=== PATIENT | male | born 1950 | race African-American/Black ===

== ENCOUNTER 2016-10-10 16:06 | Inpatient (IN) | payer MEDICARE, OTHER ==
[2016-10-10] VITALS (9 sets, daily range): BP systolic 116–174; BP diastolic 61–107; PULSE 113–134; RESP 20–22; TEMP 99–104.8; O2SAT 96–99
[~2016-10-10] VITALS: Ht 182.9 cm; Wt 106.7 kg
[~2016-10-10 16:06] MED LIST: APIX5TAB PO; BRIM.2%O EACH EYE; CALC0.25 PO; CHLOR25 PO; DILT90TA PO; FERR324T4 PO; FURO20 PO; HYDR50TA15 PO; LACTCAP6 PO; MAGN400T PO; METO100T PO; MYCO360 PO; PRED10 PO; PROT40TA PO; SALI1SPR8 EACH NARE; TAB-TAB PO; TACR1 PO; VITA100018 PO
--- NOTE | 2016-10-10 16:12 | PD ---
HPI Chief Complaint: ams Time Seen by Provider: 16:12 Travel History International Travel<30 days: No Contact w/Intl Traveler<30days: No Traveled to known affect area: No History of Present Illness HPI 66-year-old male with history of hypertension, CAD with stent placement, A. fib , previous CVA with right sided residual weakness, end-stage renal disease status post renal transplant/rejection, on hemodialysis, presents to the emergency department for evaluation of altered mental status. Patient was at hemodialysis today when he was noted to be altered. He was not responding appropriately. EMS was called and the patient was brought to the emergency department department. Patient is unable to offer any history. At this point his baseline mental status is unknown. Last hospitalization was 2013 and he resided in a long term at that time. We are unable to obtain any further information currently. PFSH Past Medical History Arthritis: Yes (R/HAND ) Atrial Fibrillation: Yes Autoimmune Disease: No Blood Disorders: No Anxiety: Yes Depression: Yes Heart Rhythm Problems: Yes Cancer: No Cardiac Catheterization: Yes Cardiovascular Problems: Yes High Cholesterol: Yes Chest Pain: Yes Congestive Heart Failure: No Cerebrovascular Accident: Yes (08/2013 CVA, RIGHT SIDE WEAKNESS) Coronary Artery Disease: Yes Diabetes: No (RENAL MANIFESTATION) Dialysis: Yes (HISTORY OF; NOT SINCE KIDNEY TRANSPLANT) Diverticulitis: Yes Endocrine: Yes Gastrointestinal Disorders: Yes GERD: Yes Glaucoma: Yes Gout: Yes Genitourinary: Yes (RIGHT KIDNEY TRANSPLANT) Headaches: No Hepatitis: No Hiatal Hernia: No Hypertension: Yes Immune Disorder: No Kidney Stones: No Musculoskeletal: Yes Neurologic: Yes (BELLS PALSY A CHILD) Psychiatric: Yes (SCHIZOPHRENIA) Reproductive: No Respiratory: No Migraines: No Myocardial Infarction: No Renal Failure: Yes Schizophrenia: Yes Seizures: No Shingles: Yes Thyroid Disease: No Ulcer: No Past Surgical History Abdominal Surgery: No AICD: No Appendectomy: No Arteriovenous Shunt: Yes (LEFT UPPER ARM X2) Cardiac Surgery: No (CATH WITH STENT PLACEMENT) Cholecystectomy: No Coronary Stent: Yes (X 1) Ear Surgery: No Endocrine Surgery: No Eye Surgery: No Genitourinary Surgery: Yes (KIDNEY TRANSPLANT) Insulin Pump: No Joint Replacement: No Oral Surgery: No Pacemaker: No Thoracic Surgery: No Other Surgery: Yes (KIDNEY TRANSPLANT) Social History Alcohol Use: No Tobacco Use: No (FORMER SMOKER) Substance Use: Yes (COCAINE LAST TIME USED 1989) Allergies-Medications (Allergen,Severity, Reaction): Coded Allergies: *MDRO Multi-Drug Resistant Organism (Verified Allergy, Unknown, 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 Eyes are open and he does track class in the room. SKIN: Warm and dry. Roxanol Left upper extremity fistula with positive thrill and bruit HEAD: Atraumatic. Normocephalic. EYES: Pupils equal and round. No scleral icterus. No injection or drainage. Pupils are equal and reactive. ENT: No nasal bleeding or discharge. Mucous membranes pink and moist. NECK: Trachea midline. No JVD. CARDIOVASCULAR: Tachycardic rate and irregular rhythm. RESPIRATORY: No accessory muscle use. Diminished, possibly due to inspiratory effort. Breath sounds equal bilaterally. GASTROINTESTINAL: Abdomen rotund, soft, no guarding. MUSCULOSKELETAL: No obvious deformities. No clubbing. No cyanosis. No edema. NEUROLOGICAL: Awake. I am unable to assess cranial nerves.. Patient is currently nonverbal. Data Data Last Documented VS Vital Signs Date Time Temp Pulse Resp B/P Pulse Ox O2 Delivery O2 Flow Rate FiO2 10/10/16 17:00 134 22 134/73 98 Room Air 10/10/16 16:06 104.8 Orders Electrocardiogram (10/10/16 16:13) Complete Blood Count With Diff (10/10/16 16:13) Comprehensive Metabolic Panel (10/10/16 16:13) Prothrombin Time / Inr (Pt) (10/10/16 16:13) Act Partial Throm Time (Ptt) (10/10/16 16:13) Lactic Acid Sepsis Protocol (10/10/16 16:13) Magnesium (Mg) (10/10/16 16:13) Phosphorus (Po4) (10/10/16 16:13) Urinalysis - C+S If Indicated (10/10/16 16:13) Influenzae A/B Antigen (10/10/16 16:13) Blood Culture (10/10/16 16:13) Chest, Single Ap (10/10/16 16:13) Blood Glucose (12/29/16 16:13) Ecg Monitoring (10/10/16 16:13) Iv Access Insert/Monitor (10/10/16 16:13) Oximetry (10/10/16 16:13) Oxygen Administration (10/10/16 16:13) Ct Brain W/O Iv Contrast(Rout) (10/10/16 16:13) Vancomycin Inj (Vancomycin Inj) (10/10/16 16:13) Piperacil-Tazo 2.25 Gm Premix (Zosyn 2.2 (10/10/16 16:15) Troponin I (10/10/16 16:38) Sodium Chlor 0.9% 1000 Ml Inj (Ns 1000 M (10/10/16 16:45) Sodium Chlor 0.9% 1000 Ml Inj (Ns 1000 M (10/10/16 16:45) Acetaminophen Supp (Tylenol Supp) (10/10/16 16:45) Insert Temp Sensing [place] Cath (10/10/16 16:40) Ammonia (10/10/16 16:44) Haloperidol Inj (Haldol Inj) (10/10/16 17:45) Labs Laboratory Tests Test 10/10/16 16:30 White Blood Count 15.2 TH/MM3 Red Blood Count 2.68 MIL/MM3 Hemoglobin 8.1 GM/DL Hematocrit 24.7 % Mean Corpuscular Volume 92.4 FL Mean Corpuscular Hemoglobin 30.3 PG Mean Corpuscular Hemoglobin 32.8 % Concent Red Cell Distribution Width 17.3 % Platelet Count 386 TH/MM3 Mean Platelet Volume 7.3 FL Neutrophils (%) (Auto) 86.2 % Lymphocytes (%) (Auto) 3.7 % Monocytes (%) (Auto) 9.2 % Eosinophils (%) (Auto) 0.7 % Basophils (%) (Auto) 0.2 % Neutrophils # (Auto) 13.1 TH/MM3 Lymphocytes # (Auto) 0.6 TH/MM3 Monocytes # (Auto) 1.4 TH/MM3 Eosinophils # (Auto) 0.1 TH/MM3 Basophils # (Auto) 0.0 TH/MM3 CBC Comment DIFF FINAL Differential Comment Prothrombin Time 13.4 SEC Prothromb Time International 1.2 RATIO Ratio Activated Partial 38.8 SEC Thromboplast Time Sodium Level 133 MEQ/L Potassium Level 3.8 MEQ/L Chloride Level 95 MEQ/L Carbon Dioxide Level 29.8 MEQ/L Anion Gap 8 MEQ/L Blood Urea Nitrogen 13 MG/DL Creatinine 3.28 MG/DL Estimat Glomerular Filtration 23 ML/MIN Rate Random Glucose 120 MG/DL Lactic Acid Level 2.3 mmol/L Calcium Level 8.1 MG/DL Phosphorus Level 0.5 MG/DL Magnesium Level 1.9 MG/DL Total Bilirubin 0.5 MG/DL Aspartate Amino Transf 16 U/L (AST/SGOT) Alanine Aminotransferase 22 U/L (ALT/SGPT) Alkaline Phosphatase 129 U/L Ammonia 17 MCMOL/L Total Protein 8.3 GM/DL Albumin 2.3 GM/DL [facility] Medical Decision Making Medical Screen Exam Complete: Yes Emergency Medical Condition: Yes Medical Record Reviewed: Yes Differential Diagnosis Sepsis versus electrolytic abnormality versus CVA versus ICH versus medication side effect Narrative Course 66-year-old male presents to the emergency department for evaluation of altered mental status following hemodialysis. Patient is awake here in the emergency department however he is nonverbal and not following commands. He is in A. fib with RVR. EKG is reviewed by my attending physician Dr. Horvath. Otherwise vital signs are stable. She has rectal temperature of 104.9. Sepsis protocol was initiated. Patient is given Tylenol per rectum. Dr. Horvath my attending physician has been at the bedside tending to the patient. Chest x-ray shows underinflation with atelectasis versus consolidation in the right lung base. WBC is with leukocytosis of 15.2 and neutrophilia of 86.2% Hemoglobin is 8.1. CMP is without acute concern. Creatinine has actually decreased when compared to previous labs to 3.28 from 7.57 My attending physician has spoken with the bridge builder. Patient will be admitted to the bridge builder service. Sepsis Criteria SIRS Criteria (2 or more): Temp > 100.9 or < 96.8, Heart rate over 90, WBC > 71229, < 4000 or > 10% bands Sepsis Criteria (SIRS+source): Infect source susp/known Severe Sepsis (+one): Organ Dysfunction, Lactate >2 Diagnosis Primary Impression: Altered mental status Qualified Code: R41.82 - Altered mental status, unspecified altered mental status type Additional Impressions: Sepsis Qualified Code: A41.9 - Sepsis, due to unspecified organism Pneumonia Qualified Code: J18.1 - Pneumonia of right lower lobe due to infectious organism Atrial fibrillation with rapid ventricular response Anemia in chronic kidney disease History of kidney transplant Admitting Information Admitting Physician Requests: Admit Condition: Stable Lisa Alvarez Oct 10, 2016 16:12
[2016-10-10] MEDS ORDERED: VANCOMYCIN INJ 1,000 MG in SODIUM CHLOR 0.9% 250 ML INJ 250 ML IV STA (16:13)
[2016-10-10] MEDS ORDERED: PIPERACIL-TAZO 2.25 GM PREMIX 50 ML IV ONE (16:15)
[2016-10-10] MEDS ORDERED: ACETAMINOPHEN 650 MG SUPP RECTAL ONE (16:45)
[2016-10-10] MEDS ORDERED: SODIUM CHLOR 0.9% 1000 ML INJ 1,000 ML IV ONE ×2 (16:45)
[2016-10-10 17:15] LABS: AUTOMATED NEUTROPHIL # 13.1 TH/MM3 (1.8-7.7); BASOPHIL % 0.2 % (0.0-2.0); EOSINOPHIL # 0.1 TH/MM3 (0-0.4); EOSINOPHIL % 0.7 % (0.0-4.0); HEMATOCRIT 24.7 % (39.0-51.0); HEMO FLAGS DIFF FINAL; LYMPH % 3.7 % (9.0-44.0); LYMPHOCYTE # 0.6 TH/MM3 (1.0-4.8); MEAN CELL VOLUME 92.4 FL (80.0-100.0); MEAN CORPUSCULAR HEMOGLOBIN 30.3 PG (27.0-34.0); MEAN CORPUSCULAR HGB CONC 32.8 % (32.0-36.0); MONO % 9.2 % (0.0-8.0); NEUT % 86.2 % (16.0-70.0); PLATELET COUNT 386 TH/MM3 (150-450); RED BLOOD COUNT 2.68 MIL/MM3 (4.50-5.90); RED CELL DISTRIBUTION WIDTH 17.3 % (11.6-17.2); WHITE BLOOD COUNT 15.2 TH/MM3 (4.0-11.0)
--- NOTE | 2016-10-10 17:20 | RADRPT ---
EXAM DATE/TIME: 10/10/2016 16:50 [facility] COMPARISON: CHEST SINGLE AP, September 13, 2013, 20:38. INDICATIONS : Fever. MEDICAL HISTORY : None. SURGICAL HISTORY : None. ENCOUNTER: Initial ACUITY: 1 day PAIN SCORE: 5/10 LOCATION: Bilateral chest FINDINGS: 2 AP views of the chest demonstrate stable mild enlargement of the cardiac silhouette. Lungs are unde rinflated and with opacity at the right lung base. No definite effusion or pneumothorax identified. T here are lines overlying the patient. No acute osseous abnormality is visualized. CONCLUSION: Underinflated examination with atelectasis versus mild consolidation at the right lung base. Cardiac silhouette remains mildly enlarged. Norm Mccartney MD on October 10, 2016 at 17:17 Board Certified Radiologist. This report was verified electronically.
[2016-10-10 17:28] LABS: ANION GAP 8 MEQ/L (5-15); BICARBONATE 29.8 MEQ/L (21.0-32.0); BLOOD UREA NITROGEN 13 MG/DL (7-18); CHLORIDE 95 MEQ/L (98-107); GLOMERULAR FILTRATION RATE 23 ML/MIN (>89); MAGNESIUM 1.9 MG/DL (1.5-2.5); POTASSIUM 3.8 MEQ/L (3.5-5.1); SODIUM (NA) 133 MEQ/L (136-145)
[2016-10-10 17:32] LABS: ALKALINE PHOSPHATASE 129 U/L (45-117); ALT (GPT) 22 U/L (12-78); APTT (PATIENT) 38.8 SEC (24.3-30.1); AST (GOT) 16 U/L (15-37); INTERNATIONAL NORMALIZED RATIO 1.2 RATIO; PROTHROMBIN TIME - PATIENT 13.4 SEC (9.8-11.6); TOTAL BILIRUBIN ADULT 0.5 MG/DL (0.2-1.0)
[2016-10-10] MEDS ORDERED: RESP: ALBUTEROL 2.5 MG/IPRATROPIUM 0.5 MG NEB (PRN) INH (17:45)
[2016-10-10] MEDS ORDERED: DEXTROSE 50% IN WATER 50 ML VIAL(D50) IV PUSH PRN (17:45)
[2016-10-10] MEDS ORDERED: MISCELLANEOUS NURSING INFORMATION XX SCH (17:45)
[2016-10-10] MEDS ORDERED: HALOPERIDOL LACTATE 5 MG/ML AMP IM ONE (17:45)
[2016-10-10] MEDS ORDERED: SODIUM CHLORIDE 0.9% FLUSH 5 ML FLUSH IV FLUSH PRN (17:45)
[2016-10-10] MEDS ORDERED: CHLORHEXIDINE GLUCONATE 2 % 1 PACK (2 CLOTHS) TOP PRN (17:45)
[2016-10-10] MEDS ORDERED: ONDANSETRON HCL 4 MG/2 ML VIAL IV PRN (17:45)
[2016-10-10] MEDS ORDERED: HEPARIN SODIUM - SQ 10,000 UNITS/ML VIAL SQ SCH (17:45)
[2016-10-10] MEDS ORDERED: ACETAMINOPHEN 325 MG TAB PO PRN (17:45)
[2016-10-10] MEDS ORDERED: NEPRLIQ PO (17:46)
[2016-10-10] MEDS ORDERED: DULC10SU3 RECTAL (17:46)
[2016-10-10] MEDS ORDERED: CHLO25TA5 PO (17:46)
[2016-10-10] MEDS ORDERED: NOVOLOGP2 SQ (17:46)
[2016-10-10] MEDS ORDERED: FLEEENE3 PR (17:46)
[2016-10-10] MEDS ORDERED: SEVEL800 PO (17:46)
[2016-10-10] MEDS ORDERED: TERA2CAP3 PO (17:46)
[2016-10-10] MEDS ORDERED: TRAM50TA PO (17:46)
[2016-10-10] MEDS ORDERED: BRIM.15%O EACH EYE (17:46)
[2016-10-10] MEDS ORDERED: MILKSUS PO (17:46)
[2016-10-10] MEDS ORDERED: METO100T PO (17:46)
[2016-10-10] MEDS ORDERED: CINA30 PO (17:46)
[2016-10-10] MEDS ORDERED: NEPHTAB3 PO (17:46)
[2016-10-10] MEDS ORDERED: CLON.1 PO (17:46)
[2016-10-10] MEDS ORDERED: APIX5TAB PO (17:46)
[2016-10-10] MEDS ORDERED: BENA25TA3 PO (17:46)
[2016-10-10] MEDS ORDERED: SENN8.6T8 PO (17:46)
[2016-10-10] MEDS ORDERED: DILT90TA PO (17:46)
[2016-10-10] MEDS ORDERED: ACIDCAP2 PO (17:46)
[2016-10-10] MEDS ORDERED: [UNRECOGNIZED DRUG - OTHER] EACH NARE (17:46)
--- NOTE | 2016-10-10 17:58 | PD ---
Data Data Last Documented VS Vital Signs Date Time Temp Pulse Resp B/P Pulse Ox O2 Delivery O2 Flow Rate FiO2 10/10/16 17:00 134 22 134/73 98 Room Air 10/10/16 16:06 104.8 Orders Electrocardiogram (10/10/16 16:13) Complete Blood Count With Diff (10/10/16 16:13) Comprehensive Metabolic Panel (10/10/16 16:13) Prothrombin Time / Inr (Pt) (10/10/16 16:13) Act Partial Throm Time (Ptt) (10/10/16 16:13) Lactic Acid Sepsis Protocol (10/10/16 16:13) Magnesium (Mg) (10/10/16 16:13) Phosphorus (Po4) (10/10/16 16:13) Urinalysis - C+S If Indicated (10/10/16 16:13) Influenzae A/B Antigen (10/10/16 16:13) Blood Culture (10/10/16 16:13) Chest, Single Ap (10/10/16 16:13) Blood Glucose (10/10/16 16:13) Ecg Monitoring (10/10/16 16:13) Iv Access Insert/Monitor (10/10/16 16:13) Oximetry (10/10/16 16:13) Oxygen Administration (10/10/16 16:13) Ct Brain W/O Iv Contrast(Rout) (10/10/16 16:13) Vancomycin Inj (Vancomycin Inj) (10/10/16 16:13) Piperacil-Tazo 2.25 Gm Premix (Zosyn 2.2 (10/10/16 16:15) Troponin I (10/10/16 16:38) Sodium Chlor 0.9% 1000 Ml Inj (Ns 1000 M (10/10/16 16:45) Sodium Chlor 0.9% 1000 Ml Inj (Ns 1000 M (10/10/16 16:45) Acetaminophen Supp (Tylenol Supp) (10/10/16 16:45) Insert Temp Sensing [place] Cath (10/10/16 16:40) Ammonia (10/10/16 16:44) Haloperidol Inj (Haldol Inj) (10/10/16 17:45) Admit Order (Ed Use Only) (10/10/16 17:42) Haloperidol Inj (Haldol Inj) (10/10/16 17:45) Labs Laboratory Tests Test 10/10/16 10/10/16 16:30 17:00 White Blood Count 15.2 TH/MM3 Red Blood Count 2.68 MIL/MM3 Hemoglobin 8.1 GM/DL Hematocrit 24.7 % Mean Corpuscular Volume 92.4 FL Mean Corpuscular Hemoglobin 30.3 PG Mean Corpuscular Hemoglobin 32.8 % Concent Red Cell Distribution Width 17.3 % Platelet Count 386 TH/MM3 Mean Platelet Volume 7.3 FL Neutrophils (%) (Auto) 86.2 % Lymphocytes (%) (Auto) 3.7 % Monocytes (%) (Auto) 9.2 % Eosinophils (%) (Auto) 0.7 % Basophils (%) (Auto) 0.2 % Neutrophils # (Auto) 13.1 TH/MM3 Lymphocytes # (Auto) 0.6 TH/MM3 Monocytes # (Auto) 1.4 TH/MM3 Eosinophils # (Auto) 0.1 TH/MM3 Basophils # (Auto) 0.0 TH/MM3 CBC Comment DIFF FINAL Differential Comment Prothrombin Time 13.4 SEC Prothromb Time International 1.2 RATIO Ratio Activated Partial 38.8 SEC Thromboplast Time Sodium Level 133 MEQ/L Potassium Level 3.8 MEQ/L Chloride Level 95 MEQ/L Carbon Dioxide Level 29.8 MEQ/L Anion Gap 8 MEQ/L Blood Urea Nitrogen 13 MG/DL Creatinine 3.28 MG/DL Estimat Glomerular Filtration 23 ML/MIN Rate Random Glucose 120 MG/DL Lactic Acid Level 2.3 mmol/L Calcium Level 8.1 MG/DL Phosphorus Level 0.5 MG/DL Magnesium Level 1.9 MG/DL Total Bilirubin 0.5 MG/DL Aspartate Amino Transf 16 U/L (AST/SGOT) Alanine Aminotransferase 22 U/L (ALT/SGPT) Alkaline Phosphatase 129 U/L Ammonia 17 MCMOL/L Troponin I LESS THAN 0.02 NG/ML Total Protein 8.3 GM/DL Albumin 2.3 GM/DL Urine Color RED Urine Turbidity CLOUDY Urine pH 7.5 Urine Specific [place] 1.017 Urine Protein 100 mg/dL Urine Glucose (UA) NEG mg/dL Urine Ketones NEG mg/dL Urine Occult Blood LARGE Urine Nitrite NEG Urine Bilirubin NEG Urine Urobilinogen LESS THAN 2.0 MG/DL Urine Leukocyte Esterase LARGE Urine RBC /hpf Urine WBC /hpf Urine WBC Clumps MANY Urine Squamous Epithelial 4 /hpf Cells Urine Calcium Oxalate Crystals MANY /hpf Microscopic Urinalysis Comment CATH-CULTURE IND MDM Supervised Visit with LISA: Yes Narrative Course I, Dr. Horvath, have reviewed the advance practice practitioner's documentation and am in agreement, met with the patient face to face, made the diagnosis, and the medical decision making was done by me. *My assessment and Findings: Patient is 66-year-old male presents today from dialysis where he was found to be febrile with altered mental status. According to EMS patient was lucid and afebrile when he started dialysis and then slowly progress to altered mental status. On arrival is temperature is 100.2 Fahrenheit by EMS. He is altered and will not even answer orientation questions. GCS of GCS E4,M6,V3-4= 13-14. Patient does move all 4 extremities he has a pneumonia on his chest x-ray. He has 4 out of 4 surge criteria lactic acid is only 2.2. He is toxic encephalopathy by definition. Started on vancomycin and Zosyn in the ER 2 L fluid bolus is been started and patient will be reassessed after words. His lactic acid is 2.2 and I think is fair to limit his fluid resuscitation given his history of hemodialysis-dependent renal failure. Patient was discussed with Dr. Napier early in his ER evaluation. He will be given Haldol as well as Benadryl to help sedate him for CAT scan. Dr. Napier and I did discuss intubation to aid his workup however at this time the patient is protecting his airway and we will defer intubation at this time. Critical Care Narrative Aggregate critical care time was 35 minutes. Time to perform other separately billable procedures was not included in the critical care time. My time did not include minutes spent treating any other patients simultaneously or on activities that did not directly contribute to the patient's treatment. The services I provided to this patient were to treat and/or prevent clinically significant deterioration that could result in: , disability, organ failure I provided critical care services requiring my management, as noted below: Chart data review, documentation time, medication orders and management, vital sign assessments/reviewing monitor data, ordering and reviewing lab tests, ordering and interpreting/reviewing x-rays and diagnostic studies, care of the patient and discussion of the patient with the admitting physicians. Diagnosis Primary Impression: Severe sepsis Additional Impressions: Toxic encephalopathy Altered mental status Qualified Code: R41.82 - Altered mental status, unspecified altered mental status type Atrial fibrillation with rapid ventricular response Pneumonia Qualified Code: J18.1 - Pneumonia of right lower lobe due to infectious organism Tachycardia Sepsis syndrome Sepsis Qualified Code: A41.9 - Sepsis, due to unspecified organism Agitation Admitting Information Admitting Physician Requests: Admit Condition: Naseem Monaco MD Oct 10, 2016 17:58
[2016-10-10] MEDS ORDERED: chlorproMAZINE HCL 25 MG TAB PO SCH (18:00)
[2016-10-10] MEDS ORDERED: SEVELAMER CARBONATE 800 MG TAB PO SCH (18:00)
[2016-10-10] MEDS ORDERED: Vancomycin Consult Pharmacy 1 EA OTHER SCH (18:00)
[2016-10-10 18:07] LABS: BLOOD, URINE LARGE (NEG); CALCIUM OXALATE CRYSTALS,URINE MANY /hpf; GLUCOSE,URINE NEG (NEG); KETONE, URINE NEG (NEG); NITRITE,URINE NEG (NEG); PH, URINE 7.5 (5.0-8.5); SQUAMOUS EPITHELIAL CELL URINE 4 /hpf (0-5)
[2016-10-10 18:12] LABS: COMMENT (UR) CATH-CULTURE IND; CULTURE IF INDICATED CATH CULTURE IND; URINE COLOR RED (YELLW/STRAW)
--- NOTE | 2016-10-10 18:39 | HHI.HP ---
HPI Service Critical Care Medicine Primary Care Physician Unknown Admission Diagnosis AMS; severe sepsis (pneumonia); ESRD; Afib w RVR Diagnosis: Chief Complaint: altered mental status Travel History International Travel<30 Days: No Contact w/Intl Traveler <30 Da: No Traveled to Known Affected Are: No History of Present Illness 66-year-old male with history of hypertension, CAD with stent placement, A. fib , previous CVA with right sided residual weakness, end-stage renal disease status post renal transplant/rejection, on hemodialysis, presents to the emergency department for evaluation of altered mental status. Patient was at hemodialysis today when he was noted to be altered. He was not responding appropriately. EMS was called and the patient was brought to the emergency department department. Patient is unable to offer any history. At this point his baseline mental status is unknown. Last hospitalization was 2013 and he resided in a retirement at that time. We are unable to obtain any further information currently. Review of Systems ROS Limitations: Clinical Condition, Altered Mental Status Past Family Social History Allergies: Coded Allergies: *MDRO Multi-Drug Resistant Organism (Verified Allergy, Unknown, 10/10/16) MRSA Past Medical History Unobtainable secondary to patient's clinical condition. 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 per chart review, the patient is on Xarelto, presumably for a.fib. Active Ordered Medications See MAR Family History Unobtainable secondary to clinical condition Social History unobtainable. per chart review, denied etoh, former smoker, former cocaine use before 1989. Physical Exam Vital Signs Vital Signs Date Time Temp Pulse Resp B/P Pulse Ox O2 Delivery O2 Flow Rate FiO2 10/10/16 18:00 100.9 128 22 135/61 98 Room Air 10/10/16 17:00 134 22 134/73 98 Room Air 10/10/16 16:06 104.8 129 20 139/72 96 10/10/16 16:06 104.8 128 22 134/73 98 Room Air 10/10/16 16:06 136 22 98 Room Air Physical Exam GENERAL: Elderly male, lying in bed, very restless, agitated, in moderate distress. HEENT: Normocephalic. Atraumatic. Pupils equally round and reactive. Mucous membranes moist. NECK: Trachea is midline. There is no JVD. There is no meningismus. CHEST: Tachypneic. Equal chest rise. SPO2 96% on room air. Clear to auscultation. CARDIOVASCULAR: Tachycardic rate, irregularly irregular rhythm. No appreciable murmurs ABDOMEN: Soft, obese, nontender, nondistended. No guarding. MUSCULOSKELETAL: Large left AV fistula with good palpable thrill. No peripheral edema. Distal pulses 2+. NEUROLOGICAL: RASS +1, CAM positive. Intermittently follows commands. Moves all extremities spontaneously. No focal deficits Laboratory Laboratory Tests Test 10/10/16 10/10/16 16:30 17:00 White Blood Count 15.2 Red Blood Count 2.68 Hemoglobin 8.1 Hematocrit 24.7 Mean Corpuscular Volume 92.4 Mean Corpuscular Hemoglobin 30.3 Mean Corpuscular Hemoglobin 32.8 Concent Red Cell Distribution Width 17.3 Platelet Count 386 Mean Platelet Volume 7.3 Neutrophils (%) (Auto) 86.2 Lymphocytes (%) (Auto) 3.7 Monocytes (%) (Auto) 9.2 Eosinophils (%) (Auto) 0.7 Basophils (%) (Auto) 0.2 Neutrophils # (Auto) 13.1 Lymphocytes # (Auto) 0.6 Monocytes # (Auto) 1.4 Eosinophils # (Auto) 0.1 Basophils # (Auto) 0.0 CBC Comment DIFF FINAL Differential Comment Prothrombin Time 13.4 Prothromb Time International 1.2 Ratio Activated Partial 38.8 Thromboplast Time Sodium Level 133 Potassium Level 3.8 Chloride Level 95 Carbon Dioxide Level 29.8 Anion Gap 8 Blood Urea Nitrogen 13 Creatinine 3.28 Estimat Glomerular Filtration 23 Rate Random Glucose 120 Lactic Acid Level 2.3 Calcium Level 8.1 Phosphorus Level 0.5 Magnesium Level 1.9 Total Bilirubin 0.5 Aspartate Amino Transf 16 (AST/SGOT) Alanine Aminotransferase 22 (ALT/SGPT) Alkaline Phosphatase 129 Ammonia 17 Troponin I LESS THAN 0.02 Total Protein 8.3 Albumin 2.3 Urine Color RED Urine Turbidity CLOUDY Urine pH 7.5 Urine Specific [place] 1.017 Urine Protein 100 Urine Glucose (UA) NEG Urine Ketones NEG Urine Occult Blood LARGE Urine Nitrite NEG Urine Bilirubin NEG Urine Urobilinogen LESS THAN 2.0 Urine Leukocyte Esterase LARGE Urine RBC Urine WBC Urine WBC Clumps MANY Urine Squamous Epithelial 4 Cells Urine Calcium Oxalate Crystals MANY Microscopic Urinalysis Comment CATH-CULTURE IND Date/Time Procedure Status Source Growth 10/10/16 17:00 Urine Culture Received Urine Catheterized Urine Pending 10/10/16 16:30 Aerobic Blood Culture Received Blood Peripheral Pending 10/10/16 16:30 Anaerobic Blood Culture Received Blood Peripheral Pending Result Diagram: 10/10/16 1630 10/10/16 1630 Assessment and Plan Assessment and Plan Assessment: This is a 66-year-old male with history of end-stage renal disease on hemodialysis who presented from dialysis clinic with new onset fever, tachycardia, altered mental status. This is all very suspicious for sepsis with metabolic encephalopathy. He does not have an oxygen requirement so a healthcare associated pneumonia would be unlikely. He also does not appear to be coughing. His UA is grossly positive and has been sent for culture. We've sent blood cultures. Initially in the emergency department there is concern over her lack of adequate IV access for resuscitation and central venous access was considered. I went down to bedside to evaluate the patient and immediately placed a 14-gauge peripheral IV in the left saphenous which we are adequately using for resuscitation. Unfortunately, I do not know much about the patient since he did not come with any records. If he truly has a renal transplant, then he may be immunosuppressed, and we may need to consider other options for infectious sources. I will attempt to obtain records from his outside facility. Otherwise, this patient with end-stage renal disease, coronary disease, atrial fibrillation, now with what appears to be severe sepsis is critically ill this time and could very easily decompensate not admitted to NICU with appropriate antibiotic and IV fluid resuscitation therapy. He remains very critically ill. Plan by systems: Neurologic: Acute agitated delirium Metabolic encephalopathy Possible schizophrenia based on documented past medical history Hold long-acting sedating meds Haldol 5 mg IV every 4 hours when necessary for agitation Every hour neuro checks Stat head CT Likely septic in origin We will follow-up medical records. If He truly does have schizophrenia, we will attempt to place him back on his home meds Respiratory: Atelectasis Wean oxygen by nasal cannula for goal SPO2 greater than 92%. Currently on room air. Incentive spirometer to bedside EZ Pap and a cappella Cardiovascular: Atrial fibrillation Severe sepsis Coronary artery disease Status post 2 L normal saline in the ER Start maintenance fluids normal saline at 125 an hour Hold metoprolol and diltiazem the setting of severe sepsis Tachycardia is likely SIRS response. Continue home Xarelto Renal: End-stage renal disease on hemodialysis Had HD today. Will consult nephrology to follow along. -- Strict I/Os FEN/GI: Acute protein calorie malnutritionmild Intravascular hypovolemia Severe hypophosphatemia Hold hold phosphorus binder Nothing by mouth Nursing bedside swallow assessment. In the morning we may consider advancing to clear liquid diet, but in the setting of severe sepsis, we will keep patient nothing by mouth Volume resuscitation as described above Daily BMP, phosphorus Heme/ID: Anemia of chronic disease Leukocytosis Urinary tract infection Possible bacteremia Anticoagulation for atrial fibrillation Vancomycin with pharmacy dosing Zosyn 2.25 g IV every 8 Blood, urine, sputum cultures Does not meet transfusion triggers at this time Daily CBC Continue Xarelto Endocrine: Hyperglycemia of critical illness -- SSI, medium scale, every 6 hours Prophylaxis: GI Prophylaxis Does not need evidence based criteria for GI prophylaxis at this time DVT Prophylaxis -- SCDs Home Xarelto Lines: Peripheral IVs. He has 2 large-bore IVs which are adequate for resuscitation. We will reevaluate. He may need central access in the future. Dispo: Admit to the ICU. He remains critically ill. This patient remains critically ill with one or more organ systems which are or may become a threat to life. I have spent in excess of [ ] minutes discontinuously in the care and management of this patient. This time is exclusive of procedures, and includes, but is not limited to, evaluation of the patient, review of the medical record, discussions with family, consultants, nursing staff, or respiratory therapy, and documentation in the medical record. Code Status Full Code Melvin Duron MD Oct 10, 2016 18:39
[2016-10-10] MEDS ORDERED: diphenhydrAMINE HCL 50 MG/ML VIAL IV PUSH ONE (18:45)
[2016-10-10 19:03] LABS: LACTIC ACID GHOST NOT REPORTABLE
[2016-10-10] MEDS: SODIUM CHLOR 0.9% 1000 ML INJ 1,000 ML IV SCH (19:49)
[2016-10-10] MEDS: INSULIN NovoLIN REGULAR SUPPLEMENTAL SCALE SQ SCH (19:52)
[2016-10-10] MEDS ORDERED: VANCOMYCIN 1,000 MG/NS 250 ML IV ONE ×2 (20:00)
[2016-10-10] MEDS ORDERED: SODIUM PHOSPHATE INJ 30 MMOL in SODIUM CHLOR 0.9% 250 ML INJ 250 ML IV ONE (20:00)
[2016-10-10] MEDS: RESP: ALBUTEROL 2.5 MG/IPRATROPIUM 0.5 MG NEB (SCH) INH (20:09)
[2016-10-10] MEDS: APIXABAN 5 MG TABLET PO SCH (21:00)
[2016-10-10] MEDS: SODIUM CHLORIDE 0.9% FLUSH 5 ML FLUSH IV FLUSH SCH (22:44)
[2016-10-11] VITALS (14 sets, daily range): BP systolic 111–161; BP diastolic 64–92; PULSE 97–130; RESP 30–40; TEMP 99–100.1; O2SAT 91–100
[2016-10-11] MEDS ORDERED: DILTIAZEM HCL 25 MG/5 ML VIAL IVP ONE (01:00)
[2016-10-11] MEDS: PIPERACIL-TAZO 2.25 GM PREMIX 50 ML IV SCH ×3 (01:17→18:06)
[2016-10-11] MEDS: DILTIAZEM INJ 125 MG in SODIUM CHLORIDE 0.9% INJ 100 ML IV SCH ×3 (01:32→17:55)
[2016-10-11] MEDS: SODIUM CHLOR 0.9% 1000 ML INJ 1,000 ML IV SCH ×2 (01:32→09:43)
[2016-10-11] MEDS: CHLORHEXIDINE GLUCONATE 2 % 1 PACK (2 CLOTHS) TOP SCH (01:32)
[2016-10-11] MEDS: HALOPERIDOL LACTATE 5 MG/ML AMP IV PRN ×3 (02:24→18:15)
[2016-10-11] MEDS: RESP: ALBUTEROL 2.5 MG/IPRATROPIUM 0.5 MG NEB (SCH) INH ×4 (03:53→20:32)
[2016-10-11] MEDS: INSULIN NovoLIN REGULAR SUPPLEMENTAL SCALE SQ SCH ×6 (04:00→20:00)
[2016-10-11 08:36] LABS: HEMATOCRIT 24.2 % (39.0-51.0); MEAN CELL VOLUME 92.8 FL (80.0-100.0); MEAN CORPUSCULAR HEMOGLOBIN 29.4 PG (27.0-34.0); MEAN CORPUSCULAR HGB CONC 31.7 % (32.0-36.0); PLATELET COUNT 352 TH/MM3 (150-450); RED BLOOD COUNT 2.61 MIL/MM3 (4.50-5.90); RED CELL DISTRIBUTION WIDTH 17.3 % (11.6-17.2); REVIEW FLAG FINAL; WHITE BLOOD COUNT 13.4 TH/MM3 (4.0-11.0)
[2016-10-11] MEDS ORDERED: ACETAMINOPHEN 1000 MG/100 ML VIAL IV PRN ×2 (08:45→09:00)
[2016-10-11 08:50] LABS: BICARBONATE 28.8 MEQ/L (21.0-32.0); POTASSIUM 3.5 MEQ/L (3.5-5.1)
[2016-10-11] MEDS: APIXABAN 5 MG TABLET PO SCH ×2 (09:00→21:00)
[2016-10-11] MEDS: SODIUM CHLORIDE 0.9% FLUSH 5 ML FLUSH IV FLUSH SCH ×2 (09:26→21:57)
--- NOTE | 2016-10-11 10:33 | HHI.CCPN ---
Subjective Remarks/Hospital Course Subjective: 10/11: worsening oxygenation overnight. maintenance fluids stopped. this morning less agitated. still tachycardic, and started on diltiazem drip for rate control in the setting of afib RVR and sepsis. Objective Vital Signs Date Time Temp Pulse Resp B/P Pulse Ox O2 Delivery O2 Flow Rate FiO2 10/11/16 08:39 98 Nasal Cannula 2.00 10/11/16 06:00 117 10/11/16 04:00 100.1 30 135/92 Result Diagram: 10/11/1681410/11/16814 Objective Remarks GENERAL: Elderly male, lying in bed, agitated HEENT: Normocephalic. Atraumatic. Pupils equally round and reactive. Mucous membranes moist. NECK: Trachea is midline. There is no JVD. There is no meningismus. CHEST: Tachypneic. Equal chest rise. some coarse rales at the bases. CARDIOVASCULAR: Tachycardic rate, irregularly irregular rhythm. No appreciable murmurs ABDOMEN: Soft, obese, nontender, nondistended. No guarding. MUSCULOSKELETAL: Large left AV fistula with good palpable thrill. No peripheral edema. Distal pulses 2+. NEUROLOGICAL: RASS +1, CAM positive. Intermittently follows commands. Moves all extremities spontaneously. No focal deficits A/P Assessment and Plan Assessment: This is a 66-year-old male with history of end-stage renal disease on hemodialysis who presented from dialysis clinic with new onset fever, tachycardia, altered mental status. This is all very suspicious for sepsis with metabolic encephalopathy. He continues to be at very high risk of decompensation and , and his increasing oxygen requirement today, his A.Fib with RVR, and his ongoing sepsis all continue to be life-threatening for him. He remains critically ill and we have not made improvements as I would have expected or hoped. I will discuss with nephrology, and he may require repeat dialysis again today to help with volume management. Plan by systems: Neurologic: Acute agitated delirium Metabolic encephalopathy Possible schizophrenia based on documented past medical history Hold long-acting sedating meds Haldol 5 mg IV every 4 hours when necessary for agitation Every hour neuro checks Stat head CT ordered 10/10 has not yet been done. will obtain today. Likely septic in origin psych consult from 2012 recommended prn haldol for agitation, but no overt diagnosis of schizophrenia that we can find. Respiratory: Atelectasis Hypoxemia Wean oxygen by nasal cannula for goal SPO2 greater than 92%. --likely starting with early volume overload secondary to re-mobilization of resuscitative fluids needed for sepsis. Incentive spirometer to bedside EZ Pap and a cappella Cardiovascular: Atrial fibrillation with rapid ventricular response Severe sepsis Coronary artery disease d/c MIVF. restart home diltiazem and metoprolol. \ --continue dilt drip, goal HR < 120. Tachycardia is likely SIRS response. Continue home Xarelto Renal: End-stage renal disease on hemodialysis Had HD yesterday. Nephrology consulted. he may need HD again today for volume management in the acute sepsis/post-sepsis fluid shifts. -- Strict I/Os FEN/GI: Acute protein calorie malnutritionmild Intravascular hypovolemia Severe hypophosphatemia- resolving Hold hold phosphorus binder Nothing by mouth Nursing bedside swallow assessment. still not awake enough to advance diet. will monitor. Daily BMP, phosphorus Heme/ID: Anemia of chronic disease Leukocytosis Urinary tract infection Possible bacteremia Anticoagulation for atrial fibrillation Vancomycin with pharmacy dosing Zosyn 2.25 g IV every 8 Blood, urine, sputum cultures pending Does not meet transfusion triggers at this time Daily CBC Continue Xarelto Endocrine: Hyperglycemia of critical illness -- SSI, medium scale, every 6 hours Prophylaxis: GI Prophylaxis Does not need evidence based criteria for GI prophylaxis at this time DVT Prophylaxis -- SCDs Home Xarelto Lines: Peripheral IVs. He has 2 large-bore IVs which are adequate for resuscitation. We will reevaluate. He may need central access in the future. Dispo: remain in the ICU. He remains critically ill. This patient remains critically ill with one or more organ systems which are or may become a threat to life. I have spent in excess of 44 minutes discontinuously in the care and management of this patient. This time is exclusive of procedures, and includes, but is not limited to, evaluation of the patient, review of the medical record, discussions with family, consultants, nursing staff, or respiratory therapy, and documentation in the medical record. Melvin Duron MD Oct 11, 2016 10:33
--- NOTE | 2016-10-11 11:49 | RADRPT ---
EXAM DATE/TIME: 10/11/2016 11:22 [facility] COMPARISON: CT BRAIN W/O CONTRAST, August 31, 2013, 18:30. INDICATIONS : Altered mental status. Confusion. RADIATION DOSE: 44.73 CTDIvol (mGy) MEDICAL HISTORY : Cardiovascular disease. Hypertension. Diabetes mellitus type 2. SURGICAL HISTORY : None. ENCOUNTER: Initial ACUITY: 1 day PAIN SCALE: 2/10 LOCATION: cranial TECHNIQUE: Multiple contiguous axial images were obtained of the head. Using automated exposure control and adj ustment of the mA and/or kV according to patient size, radiation dose was kept as low as reasonably a chievable to obtain optimal diagnostic quality images. FINDINGS: CEREBRUM: The ventricles are normal for age. There is stable bilateral cortical atrophy. No evidence of midlin e shift, mass lesion, hemorrhage or acute infarction. No extra-axial fluid collections are seen. POSTERIOR FOSSA: The cerebellum and brainstem are intact. The 4th ventricle is midline. The cerebellopontine angle i s unremarkable. EXTRACRANIAL: The visualized portion of the orbits is intact. SKULL: The calvaria is intact. No evidence of skull fracture. CONCLUSION: 1. Stable bilateral cortical atrophy. 2. No new or significant changes compared to the prior study from 2012. Scooter Zavala MD on October 11, 2016 at 11:46 Board Certified Radiologist. This report was verified electronically.
[2016-10-11] MEDS: DILTIAZEM HCL 90 MG TAB PO SCH ×3 (11:50→18:09)
[2016-10-11] MEDS: METOPROLOL TARTRATE 100 MG TAB PO SCH ×3 (11:50→22:00)
[2016-10-11] MEDS ORDERED: DILTIAZEM HCL 90 MG TAB PO SCH (13:00)
[2016-10-11] MEDS ORDERED: SODIUM CHLOR 0.9% 1000 ML INJ 1,000 ML IV PRN ×3 (13:21)
[2016-10-11] MEDS ORDERED: ACETAMINOPHEN 325 MG TAB PO PRN (13:30)
[2016-10-11] MEDS ORDERED: cloNIDine HCL 0.1 MG TAB PO PRN (13:30)
[2016-10-11] MEDS ORDERED: HEPARIN SODIUM - IV 10,000 UNITS/10 ML VIAL IVF PRN (13:30)
[2016-10-11] MEDS ORDERED: ONDANSETRON HCL 4 MG/2 ML VIAL IV PRN (13:30)
[2016-10-11] MEDS ORDERED: GENTAMICIN SULFATE (DIALYSIS USE ONLY) 20 MG/2 ML VIAL IV PRN (13:30)
[2016-10-11] MEDS ORDERED: SODIUM CHLORIDE 0.9% FLUSH 5 ML FLUSH IVF PRN (13:30)
[2016-10-11] MEDS ORDERED: VANCOMYCIN INJ 1,000 MG in SODIUM CHLOR 0.9% 250 ML INJ 250 ML IV SCH (13:30)
[2016-10-11] MEDS ORDERED: ALBUMIN HUMAN 25% 25 GM/100 ML BAGP IV PRN (13:30)
[2016-10-11] MEDS ORDERED: HEPARIN SODIUM - IV 10,000 UNITS/10 ML VIAL PRN (13:30)
[2016-10-11] MEDS ORDERED: NITROGLYCERIN 0.4 MG SL 25 TABS/BTL SL PRN (13:30)
[2016-10-11] MEDS ORDERED: diphenhydrAMINE HCL 25 MG CAP PO PRN (13:30)
[2016-10-11] MEDS ORDERED: MANNITOL 12.5 GM/50 ML VIAL IV PRN (13:30)
--- NOTE | 2016-10-11 13:33 | PD.CONS ---
HPI Service Nephrology Consult Requested By Dr. Duron Reason for Consult ESRD on HD Primary Care Physician Unknown History of Present Illness The patient is a 66 yo AA male who was brought to this facility via EMS as it was noted that he had altered mentation at his outpatient dialysis unit. He is obtunded presently and all information was gathered from previous records. 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 Last HD was yesterday as per records, but uncertain how long treatment time was , nor if any recently missed sessions. He has a LUE AVF. UA was indicative of UTI---UCx pending at the present. BCx negative x24h. Being treated empirically with Vanc & Zosyn. 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 GERD Glaucoma Gout Hypertension Schizophrenia Past Surgical History LUE AVF PTCA Kidney transplant Reported Medications Reported Meds & Active Scripts Active Reported Tramadol (Tramadol HCl) 50 Mg Tab 50 Mg PO Q8H PRN Terazosin (Terazosin HCl) 2 Mg Cap 2 Mg PO HS Nephro-[place] (B-Complex W/ C & Folic Acid) 1 Tab 1 Tab PO DAILY Milk of Magnesia Liq (Magnesium Hydroxide) 400 Mg/5 Ml Susp 30 Ml PO DAILY PRN Metoprolol Tartrate 100 Mg Tab 100 Mg PO Q8HR Sensipar (Cinacalcet) 30 Mg Tab 30 Mg PO DAILY With Dinner Senna S (Sennosides-Docusate Sodium) 8.6-50 Mg Tab 2 Tab PO HS Renvela (Sevelamer Carbonate) 800 Mg Tab 2,400 Mg PO TID With meals. Give 2 tablets (1,600mg) with snacks Fleet Enema Rectal (Sodium Phosphates Rectal) 7-19 Gm/118 Ml Enem 1 Applic [place] DIRECTED PRN Eliquis (Apixaban) 5 Mg Tab 5 Mg PO BID [Sea Salt Nasal [place]] 1 [place] EACH NARE BID Novolog Inj (Insulin Aspart) 1,000 Unit/10 Ml Vial 0 SQ DIRECTED Sliding Scale as directed. Nepro (Nutritional Supplements) 1 Liq Liq 1 Can PO DAILY Diltiazem (Diltiazem HCl) 90 Mg Tab 90 Mg PO TID Catapres (Clonidine) 0.1 Mg Tab 0.1 Mg PO Q6HR PRN Chlorpromazine HCl 25 Mg Tab 25 Mg PO TID Dulcolax Supp (Bisacodyl) 10 Mg Supp 10 Mg RECTAL DAILY PRN Benadryl Allergy (Diphenhydramine HCl) 25 Mg Tab 25 Mg PO Q8HR PRN Alphagan P Opth Drops (Brimonidine Tartrate) 0.15% Soln 1 Drop EACH EYE HS Acidophilus/Pectin (Lactobacillus Acidophilus-Pect) 1 Cap Cap 1 Cap PO BID Active Ordered Medications Current Medications Medications (Trade) Dose Ordered Sig/Dannielle Route Start Time Stop Time Status Last Admin (Haldol Inj) 5 mg Q4H PRN IV 10/10/16 17:45 10/11/16 07:34 (D50w (Vial) Inj) 25 ml UNSCH PRN IV PUSH 10/10/16 17:45 (NovoLIN R SUPPLEMENTAL SCALE) 1 Q4HR SQ 10/10/16 20:00 (NS Flush) 2 ml UNSCH PRN IV FLUSH 10/10/16 17:45 (NS Flush) 2 ml BID IV FLUSH 10/10/16 21:00 10/11/16 09:26 (Tylenol) 650 mg Q6H PRN PO 10/10/16 17:45 (Zofran Inj) 4 mg Q6H PRN IV 10/10/16 17:45 Miscellaneous Information 1 Q361D XX 10/10/16 17:45 (Chlorhexidine 2% Cloth) 3 pack Taper DAILY@04 TOP 10/11/16 04:00 10/07/17 03:59 10/11/16 01:32 Chlorhexidine Gluconate 3 pack 3 pack UNSCH PRN TOP 10/10/16 17:45 (Zosyn 2.25 Gm Premix) 50 ml @ 100 mls/hr Q8H IV 10/11/16 02:00 10/11/16 09:39 Apixaban 5 mg 5 mg BID PO 10/10/16 21:00 (Cardizem Inj/NS Inj) 125 ml @ 0 mls/hr TITRATE IV 10/11/16 01:00 10/11/16 09:28 (Thorazine Inj) 25 mg Q8HR IV 10/11/16 09:00 10/11/16 13:16 (Ofirmev Inj) 650 mg Q6HR PRN IV 10/11/16 09:00 (Cardizem) 90 mg TID PO 10/11/16 10:30 10/11/16 13:15 (Lopressor) 100 mg Q8HR PO 10/11/16 11:00 10/11/16 11:50 Family History Unobtainable Social History Unobtainable (Bessie Cesar) Physical Exam Vital Signs Vital Signs Date Time Temp Pulse Resp B/P Pulse Ox O2 Delivery O2 Flow Rate FiO2 10/11/16 12:00 105 10/11/16 12:00 99.0 105 35 139/78 100 10/11/16 10:00 104 10/11/16 08:39 98 Nasal Cannula 2.00 10/11/16 08:00 99.1 98 40 138/79 95 10/11/16 08:00 98 10/11/16 06:00 117 10/11/16 04:00 100.1 115 30 135/92 91 10/11/16 04:00 115 10/11/16 02:00 124 10/11/16 00:00 127 10/11/16 00:00 99.0 127 31 161/87 98 10/10/16 22:00 114 10/10/16 21:49 99.2 123 20 174/107 98 10/10/16 20:11 99 Nasal Cannula 2.00 10/10/16 20:00 99.0 113 22 130/85 99 Nasal Cannula 2 10/10/16 19:00 100.4 116 22 116/61 99 Nasal Cannula 2 10/10/16 18:50 97 Nasal Cannula 2 10/10/16 18:30 122 20 136/80 99 Room Air 10/10/16 18:00 100.9 128 22 135/61 98 Room Air 10/10/16 17:00 134 22 134/73 98 Room Air 10/10/16 16:06 104.8 129 20 139/72 96 10/10/16 16:06 104.8 128 22 134/73 98 Room Air 10/10/16 16:06 136 22 98 Room Air Physical Exam GENERAL: Laying in bed. Tachypneic, tachycardic. Not arousable. SKIN: Warm and dry. HEAD: Atraumatic. Normocephalic. EYES: Pupils equal and round. No scleral icterus. No injection or drainage. ENT: No nasal bleeding or discharge. Mucous membranes pink and moist. NECK: Trachea midline. No JVD. CARDIOVASCULAR: Regular rate and rhythm. RESPIRATORY: Tachypnea. R lung base with crackles and rhonchi. Diminished otherwise throughout. GASTROINTESTINAL: Abdomen soft, but mildly distended. MUSCULOSKELETAL: Extremities without clubbing. Trace edema bilat hips NEUROLOGICAL: Obtunded PSYCHIATRIC: Obtunded Laboratory Laboratory Tests Test 10/10/16 10/10/16 10/10/16 10/10/16 16:30 17:00 20:00 21:39 White Blood Count 15.2 Red Blood Count 2.68 Hemoglobin 8.1 Hematocrit 24.7 Mean Corpuscular Volume 92.4 Mean Corpuscular Hemoglobin 30.3 Mean Corpuscular Hemoglobin 32.8 Concent Red Cell Distribution Width 17.3 Platelet Count 386 Mean Platelet Volume 7.3 Neutrophils (%) (Auto) 86.2 Lymphocytes (%) (Auto) 3.7 Monocytes (%) (Auto) 9.2 Eosinophils (%) (Auto) 0.7 Basophils (%) (Auto) 0.2 Neutrophils # (Auto) 13.1 Lymphocytes # (Auto) 0.6 Monocytes # (Auto) 1.4 Eosinophils # (Auto) 0.1 Basophils # (Auto) 0.0 CBC Comment DIFF FINAL Differential Comment Prothrombin Time 13.4 Prothromb Time International 1.2 Ratio Activated Partial 38.8 Thromboplast Time Sodium Level 133 Potassium Level 3.8 Chloride Level 95 Carbon Dioxide Level 29.8 Anion Gap 8 Blood Urea Nitrogen 13 Creatinine 3.28 Estimat Glomerular Filtration 23 Rate Random Glucose 120 Lactic Acid Level 2.3 1.5 Calcium Level 8.1 Phosphorus Level 0.5 Magnesium Level 1.9 Total Bilirubin 0.5 Aspartate Amino Transf 16 (AST/SGOT) Alanine Aminotransferase 22 (ALT/SGPT) Alkaline Phosphatase 129 Ammonia 17 Troponin I LESS THAN 0.02 Total Protein 8.3 Albumin 2.3 Urine Color RED Urine Turbidity CLOUDY Urine pH 7.5 Urine Specific [place] 1.017 Urine Protein 100 Urine Glucose (UA) NEG Urine Ketones NEG Urine Occult Blood LARGE Urine Nitrite NEG Urine Bilirubin NEG Urine Urobilinogen LESS THAN 2.0 Urine Leukocyte Esterase LARGE Urine RBC Urine WBC Urine WBC Clumps MANY Urine Squamous Epithelial 4 Cells Urine Calcium Oxalate Crystals MANY Microscopic Urinalysis Comment CATH-CULTURE IND Nasal Screen MRSA (PCR) NEGATIVE Test 10/11/16 08:15 White Blood Count 13.4 Red Blood Count 2.61 Hemoglobin 7.7 Hematocrit 24.2 Mean Corpuscular Volume 92.8 Mean Corpuscular Hemoglobin 29.4 Mean Corpuscular Hemoglobin 31.7 Concent Red Cell Distribution Width 17.3 Platelet Count 352 Mean Platelet Volume 6.7 Sodium Level 138 Potassium Level 3.5 Chloride Level 100 Carbon Dioxide Level 28.8 Anion Gap 9 Blood Urea Nitrogen 21 Creatinine 4.46 Estimat Glomerular Filtration 16 Rate Random Glucose 96 Lactic Acid Level 0.8 Calcium Level 8.4 Phosphorus Level 4.2 Magnesium Level 2.2 Date/Time Procedure Status Source Growth 10/10/16 17:00 Urine Culture Received Urine Catheterized Urine Pending 10/10/16 16:30 Aerobic Blood Culture - Preliminary Resulted Blood Peripheral NO GROWTH IN 1 DAY 10/10/16 16:30 Anaerobic Blood Culture - Preliminary Resulted Blood Peripheral NO GROWTH IN 1 DAY (Bessie Cesar) Result Diagram: 10/11/16 0815 10/11/16 0815 Imaging Last Impressions Head CT 10/10/16 1613 Signed Impressions: Service Date/Time: Tuesday, October 11, 2016 11:22 - CONCLUSION: 1. Stable bilateral cortical atrophy. 2. No new or significant changes compared to the prior study from 2012. Scooter Zavala MD Chest X-Ray 10/10/16 1613 Signed Impressions: Service Date/Time: September 16:50 - CONCLUSION: Underinflated examination with atelectasis versus mild consolidation at the right lung base. Cardiac silhouette remains mildly enlarged. Norm Mccartney MD (Bessie Cesar) Assessment and Plan Problem List: (1) ESRD (end stage renal disease) on dialysis Plan: Appears the patient's typical HD schedule is TTS. Uncertain if he had entire tx yesterday. Will dialyze today for 3h. Otherwise to continue on TTS schedule. Check PO4, iPTH, and Vit D. Medications should be adjusted for the patient's ESRD. Avoid gadolinium. (2) Altered mental status Plan: Clinically AMS seems to be sepsis. Uncertain source. UCx pending-- urosepsis? BCx neg x24h. Mgmt as per CC (3) Sepsis Plan: On empiric abx. Mgmt as per CC/ID (4) Atrial fibrillation with rapid ventricular response Plan: On Cardizem drip. Mgmt as per cardiology (Bessie Cesar) Assessment and Plan The exam, history, and the medical decision-making described in the above note were completed with the assistance of the PA-Arianne. I reviewed and agree with the findings presented. I attest that I had a [id number] encounter with the patient on the same day, and personally performed and documented my assessment and findings in the medical record. (Katja Watson MD) Problem Qualifiers (1) Altered mental status: Qualified Code: R41.82 - Altered mental status, unspecified altered mental status type (2) Sepsis: Qualified Code: A41.9 - Sepsis, due to unspecified organism Bessie Cesar Oct 11, 2016 13:33 Katja Watson MD Oct 11, 2016 16:00
--- NOTE | 2016-10-11 13:48 | EKG ---
Date Performed: 10/10/2016 Time Performed: 16:17:51 PTAGE: 66 years EKG: ATRIAL FIBRILLATION WITH RAPID VENTRICULAR RESPONSE INCOMPLETE RIGHT BUNDLE BRANCH BLOCK MO DERATE ST DEPRESSION Compared to previous tracing, atrial fibrillation persists but now has a rapid r esponse. ABNORMAL ECG PREVIOUS TRACING : 01/19/2014 07.30.06 DOCTOR: Eyal Laughlin Interpretating Date/Time 10/11/2016 13:37:18
[2016-10-11] MEDS ORDERED: METOPROLOL TARTRATE 100 MG TAB PO SCH (14:00)
[2016-10-12] VITALS (14 sets, daily range): BP systolic 121–141; BP diastolic 56–80; PULSE 93–121; RESP 18–29; TEMP 97.9–99.8; O2SAT 96–100
[2016-10-12] MEDS: PIPERACIL-TAZO 2.25 GM PREMIX 50 ML IV SCH ×2 (01:19→10:00)
[2016-10-12] MEDS: CHLORHEXIDINE GLUCONATE 2 % 1 PACK (2 CLOTHS) TOP SCH (01:39)
[2016-10-12] MEDS: DILTIAZEM INJ 125 MG in SODIUM CHLORIDE 0.9% INJ 100 ML IV SCH (02:12)
[2016-10-12] MEDS: RESP: ALBUTEROL 2.5 MG/IPRATROPIUM 0.5 MG NEB (SCH) INH ×4 (03:20→21:57)
[2016-10-12] MEDS: INSULIN NovoLIN REGULAR SUPPLEMENTAL SCALE SQ SCH ×6 (03:58→20:00)
[2016-10-12] MEDS: METOPROLOL TARTRATE 100 MG TAB PO SCH ×3 (06:00→22:12)
[2016-10-12] MEDS: DILTIAZEM HCL 90 MG TAB PO SCH ×3 (08:00→20:04)
[2016-10-12] MEDS: APIXABAN 5 MG TABLET PO SCH ×2 (08:00→20:05)
[2016-10-12] MEDS: SODIUM CHLORIDE 0.9% FLUSH 5 ML FLUSH IV FLUSH SCH ×2 (08:00→20:05)
[2016-10-12] MEDS: EPOETIN ALFA 10,000 UNITS/ML VIAL IV PRN (08:14)
[2016-10-12] MEDS: GELATIN 12 MM/7 MM FOAM TOP PRN (08:15)
[2016-10-12] MEDS: HALOPERIDOL LACTATE 5 MG/ML AMP IV PRN (10:01)
[2016-10-12] MEDS: chlorproMAZINE HCL 25 MG TAB PO SCH ×2 (14:00→22:12)
--- NOTE | 2016-10-12 14:10 | HHI.NPPN ---
Subjective History of Present Illness The patient is a 66 yo AA male who was brought to this facility via EMS as it was noted that he had altered mentation at his outpatient dialysis unit. He is obtunded presently and all information was gathered from previous records. 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 Last HD was yesterday as per records, but uncertain how long treatment time was , nor if any recently missed sessions. He has a LUE AVF. UA was indicative of UTI---UCx pending at the present. BCx negative x24h. Being treated empirically with Vanc & Zosyn. Interval History Patient appears more alert today and cooperative. Review of Systems General Constitutional: Fatigue Objective Data Data 10/11/16 10/12/16 19:00 07:00 Intake Total 210 ml 403 ml Output Total 2015 ml 5 ml Balance -1805 ml 398 ml Intake Oral 0 ml 0 ml IV Total 210 ml 403 ml Output Urine Total 15 ml 5 ml Hemodialysis 2000 ml # Bowel Movements 2 0 Vital Signs Date Time Temp Pulse Resp B/P Pulse Ox O2 Delivery O2 Flow Rate FiO2 10/12/16 10:00 110 10/12/16 09:19 99 Nasal Cannula 3.00 10/12/16 08:00 98.0 120 20 125/56 98 10/12/16 08:00 120 10/12/16 06:00 110 10/12/16 04:00 120 10/12/16 04:00 99.0 120 21 126/80 97 10/12/16 02:00 107 10/12/16 00:00 121 10/12/16 00:00 99.8 121 24 140/67 100 10/11/16 22:00 109 10/11/16 20:32 97 Nasal Cannula 3.00 10/11/16 20:00 99.0 106 37 111/64 98 10/11/16 20:00 106 10/11/16 18:00 130 10/11/16 16:00 128 10/11/16 16:00 99.1 104 38 132/82 92 -: 10/11/16 0815 10/11/16 0815 Imaging Last [address] 10/10/16 1613 Signed Impressions: Service Date/Time: Tuesday, October 11, 2016 11:22 - CONCLUSION: 1. Stable bilateral cortical atrophy. 2. No new or significant changes compared to the prior study from 2012. Scooter Zavala MD Chest X-Ray 10/10/16 1613 Signed Impressions: Service Date/Time: September 16:50 - CONCLUSION: Underinflated examination with atelectasis versus mild consolidation at the right lung base. Cardiac silhouette remains mildly enlarged. Norm Mccartney MD Medication Review Current Medications . Haloperidol Lactate (Haldol Inj) 5 mg Q4H PRN IV agitation Last administered on 10/12/16at 10:01; Start 10/10/16 at 17:45 Dextrose (D50w (Vial) Inj) 25 ml UNSCH PRN IV PUSH HYPOGLYCEMIA-SEE COMMENTS; Start 10/10/16 at 17:45 Insulin Human Regular (NovoLIN R SUPPLEMENTAL SCALE) 1 Q4HR SQ ; Start at 20:00 Albuterol/ Ipratropium (Duoneb Neb) 1 ampule Q6HR NEB INH Last administered on 10/12/16at 09:18; Start 10/10/16 at 22:00 Albuterol/ Ipratropium 1 ampule 1 ampule Q2HR NEB PRN INH WHEEZING; Start at 17:45 Sodium Chloride (NS 1000 ml Inj) 1,000 ml @ 125 mls/hr Q8H IV Last administered on 10/11/16at 09:43; Start 10/10/16 at 18:00; Stop 10/11/16 at 10 :31; Status DC IV Flush (NS Flush) 2 ml UNSCH PRN IV FLUSH FLUSH AFTER USING IV ACCESS; Start 10/10/16 at 17:45 IV Flush (NS Flush) 2 ml BID IV FLUSH Last administered on 10/12/16at 08:00; Start 10/10/16 at 21:00 Acetaminophen (Tylenol) 650 mg Q6H PRN PO PAIN 1-10 AND/OR FEVER >101F; Start 10/10/16 at 17:45 Ondansetron HCl (Zofran Inj) 4 mg Q6H PRN IV NAUSEA OR VOMITING; Start at 17:45 Heparin Sodium (Porcine) (Heparin Inj) 5,000 units Q12H SQ ; Start 10/10/16 at 17:45; Stop 10/10/16 at 17:58; Status DC Miscellaneous Information 1 Q361D XX ; Start 10/10/16 at 17:45 Chlorhexidine Gluconate (Chlorhexidine 2% Cloth) 3 pack Taper DAILY@04 TOP Last administered on 10/12/16at 01:39; Start 10/11/16 at 04:00; Stop 10/07/17 at 03:59 Chlorhexidine Gluconate 3 pack 3 pack UNSCH PRN TOP HYGIENIC CARE; Start 10/10 at 17:45 Pharmacy Profile Note 0 ml @ 0 mls/hr UNSCH OTHER ; Start 10/10/16 at 18:00; Stop 10/10/16 at 18:40; Status DC Piperacillin Sod/ Tazobactam Sod (Zosyn 2.25 Gm Premix) 50 ml @ 100 mls/hr Q8H IV Last administered on 10/12/16at 10:00; Start 10/11/16 at 02:00; Stop 10/12 at 13:00; Status DC Apixaban (Eliquis) 5 mg BID PO ; Start 10/10/16 at 21:00 Chlorpromazine (Thorazine) 25 mg TID PO ; Start 10/10/16 at 18:00; Stop at 08:38; Status DC Sevelamer Carbonate (Renvela) 2,400 mg TIDAC PO ; Start 10/10/16 at 18:00; Stop 10/10/16 at 18:36; Status DC Diphenhydramine HCl 25 mg 25 mg ONCE ONCE IV PUSH Last administered on at 18:45; Start 10/10/16 at 18:45; Stop 10/10/16 at 18:46; Status DC Vancomycin HCl 1000 mg/Sodium Chloride 250 ml @ 250 mls/hr ONCE ONCE IV Last administered on 10/10/16at 20:42; Start 10/10/16 at 20:00; Stop 10/10/16 at 20 :59; Status DC Sodium Phosphate/ Sodium Chloride (Sodium Phosphate Inj/NS 250 ml Inj) 260 ml @ 43.333 mls/ hr ONCE ONCE IV Last administered on 10/10/16at 20:42; Start at 20:00; Stop 10/11/16 at 01:59; Status DC Diltiazem HCl 15 mg 15 mg ONCE ONCE IVP Last administered on 10/11/16at 01:18 ; Start 10/11/16 at 01:00; Stop 10/11/16 at 01:03; Status DC Diltiazem HCl/ Sodium Chloride (Cardizem Inj/NS Inj) 125 ml @ 0 mls/hr TITRATE IV Last administered on 10/12/16at 02:12; Start 10/11/16 at 01:00 Chlorpromazine HCl (Thorazine Inj) 25 mg Q8HR IV Last administered on at 06:28; Start 10/11/16 at 09:00 Acetaminophen (Ofirmev Inj) 650 mg Q4HR PRN IV PAIN 1-10 OR TEMP > 100.4F; Start 10/11/16 at 08:45; Stop 10/11/16 at 08:45; Status DC Acetaminophen (Ofirmev Inj) 650 mg Q6HR PRN IV PAIN 1-10 OR TEMP > 100.4F; Start 10/11/16 at 09:00 Diltiazem HCl (Cardizem) 90 mg TID PO ; Start 10/11/16 at 13:00; Stop at 13:00; Status DC Metoprolol Tartrate (Lopressor) 100 mg Q8HR PO ; Start 10/11/16 at 14:00; Stop 10/11/16 at 14:00; Status DC Diltiazem HCl (Cardizem) 90 mg TID PO Last administered on 10/11/16at 18:09; Start 10/11/16 at 10:30 Metoprolol Tartrate 100 mg 100 mg Q8HR PO Last administered on 10/11/16at 11:50 ; Start 10/11/16 at 11:00 Sodium Chloride (NS 1000 ml Inj) 1,000 ml @ 0 mls/hr Q0M PRN IV For Prime & Rinse Back Last administered on 10/12/16at 08:13; Start 10/11/16 at 13:21 Heparin Sodium (Porcine) 8000 units 8,000 units UNSCH PRN IVF WITH DIALYSIS; Start 10/11/16 at 13:30 Sodium Chloride 1,000 ml @ 200 mls/hr Q5H PRN IV WITH DIALYSIS; Start at 13:21 Sodium Chloride (NS 1000 ml Inj) 1,000 ml @ 0 mls/hr Q0M PRN IV WITH DIALYSIS; Start 10/11/16 at 13:21 Mannitol (Mannitol Inj) 12.5 gm UNSCH PRN IV WITH DIALYSIS; Start 10/11/16 at 13:30 Albumin Human (Albumin 25% Inj) 25 gm UNSCH PRN IV WITH DIALYSIS; Start at 13:30 IV Flush (NS Flush) 5 ml UNSCH PRN IVF WITH DIALYSIS; Start 10/11/16 at 13:30 Heparin Sodium (Porcine) (Heparin Inj) UNSCH PRN .XX WITH DIALYSIS; Start at 13:30 Gentamicin Sulfate (Gentamicin (Dialysis) Inj) 20 mg UNSCH PRN IV WITH DIALYSIS ; Start 10/11/16 at 13:30 Ondansetron HCl (Zofran Inj) 4 mg UNSCH PRN IV WITH DIALYSIS; Start 10/11/16 at 13:30 Acetaminophen (Tylenol) 650 mg UNSCH PRN PO for headach, pain, temp > 101F; Start 10/11/16 at 13:30 Diphenhydramine HCl (Benadryl) 25 mg UNSCH PRN PO for hives/itching/anaphylaxis ; Start 10/11/16 at 13:30 Nitroglycerin (Nitrostat Sl) 0.4 mg UNSCH PRN SL CHEST PAIN; Start 10/11/16 at 13:30 Clonidine (Catapres) 0.1 mg UNSCH PRN PO for BP > 180/100 X 2 readings; Start 10/11/16 at 13:30 Epoetin Jake (Epogen Inj) 5,000 units UNSCH PRN IV WITH DIALYSIS Last administered on 10/12/16at 08:14; Start 10/11/16 at 13:30 Gelatin 1 foam 1 foam UNSCH PRN TOP SEE LABEL COMMENTS Last administered on at 08:15; Start 10/11/16 at 13:30 Vancomycin HCl 1000 mg/Sodium Chloride 250 ml @ 250 mls/hr WITH DIALYSIS IV Last administered on 10/12/16at 08:15; Start 10/11/16 at 13:30 Piperacillin Sod/ Tazobactam Sod (Zosyn 2.25 Gm Premix) 50 ml @ 100 mls/hr Q12H IV ; Start 10/12/16 at 22:00 Physical Exam General Appearance: Well Developed, Well Nourished, No Acute Distress, Comfortable Eyes Eye Exam: Sclera White Neck Neck Exam: Neck Supple Pulmonary Resp Exam: Clear Bilaterally, Breath Sounds Equal, No Distress Cardiology CV Exam: Regular, Normal Sinus Rhythm Gastrointestinal/Abdomen GI Exam: Soft, Non-Tender, Bowel Sounds Present, Non-Distended Assessment/Plan Discussed Condition With: Patient Problem List: (1) ESRD (end stage renal disease) on dialysis Plan: Appears the patient's typical HD schedule is TTS. . Medications should be adjusted for the patient's ESRD. Avoid gadolinium. Dr. Eckert will be resuming care of his patient this Friday. (2) Altered mental status Plan: Secondary to sepsis improved. (3) Sepsis Plan: Blood cultures growing gram-negative trent 2. Urine culture said to be negative. Source of bacteremia uncertain. Recommend infectious disease consultation for opinion. Vancomycin will likely be discontinued. (4) Atrial fibrillation with rapid ventricular response Plan: . Mgmt as per cardiology (5) Anemia in chronic kidney disease Plan: Check iron stores. Continue Epogen. Stool for occult blood. Problem Qualifiers (1) Altered mental status: Qualified Code: R41.82 - Altered mental status, unspecified altered mental status type Katja Watson MD Oct 12, 2016 14:10
[2016-10-12 15:17] LABS: HEMATOCRIT 22.6 % (39.0-51.0); MEAN CELL VOLUME 91.7 FL (80.0-100.0); MEAN CORPUSCULAR HEMOGLOBIN 29.8 PG (27.0-34.0); MEAN CORPUSCULAR HGB CONC 32.5 % (32.0-36.0); PLATELET COUNT 396 TH/MM3 (150-450); RED BLOOD COUNT 2.46 MIL/MM3 (4.50-5.90); REVIEW FLAG FINAL; WHITE BLOOD COUNT 12.4 TH/MM3 (4.0-11.0)
--- NOTE | 2016-10-12 17:01 | HHI.CCPN ---
Subjective Remarks/Hospital Course Subjective: 10/11: worsening oxygenation overnight. maintenance fluids stopped. this morning less agitated. still tachycardic, and started on diltiazem drip for rate control in the setting of afib RVR and sepsis. 10/12: clinically improving. HD yesterday and again today. weaning off dilt drip. blood cultures growing GNRs, speciation and sensitivities to follow. Objective Vital Signs Date Time Temp Pulse Resp B/P Pulse Ox O2 Delivery O2 Flow Rate FiO2 10/12/16 14:00 110 10/12/16 12:00 98.7 18 141/63 99 10/12/16 09:19 Nasal Cannula 3.00 Intake and Output 10/11/16 10/11/16 10/12/16 08:00 16:00 00:00 Intake Total 1401 ml 210 ml 248 ml Output Total 10 ml 15 ml 2005 ml Balance 1391 ml 195 ml -1757 ml Result Diagram: 10/12/16 1456 10/11/16 0815 Objective Remarks GENERAL: Elderly male, lying in bed, agitated HEENT: Normocephalic. Atraumatic. Pupils equally round and reactive. Mucous membranes moist. NECK: Trachea is midline. There is no JVD. There is no meningismus. CHEST: Tachypneic. Equal chest rise. some coarse rales at the bases. CARDIOVASCULAR: normal rate, irregularly irregular rhythm. No appreciable murmurs ABDOMEN: Soft, obese, nontender, nondistended. No guarding. MUSCULOSKELETAL: Large left AV fistula with good palpable thrill. No peripheral edema. Distal pulses 2+. NEUROLOGICAL: RASS +1, CAM positive. Intermittently follows commands. Moves all extremities spontaneously. No focal deficits A/P Assessment and Plan Assessment: This is a 66-year-old male with history of end-stage renal disease on hemodialysis who presented from dialysis clinic with new onset fever, tachycardia, altered mental status, found to have Gram Negative Alvaro bacteremia. Unclear source. Urine cultures have not grown anything. Will get RUQ ultrasound to eval for gallbladder disease, since the patient had mildly elevated alk phos. Will also order amylase/lipase. Could also be bacteremia from contaminant encountered during HD. Will await speciation and sensitivities. Clinically, he is improving on current abx regimen. Plan by systems: Neurologic: Acute agitated delirium- resolving. Metabolic encephalopathy- resolving. Possible schizophrenia based on documented past medical history Hold long-acting sedating meds Haldol 5 mg IV every 4 hours when necessary for agitation Every hour neuro checks head CT 10/11: negative acute disease. psych consult from 2012 recommended prn haldol for agitation, but no overt diagnosis of schizophrenia that we can find. Respiratory: Atelectasis Hypoxemia- resolving. Wean oxygen by nasal cannula for goal SPO2 greater than 92%. Incentive spirometer to bedside EZ Pap and a cappella Cardiovascular: Atrial fibrillation with rapid ventricular response- resolving. Severe sepsis Coronary artery disease d/c MIVF. continue home diltiazem and metoprolol. --will d/c dilt drip today. Continue home Xarelto Renal: End-stage renal disease on hemodialysis Had HD today. Nephrology consulted. -- Strict I/Os FEN/GI: Acute protein calorie malnutritionmild Intravascular hypovolemia Severe hypophosphatemia- resolving Hold hold phosphorus binder Renal Diet as tolerated. Daily BMP, phosphorus Heme/ID: Anemia of chronic disease Leukocytosis Urinary tract infection Possible bacteremia Anticoagulation for atrial fibrillation Vancomycin with pharmacy dosing Zosyn 2.25 g IV every 8 10/10 Blood cultures: anaerobic bottles (2 of 2): GNR, speciation and sensitivities pending. --10/10 Sputum, Urine Cx: NGTD. Does not meet transfusion triggers at this time Daily CBC Continue Xarelto --will obtain RUQ u/s, amylase, lipase. Endocrine: Hyperglycemia of critical illness -- SSI, medium scale, every 6 hours Prophylaxis: GI Prophylaxis Does not need evidence based criteria for GI prophylaxis at this time DVT Prophylaxis -- SCDs Home Xarelto Lines: Peripheral IVs. Dispo: remain in the ICU. Although he is clinically improving, he is at high risk for decompensation and I would like to monitor him closely until his cultures finalize. Melvin Duron MD Oct 12, 2016 17:01
[2016-10-13] VITALS (15 sets, daily range): BP systolic 87–134; BP diastolic 56–71; PULSE 66–118; RESP 20–25; TEMP 97–99.3; O2SAT 92–99
[2016-10-13] MEDS: PIPERACIL-TAZO 2.25 GM PREMIX 50 ML IV SCH ×2 (00:59→09:21)
[2016-10-13] MEDS: CHLORHEXIDINE GLUCONATE 2 % 1 PACK (2 CLOTHS) TOP SCH (04:00)
[2016-10-13] MEDS: INSULIN NovoLIN REGULAR SUPPLEMENTAL SCALE SQ SCH ×7 (04:00→23:04)
[2016-10-13] MEDS: RESP: ALBUTEROL 2.5 MG/IPRATROPIUM 0.5 MG NEB (SCH) INH ×4 (04:15→20:09)
[2016-10-13] MEDS: METOPROLOL TARTRATE 100 MG TAB PO SCH ×3 (05:33→22:00)
[2016-10-13] MEDS: chlorproMAZINE HCL 25 MG TAB PO SCH ×3 (05:33→22:43)
[2016-10-13 06:55] LABS: POTASSIUM 3.2 MEQ/L (3.5-5.1)
[2016-10-13 07:19] LABS: HEMATOCRIT 23.7 % (39.0-51.0); MEAN CELL VOLUME 91.6 FL (80.0-100.0); MEAN CORPUSCULAR HEMOGLOBIN 30.2 PG (27.0-34.0); PLATELET COUNT 355 TH/MM3 (150-450); RED BLOOD COUNT 2.59 MIL/MM3 (4.50-5.90); REVIEW FLAG FINAL; WHITE BLOOD COUNT 12.1 TH/MM3 (4.0-11.0)
[2016-10-13] MEDS: DILTIAZEM HCL 90 MG TAB PO SCH ×3 (07:58→17:36)
[2016-10-13] MEDS: SODIUM CHLORIDE 0.9% FLUSH 5 ML FLUSH IV FLUSH SCH ×2 (07:58→20:52)
[2016-10-13] MEDS: APIXABAN 5 MG TABLET PO SCH ×2 (07:58→20:52)
--- NOTE | 2016-10-13 12:30 | RADRPT ---
EXAM DATE/TIME: 10/13/2016 10:00 [place] COMPARISON: No previous studies available for comparison. INDICATIONS : Increased lab values. MEDICAL HISTORY : Hypercholesterolemia. Renal disease, end stage. Gastroesophageal reflux disease. Glaucoma. Cerebrovas cular accident. Coronary artery disease. Afib. Hypertension. Diverticulitis. Dialysis. Arthritis. Gou t. Diabetes. Schizophrenia. MRSA. SURGICAL HISTORY : Coronary artery stent. Right kidney transplant. AV shunt. ENCOUNTER: Initial ACUITY: 2 days PAIN SCORE: 0/10 LOCATION: Right upper quadrant MEASUREMENTS: LIVER: 19 cm length COMMON DUCT: 4 mm RIGHT KIDNEY: 10.5 x 4.6 x 4.7 cm FINDINGS: LIVER: Normal echotexture without focal lesion or ductal dilatation. COMMON DUCT: No intraluminal mass or stone visualized. GALLBLADDER: Contains no stones, demonstrates no wall thickening or pericholecystic fluid. PANCREAS: The visualized portions are within normal limits. RIGHT KIDNEY: Echogenic parenchyma with a 2.5 x 1.8 x 2.3 cm simple cyst. CONCLUSION: 1. Echogenic renal parenchyma can be seen with medical renal disease. Right renal cyst. 2. Hepatomegaly. Mildly increased echotexture likely related to hepatic steatosis. Miguel Morgan MD on October 13, 2016 at 12:27 Board Certified Radiologist. This report was verified electronically.
--- NOTE | 2016-10-13 14:26 | HHI.CCPN ---
Subjective Remarks/Hospital Course Subjective: 10/11: worsening oxygenation overnight. maintenance fluids stopped. this morning less agitated. still tachycardic, and started on diltiazem drip for rate control in the setting of afib RVR and sepsis. 10/12: clinically improving. HD yesterday and again today. weaning off dilt drip. blood cultures growing GNRs, speciation and sensitivities to follow. 10/13: continues to improve clinically. delirium improved. off dilt drip. blood cultures growing Proteus. Objective Vital Signs Date Time Temp Pulse Resp B/P Pulse Ox O2 Delivery O2 Flow Rate FiO2 10/13/16 14:00 92 10/13/16 12:00 97.7 22 116/59 92 10/13/16 08:40 Nasal Cannula 1.00 10/12/16 21:57 21 Intake and Output 10/12/16 10/12/16 10/13/16 08:00 16:00 00:00 Intake Total 155 ml 320 ml 480 ml Output Total 0 ml 4000 ml Balance 155 ml -3680 ml 480 ml Result Diagram: 10/13/1651210/13/16 0513 Objective Remarks GENERAL: Elderly male, lying in bed, agitated HEENT: Normocephalic. Atraumatic. Pupils equally round and reactive. Mucous membranes moist. NECK: Trachea is midline. There is no JVD. There is no meningismus. CHEST: Tachypneic. Equal chest rise. some coarse rales at the bases. CARDIOVASCULAR: normal rate, irregularly irregular rhythm. No appreciable murmurs ABDOMEN: Soft, obese, nontender, nondistended. No guarding. MUSCULOSKELETAL: Large left AV fistula with good palpable thrill. No peripheral edema. Distal pulses 2+. NEUROLOGICAL: RASS +1, CAM positive. Intermittently follows commands. Moves all extremities spontaneously. No focal deficits A/P Assessment and Plan Assessment: This is a 66-year-old male with history of end-stage renal disease on hemodialysis who presented from dialysis clinic with new onset fever, tachycardia, altered mental status, found to have Proteus Mirabilis bacteremia. Unclear source, though common source is usually urine. Urine cultures have not grown anything. Could also be bacteremia from contaminant encountered during HD. Stabilizing out and clinically improving. Plan by systems: Neurologic: Acute agitated delirium- resolving. Metabolic encephalopathy- resolving. Possible schizophrenia based on documented past medical history Hold long-acting sedating meds Haldol 5 mg IV every 4 hours when necessary for agitation head CT 10/11: negative acute disease. psych consult from 2012 recommended prn haldol for agitation, but no overt diagnosis of schizophrenia that we can find. Respiratory: Atelectasis Hypoxemia- resolving. Wean oxygen by nasal cannula for goal SPO2 greater than 92%. Incentive spirometer to bedside EZ Pap and a cappella Cardiovascular: Atrial fibrillation with rapid ventricular response- resolving. Severe sepsis Coronary artery disease continue home diltiazem and metoprolol. Continue home Xarelto Renal: End-stage renal disease on hemodialysis Nephrology consulted. -- Strict I/Os FEN/GI: Acute protein calorie malnutritionmild Intravascular hypovolemia Severe hypophosphatemia- resolving Hold hold phosphorus binder Renal Diet as tolerated. Daily BMP, phosphorus Heme/ID: Anemia of chronic disease Leukocytosis Urinary tract infection Possible bacteremia Anticoagulation for atrial fibrillation d/c vancomycin. --d/c Zosyn --start Unasyn 3gm iv q24h (renal dosing). dose after HD on dialysis days. Will need 14 days abx course for bacteremia. anticipated stop date 10/23. 10/10 Blood cultures: anaerobic bottles (2 of 2): proteus mirabilis. sensitive to unasyn and zosyn. --10/10 Sputum, Urine Cx: NGTD. Does not meet transfusion triggers at this time Daily CBC Continue Xarelto --10/12 RUQ u/s: hepatic steatosis. no acute gallbladder disease. amylase, lipase wnl. Endocrine: Hyperglycemia of critical illness -- SSI, medium scale, every 6 hours Prophylaxis: GI Prophylaxis Does not need evidence based criteria for GI prophylaxis at this time DVT Prophylaxis -- SCDs Home Xarelto Lines: Peripheral IVs. Dispo: stable for transfer to the floor. will consult hospitalist. Melvin Duron MD Oct 13, 2016 14:26
--- NOTE | 2016-10-13 15:27 | HHI.NPPN ---
Subjective History of Present Illness The patient is a 66 yo AA male who was brought to this facility via EMS as it was noted that he had altered mentation at his outpatient dialysis unit. He is obtunded presently and all information was gathered from previous records. 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 Last HD was yesterday as per records, but uncertain how long treatment time was , nor if any recently missed sessions. He has a LUE AVF. UA was indicative of UTI---UCx pending at the present. BCx negative x24h. Being treated empirically with Vanc & Zosyn. Interval History Patient lethargic. Review of Systems General Constitutional: Fatigue Objective Data Data 10/12/16 10/13/16 18:59 06:59 Intake Total 320 ml 480 ml Output Total 4000 ml Balance -3680 ml 480 ml Intake Oral 120 ml 480 ml IV Total 200 ml Output Urine Total 0 ml Hemodialysis 4000 ml # Bowel Movements 0 1 Vital Signs Date Time Temp Pulse Resp B/P Pulse Ox O2 Delivery O2 Flow Rate FiO2 10/13/16 14:00 92 10/13/16 12:00 97.7 102 22 116/59 92 10/13/16 12:00 94 10/13/16 10:00 92 10/13/16 08:40 97 Nasal Cannula 1.00 10/13/16 08:00 97.9 96 20 121/57 99 10/13/16 08:00 90 10/13/16 06:00 106 10/13/16 04:00 118 10/13/16 04:00 99.3 118 25 134/71 95 10/13/16 02:00 106 10/13/16 00:00 98.8 93 25 116/65 95 10/13/16 00:00 90 10/12/16 22:00 95 10/12/16 21:57 98 21 10/12/16 20:00 99.0 97 29 126/59 96 10/12/16 20:00 97 10/12/16 18:00 110 10/12/16 16:00 97.9 96 20 121/57 99 10/12/16 16:00 120 -: 10/13/16 0513 10/13/16 0513 Physical Exam General Appearance: Well Developed, Well Nourished, No Acute Distress, Comfortable Eyes Eye Exam: Sclera White Neck Neck Exam: Neck Supple Pulmonary Resp Exam: Clear Bilaterally, Breath Sounds Equal, No Distress Cardiology CV Exam: Regular, Normal Sinus Rhythm Gastrointestinal/Abdomen GI Exam: Soft, Non-Tender, Bowel Sounds Present, Non-Distended Assessment/Plan Discussed Condition With: Patient Problem List: (1) ESRD (end stage renal disease) on dialysis Plan: Appears the patient's typical HD schedule is TTS. . Continue same. Medications should be adjusted for the patient's ESRD. Avoid gadolinium. Dr. Eckert will be resuming care of his patient this Friday. (2) Altered mental status Plan: Secondary to sepsis improved. (3) Sepsis Plan: Blood cultures growing Proteus 1. Urine culture said to be negative. Source uncertain. Source of bacteremia uncertain. Vancomycin has been discontinued given results of culture. We'll defer to primary care physician regarding whether not infectious disease should be counseled. (4) Atrial fibrillation with rapid ventricular response Plan: . Mgmt as per cardiology (5) Anemia in chronic kidney disease Plan: Check iron stores. Continue Epogen. Stool for occult blood. Problem Qualifiers (1) Altered mental status: Qualified Code: R41.82 - Altered mental status, unspecified altered mental status type Katja Watson MD Oct 13, 2016 15:26
[2016-10-13] MEDS ORDERED: POTASSIUM CHLORIDE 10 MEQ CONTROLLED RELEASE TAB PO ONE (15:45)
[2016-10-13] MEDS ORDERED: AMPICILLIN-SULBACTAM INJ 3 GM in SODIUM CHLORIDE 0.9% INJ 100 ML IV SCH (16:00)
[2016-10-14] VITALS (12 sets, daily range): BP systolic 97–134; BP diastolic 47–75; PULSE 73–100; RESP 22–28; TEMP 98–100.2; O2SAT 92–99
[2016-10-14] MEDS: RESP: ALBUTEROL 2.5 MG/IPRATROPIUM 0.5 MG NEB (SCH) INH ×4 (03:57→20:57)
[2016-10-14] MEDS: INSULIN NovoLIN REGULAR SUPPLEMENTAL SCALE SQ SCH ×6 (04:00→23:57)
[2016-10-14] MEDS: CHLORHEXIDINE GLUCONATE 2 % 1 PACK (2 CLOTHS) TOP SCH (04:00)
[2016-10-14] MEDS: METOPROLOL TARTRATE 100 MG TAB PO SCH ×3 (05:55→22:57)
[2016-10-14] MEDS: chlorproMAZINE HCL 25 MG TAB PO SCH ×3 (05:55→22:57)
[2016-10-14 09:12] LABS: MEAN CELL VOLUME 90.5 FL (80.0-100.0); MEAN CORPUSCULAR HGB CONC 33.1 % (32.0-36.0); PLATELET COUNT 414 TH/MM3 (150-450); RED BLOOD COUNT 2.65 MIL/MM3 (4.50-5.90); RED CELL DISTRIBUTION WIDTH 18.3 % (11.6-17.2); REVIEW FLAG FINAL
[2016-10-14] MEDS: SODIUM CHLORIDE 0.9% FLUSH 5 ML FLUSH IV FLUSH SCH ×2 (09:42→22:57)
[2016-10-14] MEDS: APIXABAN 5 MG TABLET PO SCH ×2 (09:43→22:57)
[2016-10-14] MEDS: DILTIAZEM HCL 90 MG TAB PO SCH ×3 (09:43→18:24)
[2016-10-14 09:49] LABS: ANION GAP 12 MEQ/L (5-15); BICARBONATE 27.5 MEQ/L (21.0-32.0); BLOOD UREA NITROGEN 27 MG/DL (7-18); CHLORIDE 89 MEQ/L (98-107); GLOMERULAR FILTRATION RATE 9 ML/MIN (>89); POTASSIUM 3.3 MEQ/L (3.5-5.1); SODIUM (NA) 128 MEQ/L (136-145); TRANSFERRIN IRON PROFILE 109 MG/DL (200-360)
--- NOTE | 2016-10-14 10:51 | HHI.NPPN ---
Subjective Renal Failure: Chronic, End Stage Renal Disease Interval History Lying in bed, sleepy but able to be aroused. Heart rate controlled. (Germania Latham) Review of Systems General Constitutional: Fatigue (Germania Latham) Objective Data Data 10/13/16 10/14/16 18:59 06:59 Intake Total 720 ml 240 ml Output Total 5 ml Balance 715 ml 240 ml Intake Oral 720 ml 240 ml Output Urine Total 5 ml # Bowel Movements 1 Vital Signs Date Time Temp Pulse Resp B/P Pulse Ox O2 Delivery O2 Flow Rate FiO2 10/14/16 05:53 94 128/69 10/14/16 05:08 100.2 96 22 104/59 94 10/14/16 01:25 79 10/14/16 00:49 99.4 78 28 98/54 95 10/14/16 00:00 99.5 77 25 97/47 92 10/14/16 00:00 77 10/13/16 22:00 68 10/13/16 21:00 66 20 102/67 92 10/13/16 20:09 95 21 10/13/16 20:00 99.0 66 25 87/60 94 10/13/16 20:00 66 10/13/16 18:00 83 10/13/16 16:00 88 10/13/16 16:00 97.0 84 20 117/56 92 10/13/16 14:00 92 10/13/16 12:00 97.7 102 22 116/59 92 10/13/16 12:00 94 (Germania Latham) -: 10/14/16 0847 10/14/16 0847 Microbiology 10/14/16 Stool Occult Blood (R[facility]A) - Final, Complete HEMOCCULT NEGATIVE Imaging Last 72 hours Impressions Gall Bladder Ultrasound 10/13/16 0000 Signed Impressions: Service Date/Time: Thursday, October 13, 2016 10:00 - CONCLUSION: 1. Echogenic renal parenchyma can be seen with medical renal disease. Right renal cyst. 2. Hepatomegaly. Mildly increased echotexture likely related to hepatic steatosis. Miguel Morgan MD Tubes & Lines: Naranjo (Germania Latham) Physical Exam General Appearance: Well Developed, Well Nourished, No Acute Distress, Comfortable, Sleeping (Germania Latham) Eyes Eye Exam: Sclera White (Germania Latham) Neck Neck Exam: Neck Supple (Germania Latham) Pulmonary Resp Exam: Clear Bilaterally, Breath Sounds Equal, No Distress (Germania Latham) Cardiology CV Exam: Regular, Normal Sinus Rhythm (Germania Latham) Gastrointestinal/Abdomen GI Exam: Soft, Non-Tender, Bowel Sounds Present, Non-Distended (Germania Latham) Musculoskeletal MS Exam: Joints Intact, Good Strength (Germania Latham) Integumentary Skin Exam: Clear, Warm, Dry (Germania Latham) Extremeties Extremities Exam: No Edema (Germania Latham) Neurologic Neuro Exam: Moving All Extremities (Germania Latham) Psychiatric Psych Exam: Appropriate Responses (Germania Latham) Assessment/Plan Discussed Condition With: Patient Problem List: (1) ESRD (end stage renal disease) on dialysis Plan: We will continue HD on a -Fri schedule, he is due tomorrow currently no renal concerns, K low will give oral replacement today monitor fluid volume status monitor AVF for complications Medications should be adjusted for the patient's ESRD. Avoid gadolinium. (2) Sepsis Plan: Blood cultures showing Proteus , unknown source. Urine culture negative. Vancomycin has been discontinued given results of culture. he is on unasyn, ID may be consulted (3) Atrial fibrillation with rapid ventricular response Plan: rate controlled he is on Xarelto for anticoagulation (4) Altered mental status Plan: Secondary to sepsis monitor (5) Anemia in chronic kidney disease Plan: Continue Epogen with dialysis borderline iron deficiency stool for occult bleeding negative (Germania Latham) Plan patient was seen and examined. Agree with above assessment and plan. Treat bacteremia. Continue Epogen with HD. Dialysis will be continued TTS. (Keyon Eckert MD) Problem Qualifiers (1) Altered mental status: Qualified Code: R41.82 - Altered mental status, unspecified altered mental status type Germania Latham Oct 14, 2016 10:51 Keyon Eckert MD Oct 14, 2016 14:22
[2016-10-14] MEDS ORDERED: POTASSIUM CHLORIDE 10 MEQ CONTROLLED RELEASE TAB PO ONE (11:00)
--- NOTE | 2016-10-14 13:39 | HHI.PR ---
Subjective Remarks Patient seen and evaluated today in follow-up for his renal disease and sepsis. No new issues. Objective Vitals Vital Signs Date Time Temp Pulse Resp B/P Pulse Ox O2 Delivery O2 Flow Rate FiO2 10/14/16 10:40 98 21 10/14/16 05:53 94 128/69 10/14/16 05:08 100.2 96 22 104/59 94 10/14/16 01:25 79 10/14/16 00:49 99.4 78 28 98/54 95 10/14/16 00:00 99.5 77 25 97/47 92 10/14/16 00:00 77 10/13/16 22:00 68 10/13/16 21:00 66 20 102/67 92 10/13/16 20:09 95 21 10/13/16 20:00 99.0 66 25 87/60 94 10/13/16 20:00 66 10/13/16 18:00 83 10/13/16 16:00 88 10/13/16 16:00 97.0 84 20 117/56 92 10/13/16 14:00 92 I/O 10/13/16 10/13/16 10/13/16 10/14/16 10/14/16 10/14/16 07:00 15:00 23:00 07:00 15:00 23:00 Intake Total 720 ml 240 ml Output Total 5 ml Balance 715 ml 240 ml Intake Oral 720 ml 240 ml Output Urine Total 5 ml # Bowel Movements 1 1 Result Diagram: 10/14/16 0847 10/14/16 0847 Imaging Last Impressions Gall Bladder Ultrasound 10/13/16 0000 Signed Impressions: Service Date/Time: Thursday, October 13, 2016 10:00 - CONCLUSION: 1. Echogenic renal parenchyma can be seen with medical renal disease. Right renal cyst. 2. Hepatomegaly. Mildly increased echotexture likely related to hepatic steatosis. Miguel Morgan MD Head CT 10/10/16 1613 Signed Impressions: Service Date/Time: Tuesday, October 11, 2016 11:22 - CONCLUSION: 1. Stable bilateral cortical atrophy. 2. No new or significant changes compared to the prior study from 2012. Scooter Zavala MD Chest X-Ray 10/10/16 1613 Signed Impressions: Service Date/Time: September 16:50 - CONCLUSION: Underinflated examination with atelectasis versus mild consolidation at the right lung base. Cardiac silhouette remains mildly enlarged. Norm Mccartney MD Objective Remarks GENERAL: This is a well-nourished, well-developed patient, in no apparent distress. CARDIOVASCULAR: Regular rate and rhythm without murmurs, gallops, or rubs. RESPIRATORY: Clear to auscultation. Breath sounds equal bilaterally. No wheezes , rales, or rhonchi. GASTROINTESTINAL: Abdomen soft, non-tender, nondistended. Normal active bowel sounds MUSCULOSKELETAL: Extremities without clubbing, cyanosis, or edema. NEURO: Alert & Oriented x4 to person, and place A/P Assessment and Plan 1. ESRD (end stage renal disease) on dialysis (transplant failure), t/r/s, AVF, on Epo for anemia of Chronic disease, occult blood neg 2. Sepsis due to bacteremia, on Unasyn, Will need 14 days abx course for bacteremia. anticipated stop date 10/23. 3. Afib, RVR resolved and now rate controlled, cont eliquis/cardizem/metoprolol 4. Metabolic encephalopathy, better 5. Hypokalemia, replaced per Renal 6. 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
--- NOTE | 2016-10-14 15:10 | PD.CONS ---
History of Present Illness Service Infectious disease Consult Requested By Dr Gibson Dooley Reason for Consult Evaluate patient with positive blood culture Primary Care Physician Unknown Diagnoses: History of Present Illness Patient seen and examined. Records reviewed. Patient is a 66-year-old male brought into the hospital for evaluation of altered mental status. Patient was apparently quite lethargic. His had fevers since admission. He was initially in the ICU, and stabilized and has been transferred out to the medical floor. In the ICU he had some problem with atrial fibrillation which seems to be under control. A urinalysis which showed significant pyuria. Patient however only makes about 10-20 mL of urine in a 24.. He has a Naranjo catheter in place. Liver function tests showed some mildly elevated alkaline phosphatase. He denies any abdominal pain, and there' s been no nausea or vomiting or any diarrhea reported. There is also no respiratory complaints from the history. 2 blood cultures done on admission are reported as growing gram-negative alvaro, ID is Proteus. Urine culture is negative. Chest x-ray has some atelectasis. Gallbladder ultrasound did not show any stones or any wall thickening or pericholecystic fluid. Infectious disease consultation has been requested to evaluate the patient. Patient currently remains lethargic although he does awaken and takes his medication, and he did eat some today for lunch and breakfast. He has some low- grade temps today. His last hemodialysis was last October 12. 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 Physical Exam Vital Signs Vital Signs Date Time Temp Pulse Resp B/P Pulse Ox O2 Delivery O2 Flow Rate FiO2 10/14/16 12:00 98.6 85 22 118/65 95 10/14/16 10:40 98 21 10/14/16 08:00 99.5 97 22 122/72 99 10/14/16 05:53 94 128/69 10/14/16 05:08 100.2 96 22 104/59 94 10/14/16 01:25 79 10/14/16 00:49 99.4 78 28 98/54 95 10/14/16 00:00 99.5 77 25 97/47 92 10/14/16 00:00 77 10/13/16 22:00 68 10/13/16 21:00 66 20 102/67 92 10/13/16 20:09 95 21 10/13/16 20:00 99.0 66 25 87/60 94 10/13/16 20:00 66 10/13/16 18:00 83 10/13/16 16:00 88 10/13/16 16:00 97.0 84 20 117/56 92 Physical Exam GENERAL: This is an obese, well-developed male, lethargic, awakens briefly when stimulated, answers some questions but goes back to sleep, in no apparent distress. SKIN: Warm and dry, no generalized rash or ecchymosis. HEAD: Atraumatic. Normocephalic. No temporal or scalp tenderness. EYES: [place] conjunctivae, no petechia or hemorrhage. Pupils equal round and reactive. Extraocular motions intact. No scleral icterus. No injection or drainage. ENT: Nose without bleeding, or purulent drainage. Dry oral mucosa. Throat without erythema, or exudate. Uvula midline. Airway patent. NECK: Trachea midline. No JVD or lymphadenopathy. Supple, nontender, no meningeal signs. CARDIOVASCULAR: Regular rate and rhythm without murmurs, gallops, or rubs. RESPIRATORY: Clear to auscultation. Breath sounds equal bilaterally. No wheezes , rales, or rhonchi. Decreased breath sounds at the bases. ABDOMEN: globular, soft, on-tender, nondistended. Bowel sounds are present and normoactive. No guarding. MUSCULOSKELETAL: Extremities without clubbing, cyanosis, or edema. No joint tenderness, effusion, or edema noted. No calf tenderness. Negative Homans sign bilaterally. 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 RN states this has been his mental status today PSYCH: Unable to assess LINE: PIV with no evidence of infection : Naranjo cath in place, has no urine in bag or tubing Laboratory Laboratory Tests Test 10/14/16 08:47 White Blood Count 13.0 Red Blood Count 2.65 Hemoglobin 7.9 Hematocrit 24.0 Mean Corpuscular Volume 90.5 Mean Corpuscular Hemoglobin 30.0 Mean Corpuscular Hemoglobin 33.1 Concent Red Cell Distribution Width 18.3 Platelet Count 414 Mean Platelet Volume 7.0 Sodium Level 128 Potassium Level 3.3 Chloride Level 89 Carbon Dioxide Level 27.5 Anion Gap 12 Blood Urea Nitrogen 27 Creatinine 7.10 Estimat Glomerular Filtration 9 Rate Random Glucose 90 Calcium Level 8.8 Phosphorus Level 3.1 Iron Level 35 Total Iron Binding Capacity 153 Percent Iron Saturation 22.9 Date/Time Procedure Status Source Growth 10/14/16 04:30 Stool Occult Blood ([facility]) - Final Complete Stool Stool HEMOCCULT NEGATIVE 10/10/16 17:00 Urine Culture - Preliminary Resulted Urine Catheterized Urine NO GROWTH IN 48 HOURS. 10/10/16 16:30 Aerobic Blood Culture - Preliminary Resulted Blood Peripheral NO GROWTH IN 4 DAYS 10/10/16 16:30 Anaerobic Blood Culture - Preliminary Resulted Gram Negative Alvaro Result Diagram: 10/14/16 0847 10/14/16 0847 Imaging RADIOLOGY STUDIES/FILMS REVIEWED Last Impressions Gall Bladder Ultrasound 10/13/16 0000 Signed Impressions: Service Date/Time: Thursday, October 13, 2016 10:00 - CONCLUSION: 1. Echogenic renal parenchyma can be seen with medical renal disease. Right renal cyst. 2. Hepatomegaly. Mildly increased echotexture likely related to hepatic steatosis. Miguel Morgan MD Head CT 10/10/161612 Signed Impressions: Service Date/Time: Tuesday, October 11, 2016 11:22 - CONCLUSION: 1. Stable bilateral cortical atrophy. 2. No new or significant changes compared to the prior study from 2012. Scooter Zavala MD Chest X-Ray 10/10/161612 Signed Impressions: Service Date/Time: September 16:50 - CONCLUSION: Underinflated examination with atelectasis versus mild consolidation at the right lung base. Cardiac silhouette remains mildly enlarged. Norm Mccartney MD Assessment and Plan Assessment and Plan IMPRESSION Proteus bacteremia, source? - UA abnormal but he makes very little urine and likely has urine sitting in his bladder for awhile, ?biliary tree, abdomen nontender - he still has fevers and leukocytosis, as well as encephalopathy ESRD on HD, T-- Lethargy, ?due to ongoing sepsis, or meds - ?baseline mental status RECOMMENDATION Repeat 2 blood cultures today Remove Naranjo catheter since he has very minimal urine output CT of the abdomen and pelvis to evaluate kidneys and biliary tree, as well as look for any other focus for gram-negative bacteremia Continue Unasyn Follow cultures Monitor progress I will determine course of antibiotic depending on results of his workup I will follow along with you. Thank you for this consultation Discussed Condition With Discussed with Ramila Patel MD Oct 14, 2016 15:10
[2016-10-14] MEDS: SODIUM CHLORIDE 0.9% IV SCH (17:31)
[2016-10-14] MEDS: AMPICILLIN SULBACTAM IV SCH (17:31)
[2016-10-15] VITALS (7 sets, daily range): BP systolic 97–139; BP diastolic 55–78; PULSE 61–87; RESP 20–28; TEMP 98.1–98.9; O2SAT 93–97
[2016-10-15] MEDS: INSULIN NovoLIN REGULAR SUPPLEMENTAL SCALE SQ SCH ×5 (04:00→20:00)
[2016-10-15] MEDS: CHLORHEXIDINE GLUCONATE 2 % 1 PACK (2 CLOTHS) TOP SCH (04:00)
[2016-10-15] MEDS: SODIUM CHLORIDE 0.9% IV SCH ×2 (05:30→18:34)
[2016-10-15] MEDS: AMPICILLIN SULBACTAM IV SCH ×2 (05:30→18:34)
[2016-10-15] MEDS: METOPROLOL TARTRATE 100 MG TAB PO SCH ×3 (05:31→22:17)
[2016-10-15] MEDS: chlorproMAZINE HCL 25 MG TAB PO SCH ×3 (05:31→22:17)
[2016-10-15] MEDS: SODIUM CHLORIDE 0.9% FLUSH 5 ML FLUSH IV FLUSH SCH ×2 (08:00→22:18)
[2016-10-15] MEDS: APIXABAN 5 MG TABLET PO SCH ×2 (08:00→22:17)
[2016-10-15] MEDS: DILTIAZEM HCL 90 MG TAB PO SCH ×3 (08:00→18:00)
[2016-10-15 08:13] LABS: HEMATOCRIT 23.8 % (39.0-51.0); MEAN CELL VOLUME 90.9 FL (80.0-100.0); MEAN CORPUSCULAR HEMOGLOBIN 29.4 PG (27.0-34.0); MEAN CORPUSCULAR HGB CONC 32.3 % (32.0-36.0); PLATELET COUNT 453 TH/MM3 (150-450); RED BLOOD COUNT 2.62 MIL/MM3 (4.50-5.90); RED CELL DISTRIBUTION WIDTH 18.3 % (11.6-17.2); REVIEW FLAG FINAL; WHITE BLOOD COUNT 12.4 TH/MM3 (4.0-11.0)
[2016-10-15 08:16] LABS: BICARBONATE 25.8 MEQ/L (21.0-32.0)
[2016-10-15 08:23] LABS: POTASSIUM 4.2 MEQ/L (3.5-5.1)
--- NOTE | 2016-10-15 10:09 | HHI.NPPN ---
Subjective Renal Failure: Chronic, End Stage Renal Disease Interval History More awake today. Due for dialysis. (Germania Latham) Review of Systems General Constitutional: Fatigue (Germania Latham) Objective Data Data 10/14/16 10/15/16 18:59 06:59 Intake Total 0 ml 300 ml Output Total 0 ml Balance 0 ml 300 ml Intake Oral 0 ml 200 ml IV Total 100 ml Output Urine Total 0 ml # Voids 1 # Bowel Movements 1 0 Vital Signs Date Time Temp Pulse Resp B/P Pulse Ox O2 Delivery O2 Flow Rate FiO2 10/15/16 08:00 98.7 82 20 112/64 93 10/15/16 04:00 98.8 83 26 139/64 95 10/15/16 01:20 98.9 87 28 105/65 97 10/14/16 22:00 74 10/14/16 21:18 98.0 73 28 114/66 97 10/14/16 16:00 98.2 100 22 134/75 96 10/14/16 15:40 92 21 10/14/16 12:00 98.6 85 22 118/65 95 10/14/16 10:40 98 21 (Germania Latham) -: 10/15/16 0725 10/15/16 0725 Microbiology 10/15/16 Aerobic Blood Culture, Received Pending 10/15/16 Anaerobic Blood Culture, Received Pending 10/15/16 Aerobic Blood Culture, Received Pending 10/15/16 Anaerobic Blood Culture, Received Pending Imaging Last 72 hours Impressions Gall Bladder Ultrasound 10/13/16 0000 Signed Impressions: Service Date/Time: Thursday, October 13, 2016 10:00 - CONCLUSION: 1. Echogenic renal parenchyma can be seen with medical renal disease. Right renal cyst. 2. Hepatomegaly. Mildly increased echotexture likely related to hepatic steatosis. Miguel Morgan MD (Germania Latham) Physical Exam General Appearance: Well Developed, Well Nourished, No Acute Distress, Comfortable ( Germania Latham) Eyes Eye Exam: Sclera White (Germania Latham) Neck Neck Exam: Neck Supple (Germanai Latham) Pulmonary Resp Exam: Clear Bilaterally, Breath Sounds Equal, No Distress (Germania Latham) Cardiology CV Exam: Regular, Normal Sinus Rhythm (Germania Latham) Gastrointestinal/Abdomen GI Exam: Soft, Non-Tender, Bowel Sounds Present, Non-Distended (Germania Latham) Musculoskeletal MS Exam: Joints Intact, Good Strength (Germania Latham) Integumentary Skin Exam: Clear, Warm, Dry (Germania Latham) Extremeties Extremities Exam: No Edema (Germania Latham) Neurologic Neuro Exam: Awake, Oriented, Speech Clear, Moving All Extremities (Germania Latham) Psychiatric Psych Exam: Appropriate Responses (Germania Latham) Assessment/Plan Discussed Condition With: Patient Problem List: (1) ESRD (end stage renal disease) on dialysis Plan: We will continue HD on a schedule, he is due today currently no renal concerns, potassium has corrected monitor fluid volume status monitor AVF for complications Medications should be adjusted for the patient's ESRD. Avoid gadolinium. (2) Sepsis Plan: Blood cultures showing Proteus , unknown source. Urine culture negative. repeat blood cultures negative he is on Unasyn ID consulted (3) Atrial fibrillation with rapid ventricular response Plan: rate controlled he is on Xarelto for anticoagulation (4) Altered mental status Plan: Secondary to sepsis improving, monitor (5) Anemia in chronic kidney disease Plan: Continue Epogen with dialysis borderline iron deficiency stool for occult bleeding negative (Germania Latham) Plan patient was seen and examined. Agree with above assessment and plan. (Keyon Eckert MD) Problem Qualifiers (1) Altered mental status: Qualified Code: R41.82 - Altered mental status, unspecified altered mental status type Germania Latham Oct 15, 2016 10:09 Keyon Eckert MD Oct 15, 2016 14:23
--- NOTE | 2016-10-15 10:56 | HHI.PR ---
Subjective Remarks The patient was resting comfortably in bed. He had no acute complaints. He said he was not sure if he was going for dialysis today. Discussed with nursing. Objective Vitals Vital Signs Date Time Temp Pulse Resp B/P Pulse Ox O2 Delivery O2 Flow Rate FiO2 10/15/16 08:00 98.7 82 20 112/64 93 10/15/16 04:00 98.8 83 26 139/64 95 10/15/16 01:20 98.9 87 28 105/65 97 10/14/16 22:00 74 10/14/16 21:18 98.0 73 28 114/66 97 10/14/16 16:00 98.2 100 22 134/75 96 10/14/16 15:40 92 21 10/14/16 12:00 98.6 85 22 118/65 95 I/O 10/14/16 10/14/16 10/14/16 10/15/16 10/15/16 10/15/16 07:00 15:00 23:00 07:00 15:00 23:00 Intake Total 0 ml 200 ml 100 ml Output Total 0 ml Balance 0 ml 200 ml 100 ml Intake Oral 0 ml 200 ml 0 ml IV Total 100 ml Output Urine Total 0 ml # Voids 1 # Bowel Movements 1 0 0 Result Diagram: 10/15/16 0725 10/15/16 0725 Imaging Last Impressions Gall Bladder Ultrasound 10/13/16 0000 Signed Impressions: Service Date/Time: Thursday, October 13, 2016 10:00 - CONCLUSION: 1. Echogenic renal parenchyma can be seen with medical renal disease. Right renal cyst. 2. Hepatomegaly. Mildly increased echotexture likely related to hepatic steatosis. Miguel Morgan MD Head CT 10/10/161612 Signed Impressions: Service Date/Time: Tuesday, October 11, 2016 11:22 - CONCLUSION: 1. Stable bilateral cortical atrophy. 2. No new or significant changes compared to the prior study from 2012. Scooter Zavala MD Chest X-Ray 10/10/161612 Signed Impressions: Service Date/Time: September 16:50 - CONCLUSION: Underinflated examination with atelectasis versus mild consolidation at the right lung base. Cardiac silhouette remains mildly enlarged. Norm Mccartney MD Objective Remarks GENERAL: This is a well-nourished, well-developed patient, in no apparent distress. CARDIOVASCULAR: Regular rate and rhythm without murmurs, gallops, or rubs. RESPIRATORY: Clear to auscultation. Breath sounds equal bilaterally. No wheezes , rales, or rhonchi. GASTROINTESTINAL: Abdomen soft, non-tender, nondistended. Normal active bowel sounds MUSCULOSKELETAL: Extremities without clubbing, cyanosis, or edema. NEURO: Confused, moving upper and lower extremities. Medications and IVs Current Medications Medications (Trade) Dose Ordered Sig/Dannielle Route Start Time Stop Time Status Last Admin (Haldol Inj) 5 mg Q4H PRN IV 10/10/16 17:45 10/12/16 10:01 (D50w (Vial) Inj) 25 ml UNSCH PRN IV PUSH 10/10/16 17:45 (NovoLIN R SUPPLEMENTAL SCALE) 1 Q4HR SQ 10/10/16 20:00 (NS Flush) 2 ml UNSCH PRN IV FLUSH 10/10/16 17:45 (NS Flush) 2 ml BID IV FLUSH 10/10/16 21:00 10/15/16 08:00 (Tylenol) 650 mg Q6H PRN PO 10/10/16 17:45 (Zofran Inj) 4 mg Q6H PRN IV 10/10/16 17:45 Miscellaneous Information 1 Q361D XX 10/10/16 17:45 (Chlorhexidine 2% Cloth) 3 pack Taper DAILY@04 TOP 10/11/16 04:00 10/07/17 03:59 10/15/16 04:00 (Chlorhexidine 2% Cloth) 3 pack UNSCH PRN TOP 10/10/16 17:45 (Eliquis) 5 mg BID PO 10/10/16 21:00 10/15/16 08:00 (Cardizem) 90 mg TID PO 10/11/16 10:30 10/15/16 08:00 Metoprolol Tartrate 100 mg 100 mg Q8HR PO 10/11/16 11:00 10/15/16 05:31 (NS 1000 ml Inj) 1,000 ml @ 0 mls/hr Q0M PRN IV 10/11/16 13:21 10/12/16 08:13 Heparin Sodium (Porcine) 8000 units 8,000 units UNSCH PRN IVF 10/11/16 13:30 Sodium Chloride 1,000 ml @ 200 mls/hr Q5H PRN IV 10/11/16 13:21 (NS 1000 ml Inj) 1,000 ml @ 0 mls/hr Q0M PRN IV 10/11/16 13:21 (Mannitol Inj) 12.5 gm UNSCH PRN IV 10/11/16 13:30 (Albumin 25% Inj) 25 gm UNSCH PRN IV 10/11/16 13:30 (NS Flush) 5 ml UNSCH PRN IVF 10/11/16 13:30 (Heparin Inj) UNSCH PRN .XX 10/11/16 13:30 (Gentamicin (Dialysis) Inj) 20 mg UNSCH PRN IV 10/11/16 13:30 (Zofran Inj) 4 mg UNSCH PRN IV 10/11/16 13:30 (Tylenol) 650 mg UNSCH PRN PO 10/11/16 13:30 (Benadryl) 25 mg UNSCH PRN PO 10/11/16 13:30 (Nitrostat Sl) 0.4 mg UNSCH PRN SL 10/11/16 13:30 (Catapres) 0.1 mg UNSCH PRN PO 10/11/16 13:30 (Epogen Inj) 5,000 units UNSCH PRN IV 10/11/16 13:30 10/12/16 08:14 (Gelfoam 12 Mm/7 Mm Top) 1 foam UNSCH PRN TOP 10/11/16 13:30 10/12/16 08:15 Chlorpromazine 25 mg 25 mg Q8HR PO 10/12/16 14:00 10/15/16 05:31 (Unasyn Inj/NS Inj) 100 ml @ 200 mls/hr Q12H IV 10/14/16 16:00 10/15/16 05:30 A/P Assessment and Plan ESRD (end stage renal disease) On dialysis (transplant failure), t/r/s, AVF, on Epo for anemia of Chronic disease, occult blood neg. - dialysis per nephrology. - follow BMP. Sepsis Due to bacteremia. Proteus mirabilis growing in one culture. ID consult appreciated. - On Unasyn. Will need 14 days abx course for bacteremia. anticipated stop date 10/23. - follow up with ID. - CT abdomen pending. Afib, RVR Resolved and now rate controlled. - cont Eliquis/Cardizem/metoprolol Metabolic encephalopathy Likely s/t ESRD and sepsis. - treatment as above. - monitor. History of CVA With right sided residual weakness. - PT/OT. Anemia Likely s/t renal disease. - continue Epo. - follow CBC. Hyponatremia Likely s/t hypervolemia. - volume management with dialysis. PPx: SCDs. Discharge Planning Awaiting clinical improvement. Demetrio Meier DO Oct 15, 2016 10:56
--- NOTE | 2016-10-15 13:41 | HHI.IDPN ---
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 Vital Signs Date Time Temp Pulse Resp B/P Pulse Ox O2 Delivery O2 Flow Rate FiO2 10/15/16 08:00 98.7 82 20 112/64 93 10/15/16 04:00 98.8 83 26 139/64 95 10/15/16 01:20 98.9 87 28 105/65 97 10/14/16 22:00 74 10/14/16 21:18 98.0 73 28 114/66 97 10/14/16 16:00 98.2 100 22 134/75 96 10/14/16 15:40 92 21 10/14/16 10/14/16 10/15/16 15:00 23:00 07:00 Intake Total 0 ml 200 ml 100 ml Output Total 0 ml Balance 0 ml 200 ml 100 ml Intake Oral 0 ml 200 ml 0 ml IV Total 100 ml Output Urine Total 0 ml # Voids 1 # Bowel Movements 1 0 0 . Laboratory Tests Test 10/14/16 10/15/16 08:47 07:25 White Blood Count 13.0 TH/MM3 12.4 TH/MM3 Red Blood Count 2.65 MIL/MM3 2.62 MIL/MM3 Hemoglobin 7.9 GM/DL 7.7 GM/DL Hematocrit 24.0 % 23.8 % Mean Corpuscular Volume 90.5 FL 90.9 FL Mean Corpuscular Hemoglobin 30.0 PG 29.4 PG Mean Corpuscular Hemoglobin 33.1 % 32.3 % Concent Red Cell Distribution Width 18.3 % 18.3 % Platelet Count 414 TH/MM3 453 TH/MM3 Mean Platelet Volume 7.0 FL 7.8 FL Laboratory Tests Test 10/14/16 10/15/16 08:47 07:25 Sodium Level 128 MEQ/L 129 MEQ/L Potassium Level 3.3 MEQ/L 4.2 MEQ/L Chloride Level 89 MEQ/L 91 MEQ/L Carbon Dioxide Level 27.5 MEQ/L 25.8 MEQ/L Anion Gap 12 MEQ/L 12 MEQ/L Blood Urea Nitrogen 27 MG/DL 36 MG/DL Creatinine 7.10 MG/DL 8.74 MG/DL Estimat Glomerular Filtration 9 ML/MIN 7 ML/MIN Rate Random Glucose 90 MG/DL 81 MG/DL Calcium Level 8.8 MG/DL 8.6 MG/DL Phosphorus Level 3.1 MG/DL 3.5 MG/DL Iron Level 35 MCG/DL Total Iron Binding Capacity 153 MCG/DL Percent Iron Saturation 22.9 % Microbiology Date/Time Procedure Status Source Growth 10/14/16 04:30 Stool Occult Blood ([facility]) - Final Complete Stool Stool HEMOCCULT NEGATIVE 10/15/16 07:25 Aerobic Blood Culture Received Blood Peripheral Pending 10/15/16 07:25 Anaerobic Blood Culture Received Blood Peripheral Pending 10/15/16 07:30 Aerobic Blood Culture Received Blood Peripheral Pending 10/15/16 07:30 Anaerobic Blood Culture Received Blood Peripheral Pending Imaging Last Impressions Gall Bladder Ultrasound 10/13/16 0000 Signed Impressions: Service Date/Time: Thursday, October 13, 2016 10:00 - CONCLUSION: 1. Echogenic renal parenchyma can be seen with medical renal disease. Right renal cyst. 2. Hepatomegaly. Mildly increased echotexture likely related to hepatic steatosis. Miguel Morgan MD Head CT 10/10/161612 Signed Impressions: Service Date/Time: Tuesday, October 11, 2016 11:22 - CONCLUSION: 1. Stable bilateral cortical atrophy. 2. No new or significant changes compared to the prior study from 2012. Scooter Zavala MD Chest X-Ray 10/10/161612 Signed Impressions: Service Date/Time: September 16:50 - CONCLUSION: Underinflated examination with atelectasis versus mild consolidation at the right lung base. Cardiac silhouette remains mildly enlarged. Norm Mccartney MD Physical Exam GENERAL: awake and responding, NAD. SKIN: Warm and dry, no generalized rash or ecchymosis. HEENT: [place] conjunctivae, no petechia or hemorrhage. No scleral icterus. No injection or drainage. Moist oral mucosa. Throat without erythema, or exudate. Uvula midline. Airway patent. NECK: Trachea midline. No JVD or lymphadenopathy. Supple, nontender, no meningeal signs. CARDIOVASCULAR: Regular rate and rhythm without murmurs, gallops, or rubs. RESPIRATORY: Clear to auscultation. Breath sounds equal bilaterally. No wheezes , rales, or rhonchi. Decreased breath sounds at the bases. ABDOMEN: globular, soft, non-tender, nondistended. Bowel sounds are present and normoactive. No guarding. MUSCULOSKELETAL: Extremities without clubbing, cyanosis, or edema. No joint tenderness, effusion, or edema noted. No calf tenderness. Negative Homans sign bilaterally. 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 - UA abnormal but he makes very little urine and likely has urine sitting in his bladder for awhile, ?biliary tree, abdomen nontender - he still has fevers and leukocytosis, as well as encephalopathy ESRD on HD, T- Lethargy, ?due to ongoing sepsis, or meds - ?baseline mental status RECOMMENDATION Follow C/S CT A/P Continue Unasyn Follow temps Monitor clinically Ramila Ross MD Oct 15, 2016 13:41 Ramila Ross MD Oct 15, 2016 13:41
[2016-10-15] MEDS ORDERED: DIATRIZOATE MEGLUM/DIATRIZOATE SOD 9 ML CUP PO ONE (14:15)
[2016-10-15 14:41] LABS: INDIRECT BILIRUBIN 0.5 MG/DL (0.0-0.8); TOTAL BILIRUBIN ADULT 0.7 MG/DL (0.2-1.0)
--- NOTE | 2016-10-15 21:02 | RADRPT ---
EXAM DATE/TIME: 10/15/2016 19:38 This report includes an Addendum and supersedes previous reports for this exam. [facility] COMPARISON: No previous studies available for comparison. INDICATIONS : Sepsis. Evaluate abscess. ORAL CONTRAST: Prescribed oral contrast ingested. RADIATION DOSE: 24.16 CTDIvol (mGy) MEDICAL HISTORY : Cerebrovascular disease. Cardiovascular disease Hypertension. SURGICAL HISTORY : None. ENCOUNTER: Initial ACUITY: 1 day PAIN SCALE: 4/10 LOCATION: Bilateral lower quadrant TECHNIQUE: Volumetric scanning of the abdomen and pelvis was performed. Using automated exposure control and ad justment of the mA and/or kV according to patient size, radiation dose was kept as low as reasonably achievable to obtain optimal diagnostic quality images. FINDINGS: LOWER LUNGS: The visualized lower lungs are clear. Heart is enlarged. Tiny pericardial effusion. LIVER: Homogeneous density without lesion. There is no dilation of the biliary tree. No calcified gallston es. SPLEEN: Normal size without lesion. PANCREAS: Within normal limits. KIDNEYS: [place] kidneys are atrophic with multiple small cysts bilaterally. Nonobstructing tiny lower pole sto ne on the right. ADRENAL GLANDS: Within normal limits. VASCULAR: There is no aortic aneurysm. BOWEL/MESENTERY: Distal colonic diverticula. No evidence of abnormal dilatation, wall thickening or focal inflammatory change. ABDOMINAL WALL: Tiny fat containing umbilical hernia. No incarceration RETROPERITONEUM: Single mildly enlarged retrocrural lymph node in the upper abdomen, nonspecific. Small para-aortic an d retrocaval lymph nodes throughout. Right pelvic transplant kidney with mild nonspecific surrounding induration. Poor to absent corticomedullary differentiation likely indicative of significant comprom ise of the transplant. Correlation recommended BLADDER: No wall thickening or mass. REPRODUCTIVE: Within normal limits. INGUINAL: There is no lymphadenopathy or hernia. MUSCULOSKELETAL: Within normal limits for patient age. CONCLUSION: Abnormal appearing transplant kidney with mild nonspecific surrounding indurated changes. No evidence of abscess as questioned Norm Peraza MD on October 15, 2016 at 20:41 Board Certified Radiologist. This report was verified electronically. ADDENDUM: The surgical history section should indicate previous renal transplant. Norm Peraza MD on October 18, 2016 at 15:21 Board Certified Radiologist. This report was verified electronically.
[2016-10-16] VITALS (9 sets, daily range): BP systolic 97–127; BP diastolic 56–74; PULSE 62–109; RESP 16–24; TEMP 97.2–98.8; O2SAT 95–99
[2016-10-16] MEDS: INSULIN NovoLIN REGULAR SUPPLEMENTAL SCALE SQ SCH ×3 (04:00→08:00)
[2016-10-16] MEDS: CHLORHEXIDINE GLUCONATE 2 % 1 PACK (2 CLOTHS) TOP SCH (04:00)
[2016-10-16] MEDS: SODIUM CHLORIDE 0.9% IV SCH ×2 (05:45→16:00)
[2016-10-16] MEDS: AMPICILLIN SULBACTAM IV SCH ×2 (05:45→16:00)
[2016-10-16] MEDS: chlorproMAZINE HCL 25 MG TAB PO SCH ×3 (05:47→20:35)
[2016-10-16] MEDS: METOPROLOL TARTRATE 100 MG TAB PO SCH ×3 (05:47→20:36)
[2016-10-16 06:21] LABS: HEMATOCRIT 23.7 % (39.0-51.0); MEAN CORPUSCULAR HEMOGLOBIN 29.7 PG (27.0-34.0); MEAN CORPUSCULAR HGB CONC 32.6 % (32.0-36.0); PLATELET COUNT 412 TH/MM3 (150-450); RED CELL DISTRIBUTION WIDTH 18.2 % (11.6-17.2); REVIEW FLAG FINAL; WHITE BLOOD COUNT 11.8 TH/MM3 (4.0-11.0)
[2016-10-16 06:49] LABS: BICARBONATE 25.2 MEQ/L (21.0-32.0); POTASSIUM 3.6 MEQ/L (3.5-5.1)
[2016-10-16] MEDS: APIXABAN 5 MG TABLET PO SCH ×2 (08:06→20:36)
[2016-10-16] MEDS: DILTIAZEM HCL 90 MG TAB PO SCH ×3 (08:06→17:04)
[2016-10-16] MEDS: SODIUM CHLORIDE 0.9% FLUSH 5 ML FLUSH IV FLUSH SCH ×2 (08:06→20:38)
--- NOTE | 2016-10-16 09:58 | HHI.PR ---
Subjective Remarks The patient was lethargic. He had no acute complaints. He knew that he was in the hospital but otherwise was not able to describe any of his symptoms. Discussed with nursing. Objective Vitals Vital Signs Date Time Temp Pulse Resp B/P Pulse Ox O2 Delivery O2 Flow Rate FiO2 10/16/16 08:00 97.7 86 16 107/68 99 10/16/16 04:00 97.2 109 22 117/59 95 10/16/16 00:00 97.4 93 22 124/60 97 10/15/16 20:00 98.2 86 20 114/63 94 10/15/16 18:05 96 21 10/15/16 16:00 98.1 61 20 97/55 96 10/15/16 12:00 98.7 80 20 138/78 97 I/O 10/15/16 10/15/16 10/15/16 10/16/16 10/16/16 10/16/16 07:00 15:00 23:00 07:00 15:00 23:00 Intake Total 100 ml 240 ml 50 ml 50 ml Output Total 0 ml 0 ml Balance 100 ml 240 ml 50 ml 50 ml Intake Oral 0 ml 240 ml 50 ml IV Total 100 ml 50 ml Output Urine Total 0 ml 0 ml # Voids 0 # Bowel Movements 0 0 1 Result Diagram: 10/16/16 0524 10/16/16 0524 Imaging Last Impressions Abdomen/Pelvis CT 10/15/16 0000 Signed Impressions: Service Date/Time: Saturday, October 15, 2016 19:38 - CONCLUSION: Abnormal appearing transplant kidney with mild nonspecific surrounding indurated changes. No evidence of abscess as questioned Norm Peraza MD Gall Bladder Ultrasound 10/13/16 0000 Signed Impressions: Service Date/Time: Thursday, October 13, 2016 10:00 - CONCLUSION: 1. Echogenic renal parenchyma can be seen with medical renal disease. Right renal cyst. 2. Hepatomegaly. Mildly increased echotexture likely related to hepatic steatosis. Miguel Morgan MD Head CT 10/10/16 1613 Signed Impressions: Service Date/Time: Tuesday, October 11, 2016 11:22 - CONCLUSION: 1. Stable bilateral cortical atrophy. 2. No new or significant changes compared to the prior study from 2012. Scooter Zavala MD Chest X-Ray 10/10/16 1613 Signed Impressions: Service Date/Time: September 16:50 - CONCLUSION: Underinflated examination with atelectasis versus mild consolidation at the right lung base. Cardiac silhouette remains mildly enlarged. Norm Mccartney MD Objective Remarks GENERAL: This is a well-nourished, well-developed patient, in no apparent distress. HEENT: [place], AT. CARDIOVASCULAR: Regular rate and rhythm without murmurs, gallops, or rubs. RESPIRATORY: Clear to auscultation. Breath sounds equal bilaterally. No wheezes , rales, or rhonchi. GASTROINTESTINAL: Abdomen soft, non-tender, nondistended. Normal active bowel sounds MUSCULOSKELETAL: Left arm deformities noted. Lower extremities without edema. NEURO: Lethargic, confused, moving upper and lower extremities. PSYCH: Flattened affect. Medications and IVs Current Medications Medications (Trade) Dose Ordered Sig/Dannielle Route Start Time Stop Time Status Last Admin (Haldol Inj) 5 mg Q4H PRN IV 10/10/16 17:45 10/12/16 10:01 (D50w (Vial) Inj) 25 ml UNSCH PRN IV PUSH 10/10/16 17:45 (NS Flush) 2 ml UNSCH PRN IV FLUSH 10/10/16 17:45 (NS Flush) 2 ml BID IV FLUSH 10/10/16 21:00 10/16/16 08:06 (Tylenol) 650 mg Q6H PRN PO 10/10/16 17:45 (Zofran Inj) 4 mg Q6H PRN IV 10/10/16 17:45 Miscellaneous Information 1 Q361D XX 10/10/16 17:45 (Chlorhexidine 2% Cloth) Taper DAILY@04 TOP 10/11/16 04:00 10/07/17 03:59 10/15/16 04:00 (Chlorhexidine 2% Cloth) 3 pack UNSCH PRN TOP 10/10/16 17:45 (Eliquis) 5 mg BID PO 10/10/16 21:00 10/16/16 08:06 (Cardizem) 90 mg TID PO 10/11/16 10:30 10/16/16 08:06 Metoprolol Tartrate 100 mg 100 mg Q8HR PO 10/11/16 11:00 10/16/16 05:47 (NS 1000 ml Inj) 1,000 ml @ 0 mls/hr Q0M PRN IV 10/11/16 13:21 10/12/16 08:13 Heparin Sodium (Porcine) 8000 units 8,000 units UNSCH PRN IVF 10/11/16 13:30 Sodium Chloride 1,000 ml @ 200 mls/hr Q5H PRN IV 10/11/16 13:21 (NS 1000 ml Inj) 1,000 ml @ 0 mls/hr Q0M PRN IV 10/11/16 13:21 (Mannitol Inj) 12.5 gm UNSCH PRN IV 10/11/16 13:30 (Albumin 25% Inj) 25 gm UNSCH PRN IV 10/11/16 13:30 (NS Flush) 5 ml UNSCH PRN IVF 10/11/16 13:30 (Heparin Inj) UNSCH PRN .XX 10/11/16 13:30 (Gentamicin (Dialysis) Inj) 20 mg UNSCH PRN IV 10/11/16 13:30 (Zofran Inj) 4 mg UNSCH PRN IV 10/11/16 13:30 (Tylenol) 650 mg UNSCH PRN PO 10/11/16 13:30 (Benadryl) 25 mg UNSCH PRN PO 10/11/16 13:30 (Nitrostat Sl) 0.4 mg UNSCH PRN SL 10/11/16 13:30 (Catapres) 0.1 mg UNSCH PRN PO 10/11/16 13:30 (Epogen Inj) 5,000 units UNSCH PRN IV 10/11/16 13:30 10/12/16 08:14 (Gelfoam 12 Mm/7 Mm Top) 1 foam UNSCH PRN TOP 10/11/16 13:30 10/12/16 08:15 Chlorpromazine 25 mg 25 mg Q8HR PO 10/12/16 14:00 10/16/16 05:47 (Unasyn Inj/NS Inj) 100 ml @ 200 mls/hr Q12H IV 10/14/16 16:00 10/16/16 05:45 A/P Assessment and Plan ESRD (end stage renal disease) On dialysis (transplant failure), //. - dialysis per nephrology. - follow BMP. Creatinine elevated 10/16. K+ within normal limits. Sepsis Due to bacteremia. Proteus mirabilis growing in one culture. ID consult appreciated. CT abdomen: Abnormal appearing transplant kidney with mild nonspecific surrounding indurated changes; No evidence of abscess. - On Unasyn. Will need 14 days abx course for bacteremia. anticipated stop date 10/23. - follow up with ID and nephrology. Afib, RVR Resolved and now rate controlled. - cont Eliquis/Cardizem/metoprolol Metabolic encephalopathy Likely s/t ESRD and sepsis. CT head unremarkable. - treatment as above. - monitor. - check TSH, vit B12 level, ABG. - PT/OT/ cognitive eval with speech therapy. History of CVA With right sided residual weakness. - PT/OT. Anemia Likely s/t renal disease. Hemoccult negative. - continue Epo. - follow CBC. Hyponatremia Likely s/t hypervolemia. - volume management with dialysis. PPx: SCDs. Discharge Planning Awaiting clinical improvement. Demetrio Meier DO Oct 16, 2016 09:58
--- NOTE | 2016-10-16 12:09 | HHI.NPPN ---
Subjective Renal Failure: Chronic, End Stage Renal Disease Interval History Dialyzed yesterday. No acute concerns. He is more alert. (Germania Latham) Review of Systems General Constitutional: Fatigue (Germania Latham) Objective Data Data 10/15/16 10/16/16 19:00 07:00 Intake Total 240 ml 100 ml Output Total 0 ml Balance 240 ml 100 ml Intake Oral 240 ml 50 ml IV Total 50 ml Output Urine Total 0 ml # Voids 0 # Bowel Movements 0 1 Vital Signs Date Time Temp Pulse Resp B/P Pulse Ox O2 Delivery O2 Flow Rate FiO2 10/16/16 08:00 70 10/16/16 08:00 97.7 86 16 107/68 99 10/16/16 04:00 97.2 109 22 117/59 95 10/16/16 00:00 97.4 93 22 124/60 97 10/15/16 20:00 98.2 86 20 114/63 94 10/15/16 18:05 96 21 10/15/16 16:00 98.1 61 20 97/55 96 (Germania Latham) -: 10/16/16 0524 10/16/16 0524 Physical Exam General Appearance: Well Developed, Well Nourished, No Acute Distress, Comfortable ( Germania Latham) Eyes Eye Exam: Sclera White (Germania Latham) Neck Neck Exam: Neck Supple (Germania Latham) Pulmonary Resp Exam: Clear Bilaterally, Breath Sounds Equal, No Distress (Germania Latham) Cardiology CV Exam: Regular, Normal Sinus Rhythm (Germania Latham) Gastrointestinal/Abdomen GI Exam: Soft, Non-Tender, Bowel Sounds Present, Non-Distended (Germania Latham) Musculoskeletal MS Exam: Joints Intact, Good Strength (Germania Latham) Integumentary Skin Exam: Clear, Warm, Dry (Germaina Latham) Extremeties Extremities Exam: No Edema Extremeties Remarks AVF left arm, with aneurysm, + thrill/bruit (Germania Latham) Neurologic Neuro Exam: Awake, Oriented, Speech Clear, Moving All Extremities (Germania Latham) Psychiatric Psych Exam: Appropriate Responses (Germania Latham) Assessment/Plan Discussed Condition With: Patient Problem List: (1) ESRD (end stage renal disease) on dialysis Plan: We will continue HD on a T-Th-Sat schedule, had 4L UF currently no renal concerns, potassium is acceptable monitor fluid volume status monitor AVF for complications babcock was removed, anuric at baseline Medications should be adjusted for the patient's ESRD. Avoid gadolinium. (2) Sepsis Plan: Blood cultures showing Urine culture negative. repeat blood cultures negative he is on Unasyn ID consulted (3) Altered mental status Plan: Secondary to sepsis improving, monitor (4) Atrial fibrillation with rapid ventricular response Plan: rate controlled he is on Xarelto for anticoagulation (5) Anemia in chronic kidney disease Plan: Continue Epogen with dialysis borderline iron deficiency stool for occult bleeding negative (Germania Latham) Problem List: (1) ESRD (end stage renal disease) on dialysis Plan: We will continue HD on a T-Th-Sat schedule, had 4L UF currently no renal concerns, potassium is acceptable monitor fluid volume status monitor AVF for complications babcock was removed, anuric at baseline Medications should be adjusted for the patient's ESRD. Avoid gadolinium. (2) Sepsis Plan: Blood cultures showing Urine culture negative. repeat blood cultures negative he is on Unasyn ID consulted (3) Altered mental status Plan: Secondary to sepsis improving, monitor (4) Atrial fibrillation with rapid ventricular response Plan: rate controlled he is on Apixaban for anticoagulation (5) Anemia in chronic kidney disease Plan: Continue Epogen with dialysis borderline iron deficiency stool for occult bleeding negative Plan patient was seen and examined. He can be discharged from renal standpoint. Dialysis will be continued TTS. (Keyon Eckert MD) Problem Qualifiers (1) Altered mental status: Qualified Code: R41.82 - Altered mental status, unspecified altered mental status type Germania Latham Oct 16, 2016 12:09 Keyon Eckert MD Oct 16, 2016 20:05
--- NOTE | 2016-10-16 13:17 | HHI.IDPN ---
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 Vital Signs Date Time Temp Pulse Resp B/P Pulse Ox O2 Delivery O2 Flow Rate FiO2 10/16/16 12:00 98.1 62 16 107/57 98 10/16/16 08:56 96 21 10/16/16 08:00 70 10/16/16 08:00 97.7 86 16 107/68 99 10/16/16 04:00 97.2 109 22 117/59 95 10/16/16 00:00 97.4 93 22 124/60 97 10/15/16 20:00 98.2 86 20 114/63 94 10/15/16 18:05 96 21 10/15/16 16:00 98.1 61 20 97/55 96 10/15/16 10/15/16 10/16/16 15:00 23:00 07:00 Intake Total 240 ml 50 ml 50 ml Output Total 0 ml Balance 240 ml 50 ml 50 ml Intake Oral 240 ml 50 ml IV Total 50 ml Output Urine Total 0 ml # Voids 0 # Bowel Movements 0 1 . Laboratory Tests Test 10/15/16 10/16/16 07:25 05:24 White Blood Count 12.4 TH/MM3 11.8 TH/MM3 Red Blood Count 2.62 MIL/MM3 2.60 MIL/MM3 Hemoglobin 7.7 GM/DL 7.7 GM/DL Hematocrit 23.8 % 23.7 % Mean Corpuscular Volume 90.9 FL 91.0 FL Mean Corpuscular Hemoglobin 29.4 PG 29.7 PG Mean Corpuscular Hemoglobin 32.3 % 32.6 % Concent Red Cell Distribution Width 18.3 % 18.2 % Platelet Count 453 TH/MM3 412 TH/MM3 Mean Platelet Volume 7.8 FL 7.4 FL Laboratory Tests Test 10/15/16 10/16/16 07:25 05:24 Sodium Level 129 MEQ/L 130 MEQ/L Potassium Level 4.2 MEQ/L 3.6 MEQ/L Chloride Level 91 MEQ/L 91 MEQ/L Carbon Dioxide Level 25.8 MEQ/L 25.2 MEQ/L Anion Gap 12 MEQ/L 14 MEQ/L Blood Urea Nitrogen 36 MG/DL 43 MG/DL Creatinine 8.74 MG/DL 10.43 MG/DL Estimat Glomerular Filtration 7 ML/MIN 6 ML/MIN Rate Random Glucose 81 MG/DL 84 MG/DL Calcium Level 8.6 MG/DL 8.9 MG/DL Phosphorus Level 3.5 MG/DL 3.2 MG/DL Total Bilirubin 0.7 MG/DL Direct Bilirubin 0.2 MG/DL Indirect Bilirubin 0.5 MG/DL Aspartate Amino Transf 35 U/L (AST/SGOT) Alanine Aminotransferase 17 U/L (ALT/SGPT) Alkaline Phosphatase 106 U/L Total Protein 7.6 GM/DL Albumin 1.8 GM/DL Microbiology Date/Time Procedure Status Source Growth 10/14/16 04:30 Stool Occult Blood ([facility]EN[facility]A) - Final Complete Stool Stool HEMOCCULT NEGATIVE 10/15/16 07:25 Aerobic Blood Culture - Preliminary Resulted Blood Peripheral NO GROWTH IN 1 DAY 10/15/16 07:25 Anaerobic Blood Culture - Preliminary Resulted Blood Peripheral NO GROWTH IN 1 DAY 10/15/16 07:30 Aerobic Blood Culture - Preliminary Resulted Blood Peripheral NO GROWTH IN 1 DAY 10/15/16 07:30 Anaerobic Blood Culture - Preliminary Resulted Blood Peripheral NO GROWTH IN 1 DAY Imaging Abdomen/Pelvis CT 10/15/16 0000 Signed Impressions: Service Date/Time: Saturday, October 15, 2016 19:38 - CONCLUSION: Abnormal appearing transplant kidney with mild nonspecific surrounding indurated changes. No evidence of abscess as questioned Norm Peraza MD Gall Bladder Ultrasound 10/13/16 0000 Signed Impressions: Service Date/Time: Thursday, October 13, 2016 10:00 - CONCLUSION: 1. Echogenic renal parenchyma can be seen with medical renal disease. Right renal cyst. 2. Hepatomegaly. Mildly increased echotexture likely related to hepatic steatosis. Miguel Morgan MD Head CT 10/10/16 1613 Signed Impressions: Service Date/Time: Tuesday, October 11, 2016 11:22 - CONCLUSION: 1. Stable bilateral cortical atrophy. 2. No new or significant changes compared to the prior study from 2012. Scooter Zavala MD Chest X-Ray 10/10/16 1613 Signed Impressions: Service Date/Time: September 16:50 - CONCLUSION: Underinflated examination with atelectasis versus mild consolidation at the right lung base. Cardiac silhouette remains mildly enlarged. Norm Mccartney MD Physical Exam GENERAL: awake and answering my questions, NAD. SKIN: Warm and dry, no generalized rash or ecchymosis. HEENT: [place] conjunctivae, no petechia or hemorrhage. No scleral icterus. Moist oral mucosa. NECK: Trachea midline. No JVD or lymphadenopathy. Supple, nontender, no meningeal signs. CARDIOVASCULAR: Regular rate and rhythm without murmurs, gallops, or rubs. RESPIRATORY: Clear to auscultation. Breath sounds equal bilaterally. No wheezes , rales, or rhonchi. Decreased breath sounds at the bases. ABDOMEN: globular, soft, non-tender, nondistended. Bowel sounds are present and normoactive. No guarding. MUSCULOSKELETAL: Extremities without clubbing, cyanosis, or edema. No joint tenderness, effusion, or edema noted. No calf tenderness. 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 - UA abnormal but he makes very little urine and likely has urine sitting in his bladder for awhile, ?biliary tree, abdomen nontender - he still has fevers and leukocytosis, as well as encephalopathy ESRD on HD, T- Lethargy, ?due to ongoing sepsis, or meds - ?baseline mental status RECOMMENDATION Follow C/S Continue Unasyn Follow temps Monitor clinically Ramila Ross MD Oct 16, 2016 13:17
[2016-10-16 13:24] LABS: BLOOD GAS BASE EXCESS 0.5 mmol/L (-2-2); BLOOD GAS CARBOXYHEMOGLOBIN 1.9 % (0-4); BLOOD GAS HCO3 25 mmol/L (22-26); BLOOD GAS METHEMOGLOBIN 0.5 % (0-2); BLOOD GAS O2 HGB SATURATION 92 % (90-100); BLOOD GAS OXYGEN CONTENT 9.1 Vol % (12.0-20.0); BLOOD GAS PCO2 40 mmHg (38-42); BLOOD GAS PO2 73 mmHg (61-120); CRITICAL VALUE NO; DRAW SITE RT RADIAL; FIO2 21 %; NUMBER OF ARTERIAL PUNCTURES 1; OXYGEN DEVICE ROOM AIR; STAT NO; TEMP CORR TO 98.6
[2016-10-17] MEDS: CHLORHEXIDINE GLUCONATE 2 % 1 PACK (2 CLOTHS) TOP SCH (04:00)
[2016-10-17 04:32] VITALS: BP 117/80; PULSE 94; RESP 20; TEMP 98.9; O2SAT 98
[2016-10-17] MEDS: AMPICILLIN SULBACTAM IV SCH ×2 (04:52→15:33)
[2016-10-17] MEDS: SODIUM CHLORIDE 0.9% IV SCH ×2 (04:52→15:33)
[2016-10-17] MEDS: METOPROLOL TARTRATE 100 MG TAB PO SCH ×3 (05:37→21:12)
[2016-10-17] MEDS: chlorproMAZINE HCL 25 MG TAB PO SCH ×3 (05:37→21:12)
[2016-10-17 08:00] VITALS: BP 139/87; PULSE 104; RESP 22; TEMP 98.3; O2SAT 94
[2016-10-17 08:56] LABS: MAGNESIUM 2.4 MG/DL (1.5-2.5); POTASSIUM 4.5 MEQ/L (3.5-5.1)
[2016-10-17 09:00] LABS: HEMATOCRIT 22.1 % (39.0-51.0); MEAN CELL VOLUME 88.2 FL (80.0-100.0); MEAN CORPUSCULAR HEMOGLOBIN 30.3 PG (27.0-34.0); MEAN CORPUSCULAR HGB CONC 34.4 % (32.0-36.0); PLATELET COUNT 420 TH/MM3 (150-450); RED BLOOD COUNT 2.51 MIL/MM3 (4.50-5.90); RED CELL DISTRIBUTION WIDTH 18.6 % (11.6-17.2); REVIEW FLAG FINAL; WHITE BLOOD COUNT 13.1 TH/MM3 (4.0-11.0)
[2016-10-17] MEDS: DILTIAZEM HCL 90 MG TAB PO SCH ×4 (09:00→17:50)
--- NOTE | 2016-10-17 09:30 | HHI.NPPN ---
Subjective Renal Failure: Chronic, End Stage Renal Disease Interval History Seen during dialysis. No acute changes. (Germania Latham) Review of Systems General Constitutional: Fatigue (Germania Latham) Objective Data Data 10/16/16 10/17/16 19:00 07:00 Intake Total 362 ml 360 ml Output Total 0 ml 0 ml Balance 362 ml 360 ml Intake Oral 360 ml 360 ml IV Total 2 ml Output Urine Total 0 ml 0 ml # Bowel Movements 0 0 Vital Signs Date Time Temp Pulse Resp B/P Pulse Ox O2 Delivery O2 Flow Rate FiO2 10/17/16 08:00 98.3 104 22 139/87 94 10/17/16 04:32 98.9 94 20 117/80 98 10/16/16 23:55 98.3 71 24 127/74 97 10/16/16 20:23 98.8 73 24 116/66 97 10/16/16 20:00 66 10/16/16 16:00 98.8 78 16 97/56 95 10/16/16 12:00 98.1 62 16 107/57 98 (Germania Latham) -: 10/17/16 0815 10/17/16 0815 Physical Exam General Appearance: Well Developed, Well Nourished, No Acute Distress, Comfortable ( Germania Latham) Eyes Eye Exam: Sclera White (Germania Latham) Neck Neck Exam: Neck Supple (Germania Latham) Pulmonary Resp Exam: Clear Bilaterally, Breath Sounds Equal, No Distress (Germania Latham) Cardiology CV Exam: Regular, Normal Sinus Rhythm (Germania Latham) Gastrointestinal/Abdomen GI Exam: Soft, Non-Tender, Bowel Sounds Present, Non-Distended (Germania Latham) Musculoskeletal MS Exam: Joints Intact, Good Strength (Germania Latham) Integumentary Skin Exam: Clear, Warm, Dry (Germania Latham) Extremeties Extremities Exam: No Edema Extremeties Remarks AVF left arm, with aneurysm, + thrill/bruit (Germania Latham) Neurologic Neuro Exam: Awake, Oriented, Speech Clear, Moving All Extremities (Germania Latham) Psychiatric Psych Exam: Appropriate Responses (Germania Latham) Assessment/Plan Discussed Condition With: Patient Problem List: (1) ESRD (end stage renal disease) on dialysis Plan: Seen durign dialysis today on a 3K, 350 BFR, goal 3L We will continue HD on a T-Th-Sat schedule currently no renal concerns, potassium is acceptable monitor fluid volume status monitor AVF for complications anuric at baseline Medications should be adjusted for the patient's ESRD. Avoid gadolinium. (2) Sepsis Plan: repeat blood cultures and urine cultures negative he is on Unasyn ID following (3) Altered mental status Plan: Secondary to sepsis improving, monitor (4) Atrial fibrillation with rapid ventricular response Plan: rate controlled he is on Apixaban for anticoagulation (5) Anemia in chronic kidney disease Plan: Continue Epogen with dialysis (Germania Latham) Plan patient was seen and examined during dialysis. On 3K, goal is 3 liters. I think his mental status is at baseline. He can be discharged from renal standpoint. (Keyon Eckert MD) Problem Qualifiers (1) Altered mental status: Qualified Code: R41.82 - Altered mental status, unspecified altered mental status type Germania Latham Oct 17, 2016 09:30 Keyon Eckert MD Oct 17, 2016 09:38
[2016-10-17] MEDS: GELATIN 12 MM/7 MM FOAM TOP PRN (10:45)
[2016-10-17] MEDS: EPOETIN ALFA 10,000 UNITS/ML VIAL IV PRN (10:45)
[2016-10-17 12:00] VITALS: BP 152/89; PULSE 97; RESP 20; TEMP 98.5; O2SAT 100
--- NOTE | 2016-10-17 12:59 | HHI.IDPN ---
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 Vital Signs Date Time Temp Pulse Resp B/P Pulse Ox O2 Delivery O2 Flow Rate FiO2 10/17/16 08:00 98.3 104 22 139/87 94 10/17/16 04:32 98.9 94 20 117/80 98 10/16/16 23:55 98.3 71 24 127/74 97 10/16/16 20:23 98.8 73 24 116/66 97 10/16/16 20:00 66 10/16/16 16:00 98.8 78 16 97/56 95 10/16/16 10/16/16 10/17/16 15:00 23:00 07:00 Intake Total 362 ml 360 ml Output Total 0 ml 0 ml 0 ml Balance 362 ml 360 ml 0 ml Intake Oral 360 ml 360 ml IV Total 2 ml Output Urine Total 0 ml 0 ml 0 ml # Bowel Movements 0 0 0 . Laboratory Tests Test 10/16/16 10/17/16 05:24 08:15 White Blood Count 11.8 TH/MM3 13.1 TH/MM3 Red Blood Count 2.60 MIL/MM3 2.51 MIL/MM3 Hemoglobin 7.7 GM/DL 7.6 GM/DL Hematocrit 23.7 % 22.1 % Mean Corpuscular Volume 91.0 FL 88.2 FL Mean Corpuscular Hemoglobin 29.7 PG 30.3 PG Mean Corpuscular Hemoglobin 32.6 % 34.4 % Concent Red Cell Distribution Width 18.2 % 18.6 % Platelet Count 412 TH/MM3 420 TH/MM3 Mean Platelet Volume 7.4 FL 7.5 FL Laboratory Tests Test 10/16/16 10/16/16 10/17/16 05:24 16:08 08:15 Sodium Level 130 MEQ/L 130 MEQ/L Potassium Level 3.6 MEQ/L 4.5 MEQ/L Chloride Level 91 MEQ/L 92 MEQ/L Carbon Dioxide Level 25.2 MEQ/L 22.0 MEQ/L Anion Gap 14 MEQ/L 16 MEQ/L Blood Urea Nitrogen 43 MG/DL 50 MG/DL Creatinine 10.43 MG/DL 11.98 MG/DL Estimat Glomerular Filtration 6 ML/MIN 5 ML/MIN Rate Random Glucose 84 MG/DL 76 MG/DL Calcium Level 8.9 MG/DL 8.2 MG/DL Phosphorus Level 3.2 MG/DL 4.4 MG/DL Ammonia LESS THAN 10 MCMOL/L Vitamin B12 Level 1783 PG/ML Thyroid Stimulating Hormone 1.160 uIU/ML 3rd Gen Magnesium Level 2.4 MG/DL Microbiology Date/Time Procedure Status Source Growth 10/15/16 07:25 Aerobic Blood Culture - Preliminary Resulted Blood Peripheral NO GROWTH IN 2 DAYS 10/15/16 07:25 Anaerobic Blood Culture - Preliminary Resulted Blood Peripheral NO GROWTH IN 2 DAYS 10/15/16 07:30 Aerobic Blood Culture - Preliminary Resulted Blood Peripheral NO GROWTH IN 2 DAYS 10/15/16 07:30 Anaerobic Blood Culture - Preliminary Resulted Blood Peripheral NO GROWTH IN 2 DAYS Imaging Abdomen/Pelvis CT 10/15/16 0000 Signed Impressions: Service Date/Time: Saturday, October 15, 2016 19:38 - CONCLUSION: Abnormal appearing transplant kidney with mild nonspecific surrounding indurated changes. No evidence of abscess as questioned Norm Peraza MD Gall Bladder Ultrasound 10/13/16 0000 Signed Impressions: Service Date/Time: Thursday, October 13, 2016 10:00 - CONCLUSION: 1. Echogenic renal parenchyma can be seen with medical renal disease. Right renal cyst. 2. Hepatomegaly. Mildly increased echotexture likely related to hepatic steatosis. Miguel Morgan MD Head CT 10/10/16 161 Signed Impressions: Service Date/Time: Tuesday, October 11, 2016 11:22 - CONCLUSION: 1. Stable bilateral cortical atrophy. 2. No new or significant changes compared to the prior study from 2012. Scooter Zavala MD Chest X-Ray 10/10/161612 Signed Impressions: Service Date/Time: September 16:50 - CONCLUSION: Underinflated examination with atelectasis versus mild consolidation at the right lung base. Cardiac silhouette remains mildly enlarged. Norm Mccartney MD Physical Exam GENERAL: awakens easily, and responding, NAD. SKIN: Warm and dry, no generalized rash or ecchymosis. HEENT: [place] conjunctivae, no petechia or hemorrhage. No scleral icterus. No injection or drainage. Moist oral mucosa. NECK: Trachea midline. No JVD or lymphadenopathy. Supple, nontender, no meningeal signs. CARDIOVASCULAR: Regular rate and rhythm without murmurs, gallops, or rubs. RESPIRATORY: Clear to auscultation. Breath sounds equal bilaterally. Decreased breath sounds at the bases. ABDOMEN: globular, soft, non-tender, nondistended. Bowel sounds are present and normoactive. No guarding. MUSCULOSKELETAL: Extremities without clubbing, cyanosis, or edema. No calf tenderness. 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 - UA abnormal but he makes very little urine and likely has urine sitting in his bladder for awhile, ?biliary tree, abdomen nontender - temps down, still with mild leukocytosis ESRD on HD, T-- Lethargy, ?due to ongoing sepsis, or meds - ?baseline mental status RECOMMENDATION Follow C/S Continue Unasyn Follow temps Monitor clinically If stable, will change to po Abx tomorrow Ramila Ross MD Oct 17, 2016 12:59
[2016-10-17] MEDS: APIXABAN 5 MG TABLET PO SCH ×2 (13:48→21:13)
[2016-10-17] MEDS: SODIUM CHLORIDE 0.9% FLUSH 5 ML FLUSH IV FLUSH SCH ×2 (13:49→21:13)
--- NOTE | 2016-10-17 15:41 | HHI.PR ---
Subjective Remarks The patient was seen following dialysis. He was lethargic but answering questions appropriately. Family was at the bedside and their questions were answered. Nursing was also at the bedside. Objective Vitals Vital Signs Date Time Temp Pulse Resp B/P Pulse Ox O2 Delivery O2 Flow Rate FiO2 10/17/16 12:00 98.5 97 20 152/89 100 10/17/16 08:00 98.3 104 22 139/87 94 10/17/16 04:32 98.9 94 20 117/80 98 10/16/16 23:55 98.3 71 24 127/74 97 10/16/16 20:23 98.8 73 24 116/66 97 10/16/16 20:00 66 10/16/16 16:00 98.8 78 16 97/56 95 I/O 10/16/16 10/16/16 10/16/16 10/17/16 10/17/16 10/17/16 07:00 15:00 23:00 07:00 15:00 23:00 Intake Total 50 ml 362 ml 360 ml Output Total 0 ml 0 ml 0 ml 3000 ml Balance 50 ml 362 ml 360 ml 0 ml -3000 ml Intake Oral 360 ml 360 ml IV Total 50 ml 2 ml Output Urine Total 0 ml 0 ml 0 ml Hemodialysis 3000 ml # Bowel Movements 0 0 0 Result Diagram: 10/17/16 0815 10/17/16 0815 Imaging Last Impressions Abdomen/Pelvis CT 10/15/16 0000 Signed Impressions: Service Date/Time: Saturday, October 15, 2016 19:38 - CONCLUSION: Abnormal appearing transplant kidney with mild nonspecific surrounding indurated changes. No evidence of abscess as questioned Norm Peraza MD Gall Bladder Ultrasound 10/13/16 0000 Signed Impressions: Service Date/Time: Thursday, October 13, 2016 10:00 - CONCLUSION: 1. Echogenic renal parenchyma can be seen with medical renal disease. Right renal cyst. 2. Hepatomegaly. Mildly increased echotexture likely related to hepatic steatosis. Miguel Morgan MD Head CT 10/10/16 1613 Signed Impressions: Service Date/Time: Tuesday, October 11, 2016 11:22 - CONCLUSION: 1. Stable bilateral cortical atrophy. 2. No new or significant changes compared to the prior study from 2012. Scooter Zavala MD Chest X-Ray 10/10/16 1613 Signed Impressions: Service Date/Time: September 16:50 - CONCLUSION: Underinflated examination with atelectasis versus mild consolidation at the right lung base. Cardiac silhouette remains mildly enlarged. Norm Mccartney MD Objective Remarks GENERAL: This is a well-nourished, well-developed patient, in no apparent distress. HEENT: [place], AT. CARDIOVASCULAR: Regular rate and rhythm without murmurs, gallops, or rubs. RESPIRATORY: Clear to auscultation. Breath sounds equal bilaterally. No wheezes , rales, or rhonchi. GASTROINTESTINAL: Abdomen soft, non-tender, nondistended. Normal active bowel sounds MUSCULOSKELETAL: Left arm deformities noted. Lower extremities without edema. NEURO: Lethargic, confused, moving upper and lower extremities. PSYCH: Flattened affect. Medications and IVs Current Medications Medications (Trade) Dose Ordered Sig/Dannielle Route Start Time Stop Time Status Last Admin (Haldol Inj) 5 mg Q4H PRN IV 10/10/16 17:45 10/12/16 10:01 (D50w (Vial) Inj) 25 ml UNSCH PRN IV PUSH 10/10/16 17:45 (NS Flush) 2 ml UNSCH PRN IV FLUSH 10/10/16 17:45 (NS Flush) 2 ml BID IV FLUSH 10/10/16 21:00 10/17/16 13:49 (Tylenol) 650 mg Q6H PRN PO 10/10/16 17:45 (Zofran Inj) 4 mg Q6H PRN IV 10/10/16 17:45 Miscellaneous Information 1 Q361D XX 10/10/16 17:45 (Chlorhexidine 2% Cloth) Taper DAILY@04 TOP 10/11/16 04:00 10/07/17 03:59 10/15/16 04:00 (Chlorhexidine 2% Cloth) 3 pack UNSCH PRN TOP 10/10/16 17:45 (Eliquis) 5 mg BID PO 10/10/16 21:00 10/17/16 13:48 (Cardizem) 90 mg TID PO 10/11/16 10:30 10/17/16 13:52 Metoprolol Tartrate 100 mg 100 mg Q8HR PO 10/11/16 11:00 10/17/16 15:33 (NS 1000 ml Inj) 1,000 ml @ 0 mls/hr Q0M PRN IV 10/11/16 13:21 10/12/16 08:13 Heparin Sodium (Porcine) 8000 units 8,000 units UNSCH PRN IVF 10/11/16 13:30 Sodium Chloride 1,000 ml @ 200 mls/hr Q5H PRN IV 10/11/16 13:21 (NS 1000 ml Inj) 1,000 ml @ 0 mls/hr Q0M PRN IV 10/11/16 13:21 (Mannitol Inj) 12.5 gm UNSCH PRN IV 10/11/16 13:30 (Albumin 25% Inj) 25 gm UNSCH PRN IV 10/11/16 13:30 (NS Flush) 5 ml UNSCH PRN IVF 10/11/16 13:30 (Heparin Inj) UNSCH PRN .XX 10/11/16 13:30 (Gentamicin (Dialysis) Inj) 20 mg UNSCH PRN IV 10/11/16 13:30 (Zofran Inj) 4 mg UNSCH PRN IV 10/11/16 13:30 (Tylenol) 650 mg UNSCH PRN PO 10/11/16 13:30 (Benadryl) 25 mg UNSCH PRN PO 10/11/16 13:30 (Nitrostat Sl) 0.4 mg UNSCH PRN SL 10/11/16 13:30 (Catapres) 0.1 mg UNSCH PRN PO 10/11/16 13:30 (Epogen Inj) 5,000 units UNSCH PRN IV 10/11/16 13:30 10/17/16 10:45 (Gelfoam 12 Mm/7 Mm Top) 1 foam UNSCH PRN TOP 10/11/16 13:30 10/17/16 10:45 Chlorpromazine 25 mg 25 mg Q8HR PO 10/12/16 14:00 10/17/16 15:32 (Unasyn Inj/NS Inj) 100 ml @ 200 mls/hr Q12H IV 10/14/16 16:00 10/17/16 15:33 A/P Assessment and Plan ESRD (end stage renal disease) On dialysis (transplant failure), //. - dialysis per nephrology. - follow BMP. Sepsis Due to bacteremia. Proteus mirabilis growing in one culture. ID consult appreciated. CT abdomen: Abnormal appearing transplant kidney with mild nonspecific surrounding indurated changes; No evidence of abscess. - On Unasyn. Will need 14 days abx course for bacteremia. anticipated stop date 10/23. - follow up with ID and nephrology. Anticipate switch to PO meds in AM. Afib, RVR Resolved and now rate controlled. - cont Eliquis/Cardizem/metoprolol Metabolic encephalopathy Likely s/t ESRD and sepsis. CT head unremarkable. TSH, B12, ABG unremarkable. - treatment as above. - monitor. - PT/OT/ cognitive eval with speech therapy. History of CVA With right sided residual weakness. - PT/OT. Anemia Likely s/t renal disease. Hemoccult negative. - continue Epo. - follow CBC. Hyponatremia Likely s/t hypervolemia. - volume management with dialysis. PPx: SCDs. Discharge Planning Anticipate d/c to SNF in 1-2 days. Demetrio Meier DO Oct 17, 2016 15:41
[2016-10-17 16:00] VITALS: BP_SYST 145; BP_SYST 170; BP_DIAS 77; BP_DIAS 90; PULSE 78; PULSE 83; RESP 20; TEMP 100; TEMP 99; O2SAT 96; O2SAT 99
[2016-10-17 20:52] VITALS: BP 113/58; PULSE 74; RESP 22; TEMP 98.3; O2SAT 96
[2016-10-18] VITALS (7 sets, daily range): BP systolic 128–148; BP diastolic 61–86; PULSE 73–94; RESP 16–20; TEMP 97.9–99.6; O2SAT 94–100
[2016-10-18] MEDS: CHLORHEXIDINE GLUCONATE 2 % 1 PACK (2 CLOTHS) TOP SCH (02:44)
[2016-10-18] MEDS: SODIUM CHLORIDE 0.9% IV SCH (05:27)
[2016-10-18] MEDS: AMPICILLIN SULBACTAM IV SCH (05:27)
[2016-10-18] MEDS: chlorproMAZINE HCL 25 MG TAB PO SCH ×2 (06:15→12:11)
[2016-10-18] MEDS: METOPROLOL TARTRATE 100 MG TAB PO SCH ×2 (06:15→12:11)
[2016-10-18 07:01] LABS: HEMATOCRIT 21.4 % (39.0-51.0); MEAN CORPUSCULAR HEMOGLOBIN 29.5 PG (27.0-34.0); MEAN CORPUSCULAR HGB CONC 32.8 % (32.0-36.0); PLATELET COUNT 456 TH/MM3 (150-450); RED BLOOD COUNT 2.37 MIL/MM3 (4.50-5.90); RED CELL DISTRIBUTION WIDTH 18.5 % (11.6-17.2); REVIEW FLAG FINAL; WHITE BLOOD COUNT 9.1 TH/MM3 (4.0-11.0)
[2016-10-18 07:11] LABS: BICARBONATE 27.1 MEQ/L (21.0-32.0); MAGNESIUM 2.1 MG/DL (1.5-2.5); POTASSIUM 3.4 MEQ/L (3.5-5.1)
[2016-10-18] MEDS: SODIUM CHLORIDE 0.9% FLUSH 5 ML FLUSH IV FLUSH SCH (09:00)
[2016-10-18] MEDS: APIXABAN 5 MG TABLET PO SCH (09:43)
[2016-10-18] MEDS: DILTIAZEM HCL 90 MG TAB PO SCH ×2 (09:43→12:11)
[2016-10-18] MEDS ORDERED: POTASSIUM CL 40 MEQ/30 ML LIQ UDC PO ONE (12:45)
--- NOTE | 2016-10-18 12:51 | HHI.PR ---
Subjective Remarks The patient wants to know when he could leave the hospital. He had no acute complaints. Nursing was at bedside. Objective Vitals Vital Signs Date Time Temp Pulse Resp B/P Pulse Ox O2 Delivery O2 Flow Rate FiO2 10/18/16 08:52 94 10/18/16 08:00 97.9 91 20 132/86 94 10/18/16 04:50 88 10/18/16 04:00 99.2 77 18 148/74 99 10/18/16 00:00 99.6 88 16 147/71 98 10/17/16 20:52 98.3 74 22 113/58 96 10/17/16 16:00 100.0 78 20 170/77 96 I/O 10/17/16 10/17/16 10/17/16 10/18/16 10/18/16 10/18/16 07:00 15:00 23:00 07:00 15:00 23:00 Intake Total 240 ml 120 ml 0 ml Output Total 0 ml 3000 ml 200 ml 0 ml Balance 0 ml -2760 ml -80 ml 0 ml Intake Oral 240 ml 120 ml 0 ml Output Urine Total 0 ml 200 ml 0 ml Hemodialysis 3000 ml # Voids 1 # Bowel Movements 0 1 2 1 Result Diagram: 10/18/16 0523 10/18/16 0523 Imaging Last Impressions Abdomen/Pelvis CT 10/15/16 0000 Signed Impressions: Service Date/Time: Saturday, October 15, 2016 19:38 - CONCLUSION: Abnormal appearing transplant kidney with mild nonspecific surrounding indurated changes. No evidence of abscess as questioned Norm Peraza MD Gall Bladder Ultrasound 10/13/16 0000 Signed Impressions: Service Date/Time: Thursday, October 13, 2016 10:00 - CONCLUSION: 1. Echogenic renal parenchyma can be seen with medical renal disease. Right renal cyst. 2. Hepatomegaly. Mildly increased echotexture likely related to hepatic steatosis. Miguel Morgan MD Head CT 10/10/16 1613 Signed Impressions: Service Date/Time: Tuesday, October 11, 2016 11:22 - CONCLUSION: 1. Stable bilateral cortical atrophy. 2. No new or significant changes compared to the prior study from 2012. Scooter Zavala MD Chest X-Ray 10/10/16 1613 Signed Impressions: Service Date/Time: September 16:50 - CONCLUSION: Underinflated examination with atelectasis versus mild consolidation at the right lung base. Cardiac silhouette remains mildly enlarged. Norm Mccartney MD Objective Remarks GENERAL: This is a well-nourished, well-developed patient, in no apparent distress. HEENT: NC, AT. CARDIOVASCULAR: Regular rate and rhythm without murmurs, gallops, or rubs. RESPIRATORY: Clear to auscultation. Breath sounds equal bilaterally. No wheezes , rales, or rhonchi. GASTROINTESTINAL: Abdomen soft, non-tender, nondistended. Normal active bowel sounds MUSCULOSKELETAL: Left arm deformities noted. Lower extremities without edema. NEURO: Alert and oriented to place, moving upper and lower extremities. PSYCH: Flattened affect. Medications and IVs Current Medications Medications (Trade) Dose Ordered Sig/Dannielle Route Start Time Stop Time Status Last Admin (Haldol Inj) 5 mg Q4H PRN IV 10/10/16 17:45 10/12/16 10:01 (D50w (Vial) Inj) 25 ml UNSCH PRN IV PUSH 10/10/16 17:45 (NS Flush) 2 ml UNSCH PRN IV FLUSH 10/10/16 17:45 (NS Flush) 2 ml BID IV FLUSH 10/10/16 21:00 10/18/16 09:00 (Tylenol) 650 mg Q6H PRN PO 10/10/16 17:45 (Zofran Inj) 4 mg Q6H PRN IV 10/10/16 17:45 Miscellaneous Information 1 Q361D XX 10/10/16 17:45 (Chlorhexidine 2% Cloth) Taper DAILY@04 TOP 10/11/16 04:00 10/07/17 03:59 10/15/16 04:00 (Chlorhexidine 2% Cloth) 3 pack UNSCH PRN TOP 10/10/16 17:45 (Eliquis) 5 mg BID PO 10/10/16 21:00 10/18/16 09:43 (Cardizem) 90 mg TID PO 10/11/16 10:30 10/18/16 12:11 Metoprolol Tartrate 100 mg 100 mg Q8HR PO 10/11/16 11:00 10/18/16 12:11 (NS 1000 ml Inj) 1,000 ml @ 0 mls/hr Q0M PRN IV 10/11/16 13:21 10/12/16 08:13 Heparin Sodium (Porcine) 8000 units 8,000 units UNSCH PRN IVF 10/11/16 13:30 Sodium Chloride 1,000 ml @ 200 mls/hr Q5H PRN IV 10/11/16 13:21 (NS 1000 ml Inj) 1,000 ml @ 0 mls/hr Q0M PRN IV 10/11/16 13:21 (Mannitol Inj) 12.5 gm UNSCH PRN IV 10/11/16 13:30 (Albumin 25% Inj) 25 gm UNSCH PRN IV 10/11/16 13:30 (NS Flush) 5 ml UNSCH PRN IVF 10/11/16 13:30 (Heparin Inj) UNSCH PRN .XX 10/11/16 13:30 (Gentamicin (Dialysis) Inj) 20 mg UNSCH PRN IV 10/11/16 13:30 (Zofran Inj) 4 mg UNSCH PRN IV 10/11/16 13:30 (Tylenol) 650 mg UNSCH PRN PO 10/11/16 13:30 (Benadryl) 25 mg UNSCH PRN PO 10/11/16 13:30 (Nitrostat Sl) 0.4 mg UNSCH PRN SL 10/11/16 13:30 (Catapres) 0.1 mg UNSCH PRN PO 10/11/16 13:30 (Epogen Inj) 5,000 units UNSCH PRN IV 10/11/16 13:30 10/17/16 10:45 (Gelfoam 12 Mm/7 Mm Top) 1 foam UNSCH PRN TOP 10/11/16 13:30 10/17/16 10:45 Chlorpromazine 25 mg 25 mg Q8HR PO 10/12/16 14:00 10/18/16 12:11 (Unasyn Inj/NS Inj) 100 ml @ 200 mls/hr Q12H IV 10/14/16 16:00 10/18/16 05:27 A/P Assessment and Plan ESRD (end stage renal disease) On dialysis (transplant failure), //. - dialysis per nephrology. - Epo with dialysis. - follow BMP. Sepsis Due to bacteremia. Proteus mirabilis growing in one culture. ID consult appreciated. CT abdomen: Abnormal appearing transplant kidney with mild nonspecific surrounding indurated changes; No evidence of abscess. - On Unasyn. Will need 14 days abx course for bacteremia. anticipated stop date 10/23. Follow up with ID and switch to PO meds upon discharge. Afib, RVR Resolved and now rate controlled. - cont Eliquis/Cardizem/metoprolol Metabolic encephalopathy Likely s/t ESRD and sepsis. CT head unremarkable. TSH, B12, ABG unremarkable. - treatment as above. - monitor. - PT/OT/ cognitive eval with speech therapy. History of CVA With right sided residual weakness. - PT/OT. Anemia Likely s/t renal disease and exacerbated by sepsis. Hemoccult negative. - continue Epo with dialysis. - follow CBC. Hyponatremia Likely s/t hypervolemia. - volume management with dialysis. PPx: Eliquis. Discharge Planning Anticipate d/c to SNF later today. Demetrio Meier DO Oct 18, 2016 12:51
--- NOTE | 2016-10-18 13:01 | HHI.DCPOC ---
Discharge Care Plan Diagnosis: (1) Anemia in chronic kidney disease (2) ESRD (end stage renal disease) on dialysis (3) Sepsis syndrome (4) Altered mental status (5) Atrial fibrillation Goals to Promote Your Health * To prevent worsening of your condition and complications * To maintain your health at the optimal level Directions to Meet Your Goals Take your medications as prescribed Follow your dietary instruction Follow activity as directed Keep your appointments as scheduled Take your immunizations and boosters as scheduled If your symptoms worsen call your PCP, if no PCP go to Urgent Care Center or Emergency Room Smoking is Dangerous to Your Health. Avoid second hand smoke Call the 24-hour hour crisis hotline for domestic abuse at Demetrio Meier DO Oct 18, 2016 13:00
[2016-10-18] MEDS ORDERED: AUGM500T7 PO (13:04)
--- NOTE | 2016-10-18 13:10 | HHI.DS ---
Discharge Summary Admission Date Oct 10, 2016 at 17:45 Discharge Date: Oct 18, 2016 Admitting Diagnosis AMS; severe sepsis (pneumonia); ESRD; Afib w RVR (1) Atrial fibrillation ICD Code: I48.91 (2) Anemia in chronic kidney disease ICD Code: D63.1 (3) ESRD (end stage renal disease) on dialysis ICD Code: N18.6 (4) Sepsis syndrome ICD Code: A41.9 Diagnosis: Principal Procedures None. Brief History - From Admission 66-year-old male with history of hypertension, CAD with stent placement, A. fib , previous CVA with right sided residual weakness, end-stage renal disease status post renal transplant/rejection, on hemodialysis, presents to the emergency department for evaluation of altered mental status. Patient was at hemodialysis today when he was noted to be altered. He was not responding appropriately. EMS was called and the patient was brought to the emergency department department. Patient is unable to offer any history. At this point his baseline mental status is unknown. Last hospitalization was 2013 and he resided in a [place] [facility] at that time. We are unable to obtain any further information currently. CBC/BMP: 10/18/16 0523 10/18/16 0523 Significant Findings Laboratory Tests Test 10/16/16 10/16/16 10/16/16 10/17/16 05:24 13:14 16:08 08:15 White Blood Count 11.8 TH/MM3 13.1 TH/MM3 (4.0-11.0) (4.0-11.0) Red Blood Count 2.60 MIL/MM3 2.51 MIL/MM3 (4.50-5.90) (4.50-5.90) Hemoglobin 7.7 GM/DL 7.6 GM/DL (13.0-17.0) (13.0-17.0) Hematocrit 23.7 % 22.1 % (39.0-51.0) (39.0-51.0) Red Cell Distribution Width 18.2 % 18.6 % (11.6-17.2) (11.6-17.2) Sodium Level 130 MEQ/L 130 MEQ/L (136-145) (136-145) Chloride Level 91 MEQ/L 92 MEQ/L (98-107) (98-107) Blood Urea Nitrogen 43 MG/DL (7-18) 50 MG/DL (7-18) Creatinine 10.43 MG/DL 11.98 MG/DL (0.60-1.30) (0.60-1.30) Estimat Glomerular Filtration 6 ML/MIN (>89) 5 ML/MIN (>89) Rate Arterial Blood Oxygen Content 9.1 Vol % (12.0-20.0) Blood Gas Hemoglobin 7.0 G/DL (12.0-16.0) Ammonia LESS THAN 10 MCMOL/L (11-32) Vitamin B12 Level 1783 PG/ML (193-986) Anion Gap 16 MEQ/L (5-15) Calcium Level 8.2 MG/DL (8.5-10.1) Test 10/18/16 05:23 Red Blood Count 2.37 MIL/MM3 (4.50-5.90) Hemoglobin 7.0 GM/DL (13.0-17.0) Hematocrit 21.4 % (39.0-51.0) Red Cell Distribution Width 18.5 % (11.6-17.2) Platelet Count 456 TH/MM3 (150-450) Sodium Level 135 MEQ/L (136-145) Potassium Level 3.4 MEQ/L (3.5-5.1) Chloride Level 93 MEQ/L (98-107) Blood Urea Nitrogen 28 MG/DL (7-18) Creatinine 8.16 MG/DL (0.60-1.30) Estimat Glomerular Filtration 8 ML/MIN (>89) Rate Imaging Last Impressions Abdomen/Pelvis CT 10/15/16 0000 Signed Impressions: Service Date/Time: Saturday, October 15, 2016 19:38 - CONCLUSION: Abnormal appearing transplant kidney with mild nonspecific surrounding indurated changes. No evidence of abscess as questioned Norm Peraza MD Gall Bladder Ultrasound 10/13/16 0000 Signed Impressions: Service Date/Time: Thursday, October 13, 2016 10:00 - CONCLUSION: 1. Echogenic renal parenchyma can be seen with medical renal disease. Right renal cyst. 2. Hepatomegaly. Mildly increased echotexture likely related to hepatic steatosis. Miguel Morgan MD Head CT 10/10/16 1613 Signed Impressions: Service Date/Time: Tuesday, October 11, 2016 11:22 - CONCLUSION: 1. Stable bilateral cortical atrophy. 2. No new or significant changes compared to the prior study from 2012. Scooter Zavala MD Chest X-Ray 10/10/16 1613 Signed Impressions: Service Date/Time: September 16:50 - CONCLUSION: Underinflated examination with atelectasis versus mild consolidation at the right lung base. Cardiac silhouette remains mildly enlarged. Norm Mccartney MD PE at Discharge GENERAL: This is a well-nourished, well-developed patient, in no apparent distress. HEENT: NC, AT. CARDIOVASCULAR: Regular rate and rhythm without murmurs, gallops, or rubs. RESPIRATORY: Clear to auscultation. Breath sounds equal bilaterally. No wheezes , rales, or rhonchi. GASTROINTESTINAL: Abdomen soft, non-tender, nondistended. Normal active bowel sounds MUSCULOSKELETAL: Left arm deformities noted. Lower extremities without edema. NEURO: Alert and oriented to place, moving upper and lower extremities. PSYCH: Flattened affect. Hospital Course ESRD (end stage renal disease) S/p kidney transplant, on dialysis. Nephrology was consulted and the pt was resumed on dialysis /. He received Epogen with dialysis. He will have a follow up BMP in 2-3 days. Sepsis Due to bacteremia. Proteus mirabilis growing in one culture. ID was consulted.CT abdomen: Abnormal appearing transplant kidney with mild nonspecific surrounding indurated changes; No evidence of abscess. He was continued on Unasyn. He will be discharged on Augmentin with an anticipated stop date of 10/28. Afib with RVR Resolved and now rate controlled. He will continue Eliquis/Cardizem/metoprolol upon discharge. Metabolic encephalopathy CT head unremarkable. TSH, B12, ABG unremarkable. He worked with PT/OT and had a cognitive eval with speech therapy. Mental status improved throughout hospitalization. Anemia Hemoccult was negative. He was continued on Eliquis. He will continue Epo with dialysis. He will have a follow up CBC in 2-3 days. Pt Condition on Discharge: Stable Discharge Disposition: Discharge to SNF Discharge Time: > 30 minutes Discharge Instructions DIET: Follow Instructions for: Renal Failure Diet Speech Therapy-Diet Recommends: Pureed Activities you can perform: Weight Bearing as Erasto Follow up Referrals: Nephrology - 1 Week PCP Follow-up - 1 Week New Orders: BASIC METABOLIC PROF - 2-3 Days CBC NO DIFF - 2-3 Days New Medications: Amoxicillin-Clavulanate (Augmentin) 500-125 mg Tab 500 MG PO BID Infection #20 Ref 0 TAB Continued Medications: Apixaban (Eliquis) 5 Mg Tab 5 MG PO BID Blood Clot Prevention #60 Ref 0 TAB B-Complex W/ C & Folic Acid (Nephro-[place]) 1 Tab 1 TAB PO DAILY Nutritional Supplement #30 Ref 0 TAB Bisacodyl Supp (Dulcolax Supp) 10 Mg Supp 10 MG RECTAL DAILY PRN CONSTIPATION #12 Ref 0 SUPP Brimonidine Opth Drops (Alphagan P Opth Drops) 0.15% Soln 1 DROP EACH EYE HS Intraocular pressure #1 Ref 0 BOTTLE Chlorpromazine HCl (Chlorpromazine HCl) 25 Mg Tab 25 MG PO TID Cinacalcet (Sensipar) 30 Mg Tab 30 MG PO DAILY With Dinner #30 Ref 0 TAB Clonidine (Catapres) 0.1 Mg Tab 0.1 MG PO Q6HR PRN SPB >175 OR DBP >100 #60 Ref 0 TAB Diltiazem (Diltiazem) 90 Mg Tab 90 MG PO TID Angina #120 Ref 0 TAB Diphenhydramine (Benadryl Allergy) 25 Mg Tab 25 MG PO Q8HR PRN ITCHING Ref 0 TAB Insulin Aspart Inj (Novolog Inj) 1,000 Unit/10 Ml Vial 0 SQ DIRECTED Sliding Scale as directed. Blood Sugar Management #10 Ref 0 ML Lactobacillus Acidophilus-Pect (Acidophilus/Pectin) 1 Cap Cap 1 CAP PO BID Magnesium Hydroxide Liq (Milk of Magnesia Liq) 400 Mg/5 Ml Susp 30 ML PO DAILY PRN NO BM IN 3 DAYS #1 Ref 0 BOTTLE Metoprolol Tartrate (Metoprolol Tartrate) 100 Mg Tab 100 MG PO Q8HR #60 Ref 0 TAB Nutritional Supplements (Nepro) 1 Liq Liq 1 CAN PO DAILY Sennosides-Docusate Sodium (Senna S) 8.6-50 Mg Tab 2 TAB PO HS Constipation Sevelamer Carbonate (Renvela) 800 Mg Tab 2400 MG PO TID With meals. Give 2 tablets (1,600mg) with snacks Control phosphorous levels #90 Ref 0 TAB Sodium Phosphates Rectal (Fleet Enema Rectal) 7-19 Gm/118 Ml Enem 1 APPLIC LA DIRECTED PRN CONSTIPATION Ref 0 BOTTLE Terazosin (Terazosin) 2 Mg Cap 2 MG PO HS #30 Ref 0 CAP ([Sea Salt Nasal [place]]) 1 SPRAY EACH NARE BID Discontinued Medications: Tramadol (Tramadol) 50 Mg Tab 50 MG PO Q8H PRN PAIN Ref 0 TAB Demetrio Meier DO Oct 18, 2016 13:10
--- NOTE | 2016-10-18 13:56 | HHI.NPPN ---
Subjective Renal Failure: Chronic, End Stage Renal Disease Interval History Dialyzed yesterday. He is afebrile. Denies complaints. (Germania Latham ) Review of Systems General Constitutional: Fatigue (Germania Latham) Objective Data Data 10/17/16 10/18/16 19:00 07:00 Intake Total 240 ml 120 ml Output Total 3000 ml 200 ml Balance -2760 ml -80 ml Intake Oral 240 ml 120 ml Output Urine Total 200 ml Hemodialysis 3000 ml # Voids 1 # Bowel Movements 1 3 Vital Signs Date Time Temp Pulse Resp B/P Pulse Ox O2 Delivery O2 Flow Rate FiO2 10/18/16 08:52 94 10/18/16 08:00 97.9 91 20 132/86 94 10/18/16 04:50 88 10/18/16 04:00 99.2 77 18 148/74 99 10/18/16 00:00 99.6 88 16 147/71 98 10/17/16 20:52 98.3 74 22 113/58 96 10/17/16 16:00 100.0 78 20 170/77 96 (Germania Latham) -: 10/18/16 0523 10/18/16 0523 Physical Exam General Appearance: Well Developed, Well Nourished, No Acute Distress, Comfortable ( Germania Latham) Eyes Eye Exam: Pupils Equal, Sclera White (Germania Latham) Neck Neck Exam: Neck Supple (Germania Latham) Pulmonary Resp Exam: Clear Bilaterally, Breath Sounds Equal, No Distress (Germania Latham) Cardiology CV Exam: Regular, Normal Sinus Rhythm (Germania Latham) Gastrointestinal/Abdomen GI Exam: Soft, Non-Tender, Bowel Sounds Present, Non-Distended (Germania Latham) Musculoskeletal MS Exam: Joints Intact, Good Strength (Germania Latham) Integumentary Skin Exam: Clear, Warm, Dry (Germania Latham) Extremeties Extremities Exam: No Edema Extremeties Remarks AVF left arm, with aneurysm, + thrill/bruit (Germania Latham) Neurologic Neuro Exam: Awake, Oriented, Speech Clear, Moving All Extremities (Germania Latham) Psychiatric Psych Exam: Appropriate Responses (Germania Latham) Assessment/Plan Discussed Condition With: Patient Problem List: (1) ESRD (end stage renal disease) on dialysis Plan: 3L UF yesterday with dialysis We will continue HD on a --Fri schedule currently no renal concerns, potassium is acceptable monitor fluid volume status monitor AVF for complications anuric at baseline Medications should be adjusted for the patient's ESRD. Avoid gadolinium. (2) Sepsis Plan: repeat blood cultures and urine cultures negative he is on Unasyn, will need conversion to oral route prior to discharge ID following (3) Altered mental status Plan: May have been Secondary to sepsis, however this is his baseline mental status improving, monitor (4) Atrial fibrillation with rapid ventricular response Plan: rate controlled he is on Apixaban for anticoagulation (5) Anemia in chronic kidney disease Plan: Continue Epogen with dialysis Plan He can be discharged from renal standpoint. (Germania Latham) Plan patient was seen and examined. We will continue dialysis TTS. Notes were reviewed. Possible discharge today. (Keyon Eckert MD) Problem Qualifiers (1) Altered mental status: Qualified Code: R41.82 - Altered mental status, unspecified altered mental status type Germania Latham Oct 18, 2016 13:56 Keyon Eckert MD Oct 18, 2016 15:08
== END 2016-10-18 18:17 | DRG 871 ==
LOC: NEPA 16:06 → NEDA 17:45 → HIMN 21:35 → N04B 10-14 00:42
PROVIDERS: ADMIT Hospitalist; ATTEND Hospitalist
DX: A41.9 Sepsis, unspecified organism (principal); N18.6 End stage renal disease; G92 Toxic encephalopathy; T86.12 Kidney transplant failure; J18.9 Pneumonia, unspecified organism; I12.0 Hypertensive chronic kidney disease with stage 5 chronic kidney disease or end stage renal disease; I48.91 Unspecified atrial fibrillation; I69.351 Hemiplegia and hemiparesis following cerebral infarction affecting right dominant side; E44.1 Mild protein-calorie malnutrition; N39.0 Urinary tract infection, site not specified; E87.1 Hypo-osmolality and hyponatremia; J98.11 Atelectasis; E86.1 Hypovolemia; E83.39 Other disorders of phosphorus metabolism; R65.20 Severe sepsis without septic shock; I25.10 Atherosclerotic heart disease of native coronary artery without angina pectoris; Z99.2 Dependence on renal dialysis; E78.5 Hyperlipidemia, unspecified; D63.1 Anemia in chronic kidney disease; B96.89 Other specified bacterial agents as the cause of diseases classified elsewhere; E87.6 Hypokalemia; H40.9 Unspecified glaucoma; K21.9 Gastro-esophageal reflux disease without esophagitis; M10.9 Gout, unspecified; M19.90 Unspecified osteoarthritis, unspecified site; R09.02 Hypoxemia; Y83.0 Surgical operation with transplant of whole organ as the cause of abnormal reaction of the patient, or of later complication, without mention of misadventure at the time of the procedure; F20.9 Schizophrenia, unspecified; Z87.891 Personal history of nicotine dependence; Z95.5 Presence of coronary angioplasty implant and graft
CPT/HCPCS: 36600; 51702; 70450; 71010; 74176; 76705; 80048; 80053; 80074; 80076; 81001; 82140; 82150; 82272; 82607; 82805; 82948; 83540; 83550; 83605; 83690; 83735; 84100; 84443; 84484; 85025; 85027; 85610; 85730; 86850; 86900; 86901; 87040; 87077; 87086; 87186; 87205; 87641; 90935; 93005; 94150; 94640; 94664; 94667; 94668; 96365; 96374; 96375; 96376; J0295; J1200; J1630; J2543; J3230; J3370; J7030; J7050; Q4081; Q9963

== ENCOUNTER 2016-11-27 04:07 | Inpatient (IN) | payer MEDICARE, MEDICAID ==
[2016-11-27] VITALS (18 sets, daily range): BP systolic 106–153; BP diastolic 65–99; PULSE 89–122; RESP 16–36; TEMP 99.3–99.5; O2SAT 95–100
[~2016-11-27] VITALS: Ht 175.3 cm; Wt 90.7 kg
[~2016-11-27 04:07] MED LIST changes: +ACIDCAP2 PO; +AUGM500T7 PO; +BENA25TA3 PO; +BRIM.15%O EACH EYE; -BRIM.2%O EACH EYE; -CALC0.25 PO; +CHLO25TA5 PO; -CHLOR25 PO; +CINA30 PO; +CLON.1 PO; +DULC10SU3 RECTAL; -FERR324T4 PO; +FLEEENE3 PR; -FURO20 PO; -HYDR50TA15 PO; -LACTCAP6 PO; -MAGN400T PO; +MILKSUS PO; -MYCO360 PO; +NEPHTAB3 PO; +NEPRLIQ PO; +NOVOLOGP2 SQ; -PRED10 PO; -PROT40TA PO; -SALI1SPR8 EACH NARE; +SENN8.6T8 PO; +SEVEL800 PO; -TAB-TAB PO; -TACR1 PO; +TERA2CAP3 PO; -VITA100018 PO; +[UNRECOGNIZED DRUG - OTHER] EACH NARE
[2016-11-27] MEDS ORDERED: VANCOMYCIN INJ 1,000 MG in SODIUM CHLOR 0.9% 250 ML INJ 250 ML IV STA (04:40)
[2016-11-27] MEDS ORDERED: CEFEPIME INJ 2,000 MG in SODIUM CHLORIDE 0.9% INJ 100 ML IV STA (04:40)
[2016-11-27] MEDS ORDERED: SODIUM CHLORIDE 0.9% FLUSH 5 ML FLUSH IVF PRN ×2 (04:45→09:00)
[2016-11-27] MEDS ORDERED: DILTIAZEM INJ 125 MG in SODIUM CHLORIDE 0.9% INJ 100 ML IV SCH (04:45)
[2016-11-27] MEDS ORDERED: SEVEL800 PO (04:49)
[2016-11-27] MEDS ORDERED: IPRASOL INH (04:49)
[2016-11-27] MEDS ORDERED: PROC10TA PO (04:49)
[2016-11-27] MEDS ORDERED: TYLE325T PO (04:49)
[2016-11-27] MEDS ORDERED: [UNRECOGNIZED DRUG - CODE] EACH NARE (04:49)
[2016-11-27] MEDS ORDERED: NEPHRO PO (04:49)
--- NOTE | 2016-11-27 04:54 | PD ---
HPI Chief Complaint: Altered Mental Status Time Seen by Provider: 04:14 Travel History International Travel<30 days: No Contact w/Intl Traveler<30days: No Traveled to known affect area: No History of Present Illness HPI The patient is a 66 year old male who presents to the [facility] emergency department with a history of reportedly being checked on at his pen[facility] and noted to have a heart rate in the 160s prior to arrival. Ambulance services were called. The patient was noted to have a decreased level of consciousness. The patient was drowsy although arousable. The patient is currently a resident at the [place] [facility]. The patient was given Cardizem 20 mg IV push 1. The patient's heart rate decreased down to the low 100s. The patient continues to be drowsy on examination. He denies any acute complaints. He unfortunately is a poor historian and has difficulty staying awake to answer questions. He does know that he is at [place] in the emergency department, however he is unsure why he was brought here. The patient's blood sugar prior to arrival was 113. The rest of the patient's history is obtained through the electronic medical record in the penitentiary record. 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 From reviewing the electronic medical record, during the last admission it was difficult to tell the source of the patient's sepsis, however he did have a Proteus bacteremia. The patient's lethargy, altered mentation was thought to possibly be related to medications, versus sepsis, versus baseline of mental status given his prior history of stroke and psychiatric disorder. Arthritis: Yes (R/HAND ) Atrial Fibrillation: Yes Autoimmune Disease: No Blood Disorders: No Anxiety: Yes Depression: Yes Heart Rhythm Problems: Yes Cancer: No Cardiac Catheterization: Yes Cardiovascular Problems: Yes High Cholesterol: Yes Chest Pain: Yes Congestive Heart Failure: No Cerebrovascular Accident: Yes Coronary Artery Disease: Yes Diabetes: Yes Dialysis: Yes (HISTORY OF; NOT SINCE KIDNEY TRANSPLANT) Diverticulitis: Yes Endocrine: Yes Gastrointestinal Disorders: Yes GERD: Yes Glaucoma: Yes Gout: Yes Genitourinary: Yes (RIGHT KIDNEY TRANSPLANT) Headaches: No Hepatitis: No Hiatal Hernia: No Hypertension: Yes Immune Disorder: No Implanted Vascular Access Dvce: Yes Kidney Stones: No Musculoskeletal: Yes Neurologic: Yes (BELLS PALSY A CHILD) Psychiatric: Yes (SCHIZOPHRENIA) Reproductive: No Respiratory: No Migraines: No Myocardial Infarction: No Renal Failure: Yes Schizophrenia: Yes Seizures: No Shingles: Yes Thyroid Disease: No Ulcer: No Past Surgical History Narrative Surgical The patient's past surgical history significant for a left upper extremity AV fistula, cardiac catheterization with angioplasty, history of kidney transplant Abdominal Surgery: No AICD: No Appendectomy: No Arteriovenous Shunt: Yes (LEFT UPPER ARM X2) Cholecystectomy: No Coronary Stent: Yes (X 1) Ear Surgery: No Endocrine Surgery: No Eye Surgery: No Genitourinary Surgery: Yes (KIDNEY TRANSPLANT) Insulin Pump: No Joint Replacement: No Oral Surgery: No Pacemaker: No Thoracic Surgery: No Other Surgery: Yes (KIDNEY TRANSPLANT) Social History Alcohol Use: No (UNABLE TO ASSESS) Tobacco Use: No (FORMER SMOKER) Substance Use: Yes (COCAINE LAST TIME USED 1989) Allergies-Medications (Allergen,Severity, Reaction): Coded Allergies: *MDRO Multi-Drug Resistant Organism (Verified Allergy, Unknown, 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 Reported Meds & Prescriptions Reported Meds & Active Scripts Active Reported Duoneb (Ipratropium-Albuterol Neb) 0.5-2.5 Mg/3 Ml Neb 1 Nebule INH Q4HR NEB PRN Tylenol (Acetaminophen) 325 Mg Tab 650 Mg PO Q4H PRN Sea Soft Nasal Mist (Saline) 0.65 % Spr 1 [place] NA BID Renvela (Sevelamer Carbonate) 800 Mg Tab 2,400 Mg PO TID Renvela (Sevelamer Carbonate) 800 Mg Tab 2,400 Mg PO TID Nephro-[place]eva Rx (Vitamin B Cmplx/Vit C/Folic AC) 1 Tab 1 Tab PO DAILY Prochlorperazine Maleate 10 Mg Tab 10 Mg PO Q6H PRN Terazosin (Terazosin HCl) 2 Mg Cap 2 Mg PO HS Metoprolol Tartrate 100 Mg Tab 100 Mg PO BID Sensipar (Cinacalcet) 30 Mg Tab 30 Mg PO DAILY With Dinner Senna S (Sennosides-Docusate Sodium) 8.6-50 Mg Tab 2 Tab PO BID Renvela (Sevelamer Carbonate) 800 Mg Tab 2,400 Mg PO DAILY QDAY, GIVEN ON , , AND FRI. GIVEN IN AN ENVELOPE SEND TO DIALYSIS WITH MEAL/SNACK. Eliquis (Apixaban) 5 Mg Tab 5 Mg PO BID [Sea Salt Nasal Austin] 1 Austin EACH NARE BID Catapres (Clonidine) 0.1 Mg Tab 0.1 Mg PO Q6HR PRN Chlorpromazine HCl 25 Mg Tab 25 Mg PO TID Benadryl Allergy (Diphenhydramine HCl) 25 Mg Tab 25 Mg PO Q8HR PRN Alphagan P Opth Drops (Brimonidine Tartrate) 0.15% Soln 1 Drop EACH EYE HS Review of Systems ROS Limitations: Poor Historian General / Constitutional: No: Fever Eyes: No: Visual changes HENT: No: Headaches Cardiovascular: Positive: Tachycardia, No: Chest Pain or Discomfort Respiratory: No: Shortness of Breath Gastrointestinal: No: Abdominal Pain Genitourinary: No: Dysuria Musculoskeletal: No: Pain Skin: No Rash Neurologic: Positive: Change in Mentation, No: Weakness Psychiatric: No: Depression Endocrine: No: Polydipsia Hematologic/Lymphatic: No: Easy Bruising Physical Exam Narrative General: The patient is a well-developed well-nourished male, drowsy on examination although easily arousable to voice, however he quickly falls back asleep. Head and Neck exam: Head is normocephalic atraumatic. Eyes: Pupils are equal round and reactive to light. Nose: Midline septum with pink mucous membranes Mouth: Dentition unremarkable. Moist mucus membranes. Posterior oropharynx is not erythematous. No tonsillar hypertrophy. Uvula midline. Airway patent. Neck: No palpable lymphadenopathy. No nuchal rigidity. No thyromegaly. Cardiovascular: Irregularly irregular with a rate in the low 100s without murmurs, gallops, or rubs. Lungs: Clear to auscultation bilaterally. No wheezes, rhonchi, or rales. The patient has decreased breath sounds at the bases, however he is drowsy on examination. Abdomen: Soft, without tenderness to palpation in all 4 quadrants of the abdomen. No guarding, rebound, or rigidity. Negative Sharon sign. Normal bowel sounds are audible. No tenderness on palpation of McBurney's point. Extremities: No clubbing, cyanosis, or edema. 2+ pulses in all 4 extremities. Neurologic Exam: The patient is drowsy on examination. The patient is arousable on examination although quickly falls back to sleep. The patient has history of right-sided affecting stroke with residual weakness. The patient appears to be at his baseline neurologic exam according to the prior electronic medical record neurologic examination Cranial nerves 2-12 were intact on exam. Skin Exam: No rash noted. Intact skin that is warm and dry. Data Data Last Documented VS Vital Signs Date Time Temp Pulse Resp B/P Pulse Ox O2 Delivery O2 Flow Rate FiO2 11/27/16 06:00 106 29 130/78 100 BiPAP 11/27/16 05:55 40 11/27/16 05:25 2 11/27/16 04:15 99.3 Orders Electrocardiogram (11/27/16 04:40) Complete Blood Count With Diff (11/27/16 04:40) Comprehensive Metabolic Panel (11/27/16 04:40) Prothrombin Time / Inr (Pt) (11/27/16 04:40) Act Partial Throm Time (Ptt) (11/27/16 04:40) Lactic Acid Sepsis Protocol (11/27/16 04:40) Magnesium (Mg) (11/27/16 04:40) Lipase (11/27/16 04:40) Ckmb (Isoenzyme) Profile (11/27/16 04:40) Troponin I (11/27/16 04:40) Urinalysis - C+S If Indicated (11/27/16 04:40) Influenzae A/B Antigen (11/27/16 04:40) Blood Culture (11/27/16 04:40) Chest, Single Ap (11/27/16 04:40) Blood Glucose (11/27/16 04:40) Ecg Monitoring (11/27/16 04:40) Iv Access Insert/Monitor (11/27/16 04:40) Oximetry (11/27/16 04:40) Oxygen Administration (11/27/16 04:40) Vancomycin Inj (Vancomycin Inj) (11/27/16 04:40) Cefepime Inj (Maxipime Inj) (11/27/16 04:40) Diltiazem Inj (Cardizem Inj) (11/27/16 04:45) Sodium Chloride 0.9% Flush (Ns Flush) (11/27/16 04:45) Type And Screen (11/27/16 05:28) Sodium Chlor 0.9% 250 Ml Inj (Ns 250 Ml (11/27/16 05:30) Resp Cpap Trial (11/27/16 ) CKMB (11/27/16 04:30) CKMB% (11/27/16 04:30) Admit Order (Ed Use Only) (11/27/16 06:13) Labs Laboratory Tests Test 11/27/16 11/27/16 04:30 05:45 White Blood Count 12.2 TH/MM3 Red Blood Count 2.52 MIL/MM3 Hemoglobin 6.6 GM/DL Hematocrit 21.5 % Mean Corpuscular Volume 85.2 FL Mean Corpuscular Hemoglobin 26.1 PG Mean Corpuscular Hemoglobin 30.6 % Concent Red Cell Distribution Width 22.8 % Platelet Count 561 TH/MM3 Mean Platelet Volume 7.1 FL Neutrophils (%) (Auto) 81.1 % Lymphocytes (%) (Auto) 9.2 % Monocytes (%) (Auto) 7.0 % Eosinophils (%) (Auto) 2.1 % Basophils (%) (Auto) 0.6 % Neutrophils # (Auto) 9.9 TH/MM3 Lymphocytes # (Auto) 1.1 TH/MM3 Monocytes # (Auto) 0.8 TH/MM3 Eosinophils # (Auto) 0.3 TH/MM3 Basophils # (Auto) 0.1 TH/MM3 CBC Comment AUTO DIFF Differential Comment AUTO DIFF CONFIRMED Platelet Estimate HIGH Platelet Morphology Comment NORMAL Keratocytes 3+ Prothrombin Time 13.0 SEC Prothromb Time International 1.2 RATIO Ratio Activated Partial 24.3 SEC Thromboplast Time Sodium Level 139 MEQ/L Potassium Level 4.0 MEQ/L Chloride Level 100 MEQ/L Carbon Dioxide Level 27.6 MEQ/L Anion Gap 11 MEQ/L Blood Urea Nitrogen 14 MG/DL Creatinine 3.91 MG/DL Estimat Glomerular Filtration 19 ML/MIN Rate Random Glucose 117 MG/DL Lactic Acid Level 1.8 mmol/L Calcium Level 8.8 MG/DL Magnesium Level 2.3 MG/DL Total Bilirubin 0.4 MG/DL Aspartate Amino Transf 41 U/L (AST/SGOT) Alanine Aminotransferase 22 U/L (ALT/SGPT) Alkaline Phosphatase 94 U/L Total Creatine Kinase 178 U/L Creatine Kinase MB LESS THAN 0.5 NG/ML Troponin I LESS THAN 0.02 NG/ML Total Protein 8.5 GM/DL Albumin 1.9 GM/DL Lipase 227 U/L Blood Type B POSITIVE Antibody Screen NEGATIVE MDM Medical Decision Making Medical Screen Exam Complete: Yes Emergency Medical Condition: Yes Medical Record Reviewed: Yes Interpretation(s) Last Impressions Chest X-Ray 11/27/16 7430 Signed Impressions: Service Date/Time: Sunday, November 27, 2016 04:58 - CONCLUSION: 1. Cardiomegaly. No acute pulmonary disease. Eyal Juares MD Differential Diagnosis Tachycardia due to sepsis, versus A. fib with RVR, versus other cardiac arrhythmia such as SVT Narrative Course During the course of the patients emergency department visit, the patients history, examination, and differential diagnosis were reviewed with the patient. The patient had IV access obtained and blood work sent for analysis. The patient was placed on a school community relations coordinator with oximetry and blood pressure monitoring. An EKG was done on arrival. The patient asserts criteria positive by tachycardia and tachypnea, however there is no focal source suspected, however again the patient was just recently admitted with bacteremia. The patient will have a lactic acid sent for analysis. The patient will have blood cultures 2 done. The patient will have the fluid bolus held as he has chronic renal failure and this would likely lead to fluid overload. The patient's EKG done on arrival shows a heart rate of 110, atrial fibrillation with RVR noted, nonspecific ST-T wave abnormalities. No acute ST segment elevation. The patient was provided cefepime 2 g IV, vancomycin 1 g IV. The patient was given Cardizem 5 mg IV per hour to be titrated to a heart rate less than or equal to 100. The patients laboratory studies were reviewed and remarkable for a white count of 12.2, hemoglobin 6.6, platelets 561 with 81.1 neutrophils, the patient was typed and screened for blood. The patient will be typed and crossmatched for 2 units of packed red blood cells, one will be placed on hold, the other will be transfused times one unit. Lactic acid is 1.8, PT 13, PTT 24.3. CMP is remarkable for creatinine of 3.91, glucose 117, AST 41, CPK 178, troponin I less than 0.02, albumin 1.9, lipase 227. As the patient was being observed during repeat evaluation the patient was noted to have episodes when he sleeps of apnea. The patient's symptoms are suspicious for sleep apnea. The patient is noted to desaturate with these episodes. The patient will be given a trial of CPAP. Radiology studies were reviewed and remarkable for a chest x-ray that shows evidence of cardiomegaly, no other acute abnormality. The patients results were discussed with the patient, including the plan of care. I explained that further testing and/ or monitoring is indicated based on the patients history, examination, and/ or laboratory findings. Therefore, I recommended admission for additional evaluation. The patient expressed understanding and was agreeable with this plan. The patient was admitted to the hospital in guarded condition and sent to a bed under the care of the [facility]. Sepsis Criteria SIRS Criteria (2 or more): Heart rate over 90, RR > 20 or PaCO2 < 32 Physician Communication Physician Communication The patient's case is discussed with Dr. Cole who did agree to admit the patient for further evaluation and treatment at this time. Diagnosis Primary Impression: Atrial fibrillation with rapid ventricular response Admitting Information Admitting Physician Requests: Admit Yareli Mack MD Nov 27, 2016 04:53
[2016-11-27 05:11] LABS: AUTOMATED NEUTROPHIL # 9.9 TH/MM3 (1.8-7.7); BASOPHIL # 0.1 TH/MM3 (0-0.2); BASOPHIL % 0.6 % (0.0-2.0); EOSINOPHIL # 0.3 TH/MM3 (0-0.4); EOSINOPHIL % 2.1 % (0.0-4.0); HEMATOCRIT 21.5 % (39.0-51.0); LYMPH % 9.2 % (9.0-44.0); LYMPHOCYTE # 1.1 TH/MM3 (1.0-4.8); MEAN CELL VOLUME 85.2 FL (80.0-100.0); MEAN CORPUSCULAR HEMOGLOBIN 26.1 PG (27.0-34.0); MEAN CORPUSCULAR HGB CONC 30.6 % (32.0-36.0); NEUT % 81.1 % (16.0-70.0); PLATELET COUNT 561 TH/MM3 (150-450); RED BLOOD COUNT 2.52 MIL/MM3 (4.50-5.90); RED CELL DISTRIBUTION WIDTH 22.8 % (11.6-17.2); WHITE BLOOD COUNT 12.2 TH/MM3 (4.0-11.0)
[2016-11-27 05:14] LABS: APTT (PATIENT) 24.3 SEC (24.3-30.1); INTERNATIONAL NORMALIZED RATIO 1.2 RATIO
--- NOTE | 2016-11-27 05:19 | RADRPT ---
EXAM DATE/TIME: 11/27/2016 04:58 [facility] COMPARISON: CHEST SINGLE AP, October 10, 2016, 16:50. INDICATIONS : Patient was short of breath this evening. MEDICAL HISTORY : Cerebrovascular disease. Cardiovascular disease Hypertension. SURGICAL HISTORY : None. ENCOUNTER: Initial ACUITY: 1 day PAIN SCORE: 0/10 LOCATION: Bilateral chest FINDINGS: The cardiac silhouette is enlarged in transverse diameter. The lungs are free of acute parenchymal op acity. No effusions are identified. There is prominence of the aortic knob is with calcification ramila acteristic of atherosclerotic vascular disease. CONCLUSION: 1. Cardiomegaly. No acute pulmonary disease. Eyal Juares MD on November 27, 2016 at 5:17 Board Certified Radiologist. This report was verified electronically.
[2016-11-27 05:27] LABS: HEMO FLAGS AUTO DIFF
[2016-11-27] MEDS ORDERED: SODIUM CHLOR 0.9% 250 ML INJ 250 ML IV ONE (05:30)
[2016-11-27 05:41] LABS: ALKALINE PHOSPHATASE 94 U/L (45-117); ALT (GPT) 22 U/L (12-78); ANION GAP 11 MEQ/L (5-15); AST (GOT) 41 U/L (15-37); BICARBONATE 27.6 MEQ/L (21.0-32.0); BLOOD UREA NITROGEN 14 MG/DL (7-18); CHLORIDE 100 MEQ/L (98-107); CREATINE KINASE 178 U/L (39-308); GLOMERULAR FILTRATION RATE 19 ML/MIN (>89); MAGNESIUM 2.3 MG/DL (1.5-2.5); SODIUM (NA) 139 MEQ/L (136-145); TOTAL BILIRUBIN ADULT 0.4 MG/DL (0.2-1.0)
[2016-11-27 05:54] LABS: CKMB LESS THAN 0.5 NG/ML (0.5-3.6)
[2016-11-27 06:05] LABS: KERATOCYTES 3+ (NORMAL); PLATELET ESTIMATE SMEAR HIGH (NORMAL); PLATELET MORPHOLOGY NORMAL (NORMAL); SCAN/DIFF AUTO DIFF CONFIRMED
[2016-11-27] MEDS ORDERED: NALOXONE HCL 0.4 MG/ML AMP IV PRN (06:15)
[2016-11-27] MEDS ORDERED: SODIUM CHLORIDE 0.9% FLUSH 5 ML FLUSH FLUSH PRN (06:15)
[2016-11-27] MEDS ORDERED: SODIUM CHLOR 0.9% 1000 ML INJ 1,000 ML IV PRN ×2 (08:53)
--- NOTE | 2016-11-27 08:58 | PD.CONS ---
HPI Service Nephrology Consult Requested By Reason for Consult ESRD on HD Primary Care Physician Mark Sam MD History of Present Illness This is a 66 y/o dialysis patient who was sent from the [place] [facility] for tachycardia and hypoxia. On arrival he was in A fib with RVR, started on Cardizem gtt which is currently infusing. He was reportedly sating in 70s on room air, which did not improve with supplemental oxygen. He was placed on BiPap and transferred to the ER for evaluation and treatment. He dialyzes T-Th- Sat, had treatment yesterday. On exam he is lethargic, not normally conversive day to day. Lung sounds are diminished but he is not demonstrating fluid overload. Other PMH of CVA, HTN, anemia, and A fib. He is also severely anemic with hemoglobin 6.6. He has leukocytosis of 12.2, was given Cefepime in ER for treatment of suspected Pneumonia. he is a full code. We were consulted for dialysis management. 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 Kidney transplant Reported Medications Duoneb (Ipratropium-Albuterol Neb) 0.5-2.5 Mg/3 Ml Neb 1 Nebule INH Q4HR NEB PRN Tylenol (Acetaminophen) 325 Mg Tab 650 Mg PO Q4H PRN Sea Soft Nasal Mist (Saline) 0.65 % Spr 1 Viola NA BID Renvela (Sevelamer Carbonate) 800 Mg Tab 2,400 Mg PO TID Renvela (Sevelamer Carbonate) 800 Mg Tab 2,400 Mg PO TID Nephro-[place]eva Rx (Vitamin B Cmplx/Vit C/Folic AC) 1 Tab 1 Tab PO DAILY Prochlorperazine Maleate 10 Mg Tab 10 Mg PO Q6H PRN Terazosin (Terazosin HCl) 2 Mg Cap 2 Mg PO HS Metoprolol Tartrate 100 Mg Tab 100 Mg PO BID Sensipar (Cinacalcet) 30 Mg Tab 30 Mg PO DAILY With Dinner Senna S (Sennosides-Docusate Sodium) 8.6-50 Mg Tab 2 Tab PO BID Renvela (Sevelamer Carbonate) 800 Mg Tab 2,400 Mg PO DAILY QDAY, GIVEN ON , , AND FRI. GIVEN IN AN ENVELOPE SEND TO DIALYSIS WITH MEAL/SNACK. Eliquis (Apixaban) 5 Mg Tab 5 Mg PO BID [Sea Salt Nasal Viola] 1 Viola EACH NARE BID Catapres (Clonidine) 0.1 Mg Tab 0.1 Mg PO Q6HR PRN Chlorpromazine HCl 25 Mg Tab 25 Mg PO TID Benadryl Allergy (Diphenhydramine HCl) 25 Mg Tab 25 Mg PO Q8HR PRN Alphagan P Opth Drops (Brimonidine Tartrate) 0.15% Soln 1 Drop EACH EYE HS Active Ordered Medications Current Medications Medications (Trade) Dose Ordered Sig/Dannielle Route Start Time Stop Time Status Last Admin Diltiazem HCl 125 mg/Sodium Chloride 125 ml @ 0 mls/hr TITRATE IV 11/27/16 04:45 11/27/16 06:19 (NS 250 ml Inj) 250 ml @ 15 mls/hr ONCE ONCE IV 11/27/16 05:30 11/27/16 22:09 (NS Flush) 2 ml UNSCH PRN FLUSH 11/27/16 06:15 (NS Flush) 2 ml BID FLUSH 11/27/16 09:00 (Narcan Inj) 0.4 mg UNSCH PRN IV 11/27/16 06:15 Family History No hx of renal disorders Social History unobtainable due to clinical condition 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 care at [place] full code status (Germania Latham) Physical Exam Vital Signs Vital Signs Date Time Temp Pulse Resp B/P Pulse Ox O2 Delivery O2 Flow Rate FiO2 11/27/16 08:03 100 40 11/27/16 06:30 103 24 134/85 97 BiPAP 11/27/16 06:20 100 BiPAP 11/27/16 06:00 106 29 130/78 100 BiPAP 11/27/16 05:55 100 40 11/27/16 05:55 100 BiPAP 40 11/27/16 05:25 32 100 Nasal Cannula 2 2/15/17 05:24 100 Nasal Cannula 2 11/27/16 04:15 99.3 114 36 131/66 95 Physical Exam Elderly AAM lying in bed on BiPap Neuro: arouses to tactile stimuli, groans when asked questions, non verbal CV: S1/S2, irreg irreg, tachycardic, no murmurs Lungs: diminished throughout, diffuse crackles Abd; round, soft, normal bowel sounds Ext: trace edema, pedal pulses 2+ b/l; AVF right arm + thrill/bruit Laboratory Laboratory Tests Test 11/27/16 11/27/16 04:30 05:45 White Blood Count 12.2 Red Blood Count 2.52 Hemoglobin 6.6 Hematocrit 21.5 Mean Corpuscular Volume 85.2 Mean Corpuscular Hemoglobin 26.1 Mean Corpuscular Hemoglobin 30.6 Concent Red Cell Distribution Width 22.8 Platelet Count 561 Mean Platelet Volume 7.1 Neutrophils (%) (Auto) 81.1 Lymphocytes (%) (Auto) 9.2 Monocytes (%) (Auto) 7.0 Eosinophils (%) (Auto) 2.1 Basophils (%) (Auto) 0.6 Neutrophils # (Auto) 9.9 Lymphocytes # (Auto) 1.1 Monocytes # (Auto) 0.8 Eosinophils # (Auto) 0.3 Basophils # (Auto) 0.1 CBC Comment AUTO DIFF Differential Comment AUTO DIFF CONFIRMED Platelet Estimate HIGH Platelet Morphology Comment NORMAL Keratocytes 3+ Prothrombin Time 13.0 Prothromb Time International 1.2 Ratio Activated Partial 24.3 Thromboplast Time Sodium Level 139 Potassium Level 4.0 Chloride Level 100 Carbon Dioxide Level 27.6 Anion Gap 11 Blood Urea Nitrogen 14 Creatinine 3.91 Estimat Glomerular Filtration 19 Rate Random Glucose 117 Lactic Acid Level 1.8 Calcium Level 8.8 Magnesium Level 2.3 Total Bilirubin 0.4 Aspartate Amino Transf 41 (AST/SGOT) Alanine Aminotransferase 22 (ALT/SGPT) Alkaline Phosphatase 94 Total Creatine Kinase 178 Creatine Kinase MB LESS THAN 0.5 Troponin I LESS THAN 0.02 Total Protein 8.5 Albumin 1.9 Lipase 227 Blood Type B POSITIVE Antibody Screen NEGATIVE Date/Time Procedure Status Source Growth 11/27/16 04:40 Aerobic Blood Culture Received Blood Peripheral Pending 11/27/16 04:40 Anaerobic Blood Culture Received Blood Peripheral Pending 11/27/16 04:35 Influenza Types A,B Antigen (RENUKA) - Final Complete Nasal Aspirate NEGATIVE FOR FLU A AND B ANTIGEN.... (Germania Latham) Result Diagram: 11/27/16 04311/27/16 043 Imaging Last 24 hours Impressions Chest X-Ray 11/27/16439 Signed Impressions: Service Date/Time: Sunday, November 27, 2016 04:58 - CONCLUSION: 1. Cardiomegaly. No acute pulmonary disease. Eyal Juares MD (Germania Latham) Assessment and Plan Problem List: (1) ESRD (end stage renal disease) on dialysis Plan: Normally dialyzes T-Th-sat We will dialyze today as he needs to receive blood transfusion, resume normal schedule tomorrow, orders are entered no current electrolyte concerns monitor fluid volume status, avoid IVF AVF right arm, monitor for complications renal panel in am avoid Gadolinium in patients with ESRD (2) Anemia in chronic kidney disease Plan: 2 units ordered to be given during dialysis obtain stool for occult bleeding check iron profile repeat Hb in am (3) Atrial fibrillation Plan: with RVR, on Cardizem gtt monitor effect and titrate as needed (4) Hypertension Plan: monitor BP, resume home medications when tolerating PO (5) Metabolic bone disease Plan: check phos level intermittently (Germania Latham) Assessment and Plan patient was seen and examined. Dialysis today with blood transfusion. He is at risk for aspiration pneumonia. Rule out GI bleeding. Agree with above assessment and plan. Prognosis is guarded. (Keyon Eckert MD ) Germania Latham Nov 27, 2016 08:58 Keyon Eckert MD Nov 27, 2016 21:47
[2016-11-27] MEDS ORDERED: NITROGLYCERIN 0.4 MG SL 25 TABS/BTL SL PRN (09:00)
[2016-11-27] MEDS ORDERED: GENTAMICIN SULFATE (DIALYSIS USE ONLY) 20 MG/2 ML VIAL IV PRN (09:00)
[2016-11-27] MEDS ORDERED: ONDANSETRON HCL 4 MG/2 ML VIAL IV PRN (09:00)
[2016-11-27] MEDS ORDERED: diphenhydrAMINE HCL 25 MG CAP PO PRN (09:00)
[2016-11-27] MEDS ORDERED: HEPARIN SODIUM - IV 10,000 UNITS/10 ML VIAL PRN (09:00)
[2016-11-27] MEDS ORDERED: MANNITOL 12.5 GM/50 ML VIAL IV PRN (09:00)
[2016-11-27] MEDS ORDERED: ALBUMIN HUMAN 25% 25 GM/100 ML BAGP IV PRN (09:00)
[2016-11-27] MEDS ORDERED: HEPARIN SODIUM - IV 10,000 UNITS/10 ML VIAL IVF PRN (09:00)
[2016-11-27] MEDS ORDERED: cloNIDine HCL 0.1 MG TAB PO PRN (09:00)
[2016-11-27] MEDS: SODIUM CHLORIDE 0.9% FLUSH 5 ML FLUSH FLUSH SCH ×2 (09:00→19:49)
[2016-11-27] MEDS ORDERED: OCEA0.653 EACH NARE (11:16)
--- NOTE | 2016-11-27 13:32 | HHI.HP ---
cc: Mark Sam MD HPI Service [facility] Primary Care Physician Mark Sam MD Admission Diagnosis Afib with RVR, suspected sleep apnea with desaturations at night Diagnoses: Chief Complaint: Altered mental status, hypoxemia, tachypnea Travel History International Travel<30 Days: No Contact w/Intl Traveler <30 Da: No Traveled to Known Affected Are: No History of Present Illness This is a 66-year-old male with past medical history of dementia, end-stage renal disease on hemodialysis, failed renal transplant, history of atrial fibrillation, depression, CAD, CVA and as stated below, who presents to [facility] after reportedly becoming lethargic. The patient also was noted to have a heart rate in the 160s prior to arrival. The patient is currently a resident of the [place] [facility], he was given Cardizem 10 g IV push 1 initially in the emergency department with decrease his heart rate into the low 100. The patient is lethargic and unable to provide any history at this moment. The patient was seen in emergency department, noted to have a hemoglobin of 6.8, patient is tachycardic and as reported has episodes of apnea. As per report the patient was tachypneic initially as well. There are no reports of diarrhea, nausea, vomiting, there are also no reports of patient complaining of chest pain. Patient noted to be in A. fib with RVR and started on Cardizem drip. Patient was also placed on BiPAP due to repeated episodes of hypoxemia. Upper review of medical records it is noted the patient was recently discharged on 13 after being admitted because of altered mental status secondary to Proteus mirabilis bacteremia. At the time ID was consulted and it was unclear what the source was. Review of Systems Except as stated in HPI: all other systems reviewed are Neg Unable to obtain from patient due to lethargy. Past Family Social History Past Medical History 1. Dementia with behavioral disturbance. 2. Atrial fibrillation. 3. Depression. 4. Coronary artery disease. 5. 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 6. GERD. 7. Glaucoma. 8. Gout. 9. Hypertension. 10. Schizophrenia. 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 12. Shingles. 13 history of GI bleed. 14. Dysphagia 15. Vitamin D deficiency 16 history of lichen simplex chronicus 17 type 2 diabetes mellitus with diabetic nephropathy 18. History of diverticulitis of the notch testing without perforation or abscess Past Surgical History 1. Left upper extremity AV fistula. 2. Cardiac catheterization with angioplasty. 3. History of kidney transplant Allergies: Coded Allergies: *MDRO Multi-Drug Resistant Organism (Verified Adverse Reaction, Unknown, ) MRSA PCR screen POSITIVE - 11/27/16 Active Ordered Medications Current Medications Medications (Trade) Dose Ordered Sig/Dannielle Route Start Time Stop Time Status Last Admin Diltiazem HCl 125 mg/Sodium Chloride 125 ml @ 0 mls/hr TITRATE IV 11/27/16 04:45 11/27/16 06:19 (NS 250 ml Inj) 250 ml @ 15 mls/hr ONCE ONCE IV 11/27/16 05:30 11/27/16 22:09 (NS Flush) 2 ml UNSCH PRN FLUSH 11/27/16 06:15 (NS Flush) 2 ml BID FLUSH 11/27/16 09:00 Naloxone HCl 0.4 mg 0.4 mg UNSCH PRN IV 11/27/16 06:15 (NS 1000 ml Inj) 1,000 ml @ 0 mls/hr Q0M PRN IV 11/27/16 08:53 Heparin Sodium (Porcine) 8000 units 8,000 units UNSCH PRN IVF 11/27/16 09:00 Sodium Chloride 1,000 ml @ 200 mls/hr Q5H PRN IV 11/27/16 08:53 (NS 1000 ml Inj) 1,000 ml @ 0 mls/hr Q0M PRN IV 11/27/16 08:53 (Mannitol Inj) 12.5 gm UNSCH PRN IV 11/27/16 09:00 (Albumin 25% Inj) 25 gm UNSCH PRN IV 11/27/16 09:00 (NS Flush) 5 ml UNSCH PRN IVF 11/27/16 09:00 (Heparin Inj) UNSCH PRN .XX 11/27/16 09:00 (Gentamicin (Dialysis) Inj) 20 mg UNSCH PRN IV 11/27/16 09:00 (Zofran Inj) 4 mg UNSCH PRN IV 11/27/16 09:00 (Tylenol) 650 mg UNSCH PRN PO 11/27/16 09:00 (Benadryl) 25 mg UNSCH PRN PO 11/27/16 09:00 (Nitrostat Sl) 0.4 mg UNSCH PRN SL 11/27/16 09:00 (Catapres) 0.1 mg UNSCH PRN PO 11/27/16 09:00 (Epogen Inj) 10,000 units UNSCH PRN IV 11/27/16 09:00 (Gelfoam 12 Mm/7 Mm Top) 1 foam UNSCH PRN TOP 11/27/16 09:00 Family History Unable to obtain due to patient's lethargy. Social History Unable to obtain due to the patient's lethargy. Physical Exam Vital Signs Vital Signs Date Time Temp Pulse Resp B/P Pulse Ox O2 Delivery O2 Flow Rate FiO2 11/27/16 09:00 104 18 142/86 100 BiPAP 11/27/16 08:03 100 40 11/27/16 07:05 120 16 131/94 100 BiPAP 11/27/16 06:30 103 24 134/85 97 BiPAP 11/27/16 06:20 100 BiPAP 11/27/16 06:00 106 29 130/78 100 BiPAP 11/27/16 05:55 100 40 11/27/16 05:55 100 BiPAP 40 11/27/16 05:25 32 100 Nasal Cannula 2 11/27/16 05:24 100 Nasal Cannula 2 11/27/16 04:15 99.3 114 36 131/66 95 Physical Exam GENERAL: This is a well-nourished, well-developed patient, in no apparent distress. SKIN: No rashes, ecchymoses or lesions. Cool and dry. HEAD: Atraumatic. Normocephalic. No temporal or scalp tenderness. EYES: Pupils equal round and reactive. Extraocular motions intact. No scleral icterus. No injection or drainage. ENT: Nose without bleeding, purulent drainage or septal hematoma. Throat without erythema, tonsillar hypertrophy or exudate. Uvula midline. Airway patent. NECK: Trachea midline. No JVD or lymphadenopathy. Supple, nontender, no meningeal signs. CARDIOVASCULAR: Regular rate and rhythm without murmurs, gallops, or rubs. RESPIRATORY: Clear to auscultation. Breath sounds equal bilaterally. No wheezes , rales, or rhonchi. GASTROINTESTINAL: Abdomen soft, non-tender, nondistended. No hepato-splenomegaly , or palpable masses. No guarding. MUSCULOSKELETAL: Extremities without clubbing, cyanosis, or edema. No joint tenderness, effusion, or edema noted. No calf tenderness. Negative Homans sign bilaterally. NEUROLOGICAL: Lethargic, barely arousable. Moves all extremities. Due to current mental status unable to perform full neuro exam. Laboratory Laboratory Tests Test 11/27/16 11/27/16 11/27/16 04:30 05:45 09:08 White Blood Count 12.2 Red Blood Count 2.52 Hemoglobin 6.6 Hematocrit 21.5 Mean Corpuscular Volume 85.2 Mean Corpuscular Hemoglobin 26.1 Mean Corpuscular Hemoglobin 30.6 Concent Red Cell Distribution Width 22.8 Platelet Count 561 Mean Platelet Volume 7.1 Neutrophils (%) (Auto) 81.1 Lymphocytes (%) (Auto) 9.2 Monocytes (%) (Auto) 7.0 Eosinophils (%) (Auto) 2.1 Basophils (%) (Auto) 0.6 Neutrophils # (Auto) 9.9 Lymphocytes # (Auto) 1.1 Monocytes # (Auto) 0.8 Eosinophils # (Auto) 0.3 Basophils # (Auto) 0.1 CBC Comment AUTO DIFF Differential Comment AUTO DIFF CONFIRMED Platelet Estimate HIGH Platelet Morphology Comment NORMAL Keratocytes 3+ Prothrombin Time 13.0 Prothromb Time International 1.2 Ratio Activated Partial 24.3 Thromboplast Time Sodium Level 139 Potassium Level 4.0 Chloride Level 100 Carbon Dioxide Level 27.6 Anion Gap 11 Blood Urea Nitrogen 14 Creatinine 3.91 Estimat Glomerular Filtration 19 Rate Random Glucose 117 Lactic Acid Level 1.8 Calcium Level 8.8 Magnesium Level 2.3 Total Bilirubin 0.4 Aspartate Amino Transf 41 (AST/SGOT) Alanine Aminotransferase 22 (ALT/SGPT) Alkaline Phosphatase 94 Total Creatine Kinase 178 Creatine Kinase MB LESS THAN 0.5 Troponin I LESS THAN 0.02 Total Protein 8.5 Albumin 1.9 Lipase 227 Blood Type B POSITIVE Antibody Screen NEGATIVE Crossmatch Leukocyte-Reduced Red Blood Cells Blood Bank Comment Date/Time Procedure Status Source Growth 11/27/16 04:40 Aerobic Blood Culture Received Blood Peripheral Pending 11/27/16 04:40 Anaerobic Blood Culture Received Blood Peripheral Pending 11/27/16 04:35 Influenza Types A,B Antigen (RENUKA) - Final Complete Nasal Aspirate NEGATIVE FOR FLU A AND B ANTIGEN.... Result Diagram: 11/27/1642911/27/16429 Imaging Last Impressions Chest X-Ray 11/27/16439 Signed Impressions: Service Date/Time: Sunday, November 27, 2016 04:58 - CONCLUSION: 1. Cardiomegaly. No acute pulmonary disease. Eyal Juares MD Reviewed personally by me I see a possible developing right infiltrate. EKG shows atrial fibrillation with a ventricular rate of 1 10 bpm, right ventricular conduction delay. ST depressions in V5 V6. No ST elevations appreciated. Septic Shock Reassessment Heart: Irregular Lungs: Diminished Peripheral Pulses: Bounding Right Radial Bounding Left Radial Bounding Right Dorsalis Pedis Bounding Left Dorsalis Pedis Assessment and Plan Problem List: (1) SIRS (systemic inflammatory response syndrome) ICD Code: R65.10 Status: Acute Plan: I suspect sepsis possibly secondary to pneumonia however need to confirm this. Admitted to ICU place on Iv vancomycin and Zosyn transfuse of 2 units PRBC (2) Acute hypoxemic respiratory failure ICD Code: J96.01 Status: Acute Plan: The patient presents with respiratory rate in the mid 30s. Differential diagnosis would include pneumonia, pulmonary emboli I will order CT of the chest without IV contrast better assess lung parenchyma since chest x-ray obtained on admission shows a possible infiltrate versus pulmonary congestion. Continue bipsp check abg (3) Encephalopathy acute ICD Code: G93.40 Status: Acute Plan: Suspect metabolic encephalopathy probably due to SIRS/Sepsis syndrome Vital neurochecks and neurological status. CT head negative fo acute intracranial process ABG showed mild hypercapnea with PCO2 48 (4) Anemia ICD Code: D64.9 Status: Acute Plan: Acute on chronic anemia. There is no signs of active bleeding. Transfuse 2 units of packed red blood cells. Check stool guaiac Old anticoagulation for now. (5) Leukocytosis ICD Code: D72.829 Status: Acute Plan: Leukocytosis likely secondary to underlying infectious process versus stress induced. Continue IV antibiotics as per ID. (6) Thrombocytosis ICD Code: D47.3 Status: Acute Plan: Likely reactive. Continue to monitor platelets (7) ESRD (end stage renal disease) on dialysis ICD Code: N18.6 Status: Acute Plan: Nephrology consulted. Hemodialysis as per nephrology recommendations. (8) Atrial fibrillation with RVR ICD Code: I48.91 Status: Acute Plan: Cassy Cardizem drip. Serial troponins and cardiac enzymes. Initial troponins negative at 0.02. (9) HTN (hypertension) ICD Code: I10 Status: Acute Plan: Patient's blood pressure seems to be stable. I will place the patient on as needed medication for high blood pressure. Continue beta bryon with holding parameters. I will place the patient on a statin medication for systolic blood pressure monitor 160. (10) Glaucoma ICD Code: H40.9 Status: Acute Plan: Continue Brimonidine ophtalmic drops Assessment and Plan GI prophylaxis: Place on PPI. DVT prophylaxis: I will for now given anemia. SCDs. 45 minutes of critical care time spent with patient. Code Status Full code Discussed Condition With RN. Physician Certification 2 Midnight Certification Type: Admission for Inpatient Services Order for Inpatient Services The services are ordered in accordance with Medicare regulations or non- Medicare payer requirements, as applicable. In the case of services not specified as inpatient-only, they are appropriately provided as inpatient services in accordance with the 2-midnight benchmark. Estimated LOS (days): 3 days is the estimated time the patient will need to remain in the hospital, assuming treatment plan goals are met and no additional complications. Post-Hospital Plan: Not yet determined Problem Qualifiers (1) Anemia: Qualified Code: D64.9 - Anemia, unspecified type (2) Leukocytosis: Qualified Code: D72.829 - Leukocytosis, unspecified type (3) HTN (hypertension): Qualified Code: I10 - Essential hypertension Gregorio Hyde MD Nov 27, 2016 13:32 Gregorio Hyde MD Nov 27, 2016 13:32
[2016-11-27 13:45] LABS: BLOOD GAS BASE EXCESS 4.1 mmol/L (-2-2); BLOOD GAS CARBOXYHEMOGLOBIN 2.4 % (0-4); BLOOD GAS HCO3 29 mmol/L (22-26); BLOOD GAS METHEMOGLOBIN 1.5 % (0-2); BLOOD GAS O2 HGB SATURATION 96 % (90-100); BLOOD GAS OXYGEN CONTENT 9.3 Vol % (12.0-20.0); BLOOD GAS PCO2 48 mmHg (38-42); BLOOD GAS PO2 132 mmHG (61-120); BLOOD GAS TOTAL HGB 6.6 G/DL (12.0-16.0); CRITICAL VALUE YES; DRAW SITE RT RADIAL; LITER FLOW 4 L/M; NUMBER OF ARTERIAL PUNCTURES 2; OXYGEN DEVICE NASAL CANNULA; STAT YES; TEMP CORR TO 98.6
[2016-11-27] MEDS ORDERED: VANCOMYCIN INJ 1,000 MG in SODIUM CHLOR 0.9% 250 ML INJ 250 ML IV SCH (13:45)
--- NOTE | 2016-11-27 14:05 | RADRPT ---
EXAM DATE/TIME: 11/27/2016 13:45 [facility] COMPARISON: CT BRAIN W/O CONTRAST, October 11, 2016, 11:22. INDICATIONS : Altered mental status. RADIATION DOSE: 47.22 CTDIvol (mGy) MEDICAL HISTORY : Cardiovascular disease. Hypertension. Renal failure, chronic.Diabetes. SURGICAL HISTORY : None. ENCOUNTER: Initial ACUITY: 1 day PAIN SCALE: 0/10 LOCATION: cranial TECHNIQUE: Multiple contiguous axial images were obtained of the head. Using automated exposure control and adj ustment of the mA and/or kV according to patient size, radiation dose was kept as low as reasonably a chievable to obtain optimal diagnostic quality images. FINDINGS: CEREBRUM: Areas of low-attenuation throughout the periventricular white matter. The ventricles are normal for a ge. No evidence of midline shift, mass lesion, hemorrhage or acute infarction. No extra-axial fluid collections are seen.POSTERIOR FOSSA: The cerebellum and brainstem are intact. The 4th ventricle is midline. The cerebellopontine angle i s unremarkable. EXTRACRANIAL: The visualized portion of the orbits is intact. SKULL: The calvaria is intact. No evidence of skull fracture. CONCLUSION: No acute intracranial disease. Nonspecific white matter changes. Faisal Carpio MD on November 27, 2016 at 14:03 Board Certified Radiologist. This report was verified electronically.
--- NOTE | 2016-11-27 14:10 | RADRPT ---
EXAM DATE/TIME: 11/27/2016 13:49 [facility] COMPARISON: No previous studies available for comparison. INDICATIONS : Shortness of breath. RADIATION DOSE: 9.59 CTDIvol (mGy) MEDICAL HISTORY : Cardiovascular disease. Hypertension. Diabetes mellitus type 2. Renal failure. SURGICAL HISTORY : None. ENCOUNTER: Initial ACUITY: 1 day PAIN SCALE: 0/10 LOCATION: chest TECHNIQUE: Volumetric scanning of the chest was performed. Using automated exposure control and adjustment of t he mA and/or kV according to patient size, radiation dose was kept as low as reasonably achievable to obtain optimal diagnostic quality images. FINDINGS: LUNGS: There is no consolidation or pneumothorax. No concerning pulmonary nodule is visualized. PLEURAE: There is no pleural thickening or pleural effusion. MEDIASTINUM: The heart and great vessels demonstrate no acute abnormality. There is no mediastinal or hilar lymph adenopathy. Heart enlarged. Coronary artery calcifications. AXILLAE: Within normal limits. No lymphadenopathy. MUSCULOSKELETAL: Within normal limits for patient age. MISCELLANEOUS: The visualized upper abdominal organs demonstrate no acute abnormality. Gastric diverticulum seen. CONCLUSION: 1. Cardiomegaly with coronary artery calcifications. 2. No infiltrate or mass. 3. No pulmonary edema or pleural effusions. Faisal Carpio MD on November 27, 2016 at 14:06 Board Certified Radiologist. This report was verified electronically.
[2016-11-27] MEDS: PIPERACIL-TAZO 2.25 GM PREMIX 50 ML IV SCH (15:00)
--- NOTE | 2016-11-27 16:02 | MB ---
cc: JUVENAL SR M.D. DATE OF CONSULTATION: 11/27/2016 REASON FOR CONSULTATION Atrial fibrillation with rapid ventricular response. HISTORY OF PRESENT ILLNESS The patient is a 66-year-old -[place] male, followed in our office by Dr. Otis Mack, with a history of multiple medical problems including chronic atrial fibrillation, coronary artery disease, CVA, hyperlipidemia, end-stage renal disease, who was brought to the hospital from the longterm due to elevated heart rates, reportedly in the 160s. In the emergency department he was found to be in atrial fibrillation with rapid ventricular response. He was given intravenous Cardizem bolus with reduction in his heart rates to the low 100s. The patient denies any palpitations, dizziness, syncope, near-syncope, chest pain, shortness of breath, pedal edema, abdominal pain, nausea, fevers. For the most part he has been sedentary. PAST MEDICAL HISTORY 1. Endstage renal disease. He also apparently had a renal transplant a few years ago which failed. 2. Coronary artery disease status post stent of the proximal LAD 12/01/06 using a 3.5-mm Cypher. 3. CVA in August 2013. 4. Gastroesophageal reflux disease. 5. Peptic ulcer disease. 6. Hypertension. 7. Gout. 8. Hyperlipidemia. 9. Schizophrenia. 10. Paroxysmal atrial fibrillation which apparently has been mostly persistent the last few months. MEDICATIONS His cardiac medications at home: 1. Terazosin 2 mg q.h.s. 2. Metoprolol tartrate 100 mg b.i.d. 3. Eliquis 5 mg b.i.d. 4. Catapres 0.1 mg q.6 hours p.r.n. ALLERGIES NO KNOWN DRUG ALLERGIES. FAMILY HISTORY Noncontributory. SOCIAL HISTORY The patient quit smoking about 2 years ago. He denies alcohol abuse. REVIEW OF SYSTEMS Review of systems as in the history of present illness, otherwise negative or noncontributory. He also denies headache, visual changes, unilateral weakness or numbness, abdominal pain, melena, dyspepsia, bright red blood per rectum. PHYSICAL EXAMINATION VITAL SIGNS: Blood pressure 136/76 with a pulse of 129, respirations 18. GENERAL: He is a well-developed, well-nourished -[place] male, in no acute distress. HEENT: Jugular venous pressure appears to be normal. Carotid pulses are 2+ bilaterally and without bruits. CHEST: Examination of the chest reveals unlabored respiratory effort with clear lung bradley anteriorly. CARDIAC: On cardiac examination he has a tachycardic irregular rhythm without S3 or murmur. ABDOMEN: On abdominal examination he has a soft, nontender abdomen. Bowel sounds are present. There is no definite hepatosplenomegaly. EXTREMITIES: Reveals no clubbing, cyanosis or edema. LABORATORY DATA Laboratory data includes hemoglobin 6.6, WBC 12.2, platelets 561, potassium 4.0, BUN 14, creatinine 3.91, CK 178, troponin less than 0.02, INR 1.2. CHEST X-RAY Shows no acute disease. EKG EKG shows atrial fibrillation with rapid ventricular response, nonspecific ST and T-wave abnormalities. IMPRESSION Elevated heart rates in a 66-year-old -[place] male with a history of chronic atrial fibrillation, coronary artery disease, end-stage renal disease, CVA, hypertension, hyperlipidemia. At this time his heart rates have improved on intravenous Cardizem. There is no definite evidence for acute coronary syndrome or congestive heart failure. The elevation in heart rates may in part be due to severe anemia. It appears by review of records he had been on oral Cardizem as well in the past. The patient at this time is completely asymptomatic. His thromboembolic risk is high. RECOMMENDATIONS 1. Try to change the intravenous Cardizem to oral administration. 2. Would resume his metoprolol. 3. Agree with holding anticoagulation therapy until his anemia has been evaluated. MD RAHDA Talavera/JONATHON /3:28 PM /3:41 PM UBALDO
[2016-11-27] MEDS: DILTIAZEM HCL 90 MG TAB PO SCH (17:36)
[2016-11-27] MEDS ORDERED: CHLORHEXIDINE GLUCONATE 2 % 1 PACK (2 CLOTHS)(extra cloths) TOP PRN (19:30)
[2016-11-27] MEDS: METOPROLOL TARTRATE 100 MG TAB PO SCH (19:48)
[2016-11-27 20:43] LABS: CREATINE KINASE 144 U/L (39-308)
[2016-11-27] MEDS ORDERED: APIXABAN 5 MG TABLET PO SCH (21:00)
--- NOTE | 2016-11-27 22:49 | EKG ---
Date Performed: 11/27/2016 Time Performed: 04:55:24 PTAGE: 66 years EKG: ATRIAL FIBRILLATION WITH RAPID VENTRICULAR RESPONSE NONSPECIFIC ST & T-WAVE ABNORMALITY ABN ORMAL RHYTHM ECG PREVIOUS TRACING : 10/10/2016 16.17 DOCTOR: Aly Lawson Interpretating Date/Time 11/27/2016 22:46:37
[2016-11-28] VITALS (14 sets, daily range): BP systolic 100–147; BP diastolic 63–81; PULSE 80–111; RESP 12–22; TEMP 98.2–100.5; O2SAT 86–99
[2016-11-28] MEDS: PIPERACIL-TAZO 2.25 GM PREMIX 50 ML IV SCH ×2 (01:11→15:00)
[2016-11-28] MEDS: ACETAMINOPHEN 325 MG TAB PO PRN (01:11)
[2016-11-28 03:19] LABS: AUTOMATED NEUTROPHIL # 9.8 TH/MM3 (1.8-7.7); BASOPHIL # 0.1 TH/MM3 (0-0.2); BASOPHIL % 0.9 % (0.0-2.0); EOSINOPHIL # 0.3 TH/MM3 (0-0.4); EOSINOPHIL % 2.1 % (0.0-4.0); HEMATOCRIT 24.8 % (39.0-51.0); HEMO FLAGS DIFF FINAL; LYMPH % 9.2 % (9.0-44.0); LYMPHOCYTE # 1.1 TH/MM3 (1.0-4.8); MEAN CELL VOLUME 82.8 FL (80.0-100.0); MEAN CORPUSCULAR HGB CONC 32.6 % (32.0-36.0); MONO % 7.5 % (0.0-8.0); NEUT % 80.3 % (16.0-70.0); PLATELET COUNT 472 TH/MM3 (150-450); RED CELL DISTRIBUTION WIDTH 19.3 % (11.6-17.2); WHITE BLOOD COUNT 12.2 TH/MM3 (4.0-11.0)
[2016-11-28 03:32] LABS: BICARBONATE 29.2 MEQ/L (21.0-32.0); POTASSIUM 3.9 MEQ/L (3.5-5.1)
[2016-11-28 03:45] LABS: CREATINE KINASE 124 U/L (39-308)
[2016-11-28] MEDS: CHLORHEXIDINE GLUCONATE 2 % 1 PACK (2 CLOTHS)(taper/protocol) TOP SCH (03:53)
[2016-11-28] MEDS: DILTIAZEM HCL 90 MG TAB PO SCH ×3 (08:45→18:00)
[2016-11-28] MEDS: METOPROLOL TARTRATE 100 MG TAB PO SCH ×2 (08:45→21:40)
[2016-11-28] MEDS: SODIUM CHLORIDE 0.9% FLUSH 5 ML FLUSH FLUSH SCH ×2 (08:45→21:40)
--- NOTE | 2016-11-28 08:56 | HHI.NPPN ---
Subjective Complaints: Confused Renal Failure: Chronic, End Stage Renal Disease Interval History Sitting up in bed, off Bipap and not on oxygen. BP stable. Slightly tachycardic. (Germania Latham) Review of Systems Respiratory Lungs: SOB (Germania Latham) Objective Data Data 11/27/16 11/28/16 19:00 07:00 Intake Total 530 ml Balance 530 ml Intake Oral 480 ml IV Total 50 ml Vital Signs Date Time Temp Pulse Resp B/P Pulse Ox O2 Delivery O2 Flow Rate FiO2 11/28/16 06:00 105 11/28/16 04:00 105 11/28/16 04:00 98.4 105 18 142/81 99 11/28/16 02:00 111 11/28/16 00:00 100.5 101 18 124/73 99 11/28/16 00:00 101 11/27/16 22:00 89 11/27/16 20:00 122 11/27/16 20:00 99.5 122 23 106/65 96 11/27/16 19:05 100 Nasal Cannula 3.00 11/27/16 17:35 100 Nasal Cannula 4.00 11/27/16 14:00 111 18 136/76 98 Nasal Cannula 4 11/27/16 13:08 100 Nasal Cannula 4.00 11/27/16 12:00 110 18 148/84 100 Nasal Cannula 4 11/27/16 11:17 100 40 11/27/16 11:00 106 18 153/99 100 BiPAP 11/27/16 09:00 104 18 142/86 100 BiPAP (Germania Latham) -: 11/28/16 0254 11/28/16 0254 Imaging Last 72 hours Impressions Chest X-Ray 11/27/16 0440 Signed Impressions: Service Date/Time: Sunday, November 27, 2016 04:58 - CONCLUSION: 1. Cardiomegaly. No acute pulmonary disease. Eyal Juares MD Head CT 11/27/16 0000 Signed Impressions: Service Date/Time: Sunday, November 27, 2016 13:45 - CONCLUSION: No acute intracranial disease. Nonspecific white matter changes. Faisal Carpio MD Chest CT 11/27/16 0000 Signed Impressions: Service Date/Time: Sunday, November 27, 2016 13:49 - CONCLUSION: 1. Cardiomegaly with coronary artery calcifications. 2. No infiltrate or mass. 3. No pulmonary edema or pleural effusions. Faisal Carpio MD (Germania Latham B. BALANCE WHEEL HAND FILER) Physical Exam General Appearance: Well Developed, Well Nourished, Comfortable (Rosas Lathamon B. BALANCE WHEEL HAND FILER) Eyes Eye Exam: Pupils Equal (Rosas Lathamon B. BALANCE WHEEL HAND FILER) Throat Throat Exam: Oral Mucosa [place] & Moist (YeisonGermania B. BALANCE WHEEL HAND FILER) Pulmonary Resp Exam: Clear Bilaterally, Breath Sounds Equal (Yeison,Germania B. BALANCE WHEEL HAND FILER) Cardiology CV Exam: Good Perfusion, Irregular, Tachycardia (Rosas Lathamon B. BALANCE WHEEL HAND FILER) Gastrointestinal/Abdomen GI Exam: Soft, Non-Tender, Bowel Sounds Present (Rosas Lathamon B. [employer] WHE[employer] HAND FILER) Musculoskeletal MS Exam: Joints Intact, Normal Gait, Unable to Ambulate (Rosas Lathamon B. BALANCE WHEEL HAND FILER) Integumentary Skin Exam: Warm, Dry (Germania Latham B. [employer] WHE[employer] HAND FILER) Extremeties Extremities Exam: Pedal Pulses Palpable (Germania Latham B. [employer] WHE[employer] HAND FILER) Neurologic Neuro Exam: Alert, Awake, Moving All Extremities (Germania Latham B. [employer] WHE[employer] HAND FILER) Assessment/Plan Discussed Condition With: Patient Assessment Summary: Anemia of CKD, End Stage Renal Disease Problem List: (1) ESRD (end stage renal disease) on dialysis Plan: Normally dialyzes T-Th-sat, he is due today had HD yesterday with blood transfusion, no current electrolyte concerns monitor fluid volume status, avoid IVF AVF right arm, monitor for complications renal panel in am avoid Gadolinium in patients with ESRD (2) Anemia in chronic kidney disease Plan: 2 units ordered to be given during dialysis obtain stool for occult bleeding check iron profile repeat Hb in am (3) Atrial fibrillation Plan: with RVR, off Cardizem gtt monitor effect and titrate as needed (4) Hypertension Plan: monitor BP,continue home medications (5) Metabolic bone disease Plan: check phos level intermittently currently stable (Germania Latham B. [employer] WHE[employer] HAND FILER) Plan patient was seen and examined. He looked much improved. Dialysis TTS. (his usual regimen). May need GI evaluation for anemia. (Keyon Eckert MD) Germania Latham Nov 28, 2016 08:56 Keyon Eckert MD Nov 29, 2016 14:33
--- NOTE | 2016-11-28 11:15 | PD.CONS ---
History of Present Illness Service Infectious disease Consult Requested By Dr Garcia Reason for Consult Evaluate patient with fever, possible sepsis Primary Care Physician Mark Sam MD Diagnoses: History of Present Illness Patient seen and examined. Records reviewed. Patient is a 66-year-old male [facility], brought into the hospital, after he was noted to have a very high heart rate, up to 160. Patient is not a very good historian. There was no mention as to whether the patient was having any other symptoms prior to coming into the hospital. On presentation he had a white count of 12.2. Chest x-ray is normal. CT of the chest unremarkable. CT of the head did not show any acute disease. Highest temperature has been 100.6. Patient currently has heart rate less than 100 but he is in atrial flutter. Last September he was admitted and had Proteus bacteremia, and unclear as to the source of his bacteremia. He had follow-up blood cultures that came back negative. Patient has known end-stage renal disease, with failed renal transplant, and makes very little urine. He gets hemodialysis every Friday and Friday. Infectious disease consultation is requested to evaluate the patient. 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 GERD Glaucoma Gout Hypertension Schizophrenia Past Surgical History LUE aVF PTCA Previous kidney transplant Active Ordered Medications Tylenol Albumin Clonidine Cardizem Benadryl Neupogen Heparin Lopressor SL NTG Zofran Zosyn Vancomycin Social History Came from the jail From record there is no alcohol abuse Former smoker There was mention of former cocaine use before 1989 Physical Exam Vital Signs Vital Signs Date Time Temp Pulse Resp B/P Pulse Ox O2 Delivery O2 Flow Rate FiO2 11/28/16 06:00 105 11/28/16 04:00 105 11/28/16 04:00 98.4 105 18 142/81 99 11/28/16 02:00 111 11/28/16 00:00 100.5 101 18 124/73 99 11/28/16 00:00 101 11/27/16 22:00 89 11/27/16 20:00 122 11/27/16 20:00 99.5 122 23 106/65 96 11/27/16 19:05 100 Nasal Cannula 3.00 11/27/16 17:35 100 Nasal Cannula 4.00 11/27/16 14:00 111 18 136/76 98 Nasal Cannula 4 11/27/16 13:08 100 Nasal Cannula 4.00 11/27/16 12:00 110 18 148/84 100 Nasal Cannula 4 11/27/16 11:17 100 40 Physical Exam GENERAL: This is a well-nourished, well-developed male, awake and alert, confused, not in any respiratory distress at the time I examined. SKIN: Cool and dry. No generalized rash, no ecchymosis. HEAD: Atraumatic. Normocephalic. No temporal or scalp tenderness. EYES: Casselman conjunctivae, no petechia or hemorrhage. Pupils equal round and reactive. Extraocular motions intact. No scleral icterus. No injection or drainage. ENT: Nose without bleeding, or purulent drainage or septal hematoma. Slightly dry oral mucosa. Throat without erythema, or exudate. Uvula midline. Airway patent. Has decreased nasolabial fold on the right side. NECK: Trachea midline. No JVD or lymphadenopathy. Supple, nontender, no meningeal signs. CARDIOVASCULAR: Irregular rate and rhythm without murmurs, gallops, or rubs. RESPIRATORY: Clear to auscultation. Breath sounds equal bilaterally. No wheezes , rales, or rhonchi. Decreased breath sounds at the bases. GASTROINTESTINAL: Abdomen soft, nondistended, has mild tenderness on the right side. Bowel sounds are present and normoactive. No guarding. No rebound. MUSCULOSKELETAL: Extremities without clubbing, cyanosis, or edema. No joint tenderness, or effusion. No calf tenderness. Negative Homans sign bilaterally. AVF LUE with no evidence of infection NEUROLOGICAL: Awake and alert. Has decreased nasolabial fold in the right side. Motor strength seemed to be symmetrical. No Babinski, no clonus. PSYCH: Calm and cooperative LINE: PIV with no evidence of infection Laboratory Laboratory Tests Test 11/27/16 11/27/16 11/27/16 11/28/16 13:34 17:39 20:02 02:54 Blood Gas Puncture Site RT RADIAL Blood Gas Patient Temperature 98.6 Blood Gas HCO3 29 Blood Gas Base Excess 4.1 Blood Gas Oxygen Saturation 96 Arterial Blood pH 7.39 Arterial Blood Partial 48 Pressure CO2 Arterial Blood Partial 132 Pressure O2 Arterial Blood Oxygen Content 9.3 Arterial Blood 2.4 Carboxyhemoglobin Arterial Blood Methemoglobin 1.5 Blood Gas Hemoglobin 6.6 Oxygen Delivery Device NASAL CANNULA Blood Gas Liter Flow 4 Nasal Screen MRSA (PCR) POSITIVE Total Creatine Kinase 144 124 Troponin I LESS THAN 0.02 LESS THAN 0.02 White Blood Count 12.2 Red Blood Count 3.00 Hemoglobin 8.1 Hematocrit 24.8 Mean Corpuscular Volume 82.8 Mean Corpuscular Hemoglobin 27.0 Mean Corpuscular Hemoglobin 32.6 Concent Red Cell Distribution Width 19.3 Platelet Count 472 Mean Platelet Volume 7.2 Neutrophils (%) (Auto) 80.3 Lymphocytes (%) (Auto) 9.2 Monocytes (%) (Auto) 7.5 Eosinophils (%) (Auto) 2.1 Basophils (%) (Auto) 0.9 Neutrophils # (Auto) 9.8 Lymphocytes # (Auto) 1.1 Monocytes # (Auto) 0.9 Eosinophils # (Auto) 0.3 Basophils # (Auto) 0.1 CBC Comment DIFF FINAL Differential Comment Sodium Level 137 Potassium Level 3.9 Chloride Level 99 Carbon Dioxide Level 29.2 Anion Gap 9 Blood Urea Nitrogen 18 Creatinine 4.03 Estimat Glomerular Filtration 18 Rate Random Glucose 87 Calcium Level 9.1 Phosphorus Level 2.9 Date/Time Procedure Status Source Growth 11/27/16 04:40 Aerobic Blood Culture Received Blood Peripheral Pending 11/27/16 04:40 Anaerobic Blood Culture Received Blood Peripheral Pending 11/27/16 04:35 Influenza Types A,B Antigen ([facility]A) - Final Complete Nasal Aspirate NEGATIVE FOR FLU A AND B ANTIGEN.... Result Diagram: 11/28/16 0254 11/28/16 0254 Imaging RADIOLOGY STUDIES/FILMS REVIEWED Chest X-Ray 11/27/16 0440 Signed Impressions: Service Date/Time: Sunday, November 27, 2016 04:58 - CONCLUSION: 1. Cardiomegaly. No acute pulmonary disease. Eyal Juares MD Head CT 11/27/16 0000 Signed Impressions: Service Date/Time: Sunday, November 27, 2016 13:45 - CONCLUSION: No acute intracranial disease. Nonspecific white matter changes. Faisal Carpio MD Chest CT 11/27/16 0000 Signed Impressions: Service Date/Time: Sunday, November 27, 2016 13:49 - CONCLUSION: 1. Cardiomegaly with coronary artery calcifications. 2. No infiltrate or mass. 3. No pulmonary edema or pleural effusions. Faisal Carpio MD Assessment and Plan Assessment and Plan IMPRESSION One low grade temps, no obvious source of infection - has some mild abdominal tenderness Afib with RVR in presentation,now in atrial flutter, slower rate ESRD, on HD, failed renal transplant Hx CVA Dementia RECOMMENDATION Follow cultures CT of the abdomen and pelvis to evaluate the abdominal tenderness on exam Patient currently on Vanco and Zosyn Monitor progress Depending on the results of the workup, I will determine course of antibiotic or need for antibiotic therapy I will follow along with you. Thank you for this consultation Ramila Ross MD Nov 28, 2016 11:15
[2016-11-28] MEDS ORDERED: DIATRIZOATE MEGLUM/DIATRIZOATE SOD 9 ML CUP PO ONE (12:30)
[2016-11-28] MEDS: EPOETIN ALFA 10,000 UNITS/ML VIAL IV PRN (17:16)
--- NOTE | 2016-11-28 20:16 | HHI.PR ---
Subjective Remarks Patient more awake denies abdominal or chest pain off bipap stable vital signs Objective Vitals Vital Signs Date Time Temp Pulse Resp B/P Pulse Ox O2 Delivery O2 Flow Rate FiO2 11/28/16 18:00 80 11/28/16 16:00 99.0 106 20 108/74 96 11/28/16 16:00 84 11/28/16 14:00 82 11/28/16 12:00 98.5 81 21 147/80 86 11/28/16 12:00 82 11/28/16 10:00 82 11/28/16 08:00 108 11/28/16 08:00 98.9 108 22 126/81 94 11/28/16 07:54 94 21 11/28/16 06:00 105 11/28/16 04:00 105 11/28/16 04:00 98.4 105 18 142/81 99 11/28/16 02:00 111 11/28/16 00:00 100.5 101 18 124/73 99 11/28/16 00:00 101 11/27/16 22:00 89 I/O 11/27/16 11/27/16 11/27/16 11/28/16 11/28/16 11/28/16 07:00 15:00 23:00 07:00 15:00 23:00 Intake Total 240 ml 290 ml Output Total 3000 ml Balance 240 ml 290 ml -3000 ml Intake Oral 240 ml 240 ml IV Total 50 ml Hemodialysis 3000 ml Result Diagram: 11/28/16 0254 11/28/16 0254 Imaging Last Impressions Chest X-Ray 11/27/16 0440 Signed Impressions: Service Date/Time: Sunday, November 27, 2016 04:58 - CONCLUSION: 1. Cardiomegaly. No acute pulmonary disease. Eyal Juares MD Head CT 11/27/16 0000 Signed Impressions: Service Date/Time: Sunday, November 27, 2016 13:45 - CONCLUSION: No acute intracranial disease. Nonspecific white matter changes. Faisal Carpio MD Chest CT 11/27/16 0000 Signed Impressions: Service Date/Time: Sunday, November 27, 2016 13:49 - CONCLUSION: 1. Cardiomegaly with coronary artery calcifications. 2. No infiltrate or mass. 3. No pulmonary edema or pleural effusions. Faisal Carpio MD Objective Remarks GENERAL: This is a well-nourished, well-developed patient, in no apparent distress. SKIN: No rashes, ecchymoses or lesions. Cool and dry. HEAD: Atraumatic. Normocephalic. No temporal or scalp tenderness. EYES: Pupils equal round and reactive. Extraocular motions intact. No scleral icterus. No injection or drainage. ENT: Nose without bleeding, purulent drainage or septal hematoma. Throat without erythema, tonsillar hypertrophy or exudate. Uvula midline. Airway patent. NECK: Trachea midline. No JVD or lymphadenopathy. Supple, nontender, no meningeal signs. CARDIOVASCULAR: Regular rate and rhythm without murmurs, gallops, or rubs. RESPIRATORY: Clear to auscultation. Breath sounds equal bilaterally. No wheezes , rales, or rhonchi. GASTROINTESTINAL: Abdomen soft, non-tender, nondistended. No hepato-splenomegaly , or palpable masses. No guarding. MUSCULOSKELETAL: Extremities without clubbing, cyanosis, or edema. No joint tenderness, effusion, or edema noted. No calf tenderness. Negative Homans sign bilaterally. NEUROLOGICAL: Awake and alert. Moves all extremities. follows commands and answers questions. Medications and IVs Current Medications Medications (Trade) Dose Ordered Sig/Dannielle Route Start Time Stop Time Status Last Admin (NS Flush) 2 ml UNSCH PRN FLUSH 11/27/16 06:15 (NS Flush) 2 ml BID FLUSH 11/27/16 09:00 11/28/16 08:45 Naloxone HCl 0.4 mg 0.4 mg UNSCH PRN IV 11/27/16 06:15 (NS 1000 ml Inj) 1,000 ml @ 0 mls/hr Q0M PRN IV 11/27/16 08:53 Heparin Sodium (Porcine) 8000 units 8,000 units UNSCH PRN IVF 11/27/16 09:00 Sodium Chloride 1,000 ml @ 200 mls/hr Q5H PRN IV 11/27/16 08:53 (NS 1000 ml Inj) 1,000 ml @ 0 mls/hr Q0M PRN IV 11/27/16 08:53 (Mannitol Inj) 12.5 gm UNSCH PRN IV 11/27/16 09:00 (Albumin 25% Inj) 25 gm UNSCH PRN IV 11/27/16 09:00 (NS Flush) 5 ml UNSCH PRN IVF 11/27/16 09:00 (Heparin Inj) UNSCH PRN .XX 11/27/16 09:00 (Gentamicin (Dialysis) Inj) 20 mg UNSCH PRN IV 11/27/16 09:00 (Zofran Inj) 4 mg UNSCH PRN IV 11/27/16 09:00 (Tylenol) 650 mg UNSCH PRN PO 11/27/16 09:00 11/28/16 01:11 (Benadryl) 25 mg UNSCH PRN PO 11/27/16 09:00 (Nitrostat Sl) 0.4 mg UNSCH PRN SL 11/27/16 09:00 (Catapres) 0.1 mg UNSCH PRN PO 11/27/16 09:00 (Epogen Inj) 10,000 units UNSCH PRN IV 11/27/16 09:00 11/28/16 17:16 Gelatin 1 foam 1 foam UNSCH PRN TOP 11/27/16 09:00 (Zosyn 2.25 Gm Premix) 50 ml @ 100 mls/hr Q12H IV 11/27/16 15:00 11/28/16 01:11 (Lopressor) 100 mg Q12HR PO 11/27/16 21:00 11/28/16 08:45 (Cardizem) 90 mg TID PO 11/27/16 18:00 11/28/16 18:00 Miscellaneous Information Patient in critical care unit? Ass... Q361D XX 11/27/16 19:30 (Chlorhexidine 2% Cloth) 3 pack DAILY@04 TOP 11/28/16 04:00 12/02/16 04:01 11/28/16 03:53 (Chlorhexidine 2% Cloth) 3 pack UNSCH PRN TOP 11/27/16 19:30 12/02/16 19:15 A/P Problem List: (1) SIRS (systemic inflammatory response syndrome) ICD Code: R65.10 Status: Acute Plan: I suspect sepsis possibly secondary to pneumonia however need to confirm this. Admitted to ICU 11/28 continue IV antibiotics as per ID - recommendations appreciated CT abdomen ordered - patient does not elicit any pain on my exam (2) Acute hypoxemic respiratory failure ICD Code: J96.01 Status: Acute Plan: The patient presents with respiratory rate in the mid 30s. Differential diagnosis would include pneumonia, pulmonary emboli ct head negative ct chest - no infiltrates respiratory failure resolved (3) Encephalopathy acute ICD Code: G93.40 Status: Acute Plan: Suspect metabolic encephalopathy probably due to SIRS/Sepsis syndrome Vital neurochecks and neurological status. CT head negative fo acute intracranial process ABG showed mild hypercapnea with PCO2 48 2/16 encephalopathy seems to be resolving. (4) Anemia ICD Code: D64.9 Status: Acute Plan: Acute on chronic anemia. There is no signs of active bleeding. Transfuse 2 units of packed red blood cells. Check stool guaiac continue to hold anticoagulation (5) Leukocytosis ICD Code: D72.829 Status: Acute Plan: Leukocytosis likely secondary to underlying infectious process versus stress induced. Continue IV antibiotics as per ID. (6) Thrombocytosis ICD Code: D47.3 Status: Acute Plan: Likely reactive. Continue to monitor platelets Platelets trending down (7) ESRD (end stage renal disease) on dialysis ICD Code: N18.6 Status: Chronic Plan: Nephrology consulted. Hemodialysis as per nephrology recommendations. (8) Atrial fibrillation with RVR ICD Code: I48.91 Status: Acute Plan: cardiac enzymes negative x3 appreciate cardiology recommendations hold anticoagulation off Cardizem drip Started on metoprolol and cardizem po by cardiology with good rate control (9) HTN (hypertension) ICD Code: I10 Status: Chronic Plan: Patient's blood pressure seems to be stable.continue metoprolol and cardizem po. Continue as needed medication. (10) Glaucoma ICD Code: H40.9 Status: Chronic Plan: Continue Brimonidine ophtalmic drops, seems stable Assessment and Plan DVT prophylaxis: Scd's, no chemoprophylaxis given anemia Gi prophylaxis: Discharge Planning ok to transfer to medical floor. Problem Qualifiers (1) Anemia: Qualified Code: D64.9 - Anemia, unspecified type (2) Leukocytosis: Qualified Code: D72.829 - Leukocytosis, unspecified type (3) HTN (hypertension): Qualified Code: I10 - Essential hypertension Gregorio Hyde MD Nov 28, 2016 20:16
--- NOTE | 2016-11-28 21:21 | RADRPT ---
EXAM DATE/TIME: 11/28/2016 20:56 [facility] COMPARISON: CT ABDOMEN & PELVIS W/O CONTRAST, October 15, 2016, 19:38. INDICATIONS : Abdominal pain with fever. ORAL CONTRAST: Prescribed oral contrast ingested. RADIATION DOSE: 13.59 CTDIvol (mGy) MEDICAL HISTORY : Hypertension. SURGICAL HISTORY : None. ENCOUNTER: Initial ACUITY: 1 day PAIN SCALE: 5/10 LOCATION: Abdomen/pelvis TECHNIQUE: Volumetric scanning of the abdomen and pelvis was performed. Using automated exposure control and adjustment of the mA and/or kV according to patient size, radiation dose was kept as low as reasonably achievable to obtain optimal diagnostic quality images. FINDINGS: There is increased soft tissue density seen along the anterior right psoas muscle. Thi s likely represents a hematoma. There was increased density on the prior CT in this region but the a ozzy of density now appears larger. It measures 7 cm in greatest AP dimension, 5.5 cm in transverse d imension and extends over an 8.5 cm length. The liver, spleen, pancreas and adrenal glands appear grossly normal. There does appear to be atrophy of the kidneys with diffuse cortical thinning. There is scattered cystic change in the kidneys bila terally. Small central calcifications are seen on the right side which may represent tiny nonobstruc ting stones. Vascular calcifications could have a similar appearance. Significant hydronephrosis is not seen. The patient does appear to have a diverticulum off the posterior aspect of the stomach. The gallbladder appears distended. Significant inflammatory change around the gallbladder is not see n. There is a moderate amount of stool seen in the rectum. The structures within the pelvis appear g rossly intact. The lung bases are grossly clear. There is degenerative change at the lower lumbar spine. The patie nt does appear to have sclerosis at the left femoral head which may be from prior avascular necrosis. CONCLUSION: 1. Suspected enlarging hematoma in the right retroperitoneum abutting the anterior margin of the righ t psoas muscle in the pelvis. An area of increased density to suggest active hemorrhage is not seen. 2. Renal atrophy. 3. 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 This was present previously. 4. Degenerative change in the lower lumbar spine. Norm Nur MD on November 28, 2016 at 21:06 Board Certified Radiologist. This report was verified electronically.
[2016-11-28] MEDS: PANTOPRAZOLE SOD 40 MG DELAYED RELEASE TAB PO SCH (21:40)
[2016-11-29] VITALS (14 sets, daily range): BP systolic 95–148; BP diastolic 55–78; PULSE 67–112; RESP 17–25; TEMP 97.9–99.1; O2SAT 96–99
[2016-11-29] MEDS: CHLORHEXIDINE GLUCONATE 2 % 1 PACK (2 CLOTHS)(taper/protocol) TOP SCH ×2 (03:35→20:35)
[2016-11-29] MEDS: PIPERACIL-TAZO 2.25 GM PREMIX 50 ML IV SCH ×2 (03:35→15:00)
[2016-11-29] MEDS: PANTOPRAZOLE SOD 40 MG DELAYED RELEASE TAB PO SCH (09:00)
[2016-11-29] MEDS: METOPROLOL TARTRATE 100 MG TAB PO SCH ×2 (09:00→20:12)
[2016-11-29] MEDS: SODIUM CHLORIDE 0.9% FLUSH 5 ML FLUSH FLUSH SCH ×2 (09:00→20:12)
[2016-11-29] MEDS: DILTIAZEM HCL 90 MG TAB PO SCH (09:00)
--- NOTE | 2016-11-29 09:35 | PD.CARD.PN ---
Subjective Subjective Remarks No complaints Objective Medications Current Medications Medications (Trade) Dose Ordered Sig/Dannielle Route Start Time Stop Time Status Last Admin (NS Flush) 2 ml UNSCH PRN FLUSH 11/27/16 06:15 (NS Flush) 2 ml BID FLUSH 11/27/16 09:00 11/28/16 21:40 Naloxone HCl 0.4 mg 0.4 mg UNSCH PRN IV 11/27/16 06:15 (NS 1000 ml Inj) 1,000 ml @ 0 mls/hr Q0M PRN IV 11/27/16 08:53 Heparin Sodium (Porcine) 8000 units 8,000 units UNSCH PRN IVF 11/27/16 09:00 Sodium Chloride 1,000 ml @ 200 mls/hr Q5H PRN IV 11/27/16 08:53 (NS 1000 ml Inj) 1,000 ml @ 0 mls/hr Q0M PRN IV 11/27/16 08:53 (Mannitol Inj) 12.5 gm UNSCH PRN IV 11/27/16 09:00 (Albumin 25% Inj) 25 gm UNSCH PRN IV 11/27/16 09:00 (NS Flush) 5 ml UNSCH PRN IVF 11/27/16 09:00 (Heparin Inj) UNSCH PRN .XX 11/27/16 09:00 (Gentamicin (Dialysis) Inj) 20 mg UNSCH PRN IV 11/27/16 09:00 (Zofran Inj) 4 mg UNSCH PRN IV 11/27/16 09:00 (Tylenol) 650 mg UNSCH PRN PO 11/27/16 09:00 11/28/16 01:11 (Benadryl) 25 mg UNSCH PRN PO 11/27/16 09:00 (Nitrostat Sl) 0.4 mg UNSCH PRN SL 11/27/16 09:00 (Catapres) 0.1 mg UNSCH PRN PO 11/27/16 09:00 (Epogen Inj) 10,000 units UNSCH PRN IV 11/27/16 09:00 11/28/16 17:16 Gelatin 1 foam 1 foam UNSCH PRN TOP 11/27/16 09:00 (Zosyn 2.25 Gm Premix) 50 ml @ 100 mls/hr Q12H IV 11/27/16 15:00 11/29/16 03:35 (Lopressor) 100 mg Q12HR PO 11/27/16 21:00 11/28/16 21:40 (Cardizem) 90 mg TID PO 11/27/16 18:00 11/28/16 18:00 Miscellaneous Information Patient in critical care unit? Ass... Q361D XX 11/27/16 19:30 (Chlorhexidine 2% Cloth) 3 pack DAILY@04 TOP 11/28/16 04:00 12/02/16 04:01 11/29/16 03:35 (Chlorhexidine 2% Cloth) 3 pack UNSCH PRN TOP 11/27/16 19:30 12/02/16 19:15 (Protonix) 40 mg DAILY PO 11/28/16 20:30 11/28/16 21:40 Vital Signs / I&O Vital Signs Date Time Temp Pulse Resp B/P Pulse Ox O2 Delivery O2 Flow Rate FiO2 11/29/16 06:00 108 11/29/16 04:00 104 11/29/16 04:00 98.0 104 17 107/62 97 11/29/16 02:00 99 11/29/16 00:00 105 11/29/16 00:00 99.1 102 25 148/78 99 11/28/16 22:00 97 11/28/16 21:18 93 21 11/28/16 20:00 86 11/28/16 20:00 98.2 86 12 100/63 97 11/28/16 18:00 80 11/28/16 16:00 99.0 106 20 108/74 96 11/28/16 16:00 84 11/28/16 14:00 82 11/28/16 12:00 98.5 81 21 147/80 86 11/28/16 12:00 82 11/28/16 10:00 82 I/O 11/28/16 11/28/16 11/28/16 11/29/16 11/29/16 11/29/16 07:00 15:00 23:00 07:00 15:00 23:00 Intake Total 290 ml 240 ml 310 ml Output Total 3000 ml Balance 290 ml -2760 ml 310 ml Intake Oral 240 ml 240 ml 240 ml IV Total 50 ml 70 ml Hemodialysis 3000 ml # Bowel Movements 1 Physical Exam Alert Chest clear CV S1S2 irr irr and tachy no edema Assessment and Plan Problem List: (1) Hypertension (2) Atrial fibrillation Assessment and Plan: not well controlled. Increase diltiazem 120mg tid Otis Mack MD Nov 29, 2016 09:35
--- NOTE | 2016-11-29 10:01 | HHI.NPPN ---
Subjective Complaints: Confused Renal Failure: Chronic, End Stage Renal Disease Interval History More talkative today. He has no complaints. (Germania Latham) Review of Systems Respiratory Lungs: SOB (Germania Latham) Objective Data Data 11/28/16 11/29/16 19:00 07:00 Intake Total 550 ml Output Total 3000 ml Balance -3000 ml 550 ml Intake Oral 480 ml IV Total 70 ml Hemodialysis 3000 ml # Bowel Movements 1 Vital Signs Date Time Temp Pulse Resp B/P Pulse Ox O2 Delivery O2 Flow Rate FiO2 11/29/16 08:00 97.9 112 22 110/70 98 11/29/16 08:00 112 11/29/16 06:00 108 11/29/16 04:00 104 11/29/16 04:00 98.0 104 17 107/62 97 11/29/16 02:00 99 11/29/16 00:00 105 11/29/16 00:00 99.1 102 25 148/78 99 11/28/16 22:00 97 11/28/16 21:18 93 21 11/28/16 20:00 86 11/28/16 20:00 98.2 86 12 100/63 97 11/28/16 18:00 80 11/28/16 16:00 99.0 106 20 108/74 96 11/28/16 16:00 84 11/28/16 14:00 82 11/28/16 12:00 98.5 81 21 147/80 86 11/28/16 12:00 82 11/28/16 10:00 82 (Germania Latham) -: 11/28/16 0254 11/28/16 0254 Physical Exam General Appearance: Well Developed, Well Nourished, No Acute Distress, Comfortable ( Germania Latham) Eyes Eye Exam: Pupils Equal (Germania Latham) Throat Throat Exam: Oral Mucosa [place] & Moist (Germania Latham) Pulmonary Resp Exam: Clear Bilaterally, Breath Sounds Equal (Germania Latham) Cardiology CV Exam: Good Perfusion, Irregular, Tachycardia (Germania Latham) Gastrointestinal/Abdomen GI Exam: Soft, Non-Tender, Bowel Sounds Present (Germania Latham) Musculoskeletal MS Exam: Joints Intact, Normal Gait, Unable to Ambulate (Germania Latham) Integumentary Skin Exam: Warm, Dry (Germania Latham) Extremeties Extremities Exam: Pedal Pulses Palpable (Germania Latham) Neurologic Neuro Exam: Alert, Awake, Speech Clear, Moving All Extremities (Germania Latham) Assessment/Plan Discussed Condition With: Patient Assessment Summary: Anemia of CKD, End Stage Renal Disease Problem List: (1) ESRD (end stage renal disease) on dialysis Plan: Normally dialyzes T-Th-sat, he had 3L UF yesterday no current dialysis related concerns monitor fluid volume status, avoid IVF AVF right arm, monitor for complications renal panel in am avoid Gadolinium in patients with ESRD (2) Anemia in chronic kidney disease Plan: transfused on admission awaiting testing of stool for occult bleeding monitor Hb in am (3) Atrial fibrillation Plan: with RVR, off Cardizem gtt monitor effect and titrate as needed (4) Hypertension Plan: monitor BP,continue home medications (5) Metabolic bone disease Plan: check phos level intermittently currently stable (Germania Latham) Plan patient was seen and examined. May need GI evaluation. Rule out GI bleeding. ( Keyon Eckert MD) Germania Latham Nov 29, 2016 10:01 Keyon Eckert MD Nov 29, 2016 14:52
[2016-11-29] MEDS: DILTIAZEM HCL 60 MG TAB PO SCH ×2 (13:00→18:00)
[2016-11-29 16:44] LABS: AUTOMATED NEUTROPHIL # 9.2 TH/MM3 (1.8-7.7); BASOPHIL % 0.4 % (0.0-2.0); EOSINOPHIL # 0.3 TH/MM3 (0-0.4); EOSINOPHIL % 2.5 % (0.0-4.0); HEMATOCRIT 25.9 % (39.0-51.0); HEMO FLAGS DIFF FINAL; LYMPH % 9.6 % (9.0-44.0); LYMPHOCYTE # 1.1 TH/MM3 (1.0-4.8); MEAN CELL VOLUME 83.1 FL (80.0-100.0); MEAN CORPUSCULAR HEMOGLOBIN 26.6 PG (27.0-34.0); MEAN CORPUSCULAR HGB CONC 32.1 % (32.0-36.0); NEUT % 78.5 % (16.0-70.0); PLATELET COUNT 465 TH/MM3 (150-450); RED BLOOD COUNT 3.12 MIL/MM3 (4.50-5.90); WHITE BLOOD COUNT 11.7 TH/MM3 (4.0-11.0)
--- NOTE | 2016-11-29 17:08 | HHI.IDPN ---
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 Vital Signs Date Time Temp Pulse Resp B/P Pulse Ox O2 Delivery O2 Flow Rate FiO2 11/29/16 14:00 72 11/29/16 12:00 73 11/29/16 12:00 97.9 73 20 97/55 98 11/29/16 10:00 102 11/29/16 08:00 97.9 112 22 110/70 98 11/29/16 08:00 112 11/29/16 07:19 98 21 11/29/16 06:00 108 11/29/16 04:00 104 11/29/16 04:00 98.0 104 17 107/62 97 11/29/16 02:00 99 11/29/16 00:00 105 11/29/16 00:00 99.1 102 25 148/78 99 11/28/16 22:00 97 11/28/16 21:18 93 21 11/28/16 20:00 86 11/28/16 20:00 98.2 86 12 100/63 97 11/28/16 18:00 80 11/28/16 11/28/16 11/29/16 15:00 23:00 07:00 Intake Total 240 ml 310 ml Output Total 3000 ml Balance -2760 ml 310 ml Intake Oral 240 ml 240 ml IV Total 70 ml Hemodialysis 3000 ml # Bowel Movements 1 . Laboratory Tests Test 11/28/16 11/29/16 02:54 16:08 White Blood Count 12.2 TH/MM3 11.7 TH/MM3 Red Blood Count 3.00 MIL/MM3 3.12 MIL/MM3 Hemoglobin 8.1 GM/DL 8.3 GM/DL Hematocrit 24.8 % 25.9 % Mean Corpuscular Volume 82.8 FL 83.1 FL Mean Corpuscular Hemoglobin 27.0 PG 26.6 PG Mean Corpuscular Hemoglobin 32.6 % 32.1 % Concent Red Cell Distribution Width 19.3 % 20.0 % Platelet Count 472 TH/MM3 465 TH/MM3 Mean Platelet Volume 7.2 FL 6.9 FL Neutrophils (%) (Auto) 80.3 % 78.5 % Lymphocytes (%) (Auto) 9.2 % 9.6 % Monocytes (%) (Auto) 7.5 % 9.0 % Eosinophils (%) (Auto) 2.1 % 2.5 % Basophils (%) (Auto) 0.9 % 0.4 % Neutrophils # (Auto) 9.8 TH/MM3 9.2 TH/MM3 Lymphocytes # (Auto) 1.1 TH/MM3 1.1 TH/MM3 Monocytes # (Auto) 0.9 TH/MM3 1.1 TH/MM3 Eosinophils # (Auto) 0.3 TH/MM3 0.3 TH/MM3 Basophils # (Auto) 0.1 TH/MM3 0.0 TH/MM3 CBC Comment DIFF FINAL DIFF FINAL Differential Comment Laboratory Tests Test 11/27/16 11/28/16 20:02 02:54 Total Creatine Kinase 144 U/L 124 U/L Troponin I LESS THAN 0.02 LESS THAN 0.02 NG/ML NG/ML Sodium Level 137 MEQ/L Potassium Level 3.9 MEQ/L Chloride Level 99 MEQ/L Carbon Dioxide Level 29.2 MEQ/L Anion Gap 9 MEQ/L Blood Urea Nitrogen 18 MG/DL Creatinine 4.03 MG/DL Estimat Glomerular Filtration 18 ML/MIN Rate Random Glucose 87 MG/DL Calcium Level 9.1 MG/DL Phosphorus Level 2.9 MG/DL Microbiology Date/Time Procedure Status Source Growth 11/27/16 04:30 Aerobic Blood Culture - Preliminary Resulted Blood Peripheral NO GROWTH IN 2 DAYS 11/27/16 04:30 Anaerobic Blood Culture - Preliminary Resulted Blood Peripheral NO GROWTH IN 2 DAYS 11/27/16 04:35 Influenza Types A,B Antigen (RENUKA) - Final Complete Nasal Aspirate NEGATIVE FOR FLU A AND B ANTIGEN.... 11/27/16 04:40 Aerobic Blood Culture - Preliminary Resulted Blood Peripheral NO GROWTH IN 2 DAYS 11/27/16 04:40 Anaerobic Blood Culture - Preliminary Resulted Blood Peripheral NO GROWTH IN 2 DAYS Imaging Abdomen/Pelvis CT 11/28/16 0000 Signed Impressions: Service Date/Time: November 20:56 - CONCLUSION: 1. Suspected enlarging hematoma in the right retroperitoneum abutting the anterior margin of the right psoas muscle in the pelvis. An area of increased density to suggest active hemorrhage is not seen. 2. Renal atrophy. 3. 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 This was present previously. 4. Degenerative change in the lower lumbar spine. Norm Nur MD Chest X-Ray 11/27/16 0440 Signed Impressions: Service Date/Time: Sunday, November 27, 2016 04:58 - CONCLUSION: 1. Cardiomegaly. No acute pulmonary disease. Eyal Juares MD Head CT 11/27/16 0000 Signed Impressions: Service Date/Time: Sunday, November 27, 2016 13:45 - CONCLUSION: No acute intracranial disease. Nonspecific white matter changes. Faisal Carpio MD Chest CT 11/27/16 0000 Signed Impressions: Service Date/Time: Sunday, November 27, 2016 13:49 - CONCLUSION: 1. Cardiomegaly with coronary artery calcifications. 2. No infiltrate or mass. 3. No pulmonary edema or pleural effusions. Faisal Carpio MD Physical Exam GENERAL: awake and alert, not in any respiratory distress SKIN: Cool and dry. No generalized rash, no ecchymosis. HEENT: [place] conjunctivae, no petechia or hemorrhage. No scleral icterus. Slightly dry oral mucosa. . NECK: Trachea midline. No JVD or lymphadenopathy. Supple, nontender, no meningeal signs. CARDIOVASCULAR: Irregular rate and rhythm without murmurs, gallops, or rubs. RESPIRATORY: Clear to auscultation. Breath sounds equal bilaterally. No wheezes , rales, or rhonchi. Decreased breath sounds at the bases. GASTROINTESTINAL: Abdomen soft, nondistended, has tenderness on the right side. No guarding. No rebound. MUSCULOSKELETAL: Extremities without clubbing, cyanosis, or edema. No joint tenderness, or effusion. No calf tenderness. Negative Homans sign bilaterally. AVF LUE with no evidence of infection NEUROLOGICAL: Awake and alert. Has decreased nasolabial fold in the right side. Motor strength seemed to be symmetrical. No Babinski, no clonus. PSYCH: Calm and cooperative LINE: PIV with no evidence of infection Assessment & Plan Remarks IMPRESSION One low grade temps, no obvious source of infection - has some mild abdominal tenderness - C/S negative - ?bleed or infected transplant kidney - patient had Proteus sepsis last Sep-Oct and unknown source but had abnormality described then of the transplant kidney Atrial fib, RVR ESRD, on HD, failed renal transplant Hx CVA Dementia RECOMMENDATION Follow cultures Stop vanco Continue Zosyn for now Will ask Dr Melendrez to evaluate the R transplant kidney Monitor temps Monitor progress Ramila Ross MD Nov 29, 2016 17:08
[2016-11-29 17:12] LABS: ALKALINE PHOSPHATASE 73 U/L (45-117); ALT (GPT) 16 U/L (12-78); ANION GAP 8 MEQ/L (5-15); AST (GOT) 14 U/L (15-37); BICARBONATE 30.8 MEQ/L (21.0-32.0); BLOOD UREA NITROGEN 27 MG/DL (7-18); CHLORIDE 95 MEQ/L (98-107); GLOMERULAR FILTRATION RATE 13 ML/MIN (>89); MAGNESIUM 1.9 MG/DL (1.5-2.5); POTASSIUM 3.6 MEQ/L (3.5-5.1); SODIUM (NA) 134 MEQ/L (136-145); TOTAL BILIRUBIN ADULT 0.6 MG/DL (0.2-1.0)
--- NOTE | 2016-11-29 19:15 | HHI.PR ---
Subjective Remarks patient with slight decreased bp sbp in the 90's - MAP 73 denies chest pain, sob ,palpitations Objective Vitals Vital Signs Date Time Temp Pulse Resp B/P Pulse Ox O2 Delivery O2 Flow Rate FiO2 11/29/16 18:00 72 11/29/16 16:00 97.9 68 20 98/66 98 11/29/16 16:00 67 11/29/16 14:00 72 11/29/16 12:00 73 11/29/16 12:00 97.9 73 20 97/55 98 11/29/16 10:00 102 11/29/16 08:00 97.9 112 22 110/70 98 11/29/16 08:00 112 11/29/16 07:19 98 21 11/29/16 06:00 108 11/29/16 04:00 104 11/29/16 04:00 98.0 104 17 107/62 97 11/29/16 02:00 99 11/29/16 00:00 105 11/29/16 00:00 99.1 102 25 148/78 99 11/28/16 22:00 97 11/28/16 21:18 93 21 11/28/16 20:00 86 11/28/16 20:00 98.2 86 12 100/63 97 I/O 11/28/16 11/28/16 11/28/16 11/29/16 11/29/16 11/29/16 07:00 15:00 23:00 07:00 15:00 23:00 Intake Total 290 ml 240 ml 310 ml 290 ml Output Total 3000 ml 0 ml Balance 290 ml -2760 ml 310 ml 290 ml Intake Oral 240 ml 240 ml 240 ml 240 ml IV Total 50 ml 70 ml 50 ml Output Urine Total 0 ml Hemodialysis 3000 ml # Bowel Movements 1 2 Result Diagram: 11/29/16 1608 11/29/16 1608 Imaging Last Impressions Abdomen/Pelvis CT 11/28/16 0000 Signed Impressions: Service Date/Time: November 20:56 - CONCLUSION: 1. Suspected enlarging hematoma in the right retroperitoneum abutting the anterior margin of the right psoas muscle in the pelvis. An area of increased density to suggest active hemorrhage is not seen. 2. Renal atrophy. 3. 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 This was present previously. 4. Degenerative change in the lower lumbar spine. Norm Nur MD Chest X-Ray 11/27/16 0440 Signed Impressions: Service Date/Time: Sunday, November 27, 2016 04:58 - CONCLUSION: 1. Cardiomegaly. No acute pulmonary disease. Eyal Juares MD Head CT 11/27/16 0000 Signed Impressions: Service Date/Time: Sunday, November 27, 2016 13:45 - CONCLUSION: No acute intracranial disease. Nonspecific white matter changes. Faisal Carpio MD Chest CT 11/27/16 0000 Signed Impressions: Service Date/Time: Sunday, November 27, 2016 13:49 - CONCLUSION: 1. Cardiomegaly with coronary artery calcifications. 2. No infiltrate or mass. 3. No pulmonary edema or pleural effusions. Faisal Carpio MD Objective Remarks GENERAL: This is a well-nourished, well-developed patient, in no apparent distress. SKIN: No rashes, ecchymoses or lesions. Cool and dry. HEAD: Atraumatic. Normocephalic. No temporal or scalp tenderness. EYES: Pupils equal round and reactive. Extraocular motions intact. No scleral icterus. No injection or drainage. ENT: Nose without bleeding, purulent drainage or septal hematoma. Throat without erythema, tonsillar hypertrophy or exudate. Uvula midline. Airway patent. NECK: Trachea midline. No JVD or lymphadenopathy. Supple, nontender, no meningeal signs. CARDIOVASCULAR: Regular rate and rhythm without murmurs, gallops, or rubs. RESPIRATORY: Clear to auscultation. Breath sounds equal bilaterally. No wheezes , rales, or rhonchi. GASTROINTESTINAL: Abdomen soft, non-tender, nondistended. No hepato-splenomegaly , or palpable masses. No guarding. MUSCULOSKELETAL: Extremities without clubbing, cyanosis, or edema. No joint tenderness, effusion, or edema noted. No calf tenderness. Negative Homans sign bilaterally. NEUROLOGICAL: Awake and alert. Moves all extremities. follows commands and answers questions. Medications and IVs Current Medications Medications (Trade) Dose Ordered Sig/Dannielle Route Start Time Stop Time Status Last Admin (NS Flush) 2 ml UNSCH PRN FLUSH 11/27/16 06:15 (NS Flush) 2 ml BID FLUSH 11/27/16 09:00 11/29/16 09:00 Naloxone HCl 0.4 mg 0.4 mg UNSCH PRN IV 11/27/16 06:15 (NS 1000 ml Inj) 1,000 ml @ 0 mls/hr Q0M PRN IV 11/27/16 08:53 Heparin Sodium (Porcine) 8000 units 8,000 units UNSCH PRN IVF 11/27/16 09:00 Sodium Chloride 1,000 ml @ 200 mls/hr Q5H PRN IV 11/27/16 08:53 (NS 1000 ml Inj) 1,000 ml @ 0 mls/hr Q0M PRN IV 11/27/16 08:53 (Mannitol Inj) 12.5 gm UNSCH PRN IV 11/27/16 09:00 (Albumin 25% Inj) 25 gm UNSCH PRN IV 11/27/16 09:00 (NS Flush) 5 ml UNSCH PRN IVF 11/27/16 09:00 (Heparin Inj) UNSCH PRN .XX 11/27/16 09:00 (Gentamicin (Dialysis) Inj) 20 mg UNSCH PRN IV 11/27/16 09:00 (Zofran Inj) 4 mg UNSCH PRN IV 11/27/16 09:00 (Tylenol) 650 mg UNSCH PRN PO 11/27/16 09:00 11/28/16 01:11 (Benadryl) 25 mg UNSCH PRN PO 11/27/16 09:00 (Nitrostat Sl) 0.4 mg UNSCH PRN SL 11/27/16 09:00 (Catapres) 0.1 mg UNSCH PRN PO 11/27/16 09:00 (Epogen Inj) 10,000 units UNSCH PRN IV 11/27/16 09:00 11/28/16 17:16 Gelatin 1 foam 1 foam UNSCH PRN TOP 11/27/16 09:00 (Zosyn 2.25 Gm Premix) 50 ml @ 100 mls/hr Q12H IV 11/27/16 15:00 11/29/16 15:00 (Lopressor) 100 mg Q12HR PO 11/27/16 21:00 11/29/16 09:00 Miscellaneous Information Patient in critical care unit? Ass... Q361D XX 11/27/16 19:30 (Chlorhexidine 2% Cloth) 3 pack DAILY@04 TOP 11/28/16 04:00 12/02/16 04:01 11/29/16 03:35 (Chlorhexidine 2% Cloth) 3 pack UNSCH PRN TOP 11/27/16 19:30 12/02/16 19:15 (Protonix) 40 mg DAILY PO 11/28/16 20:30 11/29/16 09:00 (Cardizem) 120 mg TID PO 11/29/16 13:00 11/29/16 18:00 Urinary Catheter: No Vascular Central Line Catheter: No A/P Problem List: (1) SIRS (systemic inflammatory response syndrome) ICD Code: R65.10 Status: Acute Plan: I suspect sepsis possibly secondary to pneumonia however need to confirm this. Admitted to ICU 11/28 continue IV antibiotics as per ID - recommendations appreciated 11/29 the transplanted kidney looks bigger. Hematoma versus infection. An area of increased density to suggest active hemorrhage is not seen. There is renal atrophy, possible vascular necrosis of the left femoral head and degenerative changes in the lower lumbar spine. Appreciated ID recommendations. Dr Melendrez from Kidney transplant will be asked to evaluate transplant kidney. Vancomycin discontinued as per ID. Blood cultures negative 2. (2) Acute hypoxemic respiratory failure ICD Code: J96.01 Status: Acute Plan: The patient presents with respiratory rate in the mid 30s. Differential diagnosis would include pneumonia, pulmonary emboli ct head negative ct chest - no infiltrates respiratory failure resolved (3) Encephalopathy acute ICD Code: G93.40 Status: Acute Plan: Suspect metabolic encephalopathy probably due to SIRS/Sepsis syndrome Vital neurochecks and neurological status. CT head negative fo acute intracranial process ABG showed mild hypercapnea with PCO2 48 11/28 encephalopathy seems to be resolving. 11/29 encephalopathy resolved. (4) Anemia ICD Code: D64.9 Status: Acute Plan: Acute on chronic anemia. There is no signs of active bleeding. Transfuse 2 units of packed red blood cells. Check stool guaiac continue to hold anticoagulation 11/29 due to retroperineal hematoma? Hemoglobin stable at 8.3 Continue to monitor H/H Diffuse as needed for hemoglobin less than 7 or active bleeding. (5) Leukocytosis ICD Code: D72.829 Status: Acute Plan: Leukocytosis likely secondary to underlying infectious process versus stress induced. Continue IV antibiotics as per ID. (6) Thrombocytosis ICD Code: D47.3 Status: Acute Plan: Likely reactive. Continue to monitor platelets Platelets trending down (7) ESRD (end stage renal disease) on dialysis ICD Code: N18.6 Status: Chronic Plan: Nephrology consulted. Hemodialysis as per nephrology recommendations. (8) Atrial fibrillation with RVR ICD Code: I48.91 Status: Acute Plan: cardiac enzymes negative x3 appreciate cardiology recommendations hold anticoagulation off Cardizem drip Started on metoprolol and cardizem po by cardiology with good rate control 11/29 Heart rate not controlled earlier today - diltiazem dose increased to 120 mg by mouth 3 times a day by cardiology. (9) HTN (hypertension) ICD Code: I10 Status: Chronic Plan: Patient's blood pressure slightly lower today however could MAP.continue metoprolol and cardizem po. Continue as needed medication. (10) Glaucoma ICD Code: H40.9 Status: Chronic Plan: Continue Brimonidine ophtalmic drops, seems stable Assessment and Plan DVT prophylaxis: Scd's, no chemoprophylaxis given anemia and poss retroperitoneal hemorrhage Gi prophylaxis: Discharge Planning ok to transfer to medical floor. Problem Qualifiers (1) Anemia: Qualified Code: D64.9 - Anemia, unspecified type (2) Leukocytosis: Qualified Code: D72.829 - Leukocytosis, unspecified type (3) HTN (hypertension): Qualified Code: I10 - Essential hypertension Gregorio Hyde MD Nov 29, 2016 19:15
[2016-11-30] VITALS (9 sets, daily range): BP systolic 90–151; BP diastolic 58–81; PULSE 83–93; RESP 19–25; TEMP 98–98.8; O2SAT 94–98
[2016-11-30] MEDS: PIPERACIL-TAZO 2.25 GM PREMIX 50 ML IV SCH ×2 (02:01→15:41)
--- NOTE | 2016-11-30 02:23 | PD.CONS ---
History of Present Illness Service [facility] Consult Requested By Ramila Ross MD Reason for Consult Evaluate Allograft Kidney Primary Care Physician Mark Sam MD Diagnoses: History of Present Illness Patient seen and examined. Records reviewed. Mr. Thurman is a 66 yo Black male with ESRD, who began dialysis in 2000 and received a kidney transplant on 06/02/2007 from [facility]. His post-op course was complicated by R leg numbness, early ACR, and suboptimal graft function. His baseline Creatinine was 2.5 to3.0; His immunosuppression regimen was based on Tacrolimus (2 to 5 mg q 12h, Mycophenolate, and steroids). He later had urine positive for BK virus; In 2012 he had an E. Coli UTI,but also had an allograft biopsy showing ACR with moderate interstitial fibrosis. He returned to dialysis between 01/2014 and 2015, but was off immunosuppression by 09/2016;At that time, he was admitted for a Proteus bacteremia. He was transferred from a [place] on 11/27/16 for tachycardia, hypoxia, and an altered mental status; T was 100.6; he was reported to have RLQ tenderness; WBC 12.2, Hct 6.6, CXR and CT chest/head negative; INR 1.2. He was transfused 2 u PRBC during dialysis and was started on Vancomycin and Zosyn; Blood cultures to date are negative. An abdominal CT was performed reporting an enlarging hematoma. Review of Systems ROS Limitations: Clinical Condition, Altered Mental Status, Poor Historian Past Family Social History Allergies: Coded Allergies: *MDRO Multi-Drug Resistant Organism (Verified Adverse Reaction, Unknown, ) MRSA PCR screen POSITIVE - 11/27/16 Past Medical History ESRD Secondary hyperparathyroidism Anemia CAD, Afib HTN hyperlipidemia CVA 2012 > R side weakness Open Angle Glaucoma GERD, hiatal hernia gastric diverticulitis duodenitis hx GI bleed 2010 Schizophrenia, Dementia Depression/Anxiety Hx Herpetic Neuralgia Childhood Mar's Palsy Current Medications Medications (Trade) Dose Ordered Sig/Dannielle Route Start Time Stop Time Status Last Admin (NS Flush) 2 ml UNSCH PRN FLUSH 11/27/16 06:15 (NS Flush) 2 ml BID FLUSH 11/27/16 09:00 11/29/16 20:12 Naloxone HCl 0.4 mg 0.4 mg UNSCH PRN IV 11/27/16 06:15 (NS 1000 ml Inj) 1,000 ml @ 0 mls/hr Q0M PRN IV 11/27/16 08:53 Heparin Sodium (Porcine) 8000 units 8,000 units UNSCH PRN IVF 11/27/16 09:00 Sodium Chloride 1,000 ml @ 200 mls/hr Q5H PRN IV 11/27/16 08:53 (NS 1000 ml Inj) 1,000 ml @ 0 mls/hr Q0M PRN IV 11/27/16 08:53 (Mannitol Inj) 12.5 gm UNSCH PRN IV 11/27/16 09:00 (Albumin 25% Inj) 25 gm UNSCH PRN IV 11/27/16 09:00 (NS Flush) 5 ml UNSCH PRN IVF 11/27/16 09:00 (Heparin Inj) UNSCH PRN .XX 11/27/16 09:00 (Gentamicin (Dialysis) Inj) 20 mg UNSCH PRN IV 11/27/16 09:00 (Zofran Inj) 4 mg UNSCH PRN IV 11/27/16 09:00 (Tylenol) 650 mg UNSCH PRN PO 11/27/16 09:00 11/28/16 01:11 (Benadryl) 25 mg UNSCH PRN PO 11/27/16 09:00 (Nitrostat Sl) 0.4 mg UNSCH PRN SL 11/27/16 09:00 (Catapres) 0.1 mg UNSCH PRN PO 11/27/16 09:00 (Epogen Inj) 10,000 units UNSCH PRN IV 11/27/16 09:00 11/28/16 17:16 Gelatin 1 foam 1 foam UNSCH PRN TOP 11/27/16 09:00 (Zosyn 2.25 Gm Premix) 50 ml @ 100 mls/hr Q12H IV 11/27/16 15:00 11/29/16 15:00 (Lopressor) 100 mg Q12HR PO 11/27/16 21:00 11/29/16 09:00 Miscellaneous Information Patient in critical care unit? Ass... Q361D XX 11/27/16 19:30 11/27/16 19:30 (Chlorhexidine 2% Cloth) 3 pack DAILY@04 TOP 11/28/16 04:00 12/02/16 04:01 11/29/16 20:35 (Chlorhexidine 2% Cloth) 3 pack UNSCH PRN TOP 11/27/16 19:30 12/02/16 19:15 (Protonix) 40 mg DAILY PO 11/28/16 20:30 11/29/16 09:00 (Cardizem) 120 mg TID PO 11/29/16 13:00 11/29/16 18:00 Past Surgical History LUE AVF PTCA with stent 2006 Kidney transplant 2006 Reported Medications hx of Eliquis from 2013 until 2015, ? when discontinued Active Ordered Medications Zosyn Vancomycin Cardizem Family History no renal disease documented Social History hx Etoh (see records 06/03/11) hx smoking hx crack/cocaine (last use 1989) unmarried Physical Exam Vital Signs Vital Signs Date Time Temp Pulse Resp B/P Pulse Ox O2 Delivery O2 Flow Rate FiO2 11/30/16 00:00 83 11/30/16 00:00 98.8 83 21 123/61 96 11/29/16 22:00 78 11/29/16 20:24 96 21 11/29/16 20:00 68 11/29/16 20:00 98.0 68 17 95/59 96 11/29/16 18:00 72 11/29/16 16:00 97.9 68 20 98/66 98 11/29/16 16:00 67 11/29/16 14:00 72 11/29/16 12:00 73 11/29/16 12:00 97.9 73 20 97/55 98 11/29/16 10:00 102 11/29/16 08:00 97.9 112 22 110/70 98 11/29/16 08:00 112 11/29/16 07:19 98 21 11/29/16 06:00 108 11/29/16 04:00 104 11/29/16 04:00 98.0 104 17 107/62 97 11/29/16 02:00 99 Physical Exam GENERAL: This is a well-nourished, well-developed patient, in no apparent distress. SKIN: No rashes, HEAD: Atraumatic. Normocephalic. EYES: Pupils equal round and reactive. Extraocular motions intact. No scleral icterus. No injection or drainage. ENT: Nose without bleeding, purulent drainage or septal hematoma. NECK: Trachea midline. No JVD or lymphadenopathy. . CARDIOVASCULAR: Irregular rate and rhythm GASTROINTESTINAL: Abdomen soft, non-tender, nondistended. No hepato-splenomegaly , or palpable masses. No guarding on palpation over allograft, no signs of infection over the incision site MUSCULOSKELETAL: Extremities without clubbing, cyanosis, or edema. NEUROLOGICAL: Awake;responds to questions, not always appropriately;[facility] Laboratory Laboratory Tests Test 11/29/16 16:08 White Blood Count 11.7 Red Blood Count 3.12 Hemoglobin 8.3 Hematocrit 25.9 Mean Corpuscular Volume 83.1 Mean Corpuscular Hemoglobin 26.6 Mean Corpuscular Hemoglobin 32.1 Concent Red Cell Distribution Width 20.0 Platelet Count 465 Mean Platelet Volume 6.9 Neutrophils (%) (Auto) 78.5 Lymphocytes (%) (Auto) 9.6 Monocytes (%) (Auto) 9.0 Eosinophils (%) (Auto) 2.5 Basophils (%) (Auto) 0.4 Neutrophils # (Auto) 9.2 Lymphocytes # (Auto) 1.1 Monocytes # (Auto) 1.1 Eosinophils # (Auto) 0.3 Basophils # (Auto) 0.0 CBC Comment DIFF FINAL Differential Comment Sodium Level 134 Potassium Level 3.6 Chloride Level 95 Carbon Dioxide Level 30.8 Anion Gap 8 Blood Urea Nitrogen 27 Creatinine 5.23 Estimat Glomerular Filtration 13 Rate Random Glucose 103 Calcium Level 9.1 Phosphorus Level 3.0 Magnesium Level 1.9 Total Bilirubin 0.6 Aspartate Amino Transf 14 (AST/SGOT) Alanine Aminotransferase 16 (ALT/SGPT) Alkaline Phosphatase 73 Total Protein 7.9 Albumin 2.0 Date/Time Procedure Status Source Growth 11/27/16 04:40 Aerobic Blood Culture - Preliminary Resulted Blood Peripheral NO GROWTH IN 2 DAYS 11/27/16 04:40 Anaerobic Blood Culture - Preliminary Resulted Blood Peripheral NO GROWTH IN 2 DAYS 11/27/16 04:35 Influenza Types A,B Antigen (RENUKA) - Final Complete Nasal Aspirate NEGATIVE FOR FLU A AND B ANTIGEN.... Result Diagram: 11/29/16 1608 11/29/16 1608 Imaging Last Impressions Abdomen/Pelvis CT 11/28/16 0000 Signed Impressions: Service Date/Time: November 20:56 - CONCLUSION: 1. Suspected enlarging hematoma in the right retroperitoneum abutting the anterior margin of the right psoas muscle in the pelvis. An area of increased density to suggest active hemorrhage is not seen. 2. Renal atrophy. 3. 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 This was present previously. 4. Degenerative change in the lower lumbar spine. Norm Nur MD Chest X-Ray 11/27/16 0440 Signed Impressions: Service Date/Time: Sunday, November 27, 2016 04:58 - CONCLUSION: 1. Cardiomegaly. No acute pulmonary disease. Eyal Juares MD Head CT 11/27/16 0000 Signed Impressions: Service Date/Time: Sunday, November 27, 2016 13:45 - CONCLUSION: No acute intracranial disease. Nonspecific white matter changes. Faisal Carpio MD Chest CT 11/27/16 0000 Signed Impressions: Service Date/Time: Sunday, November 27, 2016 13:49 - CONCLUSION: 1. Cardiomegaly with coronary artery calcifications. 2. No infiltrate or mass. 3. No pulmonary edema or pleural effusions. Faisal Carpio MD Assessment and Plan Assessment and Plan 66 yo failed KTx pt on dialysis with low grade fever, altered mental status,and Afib. 1) Renal Allograft- Allograft images on CT compared; Transplant kidney 7.4cm x 5.2 cm (my measurement; Series 2, Image 66) from 10/15/16 CT; The hematoma measured on CT yesterday (7.4cm x 54.9mm; Series 2,Image 62) is the allograft kidney, although the contour may not be as smooth compared with the prior study. This may reflect inflammatory changes secondary to chronic graft intolerance, but it is not evident as an occult source of infection. The accompanying history of early graft (sub)failure, bouts of rejection, (possible ) graft tenderness, and low grade temperatures support the indications for an allograft nephrectomy, but the potential morbidities associated with the procedure, his cardiac issues and his hypoalbuminemia, a possible other source of infection, as well as the option of a trial of resuming low dose steroids to suppress chronic graft inflammation, would argue for a period of further observation to delineate his clinical course. 2) Sepsis- the nasal screen was positive for MRSA,but no blood cultures are positive. A urine culture and UA (via straight cath) might still be helpful at this point. Please check an allograft ultrasound to rule out a pseudoaneurysm of the renal artery and anastomosis. His acute markers are improving, and we will continue to follow him. Ibrahima Melendrez MD Nov 30, 2016 02:13
[2016-11-30 07:40] LABS: AUTOMATED NEUTROPHIL # 6.9 TH/MM3 (1.8-7.7); BASOPHIL # 0.1 TH/MM3 (0-0.2); BASOPHIL % 0.6 % (0.0-2.0); EOSINOPHIL # 0.3 TH/MM3 (0-0.4); EOSINOPHIL % 3.2 % (0.0-4.0); HEMATOCRIT 26.9 % (39.0-51.0); HEMO FLAGS DIFF FINAL; LYMPH % 11.9 % (9.0-44.0); LYMPHOCYTE # 1.1 TH/MM3 (1.0-4.8); MEAN CELL VOLUME 83.6 FL (80.0-100.0); MEAN CORPUSCULAR HEMOGLOBIN 26.8 PG (27.0-34.0); MONO % 9.2 % (0.0-8.0); NEUT % 75.1 % (16.0-70.0); PLATELET COUNT 483 TH/MM3 (150-450); RED BLOOD COUNT 3.22 MIL/MM3 (4.50-5.90); RED CELL DISTRIBUTION WIDTH 19.9 % (11.6-17.2); WHITE BLOOD COUNT 9.2 TH/MM3 (4.0-11.0)
[2016-11-30 08:15] LABS: BICARBONATE 30.3 MEQ/L (21.0-32.0); POTASSIUM 3.2 MEQ/L (3.5-5.1)
[2016-11-30] MEDS: DILTIAZEM HCL 60 MG TAB PO SCH ×3 (09:00→18:00)
--- NOTE | 2016-11-30 10:07 | HHI.PR ---
Subjective Remarks Was seen in HD today. Patient appears in nad. Denies cp, palpitations, sob, n/v/ d/c. He is alert and awake, responding to questions, poor insight. Objective Vitals Vital Signs Date Time Temp Pulse Resp B/P Pulse Ox O2 Delivery O2 Flow Rate FiO2 11/30/16 06:00 90 11/30/16 04:00 93 11/30/16 04:00 98.2 93 20 151/69 96 11/30/16 02:00 85 11/30/16 00:00 83 11/30/16 00:00 98.8 83 21 123/61 96 11/29/16 22:00 78 11/29/16 20:24 96 21 11/29/16 20:00 68 11/29/16 20:00 98.0 68 17 95/59 96 11/29/16 18:00 72 11/29/16 16:00 97.9 68 20 98/66 98 11/29/16 16:00 67 11/29/16 14:00 72 11/29/16 12:00 73 11/29/16 12:00 97.9 73 20 97/55 98 11/29/16 10:00 102 I/O 11/29/16 11/29/16 11/29/16 11/30/16 11/30/16 11/30/16 07:00 15:00 23:00 07:00 15:00 23:00 Intake Total 310 ml 290 ml 240 ml 255 ml Output Total 0 ml 0 ml Balance 310 ml 290 ml 240 ml 255 ml Intake Oral 240 ml 240 ml 240 ml 200 ml IV Total 70 ml 50 ml 0 ml 55 ml Output Urine Total 0 ml 0 ml # Bowel Movements 2 2 1 Result Diagram: 11/30/16 0626 11/30/16 0626 Imaging Last Impressions Abdomen/Pelvis CT 11/28/16 0000 Signed Impressions: Service Date/Time: November 20:56 - CONCLUSION: 1. Suspected enlarging hematoma in the right retroperitoneum abutting the anterior margin of the right psoas muscle in the pelvis. An area of increased density to suggest active hemorrhage is not seen. 2. Renal atrophy. 3. 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 This was present previously. 4. Degenerative change in the lower lumbar spine. Norm Nur MD Chest X-Ray 11/27/16 0440 Signed Impressions: Service Date/Time: Sunday, November 27, 2016 04:58 - CONCLUSION: 1. Cardiomegaly. No acute pulmonary disease. Eyal Juares MD Head CT 11/27/16 0000 Signed Impressions: Service Date/Time: Sunday, November 27, 2016 13:45 - CONCLUSION: No acute intracranial disease. Nonspecific white matter changes. Faisal Carpio MD Chest CT 11/27/16 0000 Signed Impressions: Service Date/Time: Sunday, November 27, 2016 13:49 - CONCLUSION: 1. Cardiomegaly with coronary artery calcifications. 2. No infiltrate or mass. 3. No pulmonary edema or pleural effusions. Faisal Carpio MD Objective Remarks GENERAL: This is a well-nourished, well-developed patient, in no apparent distress. SKIN: No rashes, ecchymoses or lesions. Cool and dry. HEAD: Atraumatic. Normocephalic. No temporal or scalp tenderness. EYES: Pupils equal round and reactive. Extraocular motions intact. No scleral icterus. No injection or drainage. ENT: Nose without bleeding, purulent drainage or septal hematoma. Throat without erythema, tonsillar hypertrophy or exudate. Uvula midline. Airway patent. NECK: Trachea midline. No JVD or lymphadenopathy. Supple, nontender, no meningeal signs. CARDIOVASCULAR: Regular rate and rhythm without murmurs, gallops, or rubs. RESPIRATORY: Clear to auscultation. Breath sounds equal bilaterally. No wheezes , rales, or rhonchi. GASTROINTESTINAL: Abdomen soft, non-tender, nondistended. No hepato-splenomegaly , or palpable masses. No guarding. MUSCULOSKELETAL: Extremities without clubbing, cyanosis, or edema. No joint tenderness, effusion, or edema noted. No calf tenderness. Negative Homans sign bilaterally. NEUROLOGICAL: Awake and alert. Moves all extremities. follows commands and answers questions. A/P Problem List: (1) SIRS (systemic inflammatory response syndrome) ICD Code: R65.10 Status: Acute (2) Acute hypoxemic respiratory failure ICD Code: J96.01 Status: Acute (3) Encephalopathy acute ICD Code: G93.40 Status: Acute (4) Anemia ICD Code: D64.9 Status: Acute (5) Leukocytosis ICD Code: D72.829 Status: Acute (6) Thrombocytosis ICD Code: D47.3 Status: Acute (7) ESRD (end stage renal disease) on dialysis ICD Code: N18.6 Status: Chronic (8) Atrial fibrillation with RVR ICD Code: I48.91 Status: Acute (9) HTN (hypertension) ICD Code: I10 Status: Chronic (10) Glaucoma ICD Code: H40.9 Status: Chronic Assessment and Plan (1) SIRS (systemic inflammatory response syndrome) ICD Code: R65.10 Status: Acute Plan: Suspect sepsis possibly secondary to pneumonia however need to confirm this. Admitted to ICU 11/28 continue IV antibiotics as per ID - recommendations appreciated 11/29 the transplanted kidney looks bigger. Hematoma versus infection. An area of increased density to suggest active hemorrhage is not seen. There is renal atrophy, possible vascular necrosis of the left femoral head and degenerative changes in the lower lumbar spine. Appreciated ID recommendations. Dr Melendrez from Kidney transplant will be asked to evaluate transplant kidney. Vancomycin discontinued as per ID. Blood cultures negative to date. (2) Acute hypoxemic respiratory failure ICD Code: J96.01 Status: Acute Plan: The patient presents with respiratory rate in the mid 30s. Differential diagnosis would include pneumonia, pulmonary emboli ct head negative ct chest - no infiltrates respiratory failure resolved (3) Encephalopathy acute. ICD Code: G93.40 Status: Acute Plan: Suspect metabolic encephalopathy probably due to SIRS/Sepsis syndrome Vital neurochecks and neurological status. CT head negative fo acute intracranial process ABG showed mild hypercapnea with PCO2 48 11/28 encephalopathy seems to be resolving. 11/29 encephalopathy resolved. (4) Anemia ICD Code: D64.9 Status: Acute Plan: Acute on chronic anemia. There is no signs of active bleeding. Transfuse 2 units of packed red blood cells. Check stool guaiac continue to hold anticoagulation Poss due to retroperineal hematoma. Hemoglobin stable. Continue to monitor H/H Diffuse as needed for hemoglobin less than 7 or active bleeding. (5) Leukocytosis ICD Code: D72.829 Status: Acute Plan: Leukocytosis likely secondary to underlying infectious process versus stress induced. Continue IV antibiotics as per ID. (6) Thrombocytosis ICD Code: D47.3 Status: Acute Plan: Likely reactive. Continue to monitor platelets Platelets trending down (7) ESRD (end stage renal disease) on dialysis ICD Code: N18.6 Status: Chronic Plan: Nephrology consulted. Hemodialysis as per nephrology recommendations. (8) Atrial fibrillation with RVR ICD Code: I48.91 Status: Acute Plan: cardiac enzymes negative x3 appreciate cardiology recommendations hold anticoagulation off Cardizem drip Started on metoprolol and cardizem po by cardiology with good rate control 11/29 Heart rate not controlled - diltiazem dose increased to 120 mg by mouth 3 times a day by cardiology. 11/30 HR better controlled continue cardizem (9) HTN (hypertension) ICD Code: I10 Status: Chronic Plan: Patient's blood pressure slightly lower today however could MAP.continue metoprolol and cardizem po. Continue as needed medication. (10) Glaucoma ICD Code: H40.9 Status: Chronic Plan: Continue Brimonidine ophtalmic drops, seems stable Assessment and Plan DVT prophylaxis: Scd's, no chemoprophylaxis given anemia and poss retroperitoneal hemorrhage GI prophylaxis: Discharge Planning Transfer to medical floor. Problem Qualifiers (1) Anemia: Qualified Code: D64.9 - Anemia, unspecified type (2) Leukocytosis: Qualified Code: D72.829 - Leukocytosis, unspecified type (3) HTN (hypertension): Qualified Code: I10 - Essential hypertension Chastity Og MD Nov 30, 2016 10:07
[2016-11-30] MEDS: GELATIN 12 MM/7 MM FOAM TOP PRN (10:21)
[2016-11-30] MEDS: EPOETIN ALFA 10,000 UNITS/ML VIAL IV PRN (10:21)
[2016-11-30] MEDS: SODIUM CHLOR 0.9% 1000 ML INJ 1,000 ML IV PRN (10:21)
--- NOTE | 2016-11-30 11:06 | HHI.NPPN ---
Subjective Complaints: Confused Renal Failure: Chronic, End Stage Renal Disease Review of Systems Respiratory Lungs: SOB Objective Data Data 11/29/16 11/30/16 19:00 07:00 Intake Total 290 ml 495 ml Output Total 0 ml 0 ml Balance 290 ml 495 ml Intake Oral 240 ml 440 ml IV Total 50 ml 55 ml Output Urine Total 0 ml 0 ml # Bowel Movements 2 3 Vital Signs Date Time Temp Pulse Resp B/P Pulse Ox O2 Delivery O2 Flow Rate FiO2 11/30/16 08:00 98.0 83 19 118/81 98 11/30/16 08:00 88 11/30/16 06:00 90 11/30/16 04:00 93 11/30/16 04:00 98.2 93 20 151/69 96 11/30/16 02:00 85 11/30/16 00:00 83 11/30/16 00:00 98.8 83 21 123/61 96 11/29/16 22:00 78 11/29/16 20:24 96 21 11/29/16 20:00 68 11/29/16 20:00 98.0 68 17 95/59 96 11/29/16 18:00 72 11/29/16 16:00 97.9 68 20 98/66 98 11/29/16 16:00 67 11/29/16 14:00 72 11/29/16 12:00 73 11/29/16 12:00 97.9 73 20 97/55 98 -: 11/30/16 0626 11/30/16 0626 Microbiology 11/30/16 Stool Occult Blood ([facility]UKA) - Final, Complete HEMOCCULT NEGATIVE Physical Exam General Appearance: Well Developed, Well Nourished, No Acute Distress, Comfortable Eyes Eye Exam: Pupils Equal Throat Throat Exam: Oral Mucosa [place] & Moist Pulmonary Resp Exam: Clear Bilaterally, Breath Sounds Equal Cardiology CV Exam: Good Perfusion, Irregular, Tachycardia Gastrointestinal/Abdomen GI Exam: Soft, Non-Tender, Bowel Sounds Present Musculoskeletal MS Exam: Joints Intact, Normal Gait, Unable to Ambulate Integumentary Skin Exam: Warm, Dry Extremeties Extremities Exam: Pedal Pulses Palpable Neurologic Neuro Exam: Alert, Awake, Speech Clear, Moving All Extremities Assessment/Plan Discussed Condition With: Patient Assessment Summary: Anemia of CKD, End Stage Renal Disease Problem List: (1) ESRD (end stage renal disease) on dialysis Plan: Normally dialyzes T-Th-sat, he had HD 2L UF yesterday no current dialysis related concerns monitor fluid volume status, avoid IVF AVF right arm, monitor for complications renal panel in am avoid Gadolinium in patients with ESRD (2) Anemia in chronic kidney disease Plan: transfused on admission awaiting testing of stool for occult bleeding monitor Hb in am (3) Atrial fibrillation Plan: with RVR, off Cardizem gtt monitor effect and titrate as needed (4) Hypertension Plan: monitor BP,continue home medications (5) Metabolic bone disease Plan: check phos level intermittently currently stable Carloz Novoa MD Nov 30, 2016 11:06
[2016-11-30] MEDS: PANTOPRAZOLE SOD 40 MG DELAYED RELEASE TAB PO SCH (11:23)
[2016-11-30] MEDS: METOPROLOL TARTRATE 100 MG TAB PO SCH ×2 (11:23→20:06)
[2016-11-30] MEDS: SODIUM CHLORIDE 0.9% FLUSH 5 ML FLUSH FLUSH SCH ×2 (11:24→19:43)
--- NOTE | 2016-11-30 11:43 | HHI.IDPN ---
Subjective Subjective Remarks ID Formerly [facility] for . is a 66 y/o AAM with PMhx of End-stage renal disease, s/p renal transplant ? failed, now on hemodialysis using LUE AV fistula. PMHx also significant for ? multiinfarct dementia and Schizophrenia. 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 ID following for ? Urosepsis or infected transplant kidney. Overnight events reviewed. No fevers No rash No diarrhea says " I am sad. I should not have done that" When asked it appears he had a BM. 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 Vital Signs Date Time Temp Pulse Resp B/P Pulse Ox O2 Delivery O2 Flow Rate FiO2 11/30/16 08:00 98.0 83 19 118/81 98 11/30/16 08:00 88 11/30/16 06:00 90 11/30/16 04:00 93 11/30/16 04:00 98.2 93 20 151/69 96 11/30/16 02:00 85 11/30/16 00:00 83 11/30/16 00:00 98.8 83 21 123/61 96 11/29/16 22:00 78 11/29/16 20:24 96 21 11/29/16 20:00 68 11/29/16 20:00 98.0 68 17 95/59 96 11/29/16 18:00 72 11/29/16 16:00 97.9 68 20 98/66 98 11/29/16 16:00 67 11/29/16 14:00 72 11/29/16 12:00 73 11/29/16 12:00 97.9 73 20 97/55 98 11/29/16 11/29/16 11/30/16 15:00 23:00 07:00 Intake Total 290 ml 240 ml 255 ml Output Total 0 ml 0 ml Balance 290 ml 240 ml 255 ml Intake Oral 240 ml 240 ml 200 ml IV Total 50 ml 0 ml 55 ml Output Urine Total 0 ml 0 ml # Bowel Movements 2 2 1 . Laboratory Tests Test 11/29/16 11/30/16 16:08 06:26 White Blood Count 11.7 TH/MM3 9.2 TH/MM3 Red Blood Count 3.12 MIL/MM3 3.22 MIL/MM3 Hemoglobin 8.3 GM/DL 8.6 GM/DL Hematocrit 25.9 % 26.9 % Mean Corpuscular Volume 83.1 FL 83.6 FL Mean Corpuscular Hemoglobin 26.6 PG 26.8 PG Mean Corpuscular Hemoglobin 32.1 % 32.0 % Concent Red Cell Distribution Width 20.0 % 19.9 % Platelet Count 465 TH/MM3 483 TH/MM3 Mean Platelet Volume 6.9 FL 7.0 FL Neutrophils (%) (Auto) 78.5 % 75.1 % Lymphocytes (%) (Auto) 9.6 % 11.9 % Monocytes (%) (Auto) 9.0 % 9.2 % Eosinophils (%) (Auto) 2.5 % 3.2 % Basophils (%) (Auto) 0.4 % 0.6 % Neutrophils # (Auto) 9.2 TH/MM3 6.9 TH/MM3 Lymphocytes # (Auto) 1.1 TH/MM3 1.1 TH/MM3 Monocytes # (Auto) 1.1 TH/MM3 0.8 TH/MM3 Eosinophils # (Auto) 0.3 TH/MM3 0.3 TH/MM3 Basophils # (Auto) 0.0 TH/MM3 0.1 TH/MM3 CBC Comment DIFF FINAL DIFF FINAL Differential Comment Laboratory Tests Test 11/29/16 11/30/16 16:08 06:26 Sodium Level 134 MEQ/L 133 MEQ/L Potassium Level 3.6 MEQ/L 3.2 MEQ/L Chloride Level 95 MEQ/L 92 MEQ/L Carbon Dioxide Level 30.8 MEQ/L 30.3 MEQ/L Anion Gap 8 MEQ/L 11 MEQ/L Blood Urea Nitrogen 27 MG/DL 27 MG/DL Creatinine 5.23 MG/DL 6.45 MG/DL Estimat Glomerular Filtration 13 ML/MIN 11 ML/MIN Rate Random Glucose 103 MG/DL 92 MG/DL Calcium Level 9.1 MG/DL 9.1 MG/DL Phosphorus Level 3.0 MG/DL 4.3 MG/DL Magnesium Level 1.9 MG/DL Total Bilirubin 0.6 MG/DL Aspartate Amino Transf 14 U/L (AST/SGOT) Alanine Aminotransferase 16 U/L (ALT/SGPT) Alkaline Phosphatase 73 U/L Total Protein 7.9 GM/DL Albumin 2.0 GM/DL 1.8 GM/DL Microbiology Date/Time Procedure Status Source Growth 11/30/16 05:00 Stool Occult Blood (RENUKA) - Final Complete Stool Stool HEMOCCULT NEGATIVE Imaging Abdomen/Pelvis CT 11/28/16 0000 Signed Impressions: Service Date/Time: November 20:56 - CONCLUSION: 1. Suspected enlarging hematoma in the right retroperitoneum abutting the anterior margin of the right psoas muscle in the pelvis. An area of increased density to suggest active hemorrhage is not seen. 2. Renal atrophy. 3. 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 This was present previously. 4. Degenerative change in the lower lumbar spine. Norm Nur MD Chest X-Ray 11/27/16 0440 Signed Impressions: Service Date/Time: Sunday, November 27, 2016 04:58 - CONCLUSION: 1. Cardiomegaly. No acute pulmonary disease. Eyal Juares MD Head CT 11/27/16 0000 Signed Impressions: Service Date/Time: Sunday, November 27, 2016 13:45 - CONCLUSION: No acute intracranial disease. Nonspecific white matter changes. Fiasal Carpio MD Chest CT 11/27/16 0000 Signed Impressions: Service Date/Time: Sunday, November 27, 2016 13:49 - CONCLUSION: 1. Cardiomegaly with coronary artery calcifications. 2. No infiltrate or mass. 3. No pulmonary edema or pleural effusions. Faisal Carpio MD Physical Exam GENERAL: awake and alert, not in any respiratory distress SKIN: Cool and dry. No generalized rash, no ecchymosis. HEENT: [place] conjunctivae, no petechia or hemorrhage. No scleral icterus. Slightly dry oral mucosa. . NECK: Trachea midline. No JVD or lymphadenopathy. Supple, nontender, no meningeal signs. CARDIOVASCULAR: Irregular rate and rhythm without murmurs, gallops, or rubs. RESPIRATORY: Clear to auscultation. Breath sounds equal bilaterally. No wheezes , rales, or rhonchi. Decreased breath sounds at the bases. GASTROINTESTINAL: Abdomen soft, nondistended, has tenderness on the right side. Heart sounds are present and normoactive. No guarding. No rebound. MUSCULOSKELETAL: Extremities without clubbing, cyanosis, or edema. No joint tenderness, or effusion. No calf tenderness. Negative Homans sign bilaterally. AVF LUE with no evidence of infection NEUROLOGICAL: Awake and alert. Has decreased nasolabial fold in the right side. Motor strength seemed to be symmetrical. No Babinski, no clonus. PSYCH: Sad LINE: PIV with no evidence of infection Assessment & Plan Remarks IMPRESSION ? Sepsis in Immune compromised patient. ? bleed or infected transplant kidney - patient had Proteus sepsis last and unknown source but had abnormality described then of the transplant kidney Atrial fib, RVR ESRD, on HD, failed renal transplant Hx CVA Dementia RECOMMENDATION Follow cultures Continue Zosyn for now Reviewed note: will get UA straight cath per his recommendations. RN informs me pt is anuric but will attempt. Monitor temps Monitor progress Clinically stable. to resume care on Friday12/02/16. If any changes in interim please call sooner. Sherita Ye MD Nov 30, 2016 11:43
[2016-11-30] MEDS: CHLORHEXIDINE GLUCONATE 2 % 1 PACK (2 CLOTHS)(taper/protocol) TOP SCH (19:43)
[2016-12-01] VITALS (7 sets, daily range): BP systolic 103–122; BP diastolic 54–96; PULSE 83–105; RESP 19–37; TEMP 98–98.4; O2SAT 92–100
[2016-12-01] MEDS: PIPERACIL-TAZO 2.25 GM PREMIX 50 ML IV SCH ×2 (02:08→15:27)
--- NOTE | 2016-12-01 09:37 | HHI.PR ---
Subjective Remarks Patient in bed, he is more awake and alert, poor judgement. Per nurse he is not eating much . No n/v/d/c. Denies cp, sob. Objective Vitals Vital Signs Date Time Temp Pulse Resp B/P Pulse Ox O2 Delivery O2 Flow Rate FiO2 12/01/16 04:00 105 12/01/16 04:00 98.0 105 22 109/60 97 12/01/16 00:00 94 12/01/16 00:00 98.4 94 24 103/56 98 11/30/16 21:34 96 21 11/30/16 20:00 90 11/30/16 20:00 98.0 90 25 95/70 98 11/30/16 16:00 98.2 84 20 90/58 94 11/30/16 16:00 84 11/30/16 12:00 87 I/O 11/30/16 11/30/16 11/30/16 12/01/16 12/01/16 12/01/16 07:00 15:00 23:00 07:00 15:00 23:00 Intake Total 255 ml 375 ml 33 ml 255 ml Output Total 2000 ml Balance 255 ml -1625 ml 33 ml 255 ml Intake Oral 200 ml 320 ml 200 ml IV Total 55 ml 55 ml 33 ml 55 ml Output Urine Total 0 ml Hemodialysis 2000 ml # Bowel Movements 1 1 1 1 Result Diagram: 11/30/1662511/30/16 06 Imaging Last Impressions Abdomen/Pelvis CT 11/28/16 0000 Signed Impressions: Service Date/Time: November 20:56 - CONCLUSION: 1. Suspected enlarging hematoma in the right retroperitoneum abutting the anterior margin of the right psoas muscle in the pelvis. An area of increased density to suggest active hemorrhage is not seen. 2. Renal atrophy. 3. 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 This was present previously. 4. Degenerative change in the lower lumbar spine. Norm Nur MD Chest X-Ray 11/27/16 0440 Signed Impressions: Service Date/Time: Sunday, November 27, 2016 04:58 - CONCLUSION: 1. Cardiomegaly. No acute pulmonary disease. Eyal Juares MD Head CT 11/27/16 0000 Signed Impressions: Service Date/Time: Sunday, November 27, 2016 13:45 - CONCLUSION: No acute intracranial disease. Nonspecific white matter changes. Faisal Carpio MD Chest CT 11/27/16 0000 Signed Impressions: Service Date/Time: Sunday, November 27, 2016 13:49 - CONCLUSION: 1. Cardiomegaly with coronary artery calcifications. 2. No infiltrate or mass. 3. No pulmonary edema or pleural effusions. Faisal Carpio MD Objective Remarks GENERAL: This is a well-nourished, well-developed patient, in no apparent distress. SKIN: No rashes, ecchymoses or lesions. Cool and dry. HEAD: Atraumatic. Normocephalic. No temporal or scalp tenderness. EYES: Pupils equal round and reactive. Extraocular motions intact. No scleral icterus. No injection or drainage. ENT: Nose without bleeding, purulent drainage or septal hematoma. Throat without erythema, tonsillar hypertrophy or exudate. Uvula midline. Airway patent. NECK: Trachea midline. No JVD or lymphadenopathy. Supple, nontender, no meningeal signs. CARDIOVASCULAR: Regular rate and rhythm without murmurs, gallops, or rubs. RESPIRATORY: Clear to auscultation. Breath sounds equal bilaterally. No wheezes , rales, or rhonchi. GASTROINTESTINAL: Abdomen soft, non-tender, nondistended. No hepato-splenomegaly , or palpable masses. No guarding. MUSCULOSKELETAL: Extremities without clubbing, cyanosis, or edema. No joint tenderness, effusion, or edema noted. No calf tenderness. Negative Homans sign bilaterally. NEUROLOGICAL: Awake and alert. Moves all extremities. follows commands and answers questions. A/P Problem List: (1) SIRS (systemic inflammatory response syndrome) ICD Code: R65.10 Status: Acute (2) Acute hypoxemic respiratory failure ICD Code: J96.01 Status: Acute (3) Encephalopathy acute ICD Code: G93.40 Status: Acute (4) Anemia ICD Code: D64.9 Status: Acute (5) Leukocytosis ICD Code: D72.829 Status: Acute (6) Thrombocytosis ICD Code: D47.3 Status: Acute (7) ESRD (end stage renal disease) on dialysis ICD Code: N18.6 Status: Chronic (8) Atrial fibrillation with RVR ICD Code: I48.91 Status: Acute (9) HTN (hypertension) ICD Code: I10 Status: Chronic (10) Glaucoma ICD Code: H40.9 Status: Chronic Assessment and Plan (1) SIRS (systemic inflammatory response syndrome) ICD Code: R65.10 Status: Acute Plan: Suspect sepsis possibly secondary to pneumonia however need to confirm this. Admitted to ICU 11/28 continue IV antibiotics as per ID - recommendations appreciated 11/29 the transplanted kidney looks bigger. Hematoma versus infection. An area of increased density to suggest active hemorrhage is not seen. There is renal atrophy, possible vascular necrosis of the left femoral head and degenerative changes in the lower lumbar spine. Appreciated ID recommendations. Dr Melendrez from Kidney transplant will be asked to evaluate transplant kidney. Vancomycin discontinued as per ID. Blood cultures negative to date. (2) Acute hypoxemic respiratory failure ICD Code: J96.01 Status: Acute Plan: The patient presents with respiratory rate in the mid 30s. Differential diagnosis would include pneumonia, pulmonary emboli ct head negative ct chest - no infiltrates respiratory failure resolved (3) Encephalopathy acute. ICD Code: G93.40 Status: Acute Plan: Suspect metabolic encephalopathy probably due to SIRS/Sepsis syndrome Vital neurochecks and neurological status. CT head negative fo acute intracranial process ABG showed mild hypercapnea with PCO2 48 11/28 encephalopathy seems to be resolving. 11/29 encephalopathy resolved. (4) Anemia ICD Code: D64.9 Status: Acute Plan: Acute on chronic anemia. There is no signs of active bleeding. Transfuse 2 units of packed red blood cells. Check stool guaiac continue to hold anticoagulation Poss due to retroperineal hematoma. Hemoglobin stable. Continue to monitor H/H Diffuse as needed for hemoglobin less than 7 or active bleeding. (5) Leukocytosis ICD Code: D72.829 Status: Acute Plan: Leukocytosis likely secondary to underlying infectious process versus stress induced. Continue IV antibiotics as per ID. (6) Thrombocytosis ICD Code: D47.3 Status: Acute Plan: Likely reactive. Continue to monitor platelets Platelets trending down (7) ESRD (end stage renal disease) on dialysis ICD Code: N18.6 Status: Chronic Plan: Nephrology consulted. Hemodialysis as per nephrology recommendations. (8) Atrial fibrillation with RVR ICD Code: I48.91 Status: Acute Plan: cardiac enzymes negative x3 appreciate cardiology recommendations hold anticoagulation off Cardizem drip Started on metoprolol and cardizem po by cardiology with good rate control 11/29 Heart rate not controlled - diltiazem dose increased to 120 mg by mouth 3 times a day by cardiology. 11/30 HR better controlled continue cardizem (9) HTN (hypertension) ICD Code: I10 Status: Chronic Plan: Patient's blood pressure slightly lower today however could MAP.continue metoprolol and cardizem po. Continue as needed medication. (10) Glaucoma ICD Code: H40.9 Status: Chronic Plan: Continue Brimonidine ophtalmic drops, seems stable Assessment and Plan DVT prophylaxis: Scd's, no chemoprophylaxis given anemia and poss retroperitoneal hemorrhage GI prophylaxis: Discharge Planning Transfer to medical floor. Problem Qualifiers (1) Anemia: Qualified Code: D64.9 - Anemia, unspecified type (2) Leukocytosis: Qualified Code: D72.829 - Leukocytosis, unspecified type (3) HTN (hypertension): Qualified Code: I10 - Essential hypertension Chastity Og MD Dec 01, 2016 09:37
[2016-12-01] MEDS: PANTOPRAZOLE SOD 40 MG DELAYED RELEASE TAB PO SCH (10:41)
[2016-12-01] MEDS: DILTIAZEM HCL 60 MG TAB PO SCH ×3 (10:41→19:55)
[2016-12-01] MEDS: SODIUM CHLORIDE 0.9% FLUSH 5 ML FLUSH FLUSH SCH ×2 (10:41→21:00)
[2016-12-01] MEDS: SODIUM CHLOR 0.9% 1000 ML INJ 1,000 ML IV SCH (10:42)
[2016-12-01] MEDS: METOPROLOL TARTRATE 100 MG TAB PO SCH ×2 (10:43→21:00)
[2016-12-01 13:34] LABS: AUTOMATED NEUTROPHIL # 6.4 TH/MM3 (1.8-7.7); BASOPHIL % 0.4 % (0.0-2.0); EOSINOPHIL # 0.3 TH/MM3 (0-0.4); EOSINOPHIL % 3.2 % (0.0-4.0); HEMATOCRIT 29.4 % (39.0-51.0); LYMPH % 12.2 % (9.0-44.0); MEAN CELL VOLUME 83.2 FL (80.0-100.0); MEAN CORPUSCULAR HEMOGLOBIN 26.7 PG (27.0-34.0); MEAN CORPUSCULAR HGB CONC 32.1 % (32.0-36.0); MONO % 8.8 % (0.0-8.0); NEUT % 75.4 % (16.0-70.0); PLATELET COUNT 504 TH/MM3 (150-450); RED BLOOD COUNT 3.54 MIL/MM3 (4.50-5.90); RED CELL DISTRIBUTION WIDTH 19.9 % (11.6-17.2); WHITE BLOOD COUNT 8.5 TH/MM3 (4.0-11.0)
[2016-12-01 13:36] LABS: HEMO FLAGS AUTO DIFF
--- NOTE | 2016-12-01 13:45 | HHI.NPPN ---
Subjective Renal Failure: Chronic, End Stage Renal Disease Review of Systems Respiratory Lungs: SOB Objective Data Data 11/30/16 12/01/16 19:00 07:00 Intake Total 375 ml 288 ml Output Total 2000 ml Balance -1625 ml 288 ml Intake Oral 320 ml 200 ml IV Total 55 ml 88 ml Output Urine Total 0 ml Hemodialysis 2000 ml # Bowel Movements 1 2 Vital Signs Date Time Temp Pulse Resp B/P Pulse Ox O2 Delivery O2 Flow Rate FiO2 12/01/16 12:00 98.3 83 19 118/96 100 12/01/16 12:00 83 12/01/16 08:00 100 12/01/16 08:00 98.2 100 37 122/67 100 12/01/16 04:00 105 12/01/16 04:00 98.0 105 22 109/60 97 12/01/16 00:00 94 12/01/16 00:00 98.4 94 24 103/56 98 11/30/16 21:34 96 21 11/30/16 20:00 90 11/30/16 20:00 98.0 90 25 95/70 98 11/30/16 16:00 98.2 84 20 90/58 94 11/30/16 16:00 84 -: 12/01/16 1258 11/30/16 0626 Physical Exam General Appearance: Well Developed, Well Nourished, No Acute Distress, Comfortable Eyes Eye Exam: Pupils Equal Throat Throat Exam: Oral Mucosa [place] & Moist Pulmonary Resp Exam: Clear Bilaterally, Breath Sounds Equal Cardiology CV Exam: Good Perfusion, Irregular, Tachycardia Gastrointestinal/Abdomen GI Exam: Soft, Non-Tender, Bowel Sounds Present Musculoskeletal MS Exam: Joints Intact, Normal Gait, Unable to Ambulate Integumentary Skin Exam: Warm, Dry Extremeties Extremities Exam: Pedal Pulses Palpable Neurologic Neuro Exam: Alert, Awake, Speech Clear, Moving All Extremities Assessment/Plan Discussed Condition With: Patient Assessment Summary: Anemia of CKD, End Stage Renal Disease Problem List: (1) ESRD (end stage renal disease) on dialysis Plan: Normally dialyzes T-Th-sat, he had HD 2L UF yesterday no current dialysis related concerns monitor fluid volume status, avoid IVF AVF right arm, monitor for complications renal panel in am avoid Gadolinium in patients with ESRD he has failed Kidney transplant Retroperitoneal hematoma (2) Anemia in chronic kidney disease Plan: transfused on admission (3) Atrial fibrillation Plan: with RVR, off Cardizem gtt (4) Hypertension Plan: monitor BP,continue home medications (5) Metabolic bone disease Plan: check phos level intermittently currently stable Carloz Novoa MD Dec 01, 2016 13:45 Carloz Novoa MD Dec 01, 2016 13:45
[2016-12-01 13:54] LABS: BICARBONATE 31.7 MEQ/L (21.0-32.0); POTASSIUM 3.5 MEQ/L (3.5-5.1)
[2016-12-01 14:08] LABS: SCAN/DIFF AUTO DIFF CONFIRMED
--- NOTE | 2016-12-01 14:41 | HHI.PR ---
Subjective Remarks More awake this afternoon, oriented to place now. states his buttocks hurt, know here his transplant kidney is located, and does not indicate any pain around his lower abdomen. Objective Vital Signs Date Time Temp Pulse Resp B/P Pulse Ox O2 Delivery O2 Flow Rate FiO2 12/01/16 12:00 98.3 83 19 118/96 100 12/01/16 12:00 83 12/01/16 08:00 100 12/01/16 08:00 98.2 100 37 122/67 100 12/01/16 04:00 105 12/01/16 04:00 98.0 105 22 109/60 97 12/01/16 00:00 94 12/01/16 00:00 98.4 94 24 103/56 98 11/30/16 21:34 96 21 11/30/16 20:00 90 11/30/16 20:00 98.0 90 25 95/70 98 11/30/16 16:00 98.2 84 20 90/58 94 11/30/16 16:00 84 I/O 11/30/16 11/30/16 11/30/16 12/01/16 12/01/16 12/01/16 07:00 15:00 23:00 07:00 15:00 23:00 Intake Total 255 ml 375 ml 33 ml 255 ml Output Total 2000 ml Balance 255 ml -1625 ml 33 ml 255 ml Intake Oral 200 ml 320 ml 200 ml IV Total 55 ml 55 ml 33 ml 55 ml Output Urine Total 0 ml Hemodialysis 2000 ml # Bowel Movements 1 1 1 1 Result Diagram: 12/01/16 1258 12/01/16 1258 Other Results Abd is non-distended, soft, NT Assessment and Plan Assessment and Plan Clinically improved, his inflammatory markers are better; reported not eating well; Straight cath attempted w/ insuff sample; No surgical intervention indicated at this time. Ibrahima Melendrez MD Dec 01, 2016 14:41
[2016-12-02] VITALS (11 sets, daily range): BP systolic 100–146; BP diastolic 65–98; PULSE 73–111; RESP 18–41; TEMP 97.3–98.7; O2SAT 90–100
[2016-12-02] MEDS: SODIUM CHLOR 0.9% 1000 ML INJ 1,000 ML IV SCH ×2 (00:09→13:41)
[2016-12-02] MEDS: PIPERACIL-TAZO 2.25 GM PREMIX 50 ML IV SCH (03:36)
[2016-12-02] MEDS: CHLORHEXIDINE GLUCONATE 2 % 1 PACK (2 CLOTHS)(taper/protocol) TOP SCH (03:36)
[2016-12-02 05:50] LABS: AUTOMATED NEUTROPHIL # 7.6 TH/MM3 (1.8-7.7); BASOPHIL # 0.1 TH/MM3 (0-0.2); BASOPHIL % 0.7 % (0.0-2.0); EOSINOPHIL # 0.3 TH/MM3 (0-0.4); HEMATOCRIT 29.3 % (39.0-51.0); HEMO FLAGS DIFF FINAL; LYMPH % 13.9 % (9.0-44.0); LYMPHOCYTE # 1.4 TH/MM3 (1.0-4.8); MEAN CELL VOLUME 83.1 FL (80.0-100.0); MEAN CORPUSCULAR HEMOGLOBIN 26.5 PG (27.0-34.0); MEAN CORPUSCULAR HGB CONC 31.9 % (32.0-36.0); MONO % 7.6 % (0.0-8.0); NEUT % 74.8 % (16.0-70.0); PLATELET COUNT 521 TH/MM3 (150-450); RED BLOOD COUNT 3.53 MIL/MM3 (4.50-5.90); RED CELL DISTRIBUTION WIDTH 20.7 % (11.6-17.2); WHITE BLOOD COUNT 10.2 TH/MM3 (4.0-11.0)
[2016-12-02 06:21] LABS: BICARBONATE 28.1 MEQ/L (21.0-32.0); POTASSIUM 3.6 MEQ/L (3.5-5.1)
--- NOTE | 2016-12-02 07:50 | HHI.PR ---
Subjective Remarks Not eating much add nepro to diet. Patient is more sleepy today. No fever or chills. No n/v/d/c. Objective Vitals Vital Signs Date Time Temp Pulse Resp B/P Pulse Ox O2 Delivery O2 Flow Rate FiO2 12/02/16 04:00 111 12/02/16 04:00 98.4 111 28 114/80 98 12/02/16 00:00 98.5 83 28 102/77 92 12/02/16 00:00 83 12/01/16 20:00 99 12/01/16 20:00 98.4 99 26 105/54 98 12/01/16 19:32 95 21 12/01/16 16:00 84 12/01/16 16:00 98.1 84 25 106/72 92 12/01/16 12:00 98.3 83 19 118/96 100 12/01/16 12:00 83 12/01/16 08:00 100 12/01/16 08:00 98.2 100 37 122/67 100 I/O 12/01/16 12/01/16 12/01/16 12/02/16 12/02/16 12/02/16 07:00 15:00 23:00 07:00 15:00 23:00 Intake Total 255 ml 694 ml 400 ml 434 ml Output Total 0 ml 0 ml 0 ml Balance 255 ml 694 ml 400 ml 434 ml Intake Oral 200 ml 120 ml 50 ml IV Total 55 ml 574 ml 400 ml 384 ml Output Urine Total 0 ml 0 ml 0 ml # Bowel Movements 1 1 0 1 Result Diagram: 12/02/16 0436 12/02/16 0436 Imaging Last Impressions Abdomen/Pelvis CT 11/28/16 0000 Signed Impressions: Service Date/Time: November 20:56 - CONCLUSION: 1. Suspected enlarging hematoma in the right retroperitoneum abutting the anterior margin of the right psoas muscle in the pelvis. An area of increased density to suggest active hemorrhage is not seen. 2. Renal atrophy. 3. 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 This was present previously. 4. Degenerative change in the lower lumbar spine. Norm Nur MD Chest X-Ray 11/27/16 0440 Signed Impressions: Service Date/Time: Sunday, November 27, 2016 04:58 - CONCLUSION: 1. Cardiomegaly. No acute pulmonary disease. Eyal Juares MD Head CT 11/27/16 0000 Signed Impressions: Service Date/Time: Sunday, November 27, 2016 13:45 - CONCLUSION: No acute intracranial disease. Nonspecific white matter changes. Faisal Carpio MD Chest CT 11/27/16 0000 Signed Impressions: Service Date/Time: Sunday, November 27, 2016 13:49 - CONCLUSION: 1. Cardiomegaly with coronary artery calcifications. 2. No infiltrate or mass. 3. No pulmonary edema or pleural effusions. Faisal Carpio MD Objective Remarks GENERAL: This is a well-nourished, well-developed patient, in no apparent distress. SKIN: No rashes, ecchymoses or lesions. Cool and dry. HEAD: Atraumatic. Normocephalic. No temporal or scalp tenderness. EYES: Pupils equal round and reactive. Extraocular motions intact. No scleral icterus. No injection or drainage. ENT: Nose without bleeding, purulent drainage or septal hematoma. Throat without erythema, tonsillar hypertrophy or exudate. Uvula midline. Airway patent. NECK: Trachea midline. No JVD or lymphadenopathy. Supple, nontender, no meningeal signs. CARDIOVASCULAR: Regular rate and rhythm without murmurs, gallops, or rubs. RESPIRATORY: Clear to auscultation. Breath sounds equal bilaterally. No wheezes , rales, or rhonchi. GASTROINTESTINAL: Abdomen soft, non-tender, nondistended. No hepato-splenomegaly , or palpable masses. No guarding. MUSCULOSKELETAL: Extremities without clubbing, cyanosis, or edema. No joint tenderness, effusion, or edema noted. No calf tenderness. Negative Homans sign bilaterally. NEUROLOGICAL: Awake and alert. Moves all extremities. follows commands and answers questions. A/P Problem List: (1) SIRS (systemic inflammatory response syndrome) ICD Code: R65.10 Status: Acute (2) Acute hypoxemic respiratory failure ICD Code: J96.01 Status: Acute (3) Encephalopathy acute ICD Code: G93.40 Status: Acute (4) Anemia ICD Code: D64.9 Status: Acute (5) Leukocytosis ICD Code: D72.829 Status: Acute (6) Thrombocytosis ICD Code: D47.3 Status: Acute (7) ESRD (end stage renal disease) on dialysis ICD Code: N18.6 Status: Chronic (8) Atrial fibrillation with RVR ICD Code: I48.91 Status: Acute (9) HTN (hypertension) ICD Code: I10 Status: Chronic (10) Glaucoma ICD Code: H40.9 Status: Chronic Assessment and Plan (1) SIRS (systemic inflammatory response syndrome) ICD Code: R65.10 Status: Acute Plan: Suspect sepsis possibly secondary to pneumonia however need to confirm this. Admitted to ICU 11/28 continue IV antibiotics as per ID - recommendations appreciated 11/29 the transplanted kidney looks bigger. Hematoma versus infection. An area of increased density to suggest active hemorrhage is not seen. There is renal atrophy, possible vascular necrosis of the left femoral head and degenerative changes in the lower lumbar spine. Appreciated ID recommendations. Dr Melendrez from Kidney transplant will be asked to evaluate transplant kidney. Vancomycin discontinued as per ID. Blood cultures negative to date. (2) Acute hypoxemic respiratory failure ICD Code: J96.01 Status: Acute Plan: The patient presents with respiratory rate in the mid 30s. Differential diagnosis would include pneumonia, pulmonary emboli ct head negative ct chest - no infiltrates respiratory failure resolved (3) Encephalopathy acute. ICD Code: G93.40 Status: Acute Plan: Suspect metabolic encephalopathy probably due to SIRS/Sepsis syndrome Vital neurochecks and neurological status. CT head negative fo acute intracranial process ABG showed mild hypercapnea with PCO2 48 11/28 encephalopathy seems to be resolving. 11/29 encephalopathy resolved. (4) Anemia ICD Code: D64.9 Status: Acute Plan: Acute on chronic anemia. There is no signs of active bleeding. Transfuse 2 units of packed red blood cells. Check stool guaiac continue to hold anticoagulation Poss due to retroperineal hematoma. Hemoglobin stable. Continue to monitor H/H Diffuse as needed for hemoglobin less than 7 or active bleeding. (5) Leukocytosis ICD Code: D72.829 Status: Acute Plan: Leukocytosis likely secondary to underlying infectious process versus stress induced. Continue IV antibiotics as per ID. (6) Thrombocytosis ICD Code: D47.3 Status: Acute Plan: Likely reactive. Continue to monitor platelets Platelets trending down (7) ESRD (end stage renal disease) on dialysis ICD Code: N18.6 Status: Chronic Plan: Nephrology consulted. Hemodialysis as per nephrology recommendations. (8) Atrial fibrillation with RVR ICD Code: I48.91 Status: Acute Plan: cardiac enzymes negative x3 appreciate cardiology recommendations hold anticoagulation off Cardizem drip Started on metoprolol and cardizem po by cardiology with good rate control 11/29 Heart rate not controlled - diltiazem dose increased to 120 mg by mouth 3 times a day by cardiology. 2/ HR better controlled continue cardizem (9) HTN (hypertension) ICD Code: I10 Status: Chronic Plan: Patient's blood pressure slightly lower today however could MAP.continue metoprolol and cardizem po. Continue as needed medication. (10) Glaucoma ICD Code: H40.9 Status: Chronic Plan: Continue Brimonidine ophtalmic drops, seems stable Assessment and Plan DVT prophylaxis: Scd's, no chemoprophylaxis given anemia and poss retroperitoneal hemorrhage GI prophylaxis: Discharge Planning Transfer to medical floor. Problem Qualifiers (1) Anemia: Qualified Code: D64.9 - Anemia, unspecified type (2) Leukocytosis: Qualified Code: D72.829 - Leukocytosis, unspecified type (3) HTN (hypertension): Qualified Code: I10 - Essential hypertension Chastity Og MD Dec 02, 2016 07:50
[2016-12-02] MEDS: METOPROLOL TARTRATE 100 MG TAB PO SCH ×2 (08:10→21:11)
[2016-12-02] MEDS: DILTIAZEM HCL 60 MG TAB PO SCH ×3 (08:13→18:30)
[2016-12-02] MEDS: SODIUM CHLORIDE 0.9% FLUSH 5 ML FLUSH FLUSH SCH ×2 (08:14→21:00)
[2016-12-02] MEDS: PANTOPRAZOLE SOD 40 MG DELAYED RELEASE TAB PO SCH (08:14)
--- NOTE | 2016-12-02 09:30 | HHI.IDPN ---
Subjective Subjective Remarks Notes reviewed Remains afebrile Appreciate Dr Melendrez's assistance BC are negative C/O R sided abdominal pain Anuric is a 66 y/o AAM with PMhx of End-stage renal disease, s/p renal transplant ? failed, now on hemodialysis using LUE AV fistula. PMHx also significant for ? multiinfarct dementia and Schizophrenia. 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 ID following for ? Urosepsis or infected transplant kidney. 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 Vital Signs Date Time Temp Pulse Resp B/P Pulse Ox O2 Delivery O2 Flow Rate FiO2 12/02/16 07:05 100 Nasal Cannula 2.00 12/02/16 04:00 111 12/02/16 04:00 98.4 111 28 114/80 98 12/02/16 00:00 98.5 83 28 102/77 92 12/02/16 00:00 83 12/01/16 20:00 99 12/01/16 20:00 98.4 99 26 105/54 98 12/01/16 19:32 95 21 12/01/16 16:00 84 12/01/16 16:00 98.1 84 25 106/72 92 12/01/16 12:00 98.3 83 19 118/96 100 12/01/16 12:00 83 12/01/16 12/01/16 12/02/16 15:00 23:00 07:00 Intake Total 694 ml 400 ml 434 ml Output Total 0 ml 0 ml 0 ml Balance 694 ml 400 ml 434 ml Intake Oral 120 ml 50 ml IV Total 574 ml 400 ml 384 ml Output Urine Total 0 ml 0 ml 0 ml # Bowel Movements 1 0 1 . Laboratory Tests Test 12/01/16 12/02/16 12:58 04:36 White Blood Count 8.5 TH/MM3 10.2 TH/MM3 Red Blood Count 3.54 MIL/MM3 3.53 MIL/MM3 Hemoglobin 9.4 GM/DL 9.3 GM/DL Hematocrit 29.4 % 29.3 % Mean Corpuscular Volume 83.2 FL 83.1 FL Mean Corpuscular Hemoglobin 26.7 PG 26.5 PG Mean Corpuscular Hemoglobin 32.1 % 31.9 % Concent Red Cell Distribution Width 19.9 % 20.7 % Platelet Count 504 TH/MM3 521 TH/MM3 Mean Platelet Volume 7.0 FL 7.1 FL Neutrophils (%) (Auto) 75.4 % 74.8 % Lymphocytes (%) (Auto) 12.2 % 13.9 % Monocytes (%) (Auto) 8.8 % 7.6 % Eosinophils (%) (Auto) 3.2 % 3.0 % Basophils (%) (Auto) 0.4 % 0.7 % Neutrophils # (Auto) 6.4 TH/MM3 7.6 TH/MM3 Lymphocytes # (Auto) 1.0 TH/MM3 1.4 TH/MM3 Monocytes # (Auto) 0.7 TH/MM3 0.8 TH/MM3 Eosinophils # (Auto) 0.3 TH/MM3 0.3 TH/MM3 Basophils # (Auto) 0.0 TH/MM3 0.1 TH/MM3 CBC Comment AUTO DIFF DIFF FINAL Differential Comment AUTO DIFF CONFIRMED Laboratory Tests Test 12/01/16 12/02/16 12:58 04:36 Sodium Level 136 MEQ/L 136 MEQ/L Potassium Level 3.5 MEQ/L 3.6 MEQ/L Chloride Level 94 MEQ/L 95 MEQ/L Carbon Dioxide Level 31.7 MEQ/L 28.1 MEQ/L Anion Gap 10 MEQ/L 13 MEQ/L Blood Urea Nitrogen 24 MG/DL 28 MG/DL Creatinine 6.03 MG/DL 7.17 MG/DL Estimat Glomerular Filtration 11 ML/MIN 9 ML/MIN Rate Random Glucose 95 MG/DL 83 MG/DL Calcium Level 9.1 MG/DL 9.0 MG/DL Prealbumin 11 MG/DL Magnesium Level 2.0 MG/DL Microbiology Date/Time Procedure Status Source Growth 11/30/16 05:00 Stool Occult Blood ([facility]) - Final Complete Stool Stool HEMOCCULT NEGATIVE Imaging Abdomen/Pelvis CT 11/28/16 0000 Signed Impressions: Service Date/Time: November 20:56 - CONCLUSION: 1. Suspected enlarging hematoma in the right retroperitoneum abutting the anterior margin of the right psoas muscle in the pelvis. An area of increased density to suggest active hemorrhage is not seen. 2. Renal atrophy. 3. 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 This was present previously. 4. Degenerative change in the lower lumbar spine. Norm Nur MD Chest X-Ray 11/27/16 0440 Signed Impressions: Service Date/Time: Sunday, November 27, 2016 04:58 - CONCLUSION: 1. Cardiomegaly. No acute pulmonary disease. Eyal Juares MD Head CT 11/27/16 0000 Signed Impressions: Service Date/Time: Sunday, November 27, 2016 13:45 - CONCLUSION: No acute intracranial disease. Nonspecific white matter changes. Faisal Carpio MD Chest CT 11/27/16 0000 Signed Impressions: Service Date/Time: Sunday, November 27, 2016 13:49 - CONCLUSION: 1. Cardiomegaly with coronary artery calcifications. 2. No infiltrate or mass. 3. No pulmonary edema or pleural effusions. Faisal Carpio MD Physical Exam GENERAL: awake and alert, not in any respiratory distress SKIN: Cool and dry. No generalized rash, no ecchymosis. HEENT: [place] conjunctivae, no petechia or hemorrhage. No scleral icterus. Slightly dry oral mucosa. . NECK: Trachea midline. No JVD or lymphadenopathy. Supple, nontender, no meningeal signs. CARDIOVASCULAR: Irregular rate and rhythm without murmurs, gallops, or rubs. RESPIRATORY: Clear to auscultation. Breath sounds equal bilaterally. No wheezes , rales, or rhonchi. Decreased breath sounds at the bases. GASTROINTESTINAL: Abdomen soft, nondistended, has tenderness on the right side. No guarding. No rebound. MUSCULOSKELETAL: Extremities without clubbing, cyanosis, or edema. No joint tenderness, or effusion. No calf tenderness. Negative Homans sign bilaterally. AVF LUE with no evidence of infection NEUROLOGICAL: Awake and alert. Has decreased nasolabial fold in the right side. Motor strength seemed to be symmetrical. No Babinski, no clonus. PSYCH: Sad LINE: PIV with no evidence of infection Assessment & Plan Remarks IMPRESSION ? Sepsis in Immune compromised patient. - or due to inflammatory changes in his transplanted kidney - per susrgery less likely infected kidney ? bleed or infected transplant kidney - patient had Proteus sepsis last Sep-Oct and unknown source but had abnormality described then of the transplant kidney Atrial fib, RVR ESRD, on HD, failed renal transplant Hx CVA Dementia RECOMMENDATION Follow cultures Stop Zosyn US of transplant kidney per recommendation by Dr Melendrez Monitor temps Monitor progress Monitor off Abx D/W Ramila Patel MD Dec 02, 2016 09:30
--- NOTE | 2016-12-02 10:04 | HHI.NPPN ---
Subjective Renal Failure: Chronic, End Stage Renal Disease Review of Systems Respiratory Lungs: SOB Objective Data Data 12/01/16 12/02/16 19:00 07:00 Intake Total 694 ml 834 ml Output Total 0 ml 0 ml Balance 694 ml 834 ml Intake Oral 120 ml 50 ml IV Total 574 ml 784 ml Output Urine Total 0 ml 0 ml # Bowel Movements 1 1 Vital Signs Date Time Temp Pulse Resp B/P Pulse Ox O2 Delivery O2 Flow Rate FiO2 12/02/16 08:00 98.7 109 41 118/75 92 12/02/16 08:00 109 12/02/16 07:05 100 Nasal Cannula 2.00 12/02/16 04:00 111 12/02/16 04:00 98.4 111 28 114/80 98 12/02/16 00:00 98.5 83 28 102/77 92 12/02/16 00:00 83 12/01/16 20:00 99 12/01/16 20:00 98.4 99 26 105/54 98 12/01/16 19:32 95 21 12/01/16 16:00 84 12/01/16 16:00 98.1 84 25 106/72 92 12/01/16 12:00 98.3 83 19 118/96 100 12/01/16 12:00 83 -: 12/02/16 0436 12/02/16 0436 Physical Exam General Appearance: Well Developed, Well Nourished, No Acute Distress, Comfortable Eyes Eye Exam: Pupils Equal Throat Throat Exam: Oral Mucosa [place] & Moist Pulmonary Resp Exam: Clear Bilaterally, Breath Sounds Equal Cardiology CV Exam: Good Perfusion, Irregular, Tachycardia Gastrointestinal/Abdomen GI Exam: Soft, Non-Tender, Bowel Sounds Present Musculoskeletal MS Exam: Joints Intact, Normal Gait, Unable to Ambulate Integumentary Skin Exam: Warm, Dry Extremeties Extremities Exam: Pedal Pulses Palpable Neurologic Neuro Exam: Alert, Awake, Speech Clear, Moving All Extremities Assessment/Plan Discussed Condition With: Patient Assessment Summary: Anemia of CKD, End Stage Renal Disease Problem List: (1) ESRD (end stage renal disease) on dialysis Plan: Normally dialyzes T-Th-sat, he had HD 2L UF Friday no current dialysis related concerns monitor fluid volume status, avoid IVF AVF right arm, monitor for complications previous failed kidney transplant, retroperitoneal hematoma (2) Anemia in chronic kidney disease Plan: transfused on admission monitor Hb (3) Atrial fibrillation Plan: monitor (4) Hypertension Plan: monitor BP,continue home medications (5) Metabolic bone disease Plan: check phos level intermittently currently stable Carloz Novoa MD Dec 02, 2016 10:04
--- NOTE | 2016-12-02 13:23 | RADRPT ---
EXAM DATE/TIME: 12/02/2016 10:27 CORRECTION Corrected on: December 05, 2016; Added missing exam form information. [facility] COMPARISON: CT ABDOMEN & PELVIS W/O CONTRAST, November 28, 2016, 20:56. US KIDNEY / TRANSPLANT, January 19, 2014, 16:28. INDICATIONS: Abnormal CT. MEDICAL HISTORY: Hypercholesterolemia. Hypertension. [place] palsy. CVA. Coronary artery disease. Atrial fibrillation. S chizophrenia. Arthritis. Diabetes. Gout. MRSA PCR, 11/27/16. SURGICAL HISTORY : Kidney transplant. AV shunt, left arm. Cardiac catheterization with stent placement. ENCOUNTER: Subsequent ACUITY: 1 day PAIN SCORE: 0/10 LOCATION: Right lower quadrant MEASUREMENTS: TRANSPLANT KIDNEY: 8.1 x 4.8 x 6.1 cm LOCATION: Right lower quadrant. PREVIOUS ULTRASOUND: Aug 24 2013. PREVIOUS ARCUATE ARTERIES INDEX: Upper - 0.6 Mid - 0.7 Lower - 0.7 ARCUATE ARTERIES RESISTIVE INDEX: Upper - 0.0 Mid - 0.4 Lower - 0.3 RA/EIA Ratio: 0.3 MAIN RENAL ARTERY VELOCITY: (cm/sec): 33 MAIN RENAL VEIN: Occluded EXTERNAL ILIAC ARTERY VELOCITY (cm/sec): 106 * NORMAL DOPPLER FINDINGS Arcuate arteries - RI = 0.6 - 0.8 Renal artery = under 200 cm/sec Renal vein = May be monophasic with continuous flow or demonstrate some pulsatility with cardiac cycl e FINDINGS: Transplanted kidney looks markedly abnormal by ultrasound. The velocities are significantly depresse d. Resist indices are between 0.3 and 0.7. Renal pelvis is not identified. CONCLUSION: 1. Markedly abnormal renal transplant. 2. I do not see a pseudo aneurysm; however, there is very little recognizable renal tissue evident. Sulfur Colloid Nuclear scan my be of benefit. Trey Laguerre MD FACR on December 02, 2016 at 12:58 Board Certified Radiologist. This report was verified electronically. DR Joint Maker Machine on December 05, 2016 at 15:36 Board Certified Radiologist. This report was verified electronically.
[2016-12-03] VITALS (9 sets, daily range): BP systolic 106–129; BP diastolic 55–70; PULSE 82–97; RESP 16–18; TEMP 97.9–99.7; O2SAT 94–99
[2016-12-03] MEDS: SODIUM CHLOR 0.9% 1000 ML INJ 1,000 ML IV SCH (02:05)
[2016-12-03] MEDS: SODIUM CHLORIDE 0.9% FLUSH 5 ML FLUSH FLUSH SCH ×2 (09:00→21:22)
[2016-12-03] MEDS: DILTIAZEM HCL 60 MG TAB PO SCH ×2 (10:30→13:00)
[2016-12-03] MEDS: PANTOPRAZOLE SOD 40 MG DELAYED RELEASE TAB PO SCH (10:30)
[2016-12-03] MEDS: METOPROLOL TARTRATE 100 MG TAB PO SCH ×2 (10:30→21:18)
--- NOTE | 2016-12-03 10:35 | HHI.NPPN ---
Subjective Renal Failure: Chronic, End Stage Renal Disease Review of Systems Respiratory Lungs: SOB Objective Data Data 12/02/16 12/03/16 19:00 07:00 Intake Total 698 ml 1094 ml Output Total 0 ml Balance 698 ml 1094 ml Intake Oral 120 ml 0 ml IV Total 578 ml 1094 ml Output Urine Total 0 ml # Voids 0 # Bowel Movements 3 3 Vital Signs Date Time Temp Pulse Resp B/P Pulse Ox O2 Delivery O2 Flow Rate FiO2 12/03/16 08:00 98.5 97 18 129/64 97 12/03/16 05:02 98.7 87 18 107/62 95 12/03/16 00:00 97.9 83 18 121/66 94 12/02/16 20:36 76 12/02/16 20:00 97.3 84 18 146/98 96 12/02/16 17:40 98.1 85 20 116/65 98 12/02/16 16:00 79 12/02/16 16:00 98.5 79 32 110/68 92 12/02/16 14:00 73 12/02/16 12:00 98.1 76 33 100/69 90 12/02/16 12:00 76 -: 12/02/16 0436 12/02/16 0436 Physical Exam General Appearance: Well Developed, Well Nourished, No Acute Distress, Comfortable Eyes Eye Exam: Pupils Equal Throat Throat Exam: Oral Mucosa [place] & Moist Pulmonary Resp Exam: Clear Bilaterally, Breath Sounds Equal Cardiology CV Exam: Good Perfusion, Irregular, Tachycardia Gastrointestinal/Abdomen GI Exam: Soft, Non-Tender, Bowel Sounds Present Musculoskeletal MS Exam: Joints Intact, Normal Gait, Unable to Ambulate Integumentary Skin Exam: Warm, Dry Extremeties Extremities Exam: Pedal Pulses Palpable Neurologic Neuro Exam: Alert, Awake, Speech Clear, Moving All Extremities Assessment/Plan Discussed Condition With: Patient Assessment Summary: Anemia of CKD, End Stage Renal Disease Problem List: (1) ESRD (end stage renal disease) on dialysis Plan: Normally dialyzes T--fri, he had HD 2L UF Friday next dialysis today monitor fluid volume status, avoid IVF AVF right arm, monitor for complications previous failed kidney transplant, possibly kidney itself has a distorted appearance d/w dr. Melendrez [id number] seen during dialysis, tossing and turning UF 3 L today has to be restrained as moving a lot. (2) Anemia in chronic kidney disease Plan: transfused on admission monitor Hb (3) Atrial fibrillation Plan: monitor (4) Hypertension Plan: monitor BP,continue home medications (5) Metabolic bone disease Plan: check phos level intermittently currently stable Carloz Novoa MD Dec 03, 2016 10:35
[2016-12-03] MEDS ORDERED: DILT60TA33 PO (11:17)
--- NOTE | 2016-12-03 12:32 | HHI.IDPN ---
Subjective Subjective Remarks Notes reviewed Remains afebrile BC are negative For HD today US did not show any psudoaneurysm but transplant kidney very abnormal appearing Off Abx is a 66 y/o AAM with PMhx of End-stage renal disease, s/p renal transplant ? failed, now on hemodialysis using LUE AV fistula. PMHx also significant for ? multiinfarct dementia and Schizophrenia. 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 ID following for ? Urosepsis or infected transplant kidney. 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 Vital Signs Date Time Temp Pulse Resp B/P Pulse Ox O2 Delivery O2 Flow Rate FiO2 12/03/16 11:51 98 12/03/16 11:41 98.0 89 18 113/70 97 12/03/16 08:00 98.5 97 18 129/64 97 12/03/16 05:02 98.7 87 18 107/62 95 12/03/16 00:00 97.9 83 18 121/66 94 12/02/16 20:36 76 12/02/16 20:00 97.3 84 18 146/98 96 12/02/16 17:40 98.1 85 20 116/65 98 12/02/16 16:00 79 12/02/16 16:00 98.5 79 32 110/68 92 12/02/16 14:00 73 12/02/16 12/02/16 12/03/16 15:00 23:00 07:00 Intake Total 698 ml 1094 ml 0 ml Output Total 0 ml Balance 698 ml 1094 ml 0 ml Intake Oral 120 ml 0 ml IV Total 578 ml 1094 ml Output Urine Total 0 ml # Voids 0 # Bowel Movements 3 3 . Laboratory Tests Test 12/01/16 12/02/16 12:58 04:36 White Blood Count 8.5 TH/MM3 10.2 TH/MM3 Red Blood Count 3.54 MIL/MM3 3.53 MIL/MM3 Hemoglobin 9.4 GM/DL 9.3 GM/DL Hematocrit 29.4 % 29.3 % Mean Corpuscular Volume 83.2 FL 83.1 FL Mean Corpuscular Hemoglobin 26.7 PG 26.5 PG Mean Corpuscular Hemoglobin 32.1 % 31.9 % Concent Red Cell Distribution Width 19.9 % 20.7 % Platelet Count 504 TH/MM3 521 TH/MM3 Mean Platelet Volume 7.0 FL 7.1 FL Neutrophils (%) (Auto) 75.4 % 74.8 % Lymphocytes (%) (Auto) 12.2 % 13.9 % Monocytes (%) (Auto) 8.8 % 7.6 % Eosinophils (%) (Auto) 3.2 % 3.0 % Basophils (%) (Auto) 0.4 % 0.7 % Neutrophils # (Auto) 6.4 TH/MM3 7.6 TH/MM3 Lymphocytes # (Auto) 1.0 TH/MM3 1.4 TH/MM3 Monocytes # (Auto) 0.7 TH/MM3 0.8 TH/MM3 Eosinophils # (Auto) 0.3 TH/MM3 0.3 TH/MM3 Basophils # (Auto) 0.0 TH/MM3 0.1 TH/MM3 CBC Comment AUTO DIFF DIFF FINAL Differential Comment AUTO DIFF CONFIRMED Laboratory Tests Test 12/01/16 12/02/16 12:58 04:36 Sodium Level 136 MEQ/L 136 MEQ/L Potassium Level 3.5 MEQ/L 3.6 MEQ/L Chloride Level 94 MEQ/L 95 MEQ/L Carbon Dioxide Level 31.7 MEQ/L 28.1 MEQ/L Anion Gap 10 MEQ/L 13 MEQ/L Blood Urea Nitrogen 24 MG/DL 28 MG/DL Creatinine 6.03 MG/DL 7.17 MG/DL Estimat Glomerular Filtration 11 ML/MIN 9 ML/MIN Rate Random Glucose 95 MG/DL 83 MG/DL Calcium Level 9.1 MG/DL 9.0 MG/DL Prealbumin 11 MG/DL Magnesium Level 2.0 MG/DL Imaging Abdomen/Pelvis CT 11/28/16 0000 Signed Impressions: Service Date/Time: November 20:56 - CONCLUSION: 1. Suspected enlarging hematoma in the right retroperitoneum abutting the anterior margin of the right psoas muscle in the pelvis. An area of increased density to suggest active hemorrhage is not seen. 2. Renal atrophy. 3. 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 This was present previously. 4. Degenerative change in the lower lumbar spine. Norm Nur MD Chest X-Ray 11/27/16 0440 Signed Impressions: Service Date/Time: Sunday, November 27, 2016 04:58 - CONCLUSION: 1. Cardiomegaly. No acute pulmonary disease. Eyal Juares MD Head CT 11/27/16 0000 Signed Impressions: Service Date/Time: Sunday, November 27, 2016 13:45 - CONCLUSION: No acute intracranial disease. Nonspecific white matter changes. Faisal Carpio MD Chest CT 11/27/16 0000 Signed Impressions: Service Date/Time: Sunday, November 27, 2016 13:49 - CONCLUSION: 1. Cardiomegaly with coronary artery calcifications. 2. No infiltrate or mass. 3. No pulmonary edema or pleural effusions. Faisal Carpio MD Physical Exam GENERAL: awake and alert, NAD SKIN: Cool and dry. No generalized rash HEENT: [place] conjunctivae. No scleral icterus. Slightly dry oral mucosa. . NECK: Supple, nontender, no meningeal signs. CARDIOVASCULAR: Irregular rate and rhythm without murmurs, gallops, or rubs. RESPIRATORY: Clear to auscultation. Breath sounds equal bilaterally. No wheezes , rales, or rhonchi. Decreased breath sounds at the bases. GASTROINTESTINAL: Abdomen soft, nondistended, has mild tenderness on the right side. No guarding. No rebound. MUSCULOSKELETAL: Extremities without clubbing, cyanosis, or edema. No joint tenderness, or effusion. No calf tenderness. Negative Homans sign bilaterally. AVF LUE with no evidence of infection NEUROLOGICAL: Awake and alert. Has decreased nasolabial fold in the right side. Motor strength seemed to be symmetrical. No Babinski, no clonus. PSYCH: Sad LINE: PIV with no evidence of infection Assessment & Plan Remarks IMPRESSION ? Sepsis in Immune compromised patient. - or due to inflammatory changes in his transplanted kidney - per susrgery less likely infected kidney Episode of Proteus sepsis last Sep-Oct and unknown source but had abnormality described then of the transplant kidneyAtrial fib, RVR ESRD, on HD, failed renal transplant Hx CVA Dementia RECOMMENDATION Seems stable from ID standpoint Has been off Abx I will be available if needed D/W Ramila Mallory MD Dec 03, 2016 12:32
--- NOTE | 2016-12-03 14:56 | HHI.PR ---
Subjective Remarks In bed. Per nurse he is not eating much, he was able to eat ensure today. Patient is alert and awake. He says he will eat more. However he is not having much appetite. No fever or chills. Feels tired. Objective Vitals Vital Signs Date Time Temp Pulse Resp B/P Pulse Ox O2 Delivery O2 Flow Rate FiO2 12/03/16 11:51 98 12/03/16 11:41 98.0 89 18 113/70 97 12/03/16 08:00 98.5 97 18 129/64 97 12/03/16 05:02 98.7 87 18 107/62 95 12/03/16 00:00 97.9 83 18 121/66 94 12/02/16 20:36 76 12/02/16 20:00 97.3 84 18 146/98 96 12/02/16 17:40 98.1 85 20 116/65 98 12/02/16 16:00 79 12/02/16 16:00 98.5 79 32 110/68 92 I/O 12/02/16 12/02/16 12/02/16 12/03/16 12/03/16 12/03/16 07:00 15:00 23:00 07:00 15:00 23:00 Intake Total 434 ml 698 ml 1094 ml 0 ml Output Total 0 ml 0 ml Balance 434 ml 698 ml 1094 ml 0 ml Intake Oral 50 ml 120 ml 0 ml IV Total 384 ml 578 ml 1094 ml Output Urine Total 0 ml 0 ml # Voids 0 # Bowel Movements 1 3 3 Result Diagram: 12/02/16 0436 12/02/16 0436 Imaging Last Impressions Renal Ultrasound 12/02/16 0000 Signed Impressions: Service Date/Time: Friday, December 02, 2016 10:27 - CONCLUSION: 1. Markedly abnormal renal transplant. 2. I do not see a pseudo aneurysm; however, there is very little recognizable renal tissue evident. Sulfur Colloid Nuclear scan my be of benefit. Trey Laguerre MD FACR Abdomen/Pelvis CT 11/28/16 0000 Signed Impressions: Service Date/Time: November 20:56 - CONCLUSION: 1. Suspected enlarging hematoma in the right retroperitoneum abutting the anterior margin of the right psoas muscle in the pelvis. An area of increased density to suggest active hemorrhage is not seen. 2. Renal atrophy. 3. 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 This was present previously. 4. Degenerative change in the lower lumbar spine. Norm Nur MD Chest X-Ray 11/27/16 0440 Signed Impressions: Service Date/Time: Sunday, November 27, 2016 04:58 - CONCLUSION: 1. Cardiomegaly. No acute pulmonary disease. Eyal Juares MD Head CT 11/27/16 0000 Signed Impressions: Service Date/Time: Sunday, November 27, 2016 13:45 - CONCLUSION: No acute intracranial disease. Nonspecific white matter changes. Faisal Carpio MD Chest CT 11/27/16 0000 Signed Impressions: Service Date/Time: Sunday, November 27, 2016 13:49 - CONCLUSION: 1. Cardiomegaly with coronary artery calcifications. 2. No infiltrate or mass. 3. No pulmonary edema or pleural effusions. Faisal Carpio MD Objective Remarks GENERAL: This is a well-nourished, well-developed patient, in no apparent distress. SKIN: No rashes, ecchymoses or lesions. Cool and dry. HEAD: Atraumatic. Normocephalic. No temporal or scalp tenderness. EYES: Pupils equal round and reactive. Extraocular motions intact. No scleral icterus. No injection or drainage. ENT: Nose without bleeding, purulent drainage or septal hematoma. Throat without erythema, tonsillar hypertrophy or exudate. Uvula midline. Airway patent. NECK: Trachea midline. No JVD or lymphadenopathy. Supple, nontender, no meningeal signs. CARDIOVASCULAR: Regular rate and rhythm without murmurs, gallops, or rubs. RESPIRATORY: Clear to auscultation. Breath sounds equal bilaterally. No wheezes , rales, or rhonchi. GASTROINTESTINAL: Abdomen soft, non-tender, nondistended. No hepato-splenomegaly , or palpable masses. No guarding. MUSCULOSKELETAL: Extremities without clubbing, cyanosis, or edema. No joint tenderness, effusion, or edema noted. No calf tenderness. Negative Homans sign bilaterally. NEUROLOGICAL: Awake and alert. Moves all extremities. follows commands and answers questions. A/P Problem List: (1) SIRS (systemic inflammatory response syndrome) ICD Code: R65.10 Status: Acute (2) Acute hypoxemic respiratory failure ICD Code: J96.01 Status: Acute (3) Encephalopathy acute ICD Code: G93.40 Status: Acute (4) Anemia ICD Code: D64.9 Status: Acute (5) Leukocytosis ICD Code: D72.829 Status: Acute (6) Thrombocytosis ICD Code: D47.3 Status: Acute (7) ESRD (end stage renal disease) on dialysis ICD Code: N18.6 Status: Chronic (8) Atrial fibrillation with RVR ICD Code: I48.91 Status: Acute (9) HTN (hypertension) ICD Code: I10 Status: Chronic (10) Glaucoma ICD Code: H40.9 Status: Chronic Assessment and Plan (1) SIRS (systemic inflammatory response syndrome) ICD Code: R65.10 Status: Acute Plan: Suspect sepsis possibly secondary to pneumonia however need to confirm this. Admitted to ICU 11/28 continue IV antibiotics as per ID - recommendations appreciated 11/29 the transplanted kidney looks bigger. Hematoma versus infection. An area of increased density to suggest active hemorrhage is not seen. There is renal atrophy, possible vascular necrosis of the left femoral head and degenerative changes in the lower lumbar spine. Appreciated ID recommendations. Dr Melendrez from Kidney transplant will be asked to evaluate transplant kidney. Vancomycin discontinued as per ID. Blood cultures negative to date. OFF antibiotics since 11/28 (2) Acute hypoxemic respiratory failure. Resolved ICD Code: J96.01 Status: Acute Plan: The patient presents with respiratory rate in the mid 30s. Differential diagnosis would include pneumonia, pulmonary emboli ct head negative ct chest - no infiltrates respiratory failure resolved (3) Encephalopathy acute. ICD Code: G93.40 Status: Acute Plan: Suspect metabolic encephalopathy probably due to SIRS/Sepsis syndrome Vital neurochecks and neurological status. CT head negative fo acute intracranial process ABG showed mild hypercapnea with PCO2 48 11/28 encephalopathy seems to be resolving. 11/29 encephalopathy resolved. (4) Anemia ICD Code: D64.9 Status: Acute Plan: Acute on chronic anemia. There is no signs of active bleeding. Transfuse 2 units of packed red blood cells. Check stool guaiac continue to hold anticoagulation Poss due to retroperineal hematoma. Hemoglobin stable. Continue to monitor H/H Diffuse as needed for hemoglobin less than 7 or active bleeding. (5) Leukocytosis ICD Code: D72.829 Status: Acute Plan: Leukocytosis likely secondary to underlying infectious process versus stress induced. OFF IV abx (6) Thrombocytosis ICD Code: D47.3 Status: Acute Plan: Likely reactive. Continue to monitor platelets Platelets trending down (7) ESRD (end stage renal disease) on dialysis ICD Code: N18.6 Status: Chronic Plan: Nephrology consulted. Hemodialysis as per nephrology recommendations. Renal US 12/02 reviewed 1. Markedly abnormal renal transplant. 2. I do not see a pseudo aneurysm; however, there is very little recognizable renal tissue evident. Sulfur Colloid Nuclear scan my be of benefit. Seen by Dr Melendrez specialist in kidney transplant. Straight cath attempted w/ insuff sample. No surgical intervention indicated at this time per Dr Melendrez. Patient with previous failed kidney transplant, possibly kidney itself has a distorted appearance. (8) Atrial fibrillation with RVR ICD Code: I48.91 Status: Acute Plan: cardiac enzymes negative x3 appreciate cardiology recommendations hold anticoagulation off Cardizem drip Started on metoprolol and cardizem po by cardiology with good rate control 11/29 Heart rate not controlled - diltiazem dose increased to 120 mg by mouth 3 times a day by cardiology. 11/30 HR better controlled continue cardizem (9) HTN (hypertension) ICD Code: I10 Status: Chronic Plan: Patient's blood pressure slightly lower today however could MAP.continue metoprolol and cardizem po. Continue as needed medication. (10) Glaucoma ICD Code: H40.9 Status: Chronic Plan: Continue Brimonidine ophtalmic drops, seems stable Assessment and Plan DVT prophylaxis: Scd's, no chemoprophylaxis given anemia and poss retroperitoneal hemorrhage GI prophylaxis: Discharge Planning Transfer to medical floor. DC whrn improved and cleared by consultants. Problem Qualifiers (1) Anemia: Qualified Code: D64.9 - Anemia, unspecified type (2) Leukocytosis: Qualified Code: D72.829 - Leukocytosis, unspecified type (3) HTN (hypertension): Qualified Code: I10 - Essential hypertension Chastity Og MD Dec 03, 2016 14:56
[2016-12-03] MEDS: EPOETIN ALFA 10,000 UNITS/ML VIAL IV PRN (17:01)
[2016-12-03] MEDS: MUPIROCIN 2% OINT 1 APPLIC/GM SYR EACH NARE SCH (21:18)
[2016-12-04] VITALS (8 sets, daily range): BP systolic 105–119; BP diastolic 59–77; PULSE 75–108; RESP 16–20; TEMP 97.5–99.1; O2SAT 93–98
[2016-12-04] MEDS: DILTIAZEM HCL 60 MG TAB PO SCH ×3 (09:00→17:37)
[2016-12-04] MEDS: SODIUM CHLORIDE 0.9% FLUSH 5 ML FLUSH FLUSH SCH ×2 (09:00→20:20)
[2016-12-04] MEDS: METOPROLOL TARTRATE 100 MG TAB PO SCH ×2 (09:00→20:11)
--- NOTE | 2016-12-04 09:55 | HHI.DS ---
Discharge Summary Admission Date Nov 27, 2016 at 06:40 Discharge Date: Jan 05, 2017 Admitting Diagnosis Afib with RVR, suspected sleep apnea with desaturations at night (1) Atrial fibrillation with RVR ICD Code: I48.91 Diagnosis: Principal (2) SIRS (systemic inflammatory response syndrome) ICD Code: R65.10 Diagnosis: Principal (3) Acute hypoxemic respiratory failure ICD Code: J96.01 Diagnosis: Principal (4) Encephalopathy acute ICD Code: G93.40 Diagnosis: Principal (5) Anemia ICD Code: D64.9 Diagnosis: Secondary (6) Leukocytosis ICD Code: D72.829 Diagnosis: Secondary (7) Thrombocytosis ICD Code: D47.3 Diagnosis: Secondary (8) ESRD (end stage renal disease) on dialysis ICD Code: N18.6 Diagnosis: Secondary (9) HTN (hypertension) ICD Code: I10 Diagnosis: Secondary (10) Glaucoma ICD Code: H40.9 Diagnosis: Secondary Procedures none Brief History - From Admission This is a 66-year-old male with past medical history of dementia, end-stage renal disease on hemodialysis, failed renal transplant, history of atrial fibrillation, depression, CAD, CVA and as stated below, who presents to [facility] after reportedly becoming lethargic. The patient also was noted to have a heart rate in the 160s prior to arrival. The patient is currently a resident of the [facility] longterm, he was given Cardizem 10 g IV push 1 initially in the emergency department with decrease his heart rate into the low 100. The patient is lethargic and unable to provide any history at this moment. The patient was seen in emergency department, noted to have a hemoglobin of 6.8, patient is tachycardic and as reported has episodes of apnea. As per report the patient was tachypneic initially as well. There are no reports of diarrhea, nausea, vomiting, there are also no reports of patient complaining of chest pain. Patient noted to be in A. fib with RVR and started on Cardizem drip. Patient was also placed on BiPAP due to repeated episodes of hypoxemia. Upper review of medical records it is noted the patient was recently discharged on 13 after being admitted because of altered mental status secondary to Proteus mirabilis bacteremia. At the time ID was consulted and it was unclear what the source was. CBC/BMP: 12/02/16 0436 12/02/16 0436 Significant Findings Laboratory Tests Test 12/01/16 12/02/16 12:58 04:36 Red Blood Count 3.54 MIL/MM3 3.53 MIL/MM3 (4.50-5.90) (4.50-5.90) Hemoglobin 9.4 GM/DL 9.3 GM/DL (13.0-17.0) (13.0-17.0) Hematocrit 29.4 % 29.3 % (39.0-51.0) (39.0-51.0) Mean Corpuscular Hemoglobin 26.7 PG 26.5 PG (27.0-34.0) (27.0-34.0) Red Cell Distribution Width 19.9 % 20.7 % (11.6-17.2) (11.6-17.2) Platelet Count 504 TH/MM3 521 TH/MM3 (150-450) (150-450) Neutrophils (%) (Auto) 75.4 % 74.8 % (16.0-70.0) (16.0-70.0) Monocytes (%) (Auto) 8.8 % (0.0-8.0) Chloride Level 94 MEQ/L 95 MEQ/L (98-107) (98-107) Blood Urea Nitrogen 24 MG/DL (7-18) 28 MG/DL (7-18) Creatinine 6.03 MG/DL 7.17 MG/DL (0.60-1.30) (0.60-1.30) Estimat Glomerular Filtration 11 ML/MIN (>89) 9 ML/MIN (>89) Rate Prealbumin 11 MG/DL (20-40) Mean Corpuscular Hemoglobin 31.9 % Concent (32.0-36.0) Imaging Last Impressions Renal Ultrasound 12/02/16 0000 Signed Impressions: Service Date/Time: Friday, December 02, 2016 10:27 - CONCLUSION: 1. Markedly abnormal renal transplant. 2. I do not see a pseudo aneurysm; however, there is very little recognizable renal tissue evident. Sulfur Colloid Nuclear scan my be of benefit. Trey Laguerre MD FACR Abdomen/Pelvis CT 11/28/16 0000 Signed Impressions: Service Date/Time: November 20:56 - CONCLUSION: 1. Suspected enlarging hematoma in the right retroperitoneum abutting the anterior margin of the right psoas muscle in the pelvis. An area of increased density to suggest active hemorrhage is not seen. 2. Renal atrophy. 3. 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 This was present previously. 4. Degenerative change in the lower lumbar spine. Norm Nur MD Chest X-Ray 11/27/16 0440 Signed Impressions: Service Date/Time: Sunday, November 27, 2016 04:58 - CONCLUSION: 1. Cardiomegaly. No acute pulmonary disease. Eyal Juares MD Head CT 11/27/16 0000 Signed Impressions: Service Date/Time: Sunday, November 27, 2016 13:45 - CONCLUSION: No acute intracranial disease. Nonspecific white matter changes. Faisal Carpio MD Chest CT 11/27/16 0000 Signed Impressions: Service Date/Time: Sunday, November 27, 2016 13:49 - CONCLUSION: 1. Cardiomegaly with coronary artery calcifications. 2. No infiltrate or mass. 3. No pulmonary edema or pleural effusions. Faisal Carpio MD PE at Discharge GENERAL: This is a well-nourished, well-developed patient, in no apparent distress. SKIN: No rashes, ecchymoses or lesions. Cool and dry. HEAD: Atraumatic. Normocephalic. No temporal or scalp tenderness. EYES: Pupils equal round and reactive. Extraocular motions intact. No scleral icterus. No injection or drainage. ENT: Nose without bleeding, purulent drainage or septal hematoma. Throat without erythema, tonsillar hypertrophy or exudate. Uvula midline. Airway patent. NECK: Trachea midline. No JVD or lymphadenopathy. Supple, nontender, no meningeal signs. CARDIOVASCULAR: Regular rate and rhythm without murmurs, gallops, or rubs. RESPIRATORY: Clear to auscultation. Breath sounds equal bilaterally. No wheezes , rales, or rhonchi. GASTROINTESTINAL: Abdomen soft, non-tender, nondistended. No hepato-splenomegaly , or palpable masses. No guarding. MUSCULOSKELETAL: Extremities without clubbing, cyanosis, or edema. No joint tenderness, effusion, or edema noted. No calf tenderness. Negative Homans sign bilaterally. NEUROLOGICAL: Awake and alert. Moves all extremities. follows commands and answers questions. Hospital Course (1) SIRS (systemic inflammatory response syndrome) Diarrhea: Check for C diff positive. Start flagyl 500 mg po TID. Severe protein calorie malnutrition prealb 7 . Dietary following. Add megace as patient with no appetite. Swallow eval. patient failed swallow eval, reevaluated by ST , passed swallow eval will have nurse or [employer] help with feedings. ST , instructor painting following. Dietary for calorie count. Cognitive eval. Patient improved, eating well without help, appetite improved with megace. Plan: Suspect sepsis possibly secondary to pneumonia however need to confirm this. Admitted to ICU 11/28 continue IV antibiotics as per ID - recommendations appreciated 11/29 the transplanted kidney looks bigger. Hematoma versus infection. An area of increased density to suggest active hemorrhage is not seen. There is renal atrophy, possible vascular necrosis of the left femoral head and degenerative changes in the lower lumbar spine. Appreciated ID recommendations. Dr Melendrez from Kidney transplant will be asked to evaluate transplant kidney. Vancomycin discontinued as per ID. Blood cultures negative to date. OFF antibiotics since 11/28 (2) Acute hypoxemic respiratory failure. Resolved ICD Code: J96.01 Status: Acute Plan: The patient presents with respiratory rate in the mid 30s. Differential diagnosis would include pneumonia, pulmonary emboli ct head negative ct chest - no infiltrates respiratory failure resolved (3) Encephalopathy acute. Resolving ICD Code: G93.40 Status: Acute Plan: Suspect metabolic encephalopathy probably due to SIRS/Sepsis syndrome Vital neurochecks and neurological status. CT head negative fo acute intracranial process ABG showed mild hypercapnea with PCO2 48 11/28 encephalopathy seems to be resolving. 11/29 encephalopathy resolved. (4) Anemia ICD Code: D64.9 Status: Acute Plan: Acute on chronic anemia. There is no signs of active bleeding. Transfuse 2 units of packed red blood cells. Check stool guaiac continue to hold anticoagulation Poss due to retroperineal hematoma. Hemoglobin stable. Continue to monitor H/H Diffuse as needed for hemoglobin less than 7 or active bleeding. (5) Leukocytosis ICD Code: D72.829 Status: Acute Plan: Leukocytosis likely secondary to underlying infectious process versus stress induced. OFF IV abx (6) Thrombocytosis ICD Code: D47.3 Status: Acute Plan: Likely reactive. Continue to monitor platelets Platelets trending down (7) ESRD (end stage renal disease) on dialysis ICD Code: N18.6 Status: Chronic Plan: Nephrology consulted. Hemodialysis as per nephrology recommendations. Renal US 12/02 reviewed 1. Markedly abnormal renal transplant. 2. I do not see a pseudo aneurysm; however, there is very little recognizable renal tissue evident. Sulfur Colloid Nuclear scan my be of benefit. Seen by Dr Melendrez specialist in kidney transplant. Straight cath attempted w/ insuff sample. No surgical intervention indicated at this time per Dr Melendrez. Patient with previous failed kidney transplant, possibly kidney itself has a distorted appearance. (8) Atrial fibrillation with RVR ICD Code: I48.91 Status: Acute Plan: cardiac enzymes negative x3 appreciate cardiology recommendations hold anticoagulation off Cardizem drip Started on metoprolol and cardizem po by cardiology with good rate control 11/29 Heart rate not controlled - diltiazem dose increased to 120 mg by mouth 3 times a day by cardiology. 11/30 HR better controlled continue cardizem (9) HTN (hypertension) ICD Code: I10 Status: Chronic Plan: Patient's blood pressure slightly lower today however could MAP.continue metoprolol and cardizem po. Continue as needed medication. (10) Glaucoma ICD Code: H40.9 Status: Chronic Plan: Continue Brimonidine ophtalmic drops, seems stable Assessment and Plan DVT prophylaxis: Scd's, no chemoprophylaxis given anemia and poss retroperitoneal hemorrhage GI prophylaxis: Improved. Cleared by consultants for discharged. He was discharged in stable condition to SNF, to follow up as OP with PCP and consultants. Pt Condition on Discharge: Stable Discharge Disposition: Discharge to SNF Discharge Time: > 30 minutes Discharge Instructions DIET: Follow Instructions for: As Tolerated, No Restrictions Speech Therapy-Diet Recommends: Chopped Meat w/Gravy Additional Diet Instructions: supplement diet with ensure Activities you can perform: Regular-No Restrictions Follow up Referrals: Cardiology - 2 Weeks Nephrology - 3-5 Days PCP Follow-up - 3-5 Days New Medications: Megestrol Liq (Megace Liq) 40 Mg/Ml Susp 400 MG PO DAILY Improve Appetite #30 Ref 0 ML Metronidazole (Flagyl) 500 Mg Tab 500 MG PO QID Infection Days 10 Ref 0 TAB Diltiazem (Cardizem) 60 Mg Tab 120 MG PO TID a fib #90 TAB Continued Medications: Acetaminophen (Tylenol) 325 Mg Tab 650 MG PO Q4H PRN FEVER Ref 0 TAB Apixaban (Eliquis) 5 Mg Tab 5 MG PO BID Blood Clot Prevention #60 Ref 0 TAB Brimonidine Opth Drops (Alphagan P Opth Drops) 0.15% Soln 1 DROP EACH EYE HS Intraocular pressure #1 Ref 0 BOTTLE Chlorpromazine HCl (Chlorpromazine HCl) 25 Mg Tab 25 MG PO TID Cinacalcet (Sensipar) 30 Mg Tab 30 MG PO DAILY With Dinner #30 Ref 0 TAB Clonidine (Catapres) 0.1 Mg Tab 0.1 MG PO Q6HR PRN SPB >175 OR DBP >100 #60 Ref 0 TAB Diphenhydramine (Benadryl Allergy) 25 Mg Tab 25 MG PO Q8HR PRN ITCHING Ref 0 TAB Ipratropium-Albuterol Neb (Duoneb) 0.5-2.5 Mg/3 Ml Neb 1 NEBULE INH Q4HR NEB PRN SHORTNESS OF BREATH #180 Ref 0 NEBULE Metoprolol Tartrate (Metoprolol Tartrate) 100 Mg Tab 100 MG PO BID #60 Ref 0 TAB Prochlorperazine Maleate (Prochlorperazine Maleate) 10 Mg Tab 10 MG PO Q6H PRN NAUSEA OR VOMITING Ref 0 TAB Saline (Sea Soft Nasal Mist) 0.65 % Spr 1 SPRAY EACH NARE BID Sennosides-Docusate Sodium (Senna S) 8.6-50 Mg Tab 2 TAB PO BID Constipation Sevelamer Carbonate (Renvela) 800 Mg Tab 2400 MG PO DAILY QDAY, GIVEN ON , , AND FRI. GIVEN IN AN ENVELOPE SEND TO DIALYSIS WITH MEAL/SNACK. Control phosphorous levels #90 Ref 0 TAB Sevelamer Carbonate (Renvela) 800 Mg Tab 2400 MG PO TID Control phosphorous levels #180 Ref 0 TAB Sevelamer Carbonate (Renvela) 800 Mg Tab 2400 MG PO TID Control phosphorous levels #180 Ref 0 TAB Terazosin (Terazosin) 2 Mg Cap 2 MG PO HS #30 Ref 0 CAP Vitamin B Cmplx/Vit C/Folic AC (Nephro-[place] Rx) 1 Tab 1 TAB PO DAILY TAB Chastity Og MD Dec 04, 2016 09:55
--- NOTE | 2016-12-04 10:08 | HHI.NPPN ---
Subjective Renal Failure: Chronic, End Stage Renal Disease Review of Systems Respiratory Lungs: SOB Objective Data Data 12/03/16 12/04/16 19:00 07:00 Intake Total 360 ml Output Total 3000 ml Balance -2640 ml Intake Oral 360 ml Hemodialysis 3000 ml # Voids 0 1 # Bowel Movements 3 6 Vital Signs Date Time Temp Pulse Resp B/P Pulse Ox O2 Delivery O2 Flow Rate FiO2 12/04/16 08:01 97.5 101 18 115/69 95 12/04/16 04:00 99.1 108 20 110/74 94 12/04/16 00:00 98.5 99 16 105/59 95 12/03/16 21:28 Room Air 12/03/16 20:00 99.7 82 16 106/55 97 12/03/16 19:35 93 12/03/16 18:03 98.9 89 18 119/67 99 12/03/16 16:11 Nasal Cannula 2.00 12/03/16 11:51 98 12/03/16 11:41 98.0 89 18 113/70 97 -: 12/02/16 0436 12/02/16 0436 Physical Exam General Appearance: Well Developed, Well Nourished, No Acute Distress, Comfortable Eyes Eye Exam: Pupils Equal Throat Throat Exam: Oral Mucosa [place] & Moist Pulmonary Resp Exam: Clear Bilaterally, Breath Sounds Equal Cardiology CV Exam: Good Perfusion, Irregular, Tachycardia Gastrointestinal/Abdomen GI Exam: Soft, Non-Tender, Bowel Sounds Present Musculoskeletal MS Exam: Joints Intact, Normal Gait, Unable to Ambulate Integumentary Skin Exam: Warm, Dry Extremeties Extremities Exam: Pedal Pulses Palpable Neurologic Neuro Exam: Alert, Awake, Speech Clear, Moving All Extremities Assessment/Plan Discussed Condition With: Patient Assessment Summary: Anemia of CKD, End Stage Renal Disease Problem List: (1) ESRD (end stage renal disease) on dialysis Plan: Normally dialyzes T-Th-sat, he had HD3L UF yesterday monitor fluid volume status, avoid IVF AVF right arm, monitor for complications previous failed kidney transplant, possibly kidney itself has a distorted appearance d/w dr. Aneesh MONZON to discharge (2) Anemia in chronic kidney disease Plan: transfused on admission monitor Hb (3) Atrial fibrillation Plan: monitor (4) Hypertension Plan: monitor BP,continue home medications (5) Metabolic bone disease Plan: check phos level intermittently currently stable Carloz Novoa MD Dec 04, 2016 10:08
[2016-12-04] MEDS: PANTOPRAZOLE SOD 40 MG DELAYED RELEASE TAB PO SCH (10:55)
[2016-12-04] MEDS: SODIUM CHLOR 0.9% 1000 ML INJ 1,000 ML IV SCH (12:30)
--- NOTE | 2016-12-04 15:48 | HHI.PR ---
Subjective Remarks Per nurse the patient is not eating. and he fail swallow evaluation. Patient was also noted with diarrhea 6 times. Will check C diff. Patient is alert. Says she deosn't have appetite. No fever or chills. He denies having any pain. No n/ v. Objective Vitals Vital Signs Date Time Temp Pulse Resp B/P Pulse Ox O2 Delivery O2 Flow Rate FiO2 12/04/16 12:03 98.6 82 16 118/77 12/04/16 10:08 93 12/04/16 08:01 97.5 101 18 115/69 95 12/04/16 08:00 75 12/04/16 08:00 96 Room Air 2.00 21 12/04/16 04:00 99.1 108 20 110/74 94 12/04/16 00:00 98.5 99 16 105/59 95 12/03/16 21:28 Room Air 12/03/16 20:00 99.7 82 16 106/55 97 12/03/16 19:35 93 12/03/16 18:03 98.9 89 18 119/67 99 12/03/16 16:11 Nasal Cannula 2.00 I/O 12/03/16 12/03/16 12/03/16 12/04/16 12/04/16 12/04/16 07:00 15:00 23:00 07:00 15:00 23:00 Intake Total 0 ml 360 ml 0 ml Output Total 3000 ml Balance 0 ml 360 ml -3000 ml 0 ml Intake Oral 0 ml 360 ml 0 ml Hemodialysis 3000 ml # Voids 0 0 1 0 2 # Bowel Movements 3 3 1 5 2 Result Diagram: 12/02/16 0436 12/02/16 0436 Imaging Last Impressions Renal Ultrasound 12/02/16 0000 Signed Impressions: Service Date/Time: Friday, December 02, 2016 10:27 - CONCLUSION: 1. Markedly abnormal renal transplant. 2. I do not see a pseudo aneurysm; however, there is very little recognizable renal tissue evident. Sulfur Colloid Nuclear scan my be of benefit. Trey Laguerre MD FACR Abdomen/Pelvis CT 11/28/16 0000 Signed Impressions: Service Date/Time: November 20:56 - CONCLUSION: 1. Suspected enlarging hematoma in the right retroperitoneum abutting the anterior margin of the right psoas muscle in the pelvis. An area of increased density to suggest active hemorrhage is not seen. 2. Renal atrophy. 3. 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 This was present previously. 4. Degenerative change in the lower lumbar spine. Norm Nur MD Chest X-Ray 11/27/16 0440 Signed Impressions: Service Date/Time: Sunday, November 27, 2016 04:58 - CONCLUSION: 1. Cardiomegaly. No acute pulmonary disease. Eyal Juares MD Head CT 11/27/16 0000 Signed Impressions: Service Date/Time: Sunday, November 27, 2016 13:45 - CONCLUSION: No acute intracranial disease. Nonspecific white matter changes. Faisal Carpio MD Chest CT 11/27/16 0000 Signed Impressions: Service Date/Time: Sunday, November 27, 2016 13:49 - CONCLUSION: 1. Cardiomegaly with coronary artery calcifications. 2. No infiltrate or mass. 3. No pulmonary edema or pleural effusions. Faisal Carpio MD Objective Remarks GENERAL: This is a well-nourished, well-developed patient, in no apparent distress. SKIN: No rashes, ecchymoses or lesions. Cool and dry. HEAD: Atraumatic. Normocephalic. No temporal or scalp tenderness. EYES: Pupils equal round and reactive. Extraocular motions intact. No scleral icterus. No injection or drainage. ENT: Nose without bleeding, purulent drainage or septal hematoma. Throat without erythema, tonsillar hypertrophy or exudate. Uvula midline. Airway patent. NECK: Trachea midline. No JVD or lymphadenopathy. Supple, nontender, no meningeal signs. CARDIOVASCULAR: Regular rate and rhythm without murmurs, gallops, or rubs. RESPIRATORY: Clear to auscultation. Breath sounds equal bilaterally. No wheezes , rales, or rhonchi. GASTROINTESTINAL: Abdomen soft, non-tender, nondistended. No hepato-splenomegaly , or palpable masses. No guarding. MUSCULOSKELETAL: Extremities without clubbing, cyanosis, or edema. No joint tenderness, effusion, or edema noted. No calf tenderness. Negative Homans sign bilaterally. NEUROLOGICAL: Awake and alert. Moves all extremities. follows commands and answers questions. A/P Problem List: (1) SIRS (systemic inflammatory response syndrome) ICD Code: R65.10 Status: Acute (2) Acute hypoxemic respiratory failure ICD Code: J96.01 Status: Acute (3) Encephalopathy acute ICD Code: G93.40 Status: Acute (4) Anemia ICD Code: D64.9 Status: Acute (5) Leukocytosis ICD Code: D72.829 Status: Acute (6) Thrombocytosis ICD Code: D47.3 Status: Acute (7) ESRD (end stage renal disease) on dialysis ICD Code: N18.6 Status: Chronic (8) Atrial fibrillation with RVR ICD Code: I48.91 Status: Acute (9) HTN (hypertension) ICD Code: I10 Status: Chronic (10) Glaucoma ICD Code: H40.9 Status: Chronic Assessment and Plan (1) SIRS (systemic inflammatory response syndrome) Diarrhea: Check for C diff . Discussed with Dr Benz Severe protein calorie malnutrition prealb 7 . Dietary following. Add megace as patiemt with no appetite. Swallow eval. patient failed swallow eval ICD Code: R65.10 Status: Acute Plan: Suspect sepsis possibly secondary to pneumonia however need to confirm this. Admitted to ICU 11/28 continue IV antibiotics as per ID - recommendations appreciated 11/29 the transplanted kidney looks bigger. Hematoma versus infection. An area of increased density to suggest active hemorrhage is not seen. There is renal atrophy, possible vascular necrosis of the left femoral head and degenerative changes in the lower lumbar spine. Appreciated ID recommendations. Dr Melendrez from Kidney transplant will be asked to evaluate transplant kidney. Vancomycin discontinued as per ID. Blood cultures negative to date. OFF antibiotics since 11/28 (2) Acute hypoxemic respiratory failure. Resolved ICD Code: J96.01 Status: Acute Plan: The patient presents with respiratory rate in the mid 30s. Differential diagnosis would include pneumonia, pulmonary emboli ct head negative ct chest - no infiltrates respiratory failure resolved (3) Encephalopathy acute. Resolving ICD Code: G93.40 Status: Acute Plan: Suspect metabolic encephalopathy probably due to SIRS/Sepsis syndrome Vital neurochecks and neurological status. CT head negative fo acute intracranial process ABG showed mild hypercapnea with PCO2 48 2 encephalopathy seems to be resolving. 11/29 encephalopathy resolved. (4) Anemia ICD Code: D64.9 Status: Acute Plan: Acute on chronic anemia. There is no signs of active bleeding. Transfuse 2 units of packed red blood cells. Check stool guaiac continue to hold anticoagulation Poss due to retroperineal hematoma. Hemoglobin stable. Continue to monitor H/H Diffuse as needed for hemoglobin less than 7 or active bleeding. (5) Leukocytosis ICD Code: D72.829 Status: Acute Plan: Leukocytosis likely secondary to underlying infectious process versus stress induced. OFF IV abx (6) Thrombocytosis ICD Code: D47.3 Status: Acute Plan: Likely reactive. Continue to monitor platelets Platelets trending down (7) ESRD (end stage renal disease) on dialysis ICD Code: N18.6 Status: Chronic Plan: Nephrology consulted. Hemodialysis as per nephrology recommendations. Renal US 12/02 reviewed 1. Markedly abnormal renal transplant. 2. I do not see a pseudo aneurysm; however, there is very little recognizable renal tissue evident. Sulfur Colloid Nuclear scan my be of benefit. Seen by Dr Melendrez specialist in kidney transplant. Straight cath attempted w/ insuff sample. No surgical intervention indicated at this time per Dr Melendrez. Patient with previous failed kidney transplant, possibly kidney itself has a distorted appearance. (8) Atrial fibrillation with RVR ICD Code: I48.91 Status: Acute Plan: cardiac enzymes negative x3 appreciate cardiology recommendations hold anticoagulation off Cardizem drip Started on metoprolol and cardizem po by cardiology with good rate control 11/29 Heart rate not controlled - diltiazem dose increased to 120 mg by mouth 3 times a day by cardiology. 2 HR better controlled continue cardizem (9) HTN (hypertension) ICD Code: I10 Status: Chronic Plan: Patient's blood pressure slightly lower today however could MAP.continue metoprolol and cardizem po. Continue as needed medication. (10) Glaucoma ICD Code: H40.9 Status: Chronic Plan: Continue Brimonidine ophtalmic drops, seems stable Assessment and Plan DVT prophylaxis: Scd's, no chemoprophylaxis given anemia and poss retroperitoneal hemorrhage GI prophylaxis: Discharge Planning Transfer to medical floor. DC when improved and cleared by consultants. Problem Qualifiers (1) Anemia: Qualified Code: D64.9 - Anemia, unspecified type (2) Leukocytosis: Qualified Code: D72.829 - Leukocytosis, unspecified type (3) HTN (hypertension): Qualified Code: I10 - Essential hypertension Chastity Og MD Dec 04, 2016 15:48
[2016-12-04] MEDS: MUPIROCIN 2% OINT 1 APPLIC/GM SYR EACH NARE SCH (20:10)
[2016-12-05] VITALS (8 sets, daily range): BP systolic 121–137; BP diastolic 64–95; PULSE 88–117; RESP 16–20; TEMP 97.4–98.9; O2SAT 87–98
[2016-12-05] MEDS: ACETAMINOPHEN 325 MG TAB PO PRN (01:00)
[2016-12-05] MEDS: SODIUM CHLOR 0.9% 1000 ML INJ 1,000 ML IV SCH (05:02)
[2016-12-05] MEDS: PANTOPRAZOLE SOD 40 MG DELAYED RELEASE TAB PO SCH (09:00)
[2016-12-05] MEDS: SODIUM CHLORIDE 0.9% FLUSH 5 ML FLUSH FLUSH SCH ×2 (09:00→21:18)
[2016-12-05] MEDS: METOPROLOL TARTRATE 100 MG TAB PO SCH ×2 (09:00→21:18)
[2016-12-05] MEDS: DILTIAZEM HCL 60 MG TAB PO SCH ×2 (09:00→13:00)
--- NOTE | 2016-12-05 09:12 | HHI.PR ---
Subjective Remarks Patient having diarrhea. Sample not obtainable. He is NPO per speech therapy evaluation. Patient says she is not hungry and he doesn't want to eat. No fever or chills. he denies having any pain. bothered by diarrhea. Objective Vitals Vital Signs Date Time Temp Pulse Resp B/P Pulse Ox O2 Delivery O2 Flow Rate FiO2 12/05/16 08:00 97.8 114 20 124/88 87 12/05/16 04:59 88 12/05/16 04:00 98.7 92 18 131/95 95 12/05/16 02:16 18 12/05/16 00:00 98.9 94 18 131/69 97 12/04/16 20:15 Room Air 12/04/16 20:00 98.8 80 18 119/59 96 12/04/16 16:00 98.7 83 16 115/69 98 12/04/16 12:03 98.6 82 16 118/77 12/04/16 10:08 93 I/O 12/04/16 12/04/16 12/04/16 12/05/16 12/05/16 12/05/16 06:59 14:59 22:59 06:59 14:59 22:59 Intake Total 0 ml 0 ml 573 ml Balance 0 ml 0 ml 573 ml Intake Oral 0 ml 0 ml 0 ml IV Total 573 ml # Voids 0 2 1 1 # Bowel Movements 5 2 0 3 Result Diagram: 12/02/16 0436 12/02/16 0436 Imaging Last Impressions Renal Ultrasound 12/02/16 0000 Signed Impressions: Service Date/Time: Friday, December 02, 2016 10:27 - CONCLUSION: 1. Markedly abnormal renal transplant. 2. I do not see a pseudo aneurysm; however, there is very little recognizable renal tissue evident. Sulfur Colloid Nuclear scan my be of benefit. Trey Laguerre MD FACR Abdomen/Pelvis CT 11/28/16 0000 Signed Impressions: Service Date/Time: November 20:56 - CONCLUSION: 1. Suspected enlarging hematoma in the right retroperitoneum abutting the anterior margin of the right psoas muscle in the pelvis. An area of increased density to suggest active hemorrhage is not seen. 2. Renal atrophy. 3. 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 This was present previously. 4. Degenerative change in the lower lumbar spine. Norm Nur MD Chest X-Ray 11/27/16 0440 Signed Impressions: Service Date/Time: Sunday, November 27, 2016 04:58 - CONCLUSION: 1. Cardiomegaly. No acute pulmonary disease. Eyal Juares MD Head CT 11/27/16 0000 Signed Impressions: Service Date/Time: Sunday, November 27, 2016 13:45 - CONCLUSION: No acute intracranial disease. Nonspecific white matter changes. Faisal Carpio MD Chest CT 11/27/16 0000 Signed Impressions: Service Date/Time: Sunday, November 27, 2016 13:49 - CONCLUSION: 1. Cardiomegaly with coronary artery calcifications. 2. No infiltrate or mass. 3. No pulmonary edema or pleural effusions. Faisal Carpio MD Objective Remarks GENERAL: This is a well-nourished, well-developed patient, in no apparent distress. SKIN: No rashes, ecchymoses or lesions. Cool and dry. HEAD: Atraumatic. Normocephalic. No temporal or scalp tenderness. EYES: Pupils equal round and reactive. Extraocular motions intact. No scleral icterus. No injection or drainage. ENT: Nose without bleeding, purulent drainage or septal hematoma. Throat without erythema, tonsillar hypertrophy or exudate. Uvula midline. Airway patent. NECK: Trachea midline. No JVD or lymphadenopathy. Supple, nontender, no meningeal signs. CARDIOVASCULAR: Regular rate and rhythm without murmurs, gallops, or rubs. RESPIRATORY: Clear to auscultation. Breath sounds equal bilaterally. No wheezes , rales, or rhonchi. GASTROINTESTINAL: Abdomen soft, non-tender, nondistended. No hepato-splenomegaly , or palpable masses. No guarding. MUSCULOSKELETAL: Extremities without clubbing, cyanosis, or edema. No joint tenderness, effusion, or edema noted. No calf tenderness. Negative Homans sign bilaterally. NEUROLOGICAL: Awake and alert. Moves all extremities. follows commands and answers questions. A/P Problem List: (1) SIRS (systemic inflammatory response syndrome) ICD Code: R65.10 Status: Acute (2) Acute hypoxemic respiratory failure ICD Code: J96.01 Status: Acute (3) Encephalopathy acute ICD Code: G93.40 Status: Acute (4) Anemia ICD Code: D64.9 Status: Acute (5) Leukocytosis ICD Code: D72.829 Status: Acute (6) Thrombocytosis ICD Code: D47.3 Status: Acute (7) ESRD (end stage renal disease) on dialysis ICD Code: N18.6 Status: Chronic (8) Atrial fibrillation with RVR ICD Code: I48.91 Status: Acute (9) HTN (hypertension) ICD Code: I10 Status: Chronic (10) Glaucoma ICD Code: H40.9 Status: Chronic Assessment and Plan (1) SIRS (systemic inflammatory response syndrome) Diarrhea: Check for C diff . Discussed with Dr Benz Severe protein calorie malnutrition prealb 7 . Dietary following. Add megace as patiemt with no appetite. Swallow eval. patient failed swallow eval and is NPO. ST following. Dietary for calorie count. Will also ask for cognitive eval. ICD Code: R65.10 Status: Acute Plan: Suspect sepsis possibly secondary to pneumonia however need to confirm this. Admitted to ICU 11/28 continue IV antibiotics as per ID - recommendations appreciated 11/29 the transplanted kidney looks bigger. Hematoma versus infection. An area of increased density to suggest active hemorrhage is not seen. There is renal atrophy, possible vascular necrosis of the left femoral head and degenerative changes in the lower lumbar spine. Appreciated ID recommendations. Dr Melendrez from Kidney transplant will be asked to evaluate transplant kidney. Vancomycin discontinued as per ID. Blood cultures negative to date. OFF antibiotics since 11/28 (2) Acute hypoxemic respiratory failure. Resolved ICD Code: J96.01 Status: Acute Plan: The patient presents with respiratory rate in the mid 30s. Differential diagnosis would include pneumonia, pulmonary emboli ct head negative ct chest - no infiltrates respiratory failure resolved (3) Encephalopathy acute. Resolving ICD Code: G93.40 Status: Acute Plan: Suspect metabolic encephalopathy probably due to SIRS/Sepsis syndrome Vital neurochecks and neurological status. CT head negative fo acute intracranial process ABG showed mild hypercapnea with PCO2 48 11/28 encephalopathy seems to be resolving. 11/29 encephalopathy resolved. (4) Anemia ICD Code: D64.9 Status: Acute Plan: Acute on chronic anemia. There is no signs of active bleeding. Transfuse 2 units of packed red blood cells. Check stool guaiac continue to hold anticoagulation Poss due to retroperineal hematoma. Hemoglobin stable. Continue to monitor H/H Diffuse as needed for hemoglobin less than 7 or active bleeding. (5) Leukocytosis ICD Code: D72.829 Status: Acute Plan: Leukocytosis likely secondary to underlying infectious process versus stress induced. OFF IV abx (6) Thrombocytosis ICD Code: D47.3 Status: Acute Plan: Likely reactive. Continue to monitor platelets Platelets trending down (7) ESRD (end stage renal disease) on dialysis ICD Code: N18.6 Status: Chronic Plan: Nephrology consulted. Hemodialysis as per nephrology recommendations. Renal US 12/02 reviewed 1. Markedly abnormal renal transplant. 2. I do not see a pseudo aneurysm; however, there is very little recognizable renal tissue evident. Sulfur Colloid Nuclear scan my be of benefit. Seen by Dr Melendrez specialist in kidney transplant. Straight cath attempted w/ insuff sample. No surgical intervention indicated at this time per Dr Melendrez. Patient with previous failed kidney transplant, possibly kidney itself has a distorted appearance. (8) Atrial fibrillation with RVR ICD Code: I48.91 Status: Acute Plan: cardiac enzymes negative x3 appreciate cardiology recommendations hold anticoagulation off Cardizem drip Started on metoprolol and cardizem po by cardiology with good rate control 11/29 Heart rate not controlled - diltiazem dose increased to 120 mg by mouth 3 times a day by cardiology. 11/30 HR better controlled continue cardizem (9) HTN (hypertension) ICD Code: I10 Status: Chronic Plan: Patient's blood pressure slightly lower today however could MAP.continue metoprolol and cardizem po. Continue as needed medication. (10) Glaucoma ICD Code: H40.9 Status: Chronic Plan: Continue Brimonidine ophtalmic drops, seems stable Assessment and Plan DVT prophylaxis: Scd's, no chemoprophylaxis given anemia and poss retroperitoneal hemorrhage GI prophylaxis: Discharge Planning Transfer to medical floor. DC when improved and cleared by consultants. Problem Qualifiers (1) Anemia: Qualified Code: D64.9 - Anemia, unspecified type (2) Leukocytosis: Qualified Code: D72.829 - Leukocytosis, unspecified type (3) HTN (hypertension): Qualified Code: I10 - Essential hypertension Chastity Og MD Dec 05, 2016 09:12
[2016-12-05 15:37] LABS: C. DIFF TOXIN PCR POSITIVE (NEGATIVE)
[2016-12-05 15:45] LABS: C. DIFF EPI 027 PRESUMPTIVE NEGATIVE (NEGATIVE)
[2016-12-05] MEDS: metroNIDAZOLE 500 MG TAB PO SCH ×2 (16:15→21:18)
[2016-12-05] MEDS: EPOETIN ALFA 10,000 UNITS/ML VIAL IV PRN (16:26)
[2016-12-05] MEDS: GELATIN 12 MM/7 MM FOAM TOP PRN (16:28)
[2016-12-05] MEDS: MUPIROCIN 2% OINT 1 APPLIC/GM SYR EACH NARE SCH (21:18)
[2016-12-06] VITALS (8 sets, daily range): BP systolic 99–119; BP diastolic 64–73; PULSE 59–111; RESP 18–22; TEMP 97.9–98.3; O2SAT 95–99
[2016-12-06] MEDS: SODIUM CHLOR 0.9% 1000 ML INJ 1,000 ML IV SCH ×2 (00:43→21:04)
[2016-12-06] MEDS: metroNIDAZOLE 500 MG TAB PO SCH ×3 (05:31→21:03)
[2016-12-06] MEDS: METOPROLOL TARTRATE 100 MG TAB PO SCH ×2 (08:51→21:03)
[2016-12-06] MEDS: DILTIAZEM HCL 60 MG TAB PO SCH ×3 (08:51→17:12)
[2016-12-06] MEDS: PANTOPRAZOLE SOD 40 MG DELAYED RELEASE TAB PO SCH (08:51)
[2016-12-06] MEDS: SODIUM CHLORIDE 0.9% FLUSH 5 ML FLUSH FLUSH SCH ×2 (08:51→21:03)
[2016-12-06] MEDS: MUPIROCIN 2% OINT 1 APPLIC/GM SYR EACH NARE SCH ×2 (08:51→21:04)
--- NOTE | 2016-12-06 09:00 | HHI.PR ---
Subjective Remarks Patient says she doesn't have much diarrhea. Says he has some appetite. However he is not eating per nurses, he is able to tolerate meds. No n/v. No fever or chills. Objective Vitals Vital Signs Date Time Temp Pulse Resp B/P Pulse Ox O2 Delivery O2 Flow Rate FiO2 12/06/16 08:19 97.9 108 22 119/73 98 12/06/16 04:00 98.3 91 20 116/71 99 12/06/16 00:00 97.9 97 20 117/70 95 12/05/16 21:21 117 12/05/16 20:00 Room Air 12/05/16 20:00 98.1 108 20 137/74 98 12/05/16 16:00 98.1 99 16 121/64 96 12/05/16 12:00 97.4 90 16 137/77 97 I/O 12/05/16 12/05/16 12/05/16 12/06/16 12/06/16 12/06/16 07:00 15:00 23:00 07:00 15:00 23:00 Intake Total 573 ml 0 ml Output Total 2000 ml Balance 573 ml 0 ml -2000 ml Intake Oral 0 ml 0 ml IV Total 573 ml Hemodialysis 2000 ml # Voids 1 1 0 # Bowel Movements 3 1 0 Result Diagram: 12/02/16 0436 12/02/16 0436 Imaging Last Impressions Renal Ultrasound 12/02/16 0000 Signed Impressions: Service Date/Time: Friday, December 02, 2016 10:27 - CONCLUSION: 1. Markedly abnormal renal transplant. 2. I do not see a pseudo aneurysm; however, there is very little recognizable renal tissue evident. Sulfur Colloid Nuclear scan my be of benefit. Trey Laguerre MD FACR Abdomen/Pelvis CT 11/28/16 0000 Signed Impressions: Service Date/Time: November 20:56 - CONCLUSION: 1. Suspected enlarging hematoma in the right retroperitoneum abutting the anterior margin of the right psoas muscle in the pelvis. An area of increased density to suggest active hemorrhage is not seen. 2. Renal atrophy. 3. 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 This was present previously. 4. Degenerative change in the lower lumbar spine. Norm Nur MD Chest X-Ray 11/27/16 0440 Signed Impressions: Service Date/Time: Sunday, November 27, 2016 04:58 - CONCLUSION: 1. Cardiomegaly. No acute pulmonary disease. Eyal Juares MD Head CT 11/27/16 0000 Signed Impressions: Service Date/Time: Sunday, November 27, 2016 13:45 - CONCLUSION: No acute intracranial disease. Nonspecific white matter changes. Faisal Carpio MD Chest CT 11/27/16 0000 Signed Impressions: Service Date/Time: Sunday, November 27, 2016 13:49 - CONCLUSION: 1. Cardiomegaly with coronary artery calcifications. 2. No infiltrate or mass. 3. No pulmonary edema or pleural effusions. Faisal Carpio MD Objective Remarks GENERAL: This is a well-nourished, well-developed patient, in no apparent distress. SKIN: No rashes, ecchymoses or lesions. Cool and dry. HEAD: Atraumatic. Normocephalic. No temporal or scalp tenderness. EYES: Pupils equal round and reactive. Extraocular motions intact. No scleral icterus. No injection or drainage. ENT: Nose without bleeding, purulent drainage or septal hematoma. Throat without erythema, tonsillar hypertrophy or exudate. Uvula midline. Airway patent. NECK: Trachea midline. No JVD or lymphadenopathy. Supple, nontender, no meningeal signs. CARDIOVASCULAR: Regular rate and rhythm without murmurs, gallops, or rubs. RESPIRATORY: Clear to auscultation. Breath sounds equal bilaterally. No wheezes , rales, or rhonchi. GASTROINTESTINAL: Abdomen soft, non-tender, nondistended. No hepato-splenomegaly , or palpable masses. No guarding. MUSCULOSKELETAL: Extremities without clubbing, cyanosis, or edema. No joint tenderness, effusion, or edema noted. No calf tenderness. Negative Homans sign bilaterally. NEUROLOGICAL: Awake and alert. Moves all extremities. follows commands and answers questions. A/P Problem List: (1) SIRS (systemic inflammatory response syndrome) ICD Code: R65.10 Status: Acute (2) Acute hypoxemic respiratory failure ICD Code: J96.01 Status: Acute (3) Encephalopathy acute ICD Code: G93.40 Status: Acute (4) Anemia ICD Code: D64.9 Status: Acute (5) Leukocytosis ICD Code: D72.829 Status: Acute (6) Thrombocytosis ICD Code: D47.3 Status: Acute (7) ESRD (end stage renal disease) on dialysis ICD Code: N18.6 Status: Chronic (8) Atrial fibrillation with RVR ICD Code: I48.91 Status: Acute (9) HTN (hypertension) ICD Code: I10 Status: Chronic (10) Glaucoma ICD Code: H40.9 Status: Chronic Assessment and Plan (1) SIRS (systemic inflammatory response syndrome) Diarrhea: Check for C diff positive. Start flagyl 500 mg po TID. Severe protein calorie malnutrition prealb 7 . Dietary following. Add megace as patient with no appetite. Swallow eval. patient failed swallow eval and is NPO. ST following. Dietary for calorie count. Will also ask for cognitive eval. Plan: Suspect sepsis possibly secondary to pneumonia however need to confirm this. Admitted to ICU 11/28 continue IV antibiotics as per ID - recommendations appreciated 11/29 the transplanted kidney looks bigger. Hematoma versus infection. An area of increased density to suggest active hemorrhage is not seen. There is renal atrophy, possible vascular necrosis of the left femoral head and degenerative changes in the lower lumbar spine. Appreciated ID recommendations. Dr Melendrez from Kidney transplant will be asked to evaluate transplant kidney. Vancomycin discontinued as per ID. Blood cultures negative to date. OFF antibiotics since 11/28 (2) Acute hypoxemic respiratory failure. Resolved ICD Code: J96.01 Status: Acute Plan: The patient presents with respiratory rate in the mid 30s. Differential diagnosis would include pneumonia, pulmonary emboli ct head negative ct chest - no infiltrates respiratory failure resolved (3) Encephalopathy acute. Resolving ICD Code: G93.40 Status: Acute Plan: Suspect metabolic encephalopathy probably due to SIRS/Sepsis syndrome Vital neurochecks and neurological status. CT head negative fo acute intracranial process ABG showed mild hypercapnea with PCO2 48 11/28 encephalopathy seems to be resolving. 11/29 encephalopathy resolved. (4) Anemia ICD Code: D64.9 Status: Acute Plan: Acute on chronic anemia. There is no signs of active bleeding. Transfuse 2 units of packed red blood cells. Check stool guaiac continue to hold anticoagulation Poss due to retroperineal hematoma. Hemoglobin stable. Continue to monitor H/H Diffuse as needed for hemoglobin less than 7 or active bleeding. (5) Leukocytosis ICD Code: D72.829 Status: Acute Plan: Leukocytosis likely secondary to underlying infectious process versus stress induced. OFF IV abx (6) Thrombocytosis ICD Code: D47.3 Status: Acute Plan: Likely reactive. Continue to monitor platelets Platelets trending down (7) ESRD (end stage renal disease) on dialysis ICD Code: N18.6 Status: Chronic Plan: Nephrology consulted. Hemodialysis as per nephrology recommendations. Renal US 12/02 reviewed 1. Markedly abnormal renal transplant. 2. I do not see a pseudo aneurysm; however, there is very little recognizable renal tissue evident. Sulfur Colloid Nuclear scan my be of benefit. Seen by Dr Melendrez specialist in kidney transplant. Straight cath attempted w/ insuff sample. No surgical intervention indicated at this time per Dr Melendrez. Patient with previous failed kidney transplant, possibly kidney itself has a distorted appearance. (8) Atrial fibrillation with RVR ICD Code: I48.91 Status: Acute Plan: cardiac enzymes negative x3 appreciate cardiology recommendations hold anticoagulation off Cardizem drip Started on metoprolol and cardizem po by cardiology with good rate control 11/29 Heart rate not controlled - diltiazem dose increased to 120 mg by mouth 3 times a day by cardiology. 11/30 HR better controlled continue cardizem (9) HTN (hypertension) ICD Code: I10 Status: Chronic Plan: Patient's blood pressure slightly lower today however could MAP.continue metoprolol and cardizem po. Continue as needed medication. (10) Glaucoma ICD Code: H40.9 Status: Chronic Plan: Continue Brimonidine ophtalmic drops, seems stable Assessment and Plan DVT prophylaxis: Scd's, no chemoprophylaxis given anemia and poss retroperitoneal hemorrhage GI prophylaxis: Discharge Planning Transfer to medical floor. DC when improved and cleared by consultants. Problem Qualifiers (1) Anemia: Qualified Code: D64.9 - Anemia, unspecified type (2) Leukocytosis: Qualified Code: D72.829 - Leukocytosis, unspecified type (3) HTN (hypertension): Qualified Code: I10 - Essential hypertension Chastity Og MD Dec 06, 2016 09:00
[2016-12-06 12:15] LABS: AUTOMATED NEUTROPHIL # 4.7 TH/MM3 (1.8-7.7); BASOPHIL # 0.1 TH/MM3 (0-0.2); BASOPHIL % 0.7 % (0.0-2.0); EOSINOPHIL # 0.4 TH/MM3 (0-0.4); EOSINOPHIL % 5.4 % (0.0-4.0); HEMATOCRIT 31.7 % (39.0-51.0); HEMO FLAGS DIFF FINAL; LYMPH % 21.2 % (9.0-44.0); LYMPHOCYTE # 1.6 TH/MM3 (1.0-4.8); MEAN CELL VOLUME 83.5 FL (80.0-100.0); MEAN CORPUSCULAR HEMOGLOBIN 26.1 PG (27.0-34.0); MEAN CORPUSCULAR HGB CONC 31.2 % (32.0-36.0); MONO % 10.4 % (0.0-8.0); NEUT % 62.3 % (16.0-70.0); PLATELET COUNT 512 TH/MM3 (150-450); RED BLOOD COUNT 3.79 MIL/MM3 (4.50-5.90); RED CELL DISTRIBUTION WIDTH 20.5 % (11.6-17.2); WHITE BLOOD COUNT 7.6 TH/MM3 (4.0-11.0)
[2016-12-06 12:38] LABS: BICARBONATE 30.4 MEQ/L (21.0-32.0); POTASSIUM 3.3 MEQ/L (3.5-5.1)
--- NOTE | 2016-12-06 13:17 | HHI.NPPN ---
Subjective Renal Failure: Chronic, End Stage Renal Disease Review of Systems Respiratory Lungs: SOB Objective Data Data 12/05/16 12/06/16 19:00 07:00 Intake Total 0 ml Output Total 2000 ml Balance -2000 ml Intake Oral 0 ml Hemodialysis 2000 ml # Voids 1 0 # Bowel Movements 1 0 Vital Signs Date Time Temp Pulse Resp B/P Pulse Ox O2 Delivery O2 Flow Rate FiO2 12/06/16 12:03 98.0 60 22 104/68 98 12/06/16 10:27 Room Air 21 12/06/16 08:19 97.9 108 22 119/73 98 12/06/16 04:00 98.3 91 20 116/71 99 12/06/16 00:00 97.9 97 20 117/70 95 12/05/16 21:21 117 12/05/16 20:00 Room Air 12/05/16 20:00 98.1 108 20 137/74 98 12/05/16 16:00 98.1 99 16 121/64 96 -: 12/06/16 1123 12/06/16 1120 Physical Exam General Appearance: Well Developed, Well Nourished, No Acute Distress, Comfortable Eyes Eye Exam: Pupils Equal Throat Throat Exam: Oral Mucosa Lyman & Moist Pulmonary Resp Exam: Clear Bilaterally, Breath Sounds Equal Cardiology CV Exam: Good Perfusion, Irregular, Tachycardia Gastrointestinal/Abdomen GI Exam: Soft, Non-Tender, Bowel Sounds Present Musculoskeletal MS Exam: Joints Intact, Normal Gait, Unable to Ambulate Integumentary Skin Exam: Warm, Dry Extremeties Extremities Exam: Pedal Pulses Palpable Neurologic Neuro Exam: Alert, Awake, Speech Clear, Moving All Extremities Assessment/Plan Discussed Condition With: Patient Assessment Summary: Anemia of CKD, End Stage Renal Disease Problem List: (1) ESRD (end stage renal disease) on dialysis Plan: Normally dialyzes T-Th-sat, he had HD 2 L UF yesterday monitor fluid volume status, avoid IVF AVF right arm, monitor for complications previous failed kidney transplant, possibly kidney itself has a distorted appearance d/w dr. Melendrez could not be discharged due to mild case of c diff positive been treated on Metronidazole 500 mg q 8 (2) Anemia in chronic kidney disease Plan: transfused on admission monitor Hb (3) Atrial fibrillation Plan: monitor (4) Hypertension Plan: monitor BP,continue home medications (5) Metabolic bone disease Plan: check phos level intermittently currently stable Bright,Sajid MD Dec 06, 2016 13:17
[2016-12-07] VITALS (7 sets, daily range): BP systolic 90–131; BP diastolic 58–85; PULSE 61–104; RESP 12–18; TEMP 97.3–99.2; O2SAT 96–100
[2016-12-07] MEDS: metroNIDAZOLE 500 MG TAB PO SCH ×3 (06:02→20:39)
[2016-12-07] MEDS: EPOETIN ALFA 10,000 UNITS/ML VIAL IV PRN (09:33)
[2016-12-07] MEDS: SODIUM CHLOR 0.9% 1000 ML INJ 1,000 ML IV PRN (09:33)
[2016-12-07] MEDS: GELATIN 12 MM/7 MM FOAM TOP PRN (09:34)
--- NOTE | 2016-12-07 10:14 | HHI.NPPN ---
Subjective Renal Failure: Chronic, End Stage Renal Disease Additional Remarks Patient seen on HD, no SOB, no abd. pain. Review of Systems Respiratory Lungs: SOB Objective Data Data 12/06/16 12/07/16 19:00 07:00 Intake Total 0 ml 0 ml Output Total 0 ml Balance 0 ml 0 ml Intake Oral 0 ml 0 ml Output Urine Total 0 ml # Voids 1 # Bowel Movements 0 0 Vital Signs Date Time Temp Pulse Resp B/P Pulse Ox O2 Delivery O2 Flow Rate FiO2 12/07/16 07:56 98.0 84 12 131/85 100 12/07/16 04:00 97.3 84 18 128/78 98 12/07/16 00:00 98.3 70 18 127/69 96 12/06/16 20:01 78 12/06/16 20:00 Room Air 12/06/16 20:00 98.2 72 18 99/70 98 12/06/16 16:03 98.1 59 20 119/64 98 12/06/16 12:03 98.0 60 22 104/68 98 12/06/16 10:27 Room Air 21 -: 12/06/16 1123 12/06/16 1120 Physical Exam General Appearance: No Acute Distress, Comfortable Eyes Eye Exam: Pupils Equal Throat Throat Exam: Oral Mucosa Cumby & Moist Pulmonary Resp Exam: Clear Bilaterally, Breath Sounds Equal Cardiology CV Exam: Good Perfusion, Irregular, Tachycardia Gastrointestinal/Abdomen GI Exam: Soft, Non-Tender, Bowel Sounds Present Musculoskeletal MS Exam: Joints Intact, Normal Gait, Unable to Ambulate Integumentary Skin Exam: Warm, Dry Neurologic Neuro Exam: Alert, Awake Assessment/Plan Discussed Condition With: Patient Assessment Summary: Anemia of CKD, End Stage Renal Disease Problem List: (1) ESRD (end stage renal disease) on dialysis Plan: Normally dialyzes T-Th-sat, he had HD 2 L UF yesterday monitor fluid volume status, avoid IVF AVF right arm, monitor for complications previous failed kidney transplant, possibly kidney itself has a distorted appearance d/w dr. Melendrez Now on HD, BP is stable, removing 2 liters. On Metronidazole, for C.difficile. (2) Anemia in chronic kidney disease Plan: transfused on admission monitor Hb (3) Atrial fibrillation Plan: monitor (4) Hypertension Plan: monitor BP,continue home medications (5) Metabolic bone disease Plan: check phos level intermittently currently stable Afua Kearney MD Dec 07, 2016 10:14
[2016-12-07] MEDS: METOPROLOL TARTRATE 100 MG TAB PO SCH ×2 (11:48→20:39)
[2016-12-07] MEDS: MUPIROCIN 2% OINT 1 APPLIC/GM SYR EACH NARE SCH ×2 (11:48→20:39)
[2016-12-07] MEDS: PANTOPRAZOLE SOD 40 MG DELAYED RELEASE TAB PO SCH (11:48)
[2016-12-07] MEDS: DILTIAZEM HCL 60 MG TAB PO SCH ×3 (11:48→17:11)
[2016-12-07] MEDS: SODIUM CHLORIDE 0.9% FLUSH 5 ML FLUSH FLUSH SCH ×2 (11:49→20:39)
--- NOTE | 2016-12-07 16:34 | HHI.PR ---
Subjective Remarks Patient says he has less diarrhea. He did pass swallow evaluation. I spoke with the nurse to help patient feeding. Patient denies any fever or chills. No cp, sob. Feesl tired. Says has some appetite. Objective Vitals Vital Signs Date Time Temp Pulse Resp B/P Pulse Ox O2 Delivery O2 Flow Rate FiO2 12/07/16 12:51 Room Air 2.00 21 12/07/16 12:00 97.9 104 12 131/71 99 12/07/16 07:56 98.0 84 12 131/85 100 12/07/16 04:00 97.3 84 18 128/78 98 12/07/16 00:00 98.3 70 18 127/69 96 12/06/16 20:01 78 12/06/16 20:00 Room Air 12/06/16 20:00 98.2 72 18 99/70 98 I/O 12/06/16 12/06/16 12/06/16 12/07/16 12/07/16 12/07/16 06:59 14:59 22:59 06:59 14:59 22:59 Intake Total 0 ml 0 ml 0 ml 240 ml Output Total 0 ml 0 ml 2000 ml Balance 0 ml 0 ml 0 ml -1760 ml Intake Oral 0 ml 0 ml 0 ml 240 ml Output Urine Total 0 ml 0 ml Hemodialysis 2000 ml # Voids 1 2 # Bowel Movements 0 0 0 0 Result Diagram: 12/06/16 1123 12/06/16 1120 Imaging Last Impressions Renal Ultrasound 12/02/16 0000 Signed Impressions: Service Date/Time: Friday, December 02, 2016 10:27 - CONCLUSION: 1. Markedly abnormal renal transplant. 2. I do not see a pseudo aneurysm; however, there is very little recognizable renal tissue evident. Sulfur Colloid Nuclear scan my be of benefit. Trey Laguerre MD FACR Abdomen/Pelvis CT 11/28/16 0000 Signed Impressions: Service Date/Time: November 20:56 - CONCLUSION: 1. Suspected enlarging hematoma in the right retroperitoneum abutting the anterior margin of the right psoas muscle in the pelvis. An area of increased density to suggest active hemorrhage is not seen. 2. Renal atrophy. 3. 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 This was present previously. 4. Degenerative change in the lower lumbar spine. Norm Nur MD Chest X-Ray 11/27/16 0440 Signed Impressions: Service Date/Time: Sunday, November 27, 2016 04:58 - CONCLUSION: 1. Cardiomegaly. No acute pulmonary disease. Eyal Juares MD Head CT 11/27/16 0000 Signed Impressions: Service Date/Time: Sunday, November 27, 2016 13:45 - CONCLUSION: No acute intracranial disease. Nonspecific white matter changes. Faisal Carpio MD Chest CT 11/27/16 0000 Signed Impressions: Service Date/Time: Sunday, November 27, 2016 13:49 - CONCLUSION: 1. Cardiomegaly with coronary artery calcifications. 2. No infiltrate or mass. 3. No pulmonary edema or pleural effusions. Faisal Carpio MD Objective Remarks GENERAL: This is a well-nourished, well-developed patient, in no apparent distress. SKIN: No rashes, ecchymoses or lesions. Cool and dry. HEAD: Atraumatic. Normocephalic. No temporal or scalp tenderness. EYES: Pupils equal round and reactive. Extraocular motions intact. No scleral icterus. No injection or drainage. ENT: Nose without bleeding, purulent drainage or septal hematoma. Throat without erythema, tonsillar hypertrophy or exudate. Uvula midline. Airway patent. NECK: Trachea midline. No JVD or lymphadenopathy. Supple, nontender, no meningeal signs. CARDIOVASCULAR: Regular rate and rhythm without murmurs, gallops, or rubs. RESPIRATORY: Clear to auscultation. Breath sounds equal bilaterally. No wheezes , rales, or rhonchi. GASTROINTESTINAL: Abdomen soft, non-tender, nondistended. No hepato-splenomegaly , or palpable masses. No guarding. MUSCULOSKELETAL: Extremities without clubbing, cyanosis, or edema. No joint tenderness, effusion, or edema noted. No calf tenderness. Negative Homans sign bilaterally. NEUROLOGICAL: Awake and alert. Moves all extremities. follows commands and answers questions. A/P Problem List: (1) SIRS (systemic inflammatory response syndrome) ICD Code: R65.10 Status: Acute (2) Acute hypoxemic respiratory failure ICD Code: J96.01 Status: Acute (3) Encephalopathy acute ICD Code: G93.40 Status: Acute (4) Anemia ICD Code: D64.9 Status: Acute (5) Leukocytosis ICD Code: D72.829 Status: Acute (6) Thrombocytosis ICD Code: D47.3 Status: Acute (7) ESRD (end stage renal disease) on dialysis ICD Code: N18.6 Status: Chronic (8) Atrial fibrillation with RVR ICD Code: I48.91 Status: Acute (9) HTN (hypertension) ICD Code: I10 Status: Chronic (10) Glaucoma ICD Code: H40.9 Status: Chronic Assessment and Plan (1) SIRS (systemic inflammatory response syndrome) Diarrhea: Check for C diff positive. Start flagyl 500 mg po TID. Severe protein calorie malnutrition prealb 7 . Dietary following. Add megace as patient with no appetite. Swallow eval. patient failed swallow eval, reevaluated by ST , passed swallow eval will have nurse or CHIEF PHYSICAL THERAPIST help with feedings. ST , branch officer following. Dietary for calorie count. Cognitive eval. Plan: Suspect sepsis possibly secondary to pneumonia however need to confirm this. Admitted to ICU 11/28 continue IV antibiotics as per ID - recommendations appreciated 11/29 the transplanted kidney looks bigger. Hematoma versus infection. An area of increased density to suggest active hemorrhage is not seen. There is renal atrophy, possible vascular necrosis of the left femoral head and degenerative changes in the lower lumbar spine. Appreciated ID recommendations. Dr Melendrez from Kidney transplant will be asked to evaluate transplant kidney. Vancomycin discontinued as per ID. Blood cultures negative to date. OFF antibiotics since 11/28 (2) Acute hypoxemic respiratory failure. Resolved ICD Code: J96.01 Status: Acute Plan: The patient presents with respiratory rate in the mid 30s. Differential diagnosis would include pneumonia, pulmonary emboli ct head negative ct chest - no infiltrates respiratory failure resolved (3) Encephalopathy acute. Resolving ICD Code: G93.40 Status: Acute Plan: Suspect metabolic encephalopathy probably due to SIRS/Sepsis syndrome Vital neurochecks and neurological status. CT head negative fo acute intracranial process ABG showed mild hypercapnea with PCO2 48 11/28 encephalopathy seems to be resolving. 11/29 encephalopathy resolved. (4) Anemia ICD Code: D64.9 Status: Acute Plan: Acute on chronic anemia. There is no signs of active bleeding. Transfuse 2 units of packed red blood cells. Check stool guaiac continue to hold anticoagulation Poss due to retroperineal hematoma. Hemoglobin stable. Continue to monitor H/H Diffuse as needed for hemoglobin less than 7 or active bleeding. (5) Leukocytosis ICD Code: D72.829 Status: Acute Plan: Leukocytosis likely secondary to underlying infectious process versus stress induced. OFF IV abx (6) Thrombocytosis ICD Code: D47.3 Status: Acute Plan: Likely reactive. Continue to monitor platelets Platelets trending down (7) ESRD (end stage renal disease) on dialysis ICD Code: N18.6 Status: Chronic Plan: Nephrology consulted. Hemodialysis as per nephrology recommendations. Renal US 12/02 reviewed 1. Markedly abnormal renal transplant. 2. I do not see a pseudo aneurysm; however, there is very little recognizable renal tissue evident. Sulfur Colloid Nuclear scan my be of benefit. Seen by Dr Melendrez specialist in kidney transplant. Straight cath attempted w/ insuff sample. No surgical intervention indicated at this time per Dr Melendrez. Patient with previous failed kidney transplant, possibly kidney itself has a distorted appearance. (8) Atrial fibrillation with RVR ICD Code: I48.91 Status: Acute Plan: cardiac enzymes negative x3 appreciate cardiology recommendations hold anticoagulation off Cardizem drip Started on metoprolol and cardizem po by cardiology with good rate control 11/29 Heart rate not controlled - diltiazem dose increased to 120 mg by mouth 3 times a day by cardiology. 11/30 HR better controlled continue cardizem (9) HTN (hypertension) ICD Code: I10 Status: Chronic Plan: Patient's blood pressure slightly lower today however could MAP.continue metoprolol and cardizem po. Continue as needed medication. (10) Glaucoma ICD Code: H40.9 Status: Chronic Plan: Continue Brimonidine ophtalmic drops, seems stable Assessment and Plan DVT prophylaxis: Scd's, no chemoprophylaxis given anemia and poss retroperitoneal hemorrhage GI prophylaxis: Discharge Planning Transfer to medical floor. DC when improved and cleared by consultants. Problem Qualifiers (1) Anemia: Qualified Code: D64.9 - Anemia, unspecified type (2) Leukocytosis: Qualified Code: D72.829 - Leukocytosis, unspecified type (3) HTN (hypertension): Qualified Code: I10 - Essential hypertension Chastity Og MD Dec 07, 2016 16:34
[2016-12-08] VITALS: BP 136/63; PULSE 60; RESP 18; TEMP 98; O2SAT 98
[2016-12-08 04:00] VITALS: BP 118/81; PULSE 88; RESP 20; TEMP 97.6; O2SAT 94
[2016-12-08] MEDS: metroNIDAZOLE 500 MG TAB PO SCH ×2 (05:53→12:52)
[2016-12-08 08:02] VITALS: BP 121/72; PULSE 77; RESP 18; TEMP 97.8; O2SAT 97
[2016-12-08] MEDS: DILTIAZEM HCL 60 MG TAB PO SCH ×2 (09:02→12:52)
[2016-12-08] MEDS: METOPROLOL TARTRATE 100 MG TAB PO SCH (09:02)
[2016-12-08] MEDS: MUPIROCIN 2% OINT 1 APPLIC/GM SYR EACH NARE SCH (09:02)
[2016-12-08] MEDS: PANTOPRAZOLE SOD 40 MG DELAYED RELEASE TAB PO SCH (09:02)
[2016-12-08] MEDS: SODIUM CHLORIDE 0.9% FLUSH 5 ML FLUSH FLUSH SCH (09:03)
[2016-12-08 10:37] LABS: AUTOMATED NEUTROPHIL # 4.3 TH/MM3 (1.8-7.7); BASOPHIL # 0.1 TH/MM3 (0-0.2); BASOPHIL % 0.9 % (0.0-2.0); EOSINOPHIL # 0.3 TH/MM3 (0-0.4); HEMATOCRIT 33.1 % (39.0-51.0); HEMO FLAGS DIFF FINAL; LYMPH % 18.6 % (9.0-44.0); LYMPHOCYTE # 1.3 TH/MM3 (1.0-4.8); MEAN CELL VOLUME 82.2 FL (80.0-100.0); MEAN CORPUSCULAR HEMOGLOBIN 26.9 PG (27.0-34.0); MEAN CORPUSCULAR HGB CONC 32.7 % (32.0-36.0); MONO % 11.8 % (0.0-8.0); NEUT % 63.7 % (16.0-70.0); PLATELET COUNT 449 TH/MM3 (150-450); RED BLOOD COUNT 4.03 MIL/MM3 (4.50-5.90); RED CELL DISTRIBUTION WIDTH 21.1 % (11.6-17.2); WHITE BLOOD COUNT 6.8 TH/MM3 (4.0-11.0)
[2016-12-08 10:46] LABS: BICARBONATE 29.2 MEQ/L (21.0-32.0); MAGNESIUM 1.9 MG/DL (1.5-2.5); POTASSIUM 3.9 MEQ/L (3.5-5.1)
--- NOTE | 2016-12-08 11:18 | HHI.NPPN ---
Subjective Renal Failure: Chronic, End Stage Renal Disease Additional Remarks Patient is alert, not in distress. Review of Systems Respiratory Lungs: SOB Objective Data Data 12/07/16 12/08/16 19:00 07:00 Intake Total 240 ml 0 ml Output Total 2000 ml Balance -1760 ml 0 ml Intake Oral 240 ml 0 ml Hemodialysis 2000 ml # Voids 2 1 # Bowel Movements 0 Vital Signs Date Time Temp Pulse Resp B/P Pulse Ox O2 Delivery O2 Flow Rate FiO2 12/08/16 08:55 Room Air 12/08/16 08:02 97.8 77 18 121/72 97 12/08/16 04:00 97.6 88 20 118/81 94 12/08/16 00:00 98.0 60 18 136/63 98 12/07/16 20:00 98.0 61 18 115/72 98 12/07/16 20:00 85 12/07/16 20:00 Room Air 2.00 21 12/07/16 16:00 99.2 70 12 90/58 96 12/07/16 12:51 Room Air 2.00 21 12/07/16 12:00 97.9 104 12 131/71 99 -: 12/08/16 0956 12/08/16 0956 Physical Exam General Appearance: No Acute Distress, Comfortable Eyes Eye Exam: Pupils Equal Throat Throat Exam: Oral Mucosa [place] & Moist Pulmonary Resp Exam: Clear Bilaterally, Breath Sounds Equal Cardiology CV Exam: Good Perfusion, Irregular, Tachycardia Gastrointestinal/Abdomen GI Exam: Soft, Non-Tender, Bowel Sounds Present Musculoskeletal MS Exam: Joints Intact, Normal Gait, Unable to Ambulate Integumentary Skin Exam: Warm, Dry Neurologic Neuro Exam: Alert, Awake Assessment/Plan Discussed Condition With: Patient Assessment Summary: Anemia of CKD, End Stage Renal Disease Problem List: (1) ESRD (end stage renal disease) on dialysis Plan: Normally dialyzes T-Th-sat, monitor fluid volume status, avoid IVF AVF right arm, monitor for complications previous failed kidney transplant, possibly kidney itself has a distorted appearance d/w dr. Melendrez On Metronidazole, for C.difficile. HD was done yesterday. (2) Anemia in chronic kidney disease Plan: transfused on admission monitor Hb (3) Atrial fibrillation Plan: monitor (4) Hypertension Plan: monitor BP,continue home medications (5) Metabolic bone disease Plan: check phos level intermittently currently stable Afua Kearney MD Dec 08, 2016 11:18
[2016-12-08 12:02] VITALS: BP 107/65; PULSE 86; RESP 18; TEMP 97.8; O2SAT 93
--- NOTE | 2016-12-08 13:09 | HHI.PR ---
Subjective Remarks Had 2 episodes of diarrhea yesterday. One episode of diarrhea in the morning today. He is eating better, appetite is better. no pain in his belly. No fevr or chills. No n/v. Objective Vitals Vital Signs Date Time Temp Pulse Resp B/P Pulse Ox O2 Delivery O2 Flow Rate FiO2 12/08/16 08:55 Room Air 12/08/16 08:02 97.8 77 18 121/72 97 12/08/16 04:00 97.6 88 20 118/81 94 12/08/16 00:00 98.0 60 18 136/63 98 12/07/16 20:00 98.0 61 18 115/72 98 12/07/16 20:00 85 12/07/16 20:00 Room Air 2.00 21 12/07/16 16:00 99.2 70 12 90/58 96 I/O 12/07/16 12/07/16 12/07/16 12/08/16 12/08/16 12/08/16 07:00 15:00 23:00 07:00 15:00 23:00 Intake Total 0 ml 240 ml 0 ml Output Total 0 ml 2000 ml Balance 0 ml -1760 ml 0 ml Intake Oral 0 ml 240 ml 0 ml Output Urine Total 0 ml Hemodialysis 2000 ml # Voids 2 1 # Bowel Movements 0 0 Result Diagram: 12/08/16 0956 12/08/16 0956 Imaging Last Impressions Renal Ultrasound 12/02/16 0000 Signed Impressions: Service Date/Time: Friday, December 02, 2016 10:27 - CONCLUSION: 1. Markedly abnormal renal transplant. 2. I do not see a pseudo aneurysm; however, there is very little recognizable renal tissue evident. Sulfur Colloid Nuclear scan my be of benefit. Trye Laguerre MD FACR Abdomen/Pelvis CT 11/28/16 0000 Signed Impressions: Service Date/Time: November 20:56 - CONCLUSION: 1. Suspected enlarging hematoma in the right retroperitoneum abutting the anterior margin of the right psoas muscle in the pelvis. An area of increased density to suggest active hemorrhage is not seen. 2. Renal atrophy. 3. 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 This was present previously. 4. Degenerative change in the lower lumbar spine. Norm Nur MD Chest X-Ray 11/27/16 0440 Signed Impressions: Service Date/Time: Sunday, November 27, 2016 04:58 - CONCLUSION: 1. Cardiomegaly. No acute pulmonary disease. Eyal Juares MD Head CT 11/27/16 0000 Signed Impressions: Service Date/Time: Sunday, November 27, 2016 13:45 - CONCLUSION: No acute intracranial disease. Nonspecific white matter changes. Faisal Carpio MD Chest CT 11/27/16 0000 Signed Impressions: Service Date/Time: Sunday, November 27, 2016 13:49 - CONCLUSION: 1. Cardiomegaly with coronary artery calcifications. 2. No infiltrate or mass. 3. No pulmonary edema or pleural effusions. Faisal Carpio MD Objective Remarks GENERAL: This is a well-nourished, well-developed patient, in no apparent distress. SKIN: No rashes, ecchymoses or lesions. Cool and dry. HEAD: Atraumatic. Normocephalic. No temporal or scalp tenderness. EYES: Pupils equal round and reactive. Extraocular motions intact. No scleral icterus. No injection or drainage. ENT: Nose without bleeding, purulent drainage or septal hematoma. Throat without erythema, tonsillar hypertrophy or exudate. Uvula midline. Airway patent. NECK: Trachea midline. No JVD or lymphadenopathy. Supple, nontender, no meningeal signs. CARDIOVASCULAR: Regular rate and rhythm without murmurs, gallops, or rubs. RESPIRATORY: Clear to auscultation. Breath sounds equal bilaterally. No wheezes , rales, or rhonchi. GASTROINTESTINAL: Abdomen soft, non-tender, nondistended. No hepato-splenomegaly , or palpable masses. No guarding. MUSCULOSKELETAL: Extremities without clubbing, cyanosis, or edema. No joint tenderness, effusion, or edema noted. No calf tenderness. Negative Homans sign bilaterally. NEUROLOGICAL: Awake and alert. Moves all extremities. follows commands and answers questions. A/P Problem List: (1) SIRS (systemic inflammatory response syndrome) ICD Code: R65.10 Status: Acute (2) Acute hypoxemic respiratory failure ICD Code: J96.01 Status: Acute (3) Encephalopathy acute ICD Code: G93.40 Status: Acute (4) Anemia ICD Code: D64.9 Status: Acute (5) Leukocytosis ICD Code: D72.829 Status: Acute (6) Thrombocytosis ICD Code: D47.3 Status: Acute (7) ESRD (end stage renal disease) on dialysis ICD Code: N18.6 Status: Chronic (8) Atrial fibrillation with RVR ICD Code: I48.91 Status: Acute (9) HTN (hypertension) ICD Code: I10 Status: Chronic (10) Glaucoma ICD Code: H40.9 Status: Chronic Assessment and Plan (1) SIRS (systemic inflammatory response syndrome) Diarrhea: Check for C diff positive. Start flagyl 500 mg po TID. Severe protein calorie malnutrition prealb 7 . Dietary following. Add megace as patient with no appetite. Swallow eval. patient failed swallow eval, reevaluated by ST , passed swallow eval will have nurse or TYPE CUTTER help with feedings. ST , boathouse keeper following. Dietary for calorie count. Cognitive eval. Plan: Suspect sepsis possibly secondary to pneumonia however need to confirm this. Admitted to ICU 11/28 continue IV antibiotics as per ID - recommendations appreciated 11/29 the transplanted kidney looks bigger. Hematoma versus infection. An area of increased density to suggest active hemorrhage is not seen. There is renal atrophy, possible vascular necrosis of the left femoral head and degenerative changes in the lower lumbar spine. Appreciated ID recommendations. Dr Melendrez from Kidney transplant will be asked to evaluate transplant kidney. Vancomycin discontinued as per ID. Blood cultures negative to date. OFF antibiotics since 11/28 (2) Acute hypoxemic respiratory failure. Resolved ICD Code: J96.01 Status: Acute Plan: The patient presents with respiratory rate in the mid 30s. Differential diagnosis would include pneumonia, pulmonary emboli ct head negative ct chest - no infiltrates respiratory failure resolved (3) Encephalopathy acute. Resolving ICD Code: G93.40 Status: Acute Plan: Suspect metabolic encephalopathy probably due to SIRS/Sepsis syndrome Vital neurochecks and neurological status. CT head negative fo acute intracranial process ABG showed mild hypercapnea with PCO2 48 11/28 encephalopathy seems to be resolving. 11/29 encephalopathy resolved. (4) Anemia ICD Code: D64.9 Status: Acute Plan: Acute on chronic anemia. There is no signs of active bleeding. Transfuse 2 units of packed red blood cells. Check stool guaiac continue to hold anticoagulation Poss due to retroperineal hematoma. Hemoglobin stable. Continue to monitor H/H Diffuse as needed for hemoglobin less than 7 or active bleeding. (5) Leukocytosis ICD Code: D72.829 Status: Acute Plan: Leukocytosis likely secondary to underlying infectious process versus stress induced. OFF IV abx (6) Thrombocytosis ICD Code: D47.3 Status: Acute Plan: Likely reactive. Continue to monitor platelets Platelets trending down (7) ESRD (end stage renal disease) on dialysis ICD Code: N18.6 Status: Chronic Plan: Nephrology consulted. Hemodialysis as per nephrology recommendations. Renal US 12/02 reviewed 1. Markedly abnormal renal transplant. 2. I do not see a pseudo aneurysm; however, there is very little recognizable renal tissue evident. Sulfur Colloid Nuclear scan my be of benefit. Seen by Dr Melendrez specialist in kidney transplant. Straight cath attempted w/ insuff sample. No surgical intervention indicated at this time per Dr Melendrez. Patient with previous failed kidney transplant, possibly kidney itself has a distorted appearance. (8) Atrial fibrillation with RVR ICD Code: I48.91 Status: Acute Plan: cardiac enzymes negative x3 appreciate cardiology recommendations hold anticoagulation off Cardizem drip Started on metoprolol and cardizem po by cardiology with good rate control 11/29 Heart rate not controlled - diltiazem dose increased to 120 mg by mouth 3 times a day by cardiology. 2 HR better controlled continue cardizem (9) HTN (hypertension) ICD Code: I10 Status: Chronic Plan: Patient's blood pressure slightly lower today however could MAP.continue metoprolol and cardizem po. Continue as needed medication. (10) Glaucoma ICD Code: H40.9 Status: Chronic Plan: Continue Brimonidine ophtalmic drops, seems stable Assessment and Plan DVT prophylaxis: Scd's, no chemoprophylaxis given anemia and poss retroperitoneal hemorrhage GI prophylaxis: Discharge Planning Transfer to medical floor. DC when improved and cleared by consultants. Patient is improving plan to DC to SNF when diarrhea subsides and eating better. Problem Qualifiers (1) Anemia: Qualified Code: D64.9 - Anemia, unspecified type (2) Leukocytosis: Qualified Code: D72.829 - Leukocytosis, unspecified type (3) HTN (hypertension): Qualified Code: I10 - Essential hypertension Chastity Og MD Dec 08, 2016 13:09
[2016-12-08] MEDS ORDERED: MEGE40S PO (13:11)
[2016-12-08] MEDS ORDERED: METR-1 PO (13:11)
[2016-12-08 13:24] VITALS: PULSE 101
== END 2016-12-08 17:25 | DRG 871 ==
LOC: NEPE 04:07 → INTOOBSV 06:17 → NEDA 06:17 → OBSVTOIN 06:40 → HIMW 16:35 → UNDODISIN 11-28 20:45 → N04B 12-02 17:25
PROVIDERS: ADMIT Hospitalist; ATTEND Hospitalist
PROC: 5A1D60Z (ICD-10-PCS; principal; 2016-11-27)
DX: A41.9 Sepsis, unspecified organism (principal); J96.01 Acute respiratory failure with hypoxia; E43 Unspecified severe protein-calorie malnutrition; G93.41 Metabolic encephalopathy; T86.12 Kidney transplant failure; A04.7 Enterocolitis due to Clostridium difficile; N25.81 Secondary hyperparathyroidism of renal origin; I12.0 Hypertensive chronic kidney disease with stage 5 chronic kidney disease or end stage renal disease; I48.0 Paroxysmal atrial fibrillation; I48.2 Chronic atrial fibrillation; I69.351 Hemiplegia and hemiparesis following cerebral infarction affecting right dominant side; N18.6 End stage renal disease; I48.92 Unspecified atrial flutter; D63.1 Anemia in chronic kidney disease; I25.119 Atherosclerotic heart disease of native coronary artery with unspecified angina pectoris; H40.10X0 Unspecified open-angle glaucoma, stage unspecified; K21.9 Gastro-esophageal reflux disease without esophagitis; D47.3 Essential (hemorrhagic) thrombocythemia; E78.5 Hyperlipidemia, unspecified; Y83.0 Surgical operation with transplant of whole organ as the cause of abnormal reaction of the patient, or of later complication, without mention of misadventure at the time of the procedure; Z95.5 Presence of coronary angioplasty implant and graft; Z99.2 Dependence on renal dialysis; Z87.891 Personal history of nicotine dependence
CPT/HCPCS: 36430; 36600; 70450; 71010; 71250; 74176; 76776; 76937; 80048; 80053; 80069; 82272; 82550; 82552; 82805; 83605; 83690; 83735; 84100; 84134; 84484; 85025; 85610; 85730; 86850; 86900; 86901; 86920; 87040; 87493; 87641; 87804; 90935; 93005; 94002; 96365; 96374; 96375; J0692; J2543; J3370; J7030; J7050; P9016; Q4081; Q9963

== ENCOUNTER 2016-12-21 12:04 | Emergency (ER) | payer MEDICARE, OTHER ==
[~2016-12-21] VITALS: Ht 177.8 cm; Wt 90.0 kg
[~2016-12-21 12:04] MED LIST changes: -ACIDCAP2 PO; -AUGM500T7 PO; +DILT60TA33 PO; -DILT90TA PO; -DULC10SU3 RECTAL; -FLEEENE3 PR; +IPRASOL INH; +MEGE40S PO; +METR-1 PO; -MILKSUS PO; +NEPHRO PO; -NEPHTAB3 PO; -NEPRLIQ PO; -NOVOLOGP2 SQ; +PROC10TA PO; +TYLE325T PO; +[UNRECOGNIZED DRUG - CODE] EACH NARE; -[UNRECOGNIZED DRUG - OTHER] EACH NARE
[2016-12-21 12:31] VITALS: BP 115/54; PULSE 94; RESP 16; TEMP 98.2; O2SAT 96
--- NOTE | 2016-12-21 12:47 | PD ---
HPI Chief Complaint: Fall Time Seen by Provider: 12:35 Travel History International Travel<30 days: No Contact w/Intl Traveler<30days: No Traveled to known affect area: No History of Present Illness HPI Patient is a 66-year-old male presents emergency department after fall. Patient lives at the [place] [facility], and was under [facility] transport to go to dialysis at [facility]. They had gotten him off the [employer] bus into his wheelchair when he slid out of the wheelchair landing on the ground on his buttock. Patient denies any complaints at this time. Per EMS at some point he did complain of some leg pain but denies this here. Patient has baseline mental status GCS 13, and is a poor historian. He has not yet had dialysis performed. PFSH Past Medical History Arthritis: Yes (R/HAND ) Atrial Fibrillation: Yes Autoimmune Disease: No Blood Disorders: No Anxiety: Yes Depression: Yes Heart Rhythm Problems: Yes Cancer: No Cardiac Catheterization: Yes Cardiovascular Problems: Yes High Cholesterol: Yes Chest Pain: Yes Congestive Heart Failure: No Cerebrovascular Accident: Yes Coronary Artery Disease: Yes Diabetes: Yes Dialysis: Yes (HISTORY OF; NOT SINCE KIDNEY TRANSPLANT) Diverticulitis: Yes Endocrine: Yes Gastrointestinal Disorders: Yes GERD: Yes Glaucoma: Yes Gout: Yes Genitourinary: Yes (RIGHT KIDNEY TRANSPLANT) Headaches: No Hepatitis: No Hiatal Hernia: No Hypertension: Yes Immune Disorder: No Implanted Vascular Access Dvce: Yes Kidney Stones: No Musculoskeletal: Yes Neurologic: Yes (BELLS PALSY A CHILD) Psychiatric: Yes (SCHIZOPHRENIA) Reproductive: No Respiratory: No Migraines: No Myocardial Infarction: No Renal Failure: Yes Schizophrenia: Yes Seizures: No Shingles: Yes Thyroid Disease: No Ulcer: No ?: Not Past Surgical History Abdominal Surgery: No AICD: No Appendectomy: No Arteriovenous Shunt: Yes (LEFT UPPER ARM X2) Cholecystectomy: No Coronary Stent: Yes (X 1) Ear Surgery: No Endocrine Surgery: No Eye Surgery: No Genitourinary Surgery: Yes (KIDNEY TRANSPLANT) Insulin Pump: No Joint Replacement: No Oral Surgery: No Pacemaker: No Thoracic Surgery: No Other Surgery: Yes (KIDNEY TRANSPLANT) Social History Alcohol Use: No (UNABLE TO ASSESS) Tobacco Use: No (FORMER SMOKER) Substance Use: Yes (COCAINE LAST TIME USED 1989) Allergies-Medications (Allergen,Severity, Reaction): Coded Allergies: *MDRO Multi-Drug Resistant Organism (Verified Adverse Reaction, Unknown, ) MRSA PCR screen POSITIVE - 11/27/16 Reported Meds & Prescriptions Reported Meds & Active Scripts Active Flagyl (Metronidazole) 500 Mg Tab 500 Mg PO QID 10 Days Megace Liq (Megestrol Acetate) 40 Mg/Ml Susp 400 Mg PO DAILY Cardizem (Diltiazem HCl) 60 Mg Tab 120 Mg PO TID Reported Duoneb (Ipratropium-Albuterol Neb) 0.5-2.5 Mg/3 Ml Neb 1 Nebule INH Q4HR NEB PRN Tylenol (Acetaminophen) 325 Mg Tab 650 Mg PO Q4H PRN Sea Soft Nasal Mist (Saline) 0.65 % Spr 1 [place] EACH NARE BID Renvela (Sevelamer Carbonate) 800 Mg Tab 2,400 Mg PO TID Renvela (Sevelamer Carbonate) 800 Mg Tab 2,400 Mg PO TID Nephro-[place] Rx (Vitamin B Cmplx/Vit C/Folic AC) 1 Tab 1 Tab PO DAILY Prochlorperazine Maleate 10 Mg Tab 10 Mg PO Q6H PRN Terazosin (Terazosin HCl) 2 Mg Cap 2 Mg PO HS Metoprolol Tartrate 100 Mg Tab 100 Mg PO BID Sensipar (Cinacalcet) 30 Mg Tab 30 Mg PO DAILY With Dinner Senna S (Sennosides-Docusate Sodium) 8.6-50 Mg Tab 2 Tab PO BID Renvela (Sevelamer Carbonate) 800 Mg Tab 2,400 Mg PO DAILY QDAY, GIVEN ON , , AND FRI. GIVEN IN AN ENVELOPE SEND TO DIALYSIS WITH MEAL/SNACK. Eliquis (Apixaban) 5 Mg Tab 5 Mg PO BID Catapres (Clonidine) 0.1 Mg Tab 0.1 Mg PO Q6HR PRN Chlorpromazine HCl 25 Mg Tab 25 Mg PO TID Benadryl Allergy (Diphenhydramine HCl) 25 Mg Tab 25 Mg PO Q8HR PRN Alphagan P Opth Drops (Brimonidine Tartrate) 0.15% Soln 1 Drop EACH EYE HS Review of Systems ROS Limitations: Poor Historian Physical Exam Exam Limitations: Poor Historian Narrative GENERAL: Elderly male in no acute distress HEAD: Atraumatic. Normocephalic. EYES: Pupils equal and round. No scleral icterus. No injection or drainage. ENT: No nasal bleeding or discharge. Mucous membranes pink and moist. NECK: Supple without midline tenderness to palpation CARDIOVASCULAR: Regular rate and rhythm. No murmur appreciated. RESPIRATORY: No accessory muscle use. Clear to auscultation. Breath sounds equal bilaterally. GASTROINTESTINAL: Abdomen soft, non-tender, nondistended. MUSCULOSKELETAL: No midline tenderness to palpation of the thoracic or lumbar spine. Pelvis is stable to AP and lateral compression. Range of motion of the bilateral lower extremities is full, pain-free. Good distal sensation. NEUROLOGICAL: Awake and alert to self, patient has seasonal hospital but does not know which one. Patient alert to year but not date, confused about historical questioning. Motor grossly within normal limits. Normal speech. Data Data Last Documented VS Vital Signs Date Time Temp Pulse Resp B/P Pulse Ox O2 Delivery O2 Flow Rate FiO2 12/21/16 12:31 98.2 94 16 115/54 96 MDM Medical Decision Making Medical Screen Exam Complete: Yes Emergency Medical Condition: Yes Medical Record Reviewed: Yes Differential Diagnosis 66-year-old male here after a fall from wheelchair. Patient denies any complaints in his exam is unremarkable and nonfocal. His fall was described as mechanical. No witnessed syncope. Patient denies any complaints to suspect pelvic fracture, hip fracture, etc. He is hemodynamically stable and does not warrant any further workup. Narrative Course Case management consulted to attempt to get patient ride home versus dialysis. Diagnosis Primary Impression: Fall Qualified Code: W19.XXXA - Fall, initial encounter Referrals: Primary Care Physician as needed Med/Other Pt SpecificInfo: No Change to Meds Disposition: 01 DISCHARGE HOME Condition: Stable Jeanette Winkler MD Dec 21, 2016 12:47
[2016-12-21 13:45] VITALS: BP 120/64; PULSE 91; RESP 20; O2SAT 98
== END 2016-12-21 15:08 | disposition home or self-care (01) ==
LOC: NEPA 12:04
DX: M79.606 Pain in leg, unspecified (principal); I48.91 Unspecified atrial fibrillation; E11.9 Type 2 diabetes mellitus without complications; I10 Essential (primary) hypertension; W05.0XXA Fall from non-moving wheelchair, initial encounter; Y92.538 Other ambulatory health services establishments as the place of occurrence of the external cause; Z99.2 Dependence on renal dialysis
CPT/HCPCS: 99284

== ENCOUNTER 2018-01-15 12:16 | Inpatient (IN) | payer MEDICARE, MEDICAID ==
[2018-01-15] VITALS (8 sets, daily range): BP systolic 148–171; BP diastolic 81–94; PULSE 66–105; RESP 18–20; TEMP 97.5–98.9; O2SAT 100
--- NOTE | 2018-01-15 13:28 | PD ---
HPI Chief Complaint: Abnormal Results Time Seen by Provider: 13:09 Travel History International Travel<30 days: No Contact w/Intl Traveler<30days: No Traveled to known affect area: No History of Present Illness HPI [facility], apparently his last dialysis was on Friday, and due to his fistula no longer working he cannot receive dialysis. Unclear to me as to why the patient was not sent to the ER on Friday instead on , however Dr. ANGUIANO stand grinder sent the patient over to the ER for Vas-Cath placement and dialysis today. Patient denies any shortness of breath, chest pain or palpitations currently. PCP is Dr. RICHARD DAVID No known drug allergies Past medical history significant for end-stage renal disease on dialysis Friday schedule, open angle glaucoma, coronary artery disease , stent placement, hypercholesterolemia, atrial fibrillation, hypertension, diverticulitis, GERD, kidney transplant, dialysis with the last AV fistula on his left upper extremity, diabetes, schizophrenia, bipolar PFSH Past Medical History Arthritis: Yes (R/HAND ) Atrial Fibrillation: Yes Autoimmune Disease: No Blood Disorders: No Anxiety: Yes Depression: Yes Heart Rhythm Problems: Yes Cancer: No Cardiac Catheterization: Yes Cardiovascular Problems: Yes High Cholesterol: Yes Chest Pain: Yes Congestive Heart Failure: No Cerebrovascular Accident: Yes Coronary Artery Disease: Yes Diabetes: Yes Patient Takes Glucophage: Yes Dialysis: Yes Diverticulitis: Yes Endocrine: Yes Gastrointestinal Disorders: Yes GERD: Yes Glaucoma: Yes Gout: Yes Genitourinary: Yes (RIGHT KIDNEY TRANSPLANT) Headaches: No Hepatitis: No Hiatal Hernia: No Hypertension: Yes Immune Disorder: No Implanted Vascular Access Dvce: Yes Kidney Stones: No Musculoskeletal: Yes Neurologic: Yes (BELLS PALSY A CHILD) Psychiatric: Yes (SCHIZOPHRENIA) Reproductive: No Respiratory: No Migraines: No Myocardial Infarction: No Renal Failure: Yes Schizophrenia: Yes Seizures: No Shingles: Yes Thyroid Disease: No Ulcer: No Past Surgical History Abdominal Surgery: No AICD: No Appendectomy: No Arteriovenous Shunt: Yes (LEFT UPPER ARM X2) Cholecystectomy: No Coronary Stent: Yes (X 1) Ear Surgery: No Endocrine Surgery: No Eye Surgery: No Genitourinary Surgery: Yes (KIDNEY TRANSPLANT) Insulin Pump: No Joint Replacement: No Oral Surgery: No Pacemaker: No Thoracic Surgery: No Other Surgery: Yes (KIDNEY TRANSPLANT) Social History Alcohol Use: No (UNABLE TO ASSESS) Tobacco Use: No (FORMER SMOKER) Substance Use: Yes (COCAINE LAST TIME USED 1989) Allergies-Medications (Allergen,Severity, Reaction): Coded Allergies: *MDRO Multi-Drug Resistant Organism (Verified Adverse Reaction, Unknown, ) MRSA PCR screen POSITIVE - 11/27/16 Reported Meds & Prescriptions Reported Meds & Active Scripts Active Flagyl (Metronidazole) 500 Mg Tab 500 Mg PO QID 10 Days Megace Liq (Megestrol Acetate) 40 Mg/Ml Susp 400 Mg PO DAILY Cardizem (Diltiazem HCl) 60 Mg Tab 120 Mg PO TID Reported Duoneb (Ipratropium-Albuterol Neb) 0.5-2.5 Mg/3 Ml Neb 1 Nebule INH Q4HR NEB PRN Tylenol (Acetaminophen) 325 Mg Tab 650 Mg PO Q4H PRN Sea Soft Nasal Mist (Saline) 0.65 % Spr 1 [place] EACH NARE BID Renvela (Sevelamer Carbonate) 800 Mg Tab 2,400 Mg PO TID Renvela (Sevelamer Carbonate) 800 Mg Tab 2,400 Mg PO TID Nephro-[place] Rx (Vitamin B Cmplx/Vit C/Folic AC) 1 Tab 1 Tab PO DAILY Prochlorperazine Maleate 10 Mg Tab 10 Mg PO Q6H PRN Terazosin (Terazosin HCl) 2 Mg Cap 2 Mg PO HS Metoprolol Tartrate 100 Mg Tab 100 Mg PO BID Sensipar (Cinacalcet) 30 Mg Tab 30 Mg PO DAILY With Dinner Senna S (Sennosides-Docusate Sodium) 8.6-50 Mg Tab 2 Tab PO BID Renvela (Sevelamer Carbonate) 800 Mg Tab 2,400 Mg PO DAILY QDAY, GIVEN ON , , AND FRI. GIVEN IN AN ENVELOPE SEND TO DIALYSIS WITH MEAL/SNACK. Eliquis (Apixaban) 5 Mg Tab 5 Mg PO BID Catapres (Clonidine) 0.1 Mg Tab 0.1 Mg PO Q6HR PRN Chlorpromazine HCl 25 Mg Tab 25 Mg PO TID Benadryl Allergy (Diphenhydramine HCl) 25 Mg Tab 25 Mg PO Q8HR PRN Alphagan P Opth Drops (Brimonidine Tartrate) 0.15% Soln 1 Drop EACH EYE HS Review of Systems Except as stated in HPI: all other systems reviewed are Neg (Vas-Cath placement ) General / Constitutional: No: Fever Eyes: No: Visual changes HENT: No: Headaches Cardiovascular: No: Chest Pain or Discomfort Respiratory: No: Shortness of Breath Gastrointestinal: No: Abdominal Pain Genitourinary: No: Dysuria Musculoskeletal: No: Pain Skin: No Rash Neurologic: No: Weakness Psychiatric: No: Depression Endocrine: No: Polydipsia Hematologic/Lymphatic: No: Easy Bruising Physical Exam Narrative GENERAL: SKIN: Warm and dry. HEAD: Atraumatic. Normocephalic. EYES: Pupils equal and round. No scleral icterus. No injection or drainage. ENT: No nasal bleeding or discharge. Mucous membranes pink and moist. NECK: Trachea midline. No JVD. CARDIOVASCULAR: Regular rate and rhythm. RESPIRATORY: No accessory muscle use. Clear to auscultation. Breath sounds equal bilaterally. GASTROINTESTINAL: Obese abdomen soft, non-tender, nondistended. MUSCULOSKELETAL: Extremities without clubbing, cyanosis, or edema. No obvious deformities. No palpable bruit or thrill on left upper extremity fistula NEUROLOGICAL: Awake and alert. No obvious cranial nerve deficits. Patient is wheelchair-bound and cannot ambulate PSYCHIATRIC: Appropriate mood and affect; insight and judgment normal. Data Data Last Documented VS Vital Signs Date Time Temp Pulse Resp B/P (MAP) Pulse Ox O2 Delivery O2 Flow Rate FiO2 01/15/18 16:02 100 21 01/15/18 13:34 Room Air 01/15/18 13:11 98.0 69 18 Orders Orders Invasive Rad Dept Consult (01/15/18 ) Complete Blood Count With Diff (01/15/18 13:18) Comprehensive Metabolic Panel (01/15/18 13:18) Lipase (01/15/18 13:18) Prothrombin Time / Inr (Pt) (01/15/18 13:18) Act Partial Throm Time (Ptt) (01/15/18 13:18) Iv Access Insert/Monitor (01/15/18 13:18) Ecg Monitoring (01/15/18 13:18) Oximetry (01/15/18 13:18) Sodium Chloride 0.9% Flush (Ns Flush) (01/15/18 13:30) Electrocardiogram (01/15/18 13:18) *Heparin Inj (*Heparin Inj Periprocedura (01/15/18 15:03) Vital Signs (Adult) Q15MX2,Q30MX4 (01/15/18 15:18) ^ Observe For (01/15/18 15:18) Activity Bed Rest (01/15/18 15:18) Ice / Cold Pack PRN (01/15/18 15:18) Sodium Chloride 0.9% Flush (Ns Flush) (01/15/18 15:30) Heparin Inj (Heparin Inj) (01/15/18 15:30) NPO (01/15/18 15:21) Blood Flow Rate (01/15/18 15:21) Dialysate Flow Rate (01/15/18 15:) Dialyzer (01/15/18 15:) Concentrate (01/15/18 15:) Acid Concentrate (01/15/18 15:21) Length Of Dialysis (01/15/18 15:21) Frequency Of Dialysis (01/15/18 15:) Dialysis Obtain (01/15/18 15:21) Needle Size (01/15/18 15:21) Dialysis Schedule (01/15/18 15:21) Resp Oxygen Faustino C Titrat 1-4 L (01/15/18 ) Dialysis Weight (01/15/18 15:21) ^ Obtain As Needed (01/15/18 15:21) Sodium Chlor 0.9% 1000 Ml Inj (Ns 1000 M (01/15/18 15:21) Heparin Inj (Heparin Inj) (01/15/18 15:30) Sodium Chlor 0.9% 1000 Ml Inj (Ns 1000 M (01/15/18 15:21) Sodium Chlor 0.9% 1000 Ml Inj (Ns 1000 M (01/15/18 15:21) Mannitol Inj (Mannitol Inj) (01/15/18 15:30) Albumin 25% Inj (Albumin 25% Inj) (01/15/18 15:30) Sodium Chloride 0.9% Flush (Ns Flush) (01/15/18 15:30) Heparin Inj (Heparin Inj) (01/15/18 15:30) Gentamicin Inj (Gentamicin Inj) (01/15/18 15:30) Ondansetron Inj (Zofran Inj) (01/15/18 15:30) Acetaminophen (Tylenol) (01/15/18 15:30) Diphenhydramine (Benadryl) (01/15/18 15:30) Nitroglycerin Sl (Nitrostat Sl) (01/15/18 15:30) Clonidine (Catapres) (01/15/18 15:30) Epoetin Jake Inj (Epogen Inj) (01/15/18 15:30) Gelatin 12 Mm/7 Mm Top (Gelfoam 12 Mm/7 (01/15/18 15:30) Temp Dialysis Cath [facility] (01/15/18 13:18) Admit Order (Ed Use Only) (01/15/18 16:47) Labs Laboratory Tests Test 01/15/18 13:47 01/15/18 14:00 01/15/18 15:18 White Blood Count 9.8 TH/MM3 Red Blood Count 2.97 MIL/MM3 Hemoglobin 9.5 GM/DL Hematocrit 28.0 % Mean Corpuscular Volume 94.1 FL Mean Corpuscular Hemoglobin 31.9 PG Mean Corpuscular Hemoglobin Concent 33.9 % Red Cell Distribution Width 16.7 % Platelet Count 376 TH/MM3 Mean Platelet Volume 7.7 FL Neutrophils (%) (Auto) 78.5 % Lymphocytes (%) (Auto) 6.9 % Monocytes (%) (Auto) 10.4 % Eosinophils (%) (Auto) 4.0 % Basophils (%) (Auto) 0.2 % Neutrophils # (Auto) 7.7 TH/MM3 Lymphocytes # (Auto) 0.7 TH/MM3 Monocytes # (Auto) 1.0 TH/MM3 Eosinophils # (Auto) 0.4 TH/MM3 Basophils # (Auto) 0.0 TH/MM3 CBC Comment DIFF FINAL Differential Comment Prothrombin Time 10.9 SEC Prothromb Time International Ratio 1.1 RATIO Activated Partial Thromboplast Time 31.0 SEC Blood Urea Nitrogen 121 MG/DL Creatinine 14.06 MG/DL Random Glucose 95 MG/DL Total Protein 7.9 GM/DL Albumin 2.8 GM/DL Calcium Level 7.8 MG/DL Alkaline Phosphatase 209 U/L Aspartate Amino Transf (AST/SGOT) 36 U/L Alanine Aminotransferase (ALT/SGPT) 19 U/L Total Bilirubin 0.4 MG/DL Sodium Level 124 MEQ/L Potassium Level 6.7 MEQ/L Chloride Level 88 MEQ/L Carbon Dioxide Level 20.4 MEQ/L Anion Gap 16 MEQ/L Estimat Glomerular Filtration Rate 4 ML/MIN Lipase 261 U/L [facility] Medical Decision Making Medical Screen Exam Complete: Yes Emergency Medical Condition: Yes Medical Record Reviewed: Yes Interpretation(s) EKG shows sinus rhythm with first-degree AV block, incomplete right bundle branch block pattern, no peak T waves are noted, no drop P waves, no STEMI pattern. Differential Diagnosis Patient is a chronic kidney disease dialysis patient requiring vascular ACCESS for dialysis Electrolyte abnormalities versus pulmonary edema versus routine dialysis Narrative Course CBC shows no leukocytosis, no left shift, normal platelet count, Mild anemia of 9.5/28 Coagulation profile within normal limits Although there was mild hemolysis as reported by laboratory the patient does have several electrolyte abnormalities including a sodium 124, potassium of 6.7 , hypochloremia of 88, bicarb of 20, as expected a BUN of 121 and a creatinine of 14. Normal lipase and liver function tests. As expected these electrolyte changes are where expected since the patient has not had his dialysis since Friday he has now missed what would be a third dialysis cycle. Patient was able to get his vascular cath placed by interventional radiologist, and immediately sent over for dialysis. Diagnosis Primary Impression: Thrombosed AV fistula Admitting Information Admitting Physician Requests: Mulugeta Bello MD Jan 15, 2018 13:28
[2018-01-15] MEDS ORDERED: SODIUM CHLORIDE 0.9% FLUSH 10 ML FLUSH IV FLUSH PRN ×4 (13:30→17:00)
[2018-01-15 14:12] LABS: AUTOMATED NEUTROPHIL # 7.7 TH/MM3 (1.8-7.7); BASOPHIL % 0.2 % (0.0-2.0); EOSINOPHIL # 0.4 TH/MM3 (0-0.4); HEMOGLOBIN 9.5 GM/DL (13.0-17.0); LYMPH % 6.9 % (9.0-44.0); LYMPHOCYTE # 0.7 TH/MM3 (1.0-4.8); MEAN CELL VOLUME 94.1 FL (80.0-100.0); MEAN CORPUSCULAR HEMOGLOBIN 31.9 PG (27.0-34.0); MEAN CORPUSCULAR HGB CONC 33.9 % (32.0-36.0); MEAN PLATELET VOLUME 7.7 FL (7.0-11.0); MONO % 10.4 % (0.0-8.0); NEUT % 78.5 % (16.0-70.0); PLATELET COUNT 376 TH/MM3 (150-450); RED BLOOD COUNT 2.97 MIL/MM3 (4.50-5.90); RED CELL DISTRIBUTION WIDTH 16.7 % (11.6-17.2); WHITE BLOOD COUNT 9.8 TH/MM3 (4.0-11.0)
[2018-01-15 14:45] LABS: INTERNATIONAL NORMALIZED RATIO 1.1 RATIO; PROTHROMBIN TIME - PATIENT 10.9 SEC (9.8-11.6)
--- NOTE | 2018-01-15 15:20 | PD.RAD ---
Post Procedure Progress Note Pre Procedure Diagnosis: (1) ESRD (end stage renal disease) on dialysis Post Procedure Diagnosis: (1) ESRD (end stage renal disease) on dialysis Procedure Date: Jan 15, 2018 Supervising Radiologist: Giovani Laguerre Estimated blood loss: 3cc Anesthesia: Local, Conscious Sedation Plan of Activity Patient to Unit: Other Patient Condition: Poor Additional Comments: Right IJ Vascath placed without difficulty. Catheter in good position OK for use See PACS Report for procedural detail/treatment Giovani Laguerre MD Jan 15, 2018 15:20
[2018-01-15] MEDS ORDERED: SODIUM CHLOR 0.9% 1000 ML INJ 1,000 ML OTHER PRN ×2 (15:21)
[2018-01-15] MEDS ORDERED: SODIUM CHLOR 0.9% 1000 ML INJ 1,000 ML IV PRN (15:21)
[2018-01-15] MEDS ORDERED: HEPARIN SODIUM - IV 10,000 UNITS/10 ML VIAL IV FLUSH PRN (15:30)
[2018-01-15] MEDS ORDERED: HEPARIN SODIUM - IV 2,000 UNITS/2 ML VIAL IV FLUSH PRN (15:30)
[2018-01-15] MEDS ORDERED: ACETAMINOPHEN 325 MG TAB PO PRN (15:30)
[2018-01-15] MEDS ORDERED: ONDANSETRON HCL 4 MG/2 ML VIAL IV PUSH PRN (15:30)
[2018-01-15] MEDS ORDERED: GELATIN 12 MM/7 MM FOAM TOP PRN (15:30)
[2018-01-15] MEDS ORDERED: diphenhydrAMINE HCL 25 MG CAP PO PRN (15:30)
[2018-01-15] MEDS ORDERED: cloNIDine HCL 0.1 MG TAB PO PRN (15:30)
[2018-01-15] MEDS ORDERED: ALBUMIN 25% INJ 100 ML IV PRN (15:30)
[2018-01-15] MEDS ORDERED: NITROGLYCERIN 0.4 MG SL 25 TABS/BTL SL PRN (15:30)
[2018-01-15] MEDS ORDERED: MANNITOL 12.5 GM/50 ML VIAL IV PRN (15:30)
--- NOTE | 2018-01-15 15:59 | RADRPT ---
EXAM DATE/TIME: 01/15/2018 15:13 [place] COMPARISON: No previous studies available for comparison. INDICATIONS : Patient presents with end stage renal disease in need of temporary dialysis catheter for treatment. MEDICAL HISTORY : ESRD Arthritis Anxiety Depression CAD High cholesterol Diabetes Diverticulitis GERD Glaucoma HTN SURGICAL HISTORY : Kidney transplant Shunt ENCOUNTER: Initial ACUITY: 1 day PAIN SCORE: 0/10 LOCATION: N/A FLUORO TIME: 0.5 minutes IMAGE SERIES: 1 ACCESS: Right internal jugular vein DEVICE(S): 1.) 14 Kosovan dual lumen 15 cm Schon catheter PROCEDURE : 1. Ultrasound guided venipuncture. 2. Fluoroscopic guidance. 3. Central line placement. The risks, benefits and alternatives to the procedure were explained and verbal and written consent w as obtained. The site was prepped in sterile fashion. Full sterile technique was used, including ca p, mask, sterile gloves and gown and a large sterile sheet. Hand hygiene and 2% chlorhexidine prep w as utilized per protocol for cutaneous antisepsis with appropriate dry time for site. Sterile gel an d sterile probe cover were utilized for ultrasound guidance. The skin and subcutaneous tissues were infiltrated with local anesthetic solution. A suitable site a chano the vein was selected with ultrasound and fluoroscopic guidance. A small incision was made. Th e vein was accessed under direct ultrasound visualization using the micropuncture technique. The ivis ropuncture set was exchanged for a 0.035 wire. The tract was dilated. The catheter was advanced int o position under direct fluoroscopic visualization. The catheter was fixed in place with suture and a sterile dressing was applied. The patient tolerated the procedure well and there were no complications. CONCLUSION: Uncomplicated right internal jugular Vas-Cath placement as above. Giovani Laguerre MD on January 15, 2018 at 15:57 Board Certified Radiologist. This report was verified electronically.
[2018-01-15 16:18] LABS: ALBUMIN 2.8 GM/DL (3.4-5.0); ALKALINE PHOSPHATASE 209 U/L (45-117); ALT (GPT) 19 U/L (12-78); AST (GOT) 36 U/L (15-37); BICARBONATE 20.4 MEQ/L (21.0-32.0); BLOOD UREA NITROGEN 121 MG/DL (7-18); CALCIUM 7.8 MG/DL (8.5-10.1); CHLORIDE 88 MEQ/L (98-107); GLOMERULAR FILTRATION RATE 4 ML/MIN (>89); GLUCOSE,RANDOM 95 MG/DL (74-106); TOTAL BILIRUBIN ADULT 0.4 MG/DL (0.2-1.0); TOTAL PROTEIN 7.9 GM/DL (6.4-8.2)
[2018-01-15 16:22] LABS: CREATININE 14.06 MG/DL (0.60-1.30); SODIUM (NA) 124 MEQ/L (136-145)
--- NOTE | 2018-01-15 16:50 | PD.CONS ---
HPI Service Nephrology Consult Requested By Reason for Consult ESRD on HD, missed HD, access issues Primary Care Physician [facility] History of Present Illness This is a 67 y/o AAM patient who has clotted AV access and has not had HD since Friday. He is hyperkalemic at 6.7, is seen during dialysis today. His other PMH consists of CVA, HTN, anemia, and A fib. He is on Eliquis, last dose last night. Vascath placed today in IR. We were consulted to assist with management. He is a full code, will need AV declotted and possibly permcath exchange prior to discharge. 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 GERD Glaucoma Gout Hypertension Schizophrenia Past Surgical History LUE AVF [employer]INTER [employer] Kidney transplant Reported Medications Flagyl (Metronidazole) 500 Mg Tab 500 Mg PO QID 10 Days Megace Liq (Megestrol Acetate) 40 Mg/Ml Susp 400 Mg PO DAILY Cardizem (Diltiazem HCl) 60 Mg Tab 120 Mg PO TID Reported Duoneb (Ipratropium-Albuterol Neb) 0.5-2.5 Mg/3 Ml Neb 1 Nebule INH Q4HR NEB PRN Tylenol (Acetaminophen) 325 Mg Tab 650 Mg PO Q4H PRN Sea Soft Nasal Mist (Saline) 0.65 % Spr 1 [place] EACH NARE BID Renvela (Sevelamer Carbonate) 800 Mg Tab 2,400 Mg PO TID Renvela (Sevelamer Carbonate) 800 Mg Tab 2,400 Mg PO TID Nephro-[place] Rx (Vitamin B Cmplx/Vit C/Folic AC) 1 Tab 1 Tab PO DAILY Prochlorperazine Maleate 10 Mg Tab 10 Mg PO Q6H PRN Terazosin (Terazosin HCl) 2 Mg Cap 2 Mg PO HS Metoprolol Tartrate 100 Mg Tab 100 Mg PO BID Sensipar (Cinacalcet) 30 Mg Tab 30 Mg PO DAILY With Dinner Senna S (Sennosides-Docusate Sodium) 8.6-50 Mg Tab 2 Tab PO BID Renvela (Sevelamer Carbonate) 800 Mg Tab 2,400 Mg PO DAILY QDAY, GIVEN ON , , AND FRI. GIVEN IN AN ENVELOPE SEND TO DIALYSIS WITH MEAL/SNACK. Eliquis (Apixaban) 5 Mg Tab 5 Mg PO BID Catapres (Clonidine) 0.1 Mg Tab 0.1 Mg PO Q6HR PRN Chlorpromazine HCl 25 Mg Tab 25 Mg PO TID Benadryl Allergy (Diphenhydramine HCl) 25 Mg Tab 25 Mg PO Q8HR PRN Alphagan P Opth Drops (Brimonidine Tartrate) 0.15% Soln 1 Drop EACH EYE HS Active Ordered Medications Last 72 hours Impressions Catheter Placement X-Ray 01/15/18 1318 Signed Impressions: Service Date/Time: January 15:13 - CONCLUSION: Uncomplicated right internal jugular Vas-Cath placement as above. Giovani Laguerre MD Family History Non contributory Social History Lives at detention. Non smoker Full code (Germania Latham) Physical Exam Vital Signs Vital Signs Date Time Temp Pulse Resp B/P (MAP) Pulse Ox O2 Delivery O2 Flow Rate FiO2 01/15/18 16:02 100 21 01/15/18 13:34 100 Room Air 01/15/18 13:11 98.0 69 18 171/91 (117) 100 Room Air 01/15/18 12:52 97.5 66 20 165/81 (109) 100 Physical Exam Elderly AAM lying in bed on dialysis Neuro:awake, answers questions CV: S1/S2, irreg irreg, tachycardic, no murmurs Lungs: diminished throughout, diffuse crackles Abd; round, soft, normal bowel sounds Ext: trace edema, pedal pulses 2+ b/l; AVF right arm ; No thrill/bruit Laboratory Laboratory Tests Test 01/15/18 13:47 01/15/18 14:00 01/15/18 15:18 White Blood Count 9.8 Red Blood Count 2.97 Hemoglobin 9.5 Hematocrit 28.0 Mean Corpuscular Volume 94.1 Mean Corpuscular Hemoglobin 31.9 Mean Corpuscular Hemoglobin Concent 33.9 Red Cell Distribution Width 16.7 Platelet Count 376 Mean Platelet Volume 7.7 Neutrophils (%) (Auto) 78.5 Lymphocytes (%) (Auto) 6.9 Monocytes (%) (Auto) 10.4 Eosinophils (%) (Auto) 4.0 Basophils (%) (Auto) 0.2 Neutrophils # (Auto) 7.7 Lymphocytes # (Auto) 0.7 Monocytes # (Auto) 1.0 Eosinophils # (Auto) 0.4 Basophils # (Auto) 0.0 CBC Comment DIFF FINAL Differential Comment Prothrombin Time 10.9 Prothromb Time International Ratio 1.1 Activated Partial Thromboplast Time 31.0 Blood Urea Nitrogen 121 Creatinine 14.06 Random Glucose 95 Total Protein 7.9 Albumin 2.8 Calcium Level 7.8 Alkaline Phosphatase 209 Aspartate Amino Transf (AST/SGOT) 36 Alanine Aminotransferase (ALT/SGPT) 19 Total Bilirubin 0.4 Sodium Level 124 Potassium Level 6.7 Chloride Level 88 Carbon Dioxide Level 20.4 Anion Gap 16 Estimat Glomerular Filtration Rate 4 Lipase 261 (Germania Latham) Result Diagram: 01/15/18 1347 01/15/18 1518 Imaging Last Impressions Catheter Placement X-Ray 01/15/18 1318 Signed Impressions: Service Date/Time: January 15:13 - CONCLUSION: Uncomplicated right internal jugular Vas-Cath placement as above. Giovani Laguerre MD (Germania Latham) Assessment and Plan Problem List: (1) ESRD (end stage renal disease) on dialysis ICD Codes: N18.6 - End stage renal disease; Z99.2 - Dependence on renal dialysis Status: Chronic Plan: Typical TTS HD, last treatment Friday Hyperkalemic, seen during HD today on a 1K, 350 BFR, goal 4L May need repeat HD in AM Has vascath in place Will need IR to declot AVF if possible; also may need Permcath depending on if it is salvagable Repeat labs in AM avoid IVF High protein, low phosphorus diet if able to eat (2) HTN (hypertension) ICD Codes: I10 - Essential (primary) hypertension Status: Chronic Plan: Resume home medications (3) Metabolic bone disease ICD Codes: E88.9 - Metabolic disorder, unspecified; M90.80 - Osteopathy in diseases classified elsewhere, unspecified site Status: Acute Plan: Resume phosphorus binder (4) Anemia ICD Codes: D64.9 - Anemia Status: Acute Plan: Epogen per protocol (Germania Latham) Assessment and Plan patient was seen and examined. He has missed dialysis due to access related issues. Emergent dialysis was arranged after VasCath placement. IR consulted for declotting/PermCath placement. (Keyon Eckert MD) Germania Latham Jan 15, 2018 16:50 Keyon Eckert MD Jan 16, 2018 14:42
[2018-01-15] MEDS: SEVELAMER CARBONATE 800 MG TAB PO SCH (17:00)
[2018-01-15] MEDS ORDERED: NALOXONE HCL 0.4 MG/ML AMP IV PUSH PRN (17:00)
[2018-01-15] MEDS: HEPARIN SODIUM - IV 10,000 UNITS/10 ML VIAL PRN (18:24)
[2018-01-15] MEDS: EPOETIN ALFA 10,000 UNITS/ML VIAL IV PUSH PRN (18:24)
[2018-01-15] MEDS: GENTAMICIN SULFATE 20 MG/2 ML VIAL OTHER PRN (18:25)
--- NOTE | 2018-01-15 20:22 | EKG ---
Date Performed: 01/15/2018 Time Performed: 13:39:42 PTAGE: 67 years EKG: Sinus rhythm WITH FIRST DEGREE AV BLOCK INCOMPLETE RIGHT BUNDLE BRANCH BLOCK ABNORMAL ECG PREVIOUS TRACING : 11/27/2016 04.55 Compared to previous tracing, sinus rhythm has replaced atr ial fibrillation, nonspecific T wave changes have resolved. DOCTOR: Fransisco Valdivia Interpretating Date/Time 01/15/2018 20:21:22
[2018-01-15] MEDS: SODIUM CHLORIDE 0.9% FLUSH 10 ML FLUSH IV FLUSH SCH (21:00)
--- NOTE | 2018-01-15 21:18 | HHI.HP ---
[facility] Admission Diagnosis HYPERKALEMIA, NEW VAS CATH-NEEDS URGENT DIALYSIS Diagnoses: Travel History International Travel<30 Days: No Contact w/Intl Traveler <30 Da: No Traveled to Known Affected Are: No History of Present Illness 67-year-old male with a significant past medical history and end-stage renal disease on dialysis presents to the emergency department for evaluation of a clotted AV fistula. The patient reports he has not had dialysis since Friday. He has multiple electrolyte disturbances. He reports that he was sent from dialysis today because they could not get his fistula to work. A right IJ Vas-Cath was placed by interventional radiology earlier today and the patient was urgently dialyzed. The patient denies any chest pain or shortness of breath. Denies abdominal pain. No nausea/vomiting/diarrhea. Is paraplegic at baseline without any new onset weakness. 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 GERD Glaucoma Gout Hypertension Schizophrenia Past Surgical History LUE AVF [employer] Kidney transplant Reported Medications Reported Meds & Active Scripts Active Flagyl (Metronidazole) 500 Mg Tab 500 Mg PO QID 10 Days Megace Liq (Megestrol Acetate) 40 Mg/Ml Susp 400 Mg PO DAILY Cardizem (Diltiazem HCl) 60 Mg Tab 120 Mg PO TID Reported Duoneb (Ipratropium-Albuterol Neb) 0.5-2.5 Mg/3 Ml Neb 1 Nebule INH Q4HR NEB PRN Tylenol (Acetaminophen) 325 Mg Tab 650 Mg PO Q4H PRN Sea Soft Nasal Mist (Saline) 0.65 % Spr 1 [place] EACH NARE BID Renvela (Sevelamer Carbonate) 800 Mg Tab 2,400 Mg PO TID Renvela (Sevelamer Carbonate) 800 Mg Tab 2,400 Mg PO TID Nephro-[place] Rx (Vitamin B Cmplx/Vit C/Folic AC) 1 Tab 1 Tab PO DAILY Prochlorperazine Maleate 10 Mg Tab 10 Mg PO Q6H PRN Terazosin (Terazosin HCl) 2 Mg Cap 2 Mg PO HS Metoprolol Tartrate 100 Mg Tab 100 Mg PO BID Sensipar (Cinacalcet) 30 Mg Tab 30 Mg PO DAILY With Dinner Senna S (Sennosides-Docusate Sodium) 8.6-50 Mg Tab 2 Tab PO BID Renvela (Sevelamer Carbonate) 800 Mg Tab 2,400 Mg PO DAILY QDAY, GIVEN ON , , AND FRI. GIVEN IN AN ENVELOPE SEND TO DIALYSIS WITH MEAL/SNACK. Eliquis (Apixaban) 5 Mg Tab 5 Mg PO BID Catapres (Clonidine) 0.1 Mg Tab 0.1 Mg PO Q6HR PRN Chlorpromazine HCl 25 Mg Tab 25 Mg PO TID Benadryl Allergy (Diphenhydramine HCl) 25 Mg Tab 25 Mg PO Q8HR PRN Alphagan P Opth Drops (Brimonidine Tartrate) 0.15% Soln 1 Drop EACH EYE HS Allergies: Coded Allergies: *MDRO Multi-Drug Resistant Organism (Verified Adverse Reaction, Unknown, ) MRSA PCR screen POSITIVE - 11/27/16 Family History Negative for CAD/DM Social History Eyes alcohol, tobacco and illicit drugs. Lives in a snf. Physical Exam Vital Signs Vital Signs Date Time Temp Pulse Resp B/P (MAP) Pulse Ox O2 Delivery O2 Flow Rate FiO2 01/15/18 20:00 01/15/18 16:02 100 21 01/15/18 13:34 100 Room Air 01/15/18 13:11 98.0 69 18 171/91 (117) 100 Room Air 01/15/18 12:52 97.5 66 20 165/81 (109) 100 Physical Exam GENERAL: male lying in bed, frequent spasms SKIN: No rashes, ecchymoses or lesions. Cool and dry. HEAD: Atraumatic. Normocephalic. No temporal or scalp tenderness. EYES: Pupils equal round and reactive. Extraocular motions intact. No scleral icterus. No injection or drainage. ENT: Nose without bleeding, purulent drainage or septal hematoma. Throat without erythema, tonsillar hypertrophy or exudate. Uvula midline. Airway patent. NECK: Trachea midline. No JVD or lymphadenopathy. Supple, nontender, no meningeal signs. CARDIOVASCULAR: Regular rate and rhythm without murmurs, gallops, or rubs. RESPIRATORY: Clear to auscultation. Breath sounds equal bilaterally. No wheezes , rales, or rhonchi. GASTROINTESTINAL: Abdomen soft, non-tender, nondistended. No hepato-splenomegaly , or palpable masses. No guarding. MUSCULOSKELETAL: Left upper extremity fistula without bruit/thrill NEUROLOGICAL: Awake and alert. Cranial nerves II through XII intact. Motor and sensory grossly within normal limits. Normal speech. Laboratory Laboratory Tests Test 01/15/18 13:47 01/15/18 14:00 01/15/18 15:18 White Blood Count 9.8 Red Blood Count 2.97 Hemoglobin 9.5 Hematocrit 28.0 Mean Corpuscular Volume 94.1 Mean Corpuscular Hemoglobin 31.9 Mean Corpuscular Hemoglobin Concent 33.9 Red Cell Distribution Width 16.7 Platelet Count 376 Mean Platelet Volume 7.7 Neutrophils (%) (Auto) 78.5 Lymphocytes (%) (Auto) 6.9 Monocytes (%) (Auto) 10.4 Eosinophils (%) (Auto) 4.0 Basophils (%) (Auto) 0.2 Neutrophils # (Auto) 7.7 Lymphocytes # (Auto) 0.7 Monocytes # (Auto) 1.0 Eosinophils # (Auto) 0.4 Basophils # (Auto) 0.0 CBC Comment DIFF FINAL Differential Comment Prothrombin Time 10.9 Prothromb Time International Ratio 1.1 Activated Partial Thromboplast Time 31.0 Blood Urea Nitrogen 121 Creatinine 14.06 Random Glucose 95 Total Protein 7.9 Albumin 2.8 Calcium Level 7.8 Alkaline Phosphatase 209 Aspartate Amino Transf (AST/SGOT) 36 Alanine Aminotransferase (ALT/SGPT) 19 Total Bilirubin 0.4 Sodium Level 124 Potassium Level 6.7 Chloride Level 88 Carbon Dioxide Level 20.4 Anion Gap 16 Estimat Glomerular Filtration Rate 4 Lipase 261 Result Diagram: 01/15/18 1347 01/15/18 1518 Caprini VTE Risk Assessment Caprini VTE Risk Assessment: Mod/High Risk (score >= 2) Caprini Risk Assessment Model Point Value = 1 Point Value = 2 Point Value = 3 Point Value = 5 Age 41-60 Minor surgery BMI > 25 kg/m2 Swollen legs Varicose veins or History of unexplained or recurrent spontaneous Oral contraceptives or hormone replacement Sepsis (< 1 month) Serious lung disease, including pneumonia (< 1 month) Abnormal pulmonary function Acute myocardial infarction Congestive heart failure (< 1 month) History of inflammatory bowel disease Medical patient at bed rest Age 61-74 Arthroscopic surgery Major open surgery (> 45 min) Laparoscopic surgery (> 45 min) Malignancy Confined to bed (> 72 hours) Immobilizing plaster cast Central venous access Age >= 75 History of VTE Family history of VTE Factor V Leiden Prothrombin [id number] Lupus anticoagulant Anticardiolipin antibodies Elevated serum homocysteine Heparin-induced thrombocytopenia Other congenital or acquired thrombophilia Stroke (< 1 month) Elective arthroplasty Hip, pelvis, or leg fracture Acute spinal cord injury (< 1 month) Prophylaxis Regimen Total Risk Factor Score Risk Level Prophylaxis Regimen 0-1 Low Early ambulation 2 Moderate Order ONE of the following: *Sequential Compression Device (SCD) *Heparin 5000 units SQ BID 3-4 Higher Order ONE of the following medications: *Heparin 5000 units SQ TID *Enoxaparin/Lovenox 40 mg SQ daily (WT < 150 kg, CrCl > 30 mL/min) *Enoxaparin/Lovenox 30 mg SQ daily (WT < 150 kg, CrCl > 10-29 mL/min) *Enoxaparin/Lovenox 30 mg SQ BID (WT < 150 kg, CrCl > 30 mL/min) AND/OR *Sequential Compression Device (SCD) 5 or more Highest Order ONE of the following medications: *Heparin 5000 units SQ TID (Preferred with Epidurals) *Enoxaparin/Lovenox 40 mg SQ daily (WT < 150 kg, CrCl > 30 mL/min) *Enoxaparin/Lovenox 30 mg SQ daily (WT < 150 kg, CrCl > 10-29 mL/min) *Enoxaparin/Lovenox 30 mg SQ BID (WT < 150 kg, CrCl > 30 mL/min) AND *Sequential Compression Device (SCD) Assessment and Plan Assessment and Plan Assessment/plan: 1. Clotted AV fistula Interventional radiology consulted to declot AV fistula possible 2. Electrolyte disturbances Patient with hyponatremia, hyperkalemia, elevated BUN/creatinine Status post urgent dialysis Repeat BMP pending 3. ESRD Nephrology consulted, appreciate assistance Status post dialysis earlier today 4. History of CVA Patient with residual weakness, uses wheelchair 5. Atrial fibrillation Resume home medications once reconciled Holding Eliquis for possible procedure tomorrow 6. Hypertension/GERD/CAD Resume medications once reconciled 7. Schizophrenia Resume medications FEN NPO Electrolytes as above Holding pharmacologic anticoagulation for anticipated procedure Physician Certification 2 Midnight Certification Type: Admission for Inpatient Services Order for Inpatient Services The services are ordered in accordance with Medicare regulations or non- Medicare payer requirements, as applicable. In the case of services not specified as inpatient-only, they are appropriately provided as inpatient services in accordance with the 2-midnight benchmark. Estimated LOS (days): 2 2 days is the estimated time the patient will need to remain in the hospital, assuming treatment plan goals are met and no additional complications. Post-Hospital Plan: Not yet determined Maryjane Coughlin MD Jan 15, 2018 21:18
[2018-01-15] MEDS ORDERED: HEPARIN SODIUM - SQ 10,000 UNITS/ML VIAL SQ SCH (22:00)
[2018-01-16] VITALS (25 sets, daily range): BP systolic 118–175; BP diastolic 73–106; PULSE 78–116; RESP 18–22; TEMP 98.2–99.4; O2SAT 95–100
[2018-01-16 07:09] LABS: AUTOMATED NEUTROPHIL # 6.2 TH/MM3 (1.8-7.7); BASOPHIL % 0.3 % (0.0-2.0); EOSINOPHIL # 0.1 TH/MM3 (0-0.4); EOSINOPHIL % 1.7 % (0.0-4.0); HEMATOCRIT 32.5 % (39.0-51.0); HEMOGLOBIN 11.2 GM/DL (13.0-17.0); LYMPH % 7.9 % (9.0-44.0); LYMPHOCYTE # 0.6 TH/MM3 (1.0-4.8); MEAN CELL VOLUME 93.3 FL (80.0-100.0); MEAN CORPUSCULAR HEMOGLOBIN 32.1 PG (27.0-34.0); MEAN CORPUSCULAR HGB CONC 34.4 % (32.0-36.0); MEAN PLATELET VOLUME 7.5 FL (7.0-11.0); MONO % 11.4 % (0.0-8.0); MONOCYTE # 0.9 TH/MM3 (0-0.9); NEUT % 78.7 % (16.0-70.0); PLATELET COUNT 346 TH/MM3 (150-450); RED BLOOD COUNT 3.48 MIL/MM3 (4.50-5.90); RED CELL DISTRIBUTION WIDTH 16.1 % (11.6-17.2); WHITE BLOOD COUNT 7.9 TH/MM3 (4.0-11.0)
[2018-01-16 07:20] LABS: BICARBONATE 25.7 MEQ/L (21.0-32.0); CALCIUM 8.2 MG/DL (8.5-10.1); CREATININE 9.3 MG/DL (0.60-1.30)
[2018-01-16] MEDS: SODIUM CHLORIDE 0.9% FLUSH 10 ML FLUSH IV FLUSH SCH ×2 (07:31→20:26)
[2018-01-16] MEDS: SEVELAMER CARBONATE 800 MG TAB PO SCH ×4 (07:31→17:58)
[2018-01-16] MEDS ORDERED: MIDAZOLAM HCL 5 MG/5 ML VIAL ONE (09:44)
--- NOTE | 2018-01-16 11:03 | PD.RAD ---
Post Procedure Progress Note Pre Procedure Diagnosis: (1) AV fistula thrombosis Post Procedure Diagnosis: (1) AV fistula thrombosis Procedure Date: Jan 16, 2018 Supervising Radiologist: Abimael Hernandez Proceduralist/Assist: Tierney Ashton, RT(R), Joshua Cervantes, RT(R) Anesthesia: Conscious Sedation Plan of Activity Patient to Unit: ROPU Patient Condition: Good See PACS Report for procedural detail/treatment Abimael Hernandez MD Jan 16, 2018 11:03
[2018-01-16] MEDS ORDERED: IODIXANOL 320 MG/ML 50 ML VIAL (for RAD SPEC) I-ARTERIAL ONE (11:19)
--- NOTE | 2018-01-16 12:48 | RADRPT ---
EXAM DATE/TIME: 01/16/2018 09:43 [place] COMPARISON: No previous studies available for comparison. INDICATIONS : 67-year-old male with history of thrombosed left upper extremity fistula of unknown duration but like ly approximately 6 days ago. On examination, there is no thrill in the fistula appears completely thr ombosed. The fistula is very prominently and diffusely aneurysmal throughout. 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 Fistulagram. The risks, benefits and alternatives to the procedure were explained and verbal and written consent w as obtained. The site was prepped in sterile fashion. Full sterile technique was used, including ca p, mask, sterile gloves and gown and a large sterile sheet. Hand hygiene and 2% chlorhexidine and/or betadine/alcohol prep was utilized per protocol for cutaneous antisepsis. The skin and subcutaneous tissues were infiltrated with local anesthetic solution. A micro-puncture nose advanced into the proximal outflow vein and exchanged for a 3-4 dilator over a 0.018 wire. Smaller contrast injected through the dilator confirm thrombosis of the proximal outflow vein. Next, a Glidewire was advanced through the proximal outflow vein to the central cephalic vein. This was very challenging with significant amount of resistance at the proximal tortuosity at the dis sunday humerus level. Venography demonstrated a completely thrombosed suspected large cephalic collatera l. Centrally, the cephalic arch appears stenosed with a large collateral to the subclavian vein. Ther e is no retrograde opacification of the axillary vein. Given the extent of chronic thrombus , severe aneurysm of the outflow vein with associated very large thrombus volume, decision was made not to pro ceed with planned intervention. Wires and needles were then removed. Hemostasis obtained at the punct ure site with manual compression. Patient tolerated the procedure well and there were no immediate postprocedural complications. CONCLUSION: 1. 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 There is a large volume of thrombus with heterogeneous chronic thrombus and suspected central outflow stenosis/occlusion . The central ma ssively dilated outflow vein could not be catheterized despite multiple attempts. A large suspected c ollateral cephalic vein is completely thrombosed. It is possible that this was the central outflow fo r the fistula following thrombosis of the massively aneurysmal outflow vein. The fistula is deemed no t salvageable with endovascular technique. Abimael Hernandez MD on January 16, 2018 at 12:21 Board Certified Radiologist. This report was verified electronically.
--- NOTE | 2018-01-16 14:15 | HHI.NPPN ---
Subjective General Problems: Anemia Renal Failure: Chronic, End Stage Renal Disease Interval History Dialyzed without incident yesterday. Potassium is normal today. Taken to IR for thrombectomy today, however thrombus is too large and procedure was terminated. (Germania Latham) Objective Data Data Vital Signs Date Time Temp Pulse Resp B/P (MAP) Pulse Ox O2 Delivery O2 Flow Rate FiO2 01/16/18 08:27 99.4 112 22 136/92 (107) 98 01/16/18 05:00 98 01/16/18 04:00 107 01/16/18 04:00 99.4 107 20 118/84 (95) 95 01/16/18 03:00 102 01/16/18 02:00 106 01/16/18 01:00 106 01/16/18 00:00 99.3 104 20 150/94 (112) 97 01/16/18 00:00 100 01/15/18 23:00 102 01/15/18 22:00 98 01/15/18 21:00 102 01/15/18 20:53 98.9 105 20 148/94 (112) 100 01/15/18 20:53 104 01/15/18 20:00 01/15/18 16:02 100 21 (Germania Latham) -: 01/16/18 0557 01/16/18 0557 Imaging Last 72 hours Impressions Fistulagram 01/16/18 0000 Signed Impressions: Service Date/Time: Tuesday, January 16, 2018 09:43 - CONCLUSION: 1. 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 There is a large volume of thrombus with heterogeneous chronic thrombus and suspected central outflow stenosis/occlusion . The central massively dilated outflow vein could not be catheterized despite multiple attempts. A large suspected collateral cephalic vein is completely thrombosed. It is possible that this was the central outflow for the fistula following thrombosis of the massively aneurysmal outflow vein. The fistula is deemed not salvageable with endovascular technique. Abimael Hernandez MD Catheter Placement X-Ray 01/15/18 1318 Signed Impressions: Service Date/Time: January 15:13 - CONCLUSION: Uncomplicated right internal jugular Vas-Cath placement as above. Giovani Laguerre MD Tubes & Lines: Vas-Cath (Germania Latham) Physical Exam General Appearance: Well Developed, No Acute Distress, Comfortable (Germania Latham) Throat Throat Exam: Oral Mucosa [place] & Moist (Germania Latham) Pulmonary Resp Exam: Clear Bilaterally, Breath Sounds Equal (Germania Latham) Cardiology CV Exam: Regular, Normal Sinus Rhythm (Germania Latham) Gastrointestinal/Abdomen GI Exam: Soft, Non-Tender GI Remarks obese (Germania Latham) Musculoskeletal MS Exam: Joints Intact, Normal Tone (Germania Latham) Integumentary Skin Exam: Warm, Dry (Germania Latham) Extremeties Extremities Exam: No Edema, Pedal Pulses Palpable Extremeties Remarks left upper extremity, AVF with aneurysm , no palpable thrill/bruit (Germania Latham) Neurologic Neuro Exam: Alert, Speech Clear, Moving All Extremities (Germania Latham) Assessment/Plan Discussed Condition With: Patient Assessment Summary: Anemia of CKD, Hypertension, End Stage Renal Disease Problem List: (1) ESRD (end stage renal disease) on dialysis ICD Codes: N18.6 - End stage renal disease; Z99.2 - Dependence on renal dialysis Status: Chronic Plan: Continue HD support per TTS schedule, due tomorrow 4.3L UF yesterday Potassium has corrected Has vascath in place IR unable to declot AVF; vascular consulted for new access NPO Friday morning for Permcath placement, he was given Eliquis on Friday. Hold all anticoagulation. Repeat labs in AM avoid IVF High protein, low phosphorus diet if able to eat (2) HTN (hypertension) ICD Codes: I10 - Essential (primary) hypertension Status: Chronic Plan: Change metoprolol to coreg, he is tachycardic Restart terazosin. (3) Metabolic bone disease ICD Codes: E88.9 - Metabolic disorder, unspecified; M90.80 - Osteopathy in diseases classified elsewhere, unspecified site Status: Acute Plan: On Sevelamer with meals, monitor phosphorus level (4) Anemia ICD Codes: D64.9 - Anemia Status: Acute Plan: Epogen per protocol (Germanai Latham) Plan patient was seen and examined. Agree with above assessment and plan. Needs PermCath and possibly a new AV access before discharge. (Keyon Eckert MD) Germania Latham Jan 16, 2018 14:15 Keyon Eckert MD Jan 16, 2018 15:13
[2018-01-16] MEDS: CARVEDILOL 6.25 MG TAB PO SCH ×2 (15:31→20:26)
--- NOTE | 2018-01-16 15:53 | HHI.PR ---
Subjective Remarks 67-year-old male with a significant past medical history and end-stage renal disease on dialysis presents to the emergency department for evaluation of a clotted AV fistula. The patient reports he has not had dialysis since Friday. He has multiple electrolyte disturbances. He reports that he was sent from dialysis today because they could not get his fistula to work. A right IJ Vas-Cath was placed by interventional radiology earlier today and the patient was urgently dialyzed. The patient denies any chest pain or shortness of breath. Denies abdominal pain. No nausea/vomiting/diarrhea. Is paraplegic at baseline without any new onset weakness. 4-6 HAD HD CATHETER PLACED FOR DIALYSIS HIS AVF IS CLOTTED WILL BE UNCLOTTED ON FRIDAY DUE TO ANTICOAGULATION ISSUES DW RN AND PT AND CM Objective Vitals Vital Signs Date Time Temp Pulse Resp B/P (MAP) Pulse Ox O2 Delivery O2 Flow Rate FiO2 01/16/18 15:00 111 01/16/18 14:00 110 01/16/18 13:00 116 01/16/18 12:00 155/94 (114) 01/16/18 12:00 103 01/16/18 12:00 98.2 108 18 155/94 (114) 100 01/16/18 11:40 106 18 153/106 (122) 99 01/16/18 11:20 18 156/101 (119) 99 01/16/18 11:05 108 18 175/77 (109) 99 01/16/18 11:00 113 01/16/18 09:00 100 01/16/18 08:27 99.4 112 22 136/92 (107) 98 01/16/18 08:00 106 01/16/18 07:00 96 01/16/18 05:00 98 01/16/18 04:00 107 01/16/18 04:00 99.4 107 20 118/84 (95) 95 01/16/18 03:00 102 01/16/18 02:00 106 01/16/18 01:00 106 01/16/18 00:00 99.3 104 20 150/94 (112) 97 01/16/18 00:00 100 01/15/18 23:00 102 01/15/18 22:00 98 01/15/18 21:00 102 01/15/18 20:53 98.9 105 20 148/94 (112) 100 01/15/18 20:53 104 01/15/18 20:00 01/15/18 16:02 100 21 I/O 01/15/18 01/15/18 01/15/18 01/16/18 01/16/18 01/16/18 07:00 15:00 23:00 07:00 15:00 23:00 Intake Total 0 ml Output Total 4300 ml 0 ml Balance -4300 ml 0 ml Intake Oral 0 ml Output Urine Total 0 ml Hemodialysis 4300 ml Result Diagram: 01/16/18 0557 01/16/18 0557 Other Results Laboratory Tests Test 01/15/18 13:47 01/15/18 14:00 01/15/18 15:18 01/16/18 05:57 White Blood Count 9.8 TH/MM3 7.9 TH/MM3 Red Blood Count 2.97 MIL/MM3 3.48 MIL/MM3 Hemoglobin 9.5 GM/DL 11.2 GM/DL Hematocrit 28.0 % 32.5 % Mean Corpuscular Volume 94.1 FL 93.3 FL Mean Corpuscular Hemoglobin 31.9 PG 32.1 PG Mean Corpuscular Hemoglobin Concent 33.9 % 34.4 % Red Cell Distribution Width 16.7 % 16.1 % Platelet Count 376 TH/MM3 346 TH/MM3 Mean Platelet Volume 7.7 FL 7.5 FL Neutrophils (%) (Auto) 78.5 % 78.7 % Lymphocytes (%) (Auto) 6.9 % 7.9 % Monocytes (%) (Auto) 10.4 % 11.4 % Eosinophils (%) (Auto) 4.0 % 1.7 % Basophils (%) (Auto) 0.2 % 0.3 % Neutrophils # (Auto) 7.7 TH/MM3 6.2 TH/MM3 Lymphocytes # (Auto) 0.7 TH/MM3 0.6 TH/MM3 Monocytes # (Auto) 1.0 TH/MM3 0.9 TH/MM3 Eosinophils # (Auto) 0.4 TH/MM3 0.1 TH/MM3 Basophils # (Auto) 0.0 TH/MM3 0.0 TH/MM3 CBC Comment DIFF FINAL DIFF FINAL Differential Comment Prothrombin Time 10.9 SEC Prothromb Time International Ratio 1.1 RATIO Activated Partial Thromboplast Time 31.0 SEC Blood Urea Nitrogen 121 MG/DL 61 MG/DL Creatinine 14.06 MG/DL 9.30 MG/DL Random Glucose 95 MG/DL 85 MG/DL Total Protein 7.9 GM/DL Albumin 2.8 GM/DL Calcium Level 7.8 MG/DL 8.2 MG/DL Alkaline Phosphatase 209 U/L Aspartate Amino Transf (AST/SGOT) 36 U/L Alanine Aminotransferase (ALT/SGPT) 19 U/L Total Bilirubin 0.4 MG/DL Sodium Level 124 MEQ/L 134 MEQ/L Potassium Level 6.7 MEQ/L 4.6 MEQ/L Chloride Level 88 MEQ/L 95 MEQ/L Carbon Dioxide Level 20.4 MEQ/L 25.7 MEQ/L Anion Gap 16 MEQ/L 13 MEQ/L Estimat Glomerular Filtration Rate 4 ML/MIN 7 ML/MIN Lipase 261 U/L Hematology Comments Imaging Last Impressions Fistulagram 01/16/18 0000 Signed Impressions: Service Date/Time: Tuesday, January 16, 2018 09:43 - CONCLUSION: 1. 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 There is a large volume of thrombus with heterogeneous chronic thrombus and suspected central outflow stenosis/occlusion . The central massively dilated outflow vein could not be catheterized despite multiple attempts. A large suspected collateral cephalic vein is completely thrombosed. It is possible that this was the central outflow for the fistula following thrombosis of the massively aneurysmal outflow vein. The fistula is deemed not salvageable with endovascular technique. Abimael Hernandez MD Catheter Placement X-Ray 01/15/18 1318 Signed Impressions: Service Date/Time: January 15:13 - CONCLUSION: Uncomplicated right internal jugular Vas-Cath placement as above. Giovani Laguerre MD Objective Remarks GENERAL: Awake alert and oriented 3 talkative and cooperative flat affect SKIN: Warm and dry. HEAD: Atraumatic. Normocephalic. EYES: Pupils equal and round. No scleral icterus. No injection or drainage. Extraocular muscles intact ENT: No nasal bleeding or discharge. Mucous membranes pink and moist. Tongue is midline NECK: Trachea midline. No JVD. Supple CARDIOVASCULAR: IRRegular rate and rhythm. S1-S2 no S3 or S4 RESPIRATORY: No accessory muscle use. Clear to auscultation. Breath sounds equal bilaterally. GASTROINTESTINAL: Abdomen soft, non-tender, nondistended. Hepatic and splenic margins not palpable. Little obese MUSCULOSKELETAL: Extremities without clubbing, cyanosis, or edema. No obvious deformities. Left upper extremity AV fistula with no thrill or bruit NEUROLOGICAL: Awake and alert. No obvious cranial nerve deficits. Motor grossly within normal limits. Five out of 5 muscle strength in the arms and legs. Normal speech. PSYCHIATRIC: INAppropriate mood and affect; insight and judgment ABnormal. Procedures (1) ESRD (end stage renal disease) on dialysis Post Procedure Diagnosis: (1) ESRD (end stage renal disease) on dialysis Procedure Date: Jan 15, 2018 Supervising Radiologist: Giovani Laguerre Estimated blood loss: 3cc Anesthesia: Local, Conscious Sedation Plan of Activity Patient to Unit: Other Patient Condition: Poor Additional Comments: Right IJ Vascath placed without difficulty. Catheter in good position OK for use See PACS Report for procedural detail/treatment Pre Procedure Diagnosis: (1) AV fistula thrombosis Post Procedure Diagnosis: (1) AV fistula thrombosis Procedure Date: Jan 16, 2018 Supervising Radiologist: Abimael Hernandez Proceduralist/Assist: Tierney Ashton, RT(R), Joshua Cervantes, RT(R) Anesthesia: Conscious Sedation Plan of Activity Patient to Unit: ROPU Patient Condition: Good See PACS Report for procedural detail/treatment Medications and IVs Current Medications Sodium Chloride (NS Flush) 2 ml UNSCH PRN IV FLUSH FLUSH AFTER USING IV ACCESS ; Start 01/15/18 at 13:30 Heparin Sodium (Porcine) (*HEPARIN INJ Periprocedural ONLY) 10,000 units STK- MED ONCE .ROUTE Last administered on 01/15/18at 15:10; Start 01/15/18 at 15:03; Stop 01/15/18 at 15:04; Status DC Sodium Chloride (NS Flush) UNSCH PRN IV FLUSH SEE PROTOCOL; Start 01/15/18 at 15:30 Heparin Sodium (Porcine) (Heparin Inj) UNSCH PRN IV FLUSH SEE PROTOCOL; Start 01/15/18 at 15:30 Sodium Chloride 1,000 ml @ 0 mls/hr Q0M PRN OTHER For Prime & Rinse Back; Start 01/15/18 at 15:21 Heparin Sodium (Porcine) (Heparin Inj) 8,000 units UNSCH PRN IV FLUSH WITH DIALYSIS; Start 01/15/18 at 15:30 Sodium Chloride 1,000 ml @ 200 mls/hr Q5H PRN IV WITH DIALYSIS; Start 01/15/18 at 15:21 Sodium Chloride 1,000 ml @ 0 mls/hr Q0M PRN OTHER WITH DIALYSIS; Start 01/15/18 at 15:21 Mannitol (Mannitol Inj) 12.5 gm UNSCH PRN IV WITH DIALYSIS; Start 01/15/18 at 15 :30 Albumin Human 100 ml @ 60 mls/hr UNSCH PRN IV WITH DIALYSIS; Start 01/15/18 at 15:30 Sodium Chloride (NS Flush) 5 ml UNSCH PRN IV FLUSH WITH DIALYSIS; Start at 15:30 Heparin Sodium (Porcine) (Heparin Inj) UNSCH PRN .XX WITH DIALYSIS Last administered on 01/15/18at 18:24; Start 01/15/18 at 15:30 Gentamicin Sulfate (Gentamicin Inj) 20 mg UNSCH PRN OTHER WITH DIALYSIS Last administered on 01/15/18at 18:25; Start 01/15/18 at 15:30 Ondansetron HCl (Zofran Inj) 4 mg UNSCH PRN IV PUSH WITH DIALYSIS; Start at 15:30 Acetaminophen (Tylenol) 650 mg UNSCH PRN PO for headach, pain, temp > 101F; Start 01/15/18 at 15:30 Diphenhydramine HCl (Benadryl) 25 mg UNSCH PRN PO for hives/itching/anaphylaxis ; Start 01/15/18 at 15:30 Nitroglycerin (Nitrostat Sl) 0.4 mg UNSCH PRN SL CHEST PAIN; Start 01/15/18 at 15:30 Clonidine (Catapres) 0.1 mg UNSCH PRN PO for BP > 180/100 X 2 readings; Start 01/15/18 at 15:30 Epoetin Jake (Epogen Inj) 10,000 units UNSCH PRN IV PUSH WITH DIALYSIS Last administered on 01/15/18at 18:24; Start 01/15/18 at 15:30 Gelatin (Gelfoam 12 Mm/7 Mm Top) 1 foam UNSCH PRN TOP SEE LABEL COMMENTS; Start 01/15/18 at 15:30 Sevelamer Carbonate (Renvela) 800 mg TIDAC PO Last administered on 01/16/18at 15: 31; Start 01/15/18 at 17:00 Sodium Chloride (NS Flush) 2 ml UNSCH PRN IV FLUSH FLUSH AFTER USING IV ACCESS ; Start 01/15/18 at 17:00 Sodium Chloride (NS Flush) 2 ml BID IV FLUSH ; Start 01/15/18 at 21:00 Naloxone HCl (Narcan Inj) 0.4 mg UNSCH PRN IV PUSH SEE LABEL COMMENTS; Start at 17:00 Heparin Sodium (Porcine) (Heparin Inj) 5,000 units Q8HR SQ ; Start 01/15/18 at 22 :00; Stop 01/15/18 at 22:00; Status DC Midazolam HCl (Versed Inj) 5 mg STK-MED ONCE .ROUTE Last administered on at 09:44; Start 01/16/18 at 09:44; Stop 01/16/18 at 09:45; Status DC Fentanyl Citrate (fentaNYL INJ) 100 mcg STK-MED ONCE .ROUTE Last administered on 01/16/18at 09:44; Start 01/16/18 at 09:44; Stop 01/16/18 at 09:45; Status DC Heparin Sodium (Porcine) (*HEPARIN INJ Periprocedural ONLY) 10,000 units STK- MED ONCE .ROUTE Last administered on 01/16/18at 10:37; Start 01/16/18 at 10:50; Stop 01/16/18 at 10:51; Status DC Iodixanol (VISIPAQUE 320 INJ (Rad Spec)) 30 ml STK-MED ONCE I-ARTERIAL Last administered on 01/16/18at 10:45; Start 01/16/18 at 11:19; Stop 01/16/18 at 11:20; Status DC Carvedilol (Coreg) 6.25 mg Q12HR PO Last administered on 01/16/18at 15:31; Start 01/16/18 at 15:00 Terazosin HCl (Hytrin) 2 mg HS PO ; Start 01/16/18 at 21:00 A/P Assessment and Plan 1. Clotted AV fistula Interventional radiology consulted to declot AV fistula possible Vascular surgery has been consulted and will attempt to do something on Friday because of anticoagulation 2. Electrolyte disturbances Patient with hyponatremia, hyperkalemia, elevated BUN/creatinine Status post urgent dialysis Repeat BMP pending 3. ESRD Nephrology consulted, appreciate assistance Status post dialysis earlier today Will defer to renal physician 4. History of CVA Patient with residual weakness, uses wheelchair 5. Atrial fibrillation Resume home medications once reconciled Holding Eliquis for possible procedure tomorrow Continue rate control 6. Hypertension/GERD/CAD Resume medications once reconciled 7. Schizophrenia Resume medications FEN NPO Electrolytes as above Holding pharmacologic anticoagulation for anticipated procedure Discharge Planning Pending vascular and nephrology clearance not there yet Trey Webster DO Jan 16, 2018 15:53
[2018-01-16] MEDS ORDERED: PROCHLORPERAZINE MALEATE 10 MG TAB PO PRN (16:00)
[2018-01-16] MEDS ORDERED: cloNIDine HCL 0.1 MG TAB PO PRN (16:00)
[2018-01-16] MEDS ORDERED: diphenhydrAMINE HCL 25 MG CAP PO PRN (16:00)
[2018-01-16] MEDS ORDERED: RESP: ALBUTEROL 2.5 MG/IPRATROPIUM 0.5 MG NEB (PRN) INH (16:00)
--- NOTE | 2018-01-16 16:13 | PQ ---
Physician Query Response Document PATIENT: AMINATA LEYVA : 1950 ADMIT DATE: 01/15/2018 4:49 PM DISCH DATE: RESPONDING PROVIDER #: MAGED QUERY TEXT: CDS Clarification Functional quadriplegia in the setting of wheelchair bound and residual rt sided weakness treated wit h total care Other explanation of clinical findings. Unable to determine (no explanation for clinical findings). The patient's Clinical Indicators include: The medical record reflects the following clinical findings, treatment, and risk factors. * Clinical Indicators: Residual right sided weakness, wheelchair bound * Risk Factors: CVA in 2012 * Treatment: Total care Please clarify and document your clinical opinion in the progress notes and discharge summary includi ng the definitive and/or presumptive diagnosis (suspected or probable), related to the above clinical findings. Please include clinical findings supporting your diagnosis. Thank you, Ximena Landeros CDS/RN ext. [phone] Query created by: Ximena Landeros on 01/16/2018 10:40 AM RESPONSE TEXT: PATIENT HAS FUNCTIONAL QUADRIPLEGIA IN THE SETTING OF WHEELCHAIR BOUND AND RESIDUAL RIGHT SIDED WEAKN ESS WHICH IS TREATED WITH TOTAL CARE. HAS RIGHT SIDED WEAKNESS FROM CVA IN 2012 AND IS WHEELCHAIR MARLEN ND Electronically signed by: Trey Webster 01/16/2018 4:08 PM
[2018-01-16] MEDS: DILTIAZEM HCL 60 MG TAB PO SCH (17:58)
[2018-01-16] MEDS: chlorproMAZINE HCL 25 MG TAB PO SCH (17:58)
[2018-01-16] MEDS: TERAZOSIN HCL 1 MG CAP PO SCH (20:25)
[2018-01-16] MEDS: BRIMONIDINE TARTRATE 0.15% OPHT SOLN 5 ML BTL EACH EYE SCH (20:26)
[2018-01-16] MEDS: METOPROLOL TARTRATE 100 MG TAB PO SCH (20:26)
[2018-01-16] MEDS: SODIUM CHLORIDE 0.65% NASAL SPRAY 45 ML BTL EACH NARE SCH (20:26)
[2018-01-16] MEDS: DOCUSATE SODIUM 50 MG/SENNA 8.6 MG TAB PO SCH (20:26)
[2018-01-16] MEDS ORDERED: TERAZOSIN HCL 1 MG CAP PO SCH (21:00)
[2018-01-17] VITALS (25 sets, daily range): BP systolic 91–145; BP diastolic 49–92; PULSE 53–148; RESP 16–22; TEMP 97.9–99.1; O2SAT 96–98
[2018-01-17 07:04] LABS: AUTOMATED NEUTROPHIL # 7.8 TH/MM3 (1.8-7.7); BASOPHIL % 0.3 % (0.0-2.0); EOSINOPHIL # 0.3 TH/MM3 (0-0.4); HEMATOCRIT 32.6 % (39.0-51.0); HEMOGLOBIN 11.1 GM/DL (13.0-17.0); LYMPH % 7.1 % (9.0-44.0); LYMPHOCYTE # 0.7 TH/MM3 (1.0-4.8); MEAN CELL VOLUME 94.2 FL (80.0-100.0); MEAN CORPUSCULAR HEMOGLOBIN 31.9 PG (27.0-34.0); MEAN CORPUSCULAR HGB CONC 33.9 % (32.0-36.0); MEAN PLATELET VOLUME 7.3 FL (7.0-11.0); MONO % 11.8 % (0.0-8.0); MONOCYTE # 1.2 TH/MM3 (0-0.9); NEUT % 77.8 % (16.0-70.0); PLATELET COUNT 383 TH/MM3 (150-450); RED BLOOD COUNT 3.46 MIL/MM3 (4.50-5.90); RED CELL DISTRIBUTION WIDTH 16.3 % (11.6-17.2)
[2018-01-17 07:23] LABS: ALBUMIN 2.8 GM/DL (3.4-5.0); ALKALINE PHOSPHATASE 210 U/L (45-117); ALT (GPT) 12 U/L (12-78); AST (GOT) 10 U/L (15-37); BICARBONATE 21.6 MEQ/L (21.0-32.0); BLOOD UREA NITROGEN 79 MG/DL (7-18); CALCIUM 8.7 MG/DL (8.5-10.1); CHLORIDE 92 MEQ/L (98-107); FREE T4 0.85 NG/DL (0.76-1.46); GLOMERULAR FILTRATION RATE 5 ML/MIN (>89); GLUCOSE,RANDOM 72 MG/DL (74-106); MAGNESIUM 2.8 MG/DL (1.5-2.5); PHOSPHORUS 5.1 MG/DL (2.5-4.9); SODIUM (NA) 131 MEQ/L (136-145); TOTAL BILIRUBIN ADULT 0.5 MG/DL (0.2-1.0)
[2018-01-17 08:07] LABS: CREATININE 11.48 MG/DL (0.60-1.30)
[2018-01-17] MEDS: SODIUM CHLORIDE 0.9% FLUSH 10 ML FLUSH IV FLUSH SCH ×2 (09:00→20:08)
[2018-01-17] MEDS: VITAMIN B CMPLX/VITC/FOLIC AC CAP PO SCH (09:00)
[2018-01-17] MEDS: SODIUM CHLORIDE 0.65% NASAL SPRAY 45 ML BTL EACH NARE SCH ×2 (09:00→20:10)
[2018-01-17] MEDS: HEPARIN SODIUM - IV 10,000 UNITS/10 ML VIAL PRN (09:24)
[2018-01-17] MEDS: EPOETIN ALFA 10,000 UNITS/ML VIAL IV PUSH PRN (09:25)
[2018-01-17] MEDS: GENTAMICIN SULFATE 20 MG/2 ML VIAL OTHER PRN (09:27)
--- NOTE | 2018-01-17 11:29 | HHI.NPPN ---
Subjective General Problems: Anemia Renal Failure: Chronic, End Stage Renal Disease Objective Data Data Vital Signs Date Time Temp Pulse Resp B/P (MAP) Pulse Ox O2 Delivery O2 Flow Rate FiO2 01/17/18 06:00 88 01/17/18 05:00 97 01/17/18 04:00 98.1 99 22 145/85 (105) 97 01/17/18 04:00 Room Air 01/17/18 04:00 99 01/17/18 03:00 96 01/17/18 02:00 89 01/17/18 01:00 85 01/17/18 00:00 Room Air 01/17/18 00:00 98.3 85 22 119/80 (93) 97 01/17/18 00:00 85 01/16/18 23:00 82 01/16/18 22:00 80 01/16/18 21:00 78 01/16/18 20:00 Room Air 01/16/18 20:00 99.1 85 22 122/73 (89) 96 01/16/18 20:00 85 01/16/18 18:00 98 01/16/18 17:00 95 01/16/18 16:00 102 18 133/91 (105) 99 01/16/18 16:00 94 01/16/18 15:00 111 01/16/18 14:00 110 01/16/18 13:00 116 01/16/18 12:00 155/94 (114) 01/16/18 12:00 103 01/16/18 12:00 98.2 108 18 155/94 (114) 100 01/16/18 11:40 106 18 153/106 (122) 99 -: 01/17/18 0455 01/17/18 0455 Tubes & Lines: Vas-Cath Physical Exam General Appearance: Well Developed, No Acute Distress, Comfortable Throat Throat Exam: Oral Mucosa Ortley & Moist Pulmonary Resp Exam: Clear Bilaterally, Breath Sounds Equal Cardiology CV Exam: Regular, Normal Sinus Rhythm Gastrointestinal/Abdomen GI Exam: Soft, Non-Tender Musculoskeletal MS Exam: Joints Intact, Normal Tone Integumentary Skin Exam: Warm, Dry Extremeties Extremities Exam: No Edema, Pedal Pulses Palpable Neurologic Neuro Exam: Alert, Speech Clear, Moving All Extremities Assessment/Plan Discussed Condition With: Patient Assessment Summary: Anemia of CKD, Hypertension, End Stage Renal Disease Problem List: (1) ESRD (end stage renal disease) on dialysis ICD Codes: N18.6 - End stage renal disease; Z99.2 - Dependence on renal dialysis Status: Chronic Plan: Continue HD support per TTS schedule, Seen during dialysis UF 3 L Potassium has corrected Has vascath in place IR unable to declot AVF; vascular consulted for new access NPO Friday morning for Permcath placement, he was given Eliquis on Friday. Hold all anticoagulation. Repeat labs in AM avoid IVF High protein, low phosphorus diet if able to eat (2) HTN (hypertension) ICD Codes: I10 - Essential (primary) hypertension Status: Chronic Plan: Change metoprolol to coreg, he is tachycardic Restart terazosin. (3) Metabolic bone disease ICD Codes: E88.9 - Metabolic disorder, unspecified; M90.80 - Osteopathy in diseases classified elsewhere, unspecified site Status: Acute Plan: On Sevelamer with meals, monitor phosphorus level (4) Anemia ICD Codes: D64.9 - Anemia Status: Acute Plan: Epogen per protocol Carloz Novoa MD Jan 17, 2018 11:29
[2018-01-17] MEDS: DOCUSATE SODIUM 50 MG/SENNA 8.6 MG TAB PO SCH ×2 (12:13→20:10)
[2018-01-17] MEDS: SEVELAMER CARBONATE 800 MG TAB PO SCH ×3 (12:13→17:28)
[2018-01-17] MEDS: DILTIAZEM HCL 60 MG TAB PO SCH ×4 (12:14→18:00)
[2018-01-17] MEDS: chlorproMAZINE HCL 25 MG TAB PO SCH ×3 (12:14→17:28)
[2018-01-17] MEDS: MEGESTROL ACETATE SUSP 400 MG/10 ML CUP PO SCH (12:15)
[2018-01-17] MEDS: CARVEDILOL 6.25 MG TAB PO SCH ×2 (12:15→20:10)
[2018-01-17] MEDS: METOPROLOL TARTRATE 100 MG TAB PO SCH ×2 (12:15→20:11)
[2018-01-17] MEDS: CINACALCET HYDROCHLORIDE 30 MG TAB PO SCH (12:15)
[2018-01-17 12:58] LABS: HEMOGLOBIN A1C 4.7 % (4.3-6.0)
[2018-01-17] MEDS ORDERED: NALOXONE HCL 0.4 MG/ML AMP IV PUSH PRN (13:15)
--- NOTE | 2018-01-17 13:18 | HHI.PR ---
Subjective Remarks 67-year-old male with a significant past medical history and end-stage renal disease on dialysis presents to the emergency department for evaluation of a clotted AV fistula. The patient reports he has not had dialysis since Friday. He has multiple electrolyte disturbances. He reports that he was sent from dialysis today because they could not get his fistula to work. A right IJ Vas-Cath was placed by interventional radiology earlier today and the patient was urgently dialyzed. The patient denies any chest pain or shortness of breath. Denies abdominal pain. No nausea/vomiting/diarrhea. Is paraplegic at baseline without any new onset weakness. 4-6 HAD HD CATHETER PLACED FOR DIALYSIS HIS AVF IS CLOTTED WILL BE UNCLOTTED ON FRIDAY DUE TO ANTICOAGULATION ISSUES DW RN AND PT AND CM 01-17 patient is scheduled to have surgery on his left arm AV fistula Had hemodialysis today Discussed with patient and RN and case management Objective Vitals Vital Signs Date Time Temp Pulse Resp B/P (MAP) Pulse Ox O2 Delivery O2 Flow Rate FiO2 01/17/18 11:30 98.0 131 16 113/80 (91) 98 01/17/18 08:00 98 Nasal Cannula 2.00 01/17/18 08:00 97.9 97 18 141/92 (108) 98 01/17/18 06:00 88 01/17/18 05:00 97 01/17/18 04:00 98.1 99 22 145/85 (105) 97 01/17/18 04:00 Room Air 01/17/18 04:00 99 01/17/18 03:00 96 01/17/18 02:00 89 01/17/18 01:00 85 01/17/18 00:00 Room Air 01/17/18 00:00 98.3 85 22 119/80 (93) 97 01/17/18 00:00 85 01/16/18 23:00 82 01/16/18 22:00 80 01/16/18 21:00 78 01/16/18 20:00 Room Air 01/16/18 20:00 99.1 85 22 122/73 (89) 96 01/16/18 20:00 85 01/16/18 18:00 98 01/16/18 17:00 95 01/16/18 16:00 102 18 133/91 (105) 99 01/16/18 16:00 94 01/16/18 15:00 111 01/16/18 14:00 110 I/O 01/16/18 01/16/18 01/16/18 01/17/18 01/17/18 01/17/18 07:00 15:00 23:00 07:00 15:00 23:00 Intake Total 0 ml 120 ml 100 ml Output Total 0 ml 0 ml Balance 0 ml 120 ml 100 ml Intake Oral 0 ml 120 ml 100 ml Output Urine Total 0 ml 0 ml # Bowel Movements 0 Result Diagram: 01/17/18 0455 01/17/18 0455 Other Results Laboratory Tests Test 01/15/18 13:47 01/15/18 14:00 01/15/18 15:18 01/16/18 05:57 White Blood Count 9.8 TH/MM3 7.9 TH/MM3 Red Blood Count 2.97 MIL/MM3 3.48 MIL/MM3 Hemoglobin 9.5 GM/DL 11.2 GM/DL Hematocrit 28.0 % 32.5 % Mean Corpuscular Volume 94.1 FL 93.3 FL Mean Corpuscular Hemoglobin 31.9 PG 32.1 PG Mean Corpuscular Hemoglobin Concent 33.9 % 34.4 % Red Cell Distribution Width 16.7 % 16.1 % Platelet Count 376 TH/MM3 346 TH/MM3 Mean Platelet Volume 7.7 FL 7.5 FL Neutrophils (%) (Auto) 78.5 % 78.7 % Lymphocytes (%) (Auto) 6.9 % 7.9 % Monocytes (%) (Auto) 10.4 % 11.4 % Eosinophils (%) (Auto) 4.0 % 1.7 % Basophils (%) (Auto) 0.2 % 0.3 % Neutrophils # (Auto) 7.7 TH/MM3 6.2 TH/MM3 Lymphocytes # (Auto) 0.7 TH/MM3 0.6 TH/MM3 Monocytes # (Auto) 1.0 TH/MM3 0.9 TH/MM3 Eosinophils # (Auto) 0.4 TH/MM3 0.1 TH/MM3 Basophils # (Auto) 0.0 TH/MM3 0.0 TH/MM3 CBC Comment DIFF FINAL DIFF FINAL Differential Comment Prothrombin Time 10.9 SEC Prothromb Time International Ratio 1.1 RATIO Activated Partial Thromboplast Time 31.0 SEC Blood Urea Nitrogen 121 MG/DL 61 MG/DL Creatinine 14.06 MG/DL 9.30 MG/DL Random Glucose 95 MG/DL 85 MG/DL Total Protein 7.9 GM/DL Albumin 2.8 GM/DL Calcium Level 7.8 MG/DL 8.2 MG/DL Alkaline Phosphatase 209 U/L Aspartate Amino Transf (AST/SGOT) 36 U/L Alanine Aminotransferase (ALT/SGPT) 19 U/L Total Bilirubin 0.4 MG/DL Sodium Level 124 MEQ/L 134 MEQ/L Potassium Level 6.7 MEQ/L 4.6 MEQ/L Chloride Level 88 MEQ/L 95 MEQ/L Carbon Dioxide Level 20.4 MEQ/L 25.7 MEQ/L Anion Gap 16 MEQ/L 13 MEQ/L Estimat Glomerular Filtration Rate 4 ML/MIN 7 ML/MIN Lipase 261 U/L Hematology Comments Test 01/17/18 04:55 White Blood Count 10.0 TH/MM3 Red Blood Count 3.46 MIL/MM3 Hemoglobin 11.1 GM/DL Hematocrit 32.6 % Mean Corpuscular Volume 94.2 FL Mean Corpuscular Hemoglobin 31.9 PG Mean Corpuscular Hemoglobin Concent 33.9 % Red Cell Distribution Width 16.3 % Platelet Count 383 TH/MM3 Mean Platelet Volume 7.3 FL Neutrophils (%) (Auto) 77.8 % Lymphocytes (%) (Auto) 7.1 % Monocytes (%) (Auto) 11.8 % Eosinophils (%) (Auto) 3.0 % Basophils (%) (Auto) 0.3 % Neutrophils # (Auto) 7.8 TH/MM3 Lymphocytes # (Auto) 0.7 TH/MM3 Monocytes # (Auto) 1.2 TH/MM3 Eosinophils # (Auto) 0.3 TH/MM3 Basophils # (Auto) 0.0 TH/MM3 CBC Comment DIFF FINAL Differential Comment Blood Urea Nitrogen 79 MG/DL Creatinine 11.48 MG/DL Random Glucose 72 MG/DL Total Protein 8.0 GM/DL Albumin 2.8 GM/DL Calcium Level 8.7 MG/DL Phosphorus Level 5.1 MG/DL Magnesium Level 2.8 MG/DL Alkaline Phosphatase 210 U/L Aspartate Amino Transf (AST/SGOT) 10 U/L Alanine Aminotransferase (ALT/SGPT) 12 U/L Total Bilirubin 0.5 MG/DL Sodium Level 131 MEQ/L Potassium Level 5.2 MEQ/L Chloride Level 92 MEQ/L Carbon Dioxide Level 21.6 MEQ/L Anion Gap 17 MEQ/L Estimat Glomerular Filtration Rate 5 ML/MIN Free Thyroxine 0.85 NG/DL Thyroid Stimulating Hormone 3rd Gen 0.835 uIU/ML Imaging Last Impressions Fistulagram 01/16/18 0000 Signed Impressions: Service Date/Time: Tuesday, January 16, 2018 09:43 - CONCLUSION: 1. 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 There is a large volume of thrombus with heterogeneous chronic thrombus and suspected central outflow stenosis/occlusion . The central massively dilated outflow vein could not be catheterized despite multiple attempts. A large suspected collateral cephalic vein is completely thrombosed. It is possible that this was the central outflow for the fistula following thrombosis of the massively aneurysmal outflow vein. The fistula is deemed not salvageable with endovascular technique. Abimael Hernandez MD Catheter Placement X-Ray 01/15/18 1318 Signed Impressions: Service Date/Time: January 15:13 - CONCLUSION: Uncomplicated right internal jugular Vas-Cath placement as above. Giovani Laguerre MD Objective Remarks GENERAL: Awake alert and oriented 3 talkative and cooperative flat affect SKIN: Warm and dry. HEAD: Atraumatic. Normocephalic. EYES: Pupils equal and round. No scleral icterus. No injection or drainage. Extraocular muscles intact ENT: No nasal bleeding or discharge. Mucous membranes pink and moist. Tongue is midline NECK: Trachea midline. No JVD. Supple CARDIOVASCULAR: IRRegular rate and rhythm. S1-S2 no S3 or S4 RESPIRATORY: No accessory muscle use. Clear to auscultation. Breath sounds equal bilaterally. GASTROINTESTINAL: Abdomen soft, non-tender, nondistended. Hepatic and splenic margins not palpable. Little obese MUSCULOSKELETAL: Extremities without clubbing, cyanosis, or edema. No obvious deformities. Left upper extremity AV fistula with no thrill or bruit NEUROLOGICAL: Awake and alert. No obvious cranial nerve deficits. Motor grossly within normal limits. Five out of 5 muscle strength in the arms and legs. Normal speech. PSYCHIATRIC: INAppropriate mood and affect; insight and judgment ABnormal. Procedures (1) ESRD (end stage renal disease) on dialysis Post Procedure Diagnosis: (1) ESRD (end stage renal disease) on dialysis Procedure Date: Jan 15, 2018 Supervising Radiologist: Giovani Laguerre Estimated blood loss: 3cc Anesthesia: Local, Conscious Sedation Plan of Activity Patient to Unit: Other Patient Condition: Poor Additional Comments: Right IJ Vascath placed without difficulty. Catheter in good position OK for use See PACS Report for procedural detail/treatment Pre Procedure Diagnosis: (1) AV fistula thrombosis Post Procedure Diagnosis: (1) AV fistula thrombosis Procedure Date: Jan 16, 2018 Supervising Radiologist: Abimael Hernandez Proceduralist/Assist: Tierney Ashton, RT(R), Joshua Cervantes, RT(R) Anesthesia: Conscious Sedation Plan of Activity Patient to Unit: ROPU Patient Condition: Good See PACS Report for procedural detail/treatment Medications and IVs Current Medications Sodium Chloride (NS Flush) 2 ml UNSCH PRN IV FLUSH FLUSH AFTER USING IV ACCESS ; Start 01/15/18 at 13:30 Heparin Sodium (Porcine) (*HEPARIN INJ Periprocedural ONLY) 10,000 units STK- MED ONCE .ROUTE Last administered on 01/15/18at 15:10; Start 01/15/18 at 15:03; Stop 01/15/18 at 15:04; Status DC Sodium Chloride (NS Flush) UNSCH PRN IV FLUSH SEE PROTOCOL; Start 01/15/18 at 15:30 Heparin Sodium (Porcine) (Heparin Inj) UNSCH PRN IV FLUSH SEE PROTOCOL; Start 01/15/18 at 15:30 Sodium Chloride 1,000 ml @ 0 mls/hr Q0M PRN OTHER For Prime & Rinse Back; Start 01/15/18 at 15:21 Heparin Sodium (Porcine) (Heparin Inj) 8,000 units UNSCH PRN IV FLUSH WITH DIALYSIS; Start 01/15/18 at 15:30 Sodium Chloride 1,000 ml @ 200 mls/hr Q5H PRN IV WITH DIALYSIS Last administered on 01/17/18at 09:24; Start 01/15/18 at 15:21 Sodium Chloride 1,000 ml @ 0 mls/hr Q0M PRN OTHER WITH DIALYSIS; Start 01/15/18 at 15:21 Mannitol (Mannitol Inj) 12.5 gm UNSCH PRN IV WITH DIALYSIS; Start 01/15/18 at 15 :30 Albumin Human 100 ml @ 60 mls/hr UNSCH PRN IV WITH DIALYSIS; Start 01/15/18 at 15:30 Sodium Chloride (NS Flush) 5 ml UNSCH PRN IV FLUSH WITH DIALYSIS; Start at 15:30 Heparin Sodium (Porcine) (Heparin Inj) UNSCH PRN .XX WITH DIALYSIS Last administered on 01/17/18at 09:24; Start 01/15/18 at 15:30 Gentamicin Sulfate (Gentamicin Inj) 20 mg UNSCH PRN OTHER WITH DIALYSIS Last administered on 01/17/18at 09:27; Start 01/15/18 at 15:30 Ondansetron HCl (Zofran Inj) 4 mg UNSCH PRN IV PUSH WITH DIALYSIS; Start at 15:30 Acetaminophen (Tylenol) 650 mg UNSCH PRN PO for headach, pain, temp > 101F; Start 01/15/18 at 15:30 Diphenhydramine HCl (Benadryl) 25 mg UNSCH PRN PO for hives/itching/anaphylaxis ; Start 01/15/18 at 15:30 Nitroglycerin (Nitrostat Sl) 0.4 mg UNSCH PRN SL CHEST PAIN; Start 01/15/18 at 15:30 Clonidine (Catapres) 0.1 mg UNSCH PRN PO for BP > 180/100 X 2 readings; Start 01/15/18 at 15:30 Epoetin Jake (Epogen Inj) 10,000 units UNSCH PRN IV PUSH WITH DIALYSIS Last administered on 01/17/18at 09:25; Start 01/15/18 at 15:30 Gelatin (Gelfoam 12 Mm/7 Mm Top) 1 foam UNSCH PRN TOP SEE LABEL COMMENTS; Start 01/15/18 at 15:30 Sevelamer Carbonate (Renvela) 800 mg TIDAC PO Last administered on 01/16/18at 15: 31; Start 01/15/18 at 17:00; Stop 01/16/18 at 16:16; Status DC Sodium Chloride (NS Flush) 2 ml UNSCH PRN IV FLUSH FLUSH AFTER USING IV ACCESS ; Start 01/15/18 at 17:00 Sodium Chloride (NS Flush) 2 ml BID IV FLUSH Last administered on 01/17/18at 09: 00; Start 01/15/18 at 21:00 Naloxone HCl (Narcan Inj) 0.4 mg UNSCH PRN IV PUSH SEE LABEL COMMENTS; Start at 17:00 Heparin Sodium (Porcine) (Heparin Inj) 5,000 units Q8HR SQ ; Start 01/15/18 at 22 :00; Stop 01/15/18 at 22:00; Status DC Midazolam HCl (Versed Inj) 5 mg STK-MED ONCE .ROUTE Last administered on at 09:44; Start 01/16/18 at 09:44; Stop 01/16/18 at 09:45; Status DC Fentanyl Citrate (fentaNYL INJ) 100 mcg STK-MED ONCE .ROUTE Last administered on 01/16/18at 09:44; Start 01/16/18 at 09:44; Stop 01/16/18 at 09:45; Status DC Heparin Sodium (Porcine) (*HEPARIN INJ Periprocedural ONLY) 10,000 units STK- MED ONCE .ROUTE Last administered on 01/16/18at 10:37; Start 01/16/18 at 10:50; Stop 01/16/18 at 10:51; Status DC Iodixanol (VISIPAQUE 320 INJ (Rad Spec)) 30 ml STK-MED ONCE I-ARTERIAL Last administered on 01/16/18at 10:45; Start 01/16/18 at 11:19; Stop 01/16/18 at 11:20; Status DC Carvedilol (Coreg) 6.25 mg Q12HR PO Last administered on 01/17/18at 12:15; Start 01/16/18 at 15:00 Terazosin HCl (Hytrin) 2 mg HS PO ; Start 01/16/18 at 21:00; Stop 01/16/18 at 21: 00; Status DC Brimonidine Tartrate (Alphagan P 0.15% Opt Soln) 1 drop HS EACH EYE ; Start 01/16/18 at 21:00 Chlorpromazine (Thorazine) 25 mg TID PO Last administered on 01/17/18 12:14; Start 01/16/18 at 18:00 Cinacalcet (Sensipar) 30 mg DAILY PO Last administered on 01/17/18 12:15; Start 01/17/18 at 09:00 Clonidine (Catapres) 0.1 mg Q6HR PRN PO SPB >175 OR DBP >100; Start 01/16/18 at 16:00 Diltiazem HCl (Cardizem) 120 mg TID PO Last administered on 01/17/18at 12:14; Start 01/16/18 at 18:00 Albuterol/ Ipratropium (Duoneb Neb) 1 ampule Q4HR NEB PRN INH SHORTNESS OF BREATH; Start 01/16/18 at 16:00 Megestrol Acetate (Megace Liq) 400 mg DAILY PO Last administered on 01/17/18 12 :15; Start 01/17/18 at 09:00 Metoprolol Tartrate (Lopressor) 100 mg BID PO Last administered on 01/17/18 12: 15; Start 01/16/18 at 21:00 Prochlorperazine Maleate (Compazine) 10 mg Q6H PRN PO NAUSEA OR VOMITING; Start 01/16/18 at 16:00 Sodium Chloride (Pinal Faustino Lena) 1 spray BID EACH NARE Last administered on 09:00; Start 01/16/18 at 21:00 Senna/Docusate Sodium (Solange-Colace) 2 tab BID PO Last administered on 01/17/18 12:13; Start 01/16/18 at 21:00 Sevelamer Carbonate (Renvela) 2,400 mg TID PO Last administered on 01/17/18 12: 13; Start 01/16/18 at 18:00 Terazosin HCl (Hytrin) 2 mg HS PO Last administered on 01/16/18at 20:25; Start at 21:00 Vitamin B Complex/ Vit C/Folic Acid (Nephrocaps) 1 cap DAILY PO Last administered on 01/17/18 09:00; Start 01/17/18 at 09:00 Diphenhydramine HCl (Benadryl) 25 mg Q8HR PRN PO ITCHING; Start 01/16/18 at 16: 00 A/P Problem List: (1) AV fistula thrombosis ICD Code: T82.868A - Thrombosis due to vascular prosthetic devices, implants and grafts, initial encounter (2) ESRD (end stage renal disease) on dialysis ICD Code: N18.6 - End stage renal disease; Z99.2 - Dependence on renal dialysis Status: Chronic (3) HTN (hypertension) ICD Code: I10 - Essential (primary) hypertension Status: Chronic (4) Anemia in chronic kidney disease ICD Code: D63.1 - Anemia in chronic kidney disease; N18.9 - Anemia in chronic renal disease Status: Acute (5) Hypertension, benign ICD Code: I10 - Hypertension, benign Status: Acute Assessment and Plan 1. Clotted AV fistula Interventional radiology consulted to declot AV fistula possible Vascular surgery has been consulted and will attempt to do something on Friday because of anticoagulation 2. Electrolyte disturbances Patient with hyponatremia, hyperkalemia, elevated BUN/creatinine Status post urgent dialysis Repeat BMP pending 3. ESRD Nephrology consulted, appreciate assistance Status post dialysis earlier today Will defer to renal physician 4. History of CVA Patient with residual weakness, uses wheelchair 5. Atrial fibrillation Resume home medications once reconciled Holding Eliquis for possible procedure tomorrow Continue rate control 6. Hypertension/GERD/CAD Resume medications once reconciled 7. Schizophrenia Resume medications PATIENT HAS FUNCTIONAL QUADRIPLEGIA IN THE SETTING OF WHEELCHAIR BOUND AND RESIDUAL RIGHT SIDED WEAKNESS WHICH IS TREATED WITH TOTAL CARE. HAS RIGHT SIDED WEAKNESS FROM CVA IN 2012 AND IS WHEELCHAIR BOUND Electrolytes as above Holding pharmacologic anticoagulation for anticipated procedure--NOW ON HEPARIN SUBQ TID Discharge Planning Pending vascular and nephrology clearance not there yet Trey Webster DO Jan 17, 2018 13:18
[2018-01-17] MEDS: HEPARIN SODIUM - SQ 10,000 UNITS/ML VIAL SQ SCH ×2 (14:04→20:14)
[2018-01-17] MEDS: BRIMONIDINE TARTRATE 0.15% OPHT SOLN 5 ML BTL EACH EYE SCH (20:09)
[2018-01-17] MEDS: TERAZOSIN HCL 1 MG CAP PO SCH (20:10)
[2018-01-18] VITALS (26 sets, daily range): BP systolic 86–104; BP diastolic 50–68; PULSE 55–99; RESP 16–20; TEMP 97.5–98.7; O2SAT 97–98
[2018-01-18] MEDS: HEPARIN SODIUM - SQ 10,000 UNITS/ML VIAL SQ SCH ×3 (05:35→19:58)
[2018-01-18 07:31] LABS: AUTOMATED NEUTROPHIL # 6.8 TH/MM3 (1.8-7.7); BASOPHIL % 0.5 % (0.0-2.0); EOSINOPHIL # 0.3 TH/MM3 (0-0.4); EOSINOPHIL % 3.2 % (0.0-4.0); HEMOGLOBIN 10.7 GM/DL (13.0-17.0); LYMPH % 10.1 % (9.0-44.0); LYMPHOCYTE # 0.9 TH/MM3 (1.0-4.8); MEAN CELL VOLUME 93.2 FL (80.0-100.0); MEAN CORPUSCULAR HEMOGLOBIN 31.2 PG (27.0-34.0); MEAN CORPUSCULAR HGB CONC 33.5 % (32.0-36.0); MEAN PLATELET VOLUME 7.4 FL (7.0-11.0); MONO % 10.7 % (0.0-8.0); NEUT % 75.5 % (16.0-70.0); PLATELET COUNT 417 TH/MM3 (150-450); RED BLOOD COUNT 3.43 MIL/MM3 (4.50-5.90); RED CELL DISTRIBUTION WIDTH 16.7 % (11.6-17.2); WHITE BLOOD COUNT 9.1 TH/MM3 (4.0-11.0)
[2018-01-18] MEDS: SODIUM CHLORIDE 0.9% FLUSH 10 ML FLUSH IV FLUSH SCH ×2 (09:00→19:54)
[2018-01-18] MEDS: VITAMIN B CMPLX/VITC/FOLIC AC CAP PO SCH (09:00)
[2018-01-18] MEDS: DOCUSATE SODIUM 50 MG/SENNA 8.6 MG TAB PO SCH ×2 (09:00→19:53)
[2018-01-18] MEDS: CARVEDILOL 6.25 MG TAB PO SCH ×2 (09:00→19:53)
[2018-01-18] MEDS: METOPROLOL TARTRATE 100 MG TAB PO SCH ×2 (09:00→19:54)
[2018-01-18] MEDS: CINACALCET HYDROCHLORIDE 30 MG TAB PO SCH (10:49)
[2018-01-18] MEDS: SODIUM CHLORIDE 0.65% NASAL SPRAY 45 ML BTL EACH NARE SCH ×2 (10:49→19:54)
[2018-01-18] MEDS: SEVELAMER CARBONATE 800 MG TAB PO SCH ×3 (10:49→18:35)
[2018-01-18] MEDS: chlorproMAZINE HCL 25 MG TAB PO SCH ×3 (10:49→18:35)
[2018-01-18] MEDS: DILTIAZEM HCL 60 MG TAB PO SCH ×4 (10:50→18:35)
[2018-01-18] MEDS: MEGESTROL ACETATE SUSP 400 MG/10 ML CUP PO SCH (10:51)
[2018-01-18 11:33] LABS: ALBUMIN 2.7 GM/DL (3.4-5.0); ALKALINE PHOSPHATASE 194 U/L (45-117); ALT (GPT) 14 U/L (12-78); AST (GOT) 13 U/L (15-37); BICARBONATE 28.7 MEQ/L (21.0-32.0); BLOOD UREA NITROGEN 50 MG/DL (7-18); CALCIUM 8.7 MG/DL (8.5-10.1); CHLORIDE 90 MEQ/L (98-107); CREATININE 8.37 MG/DL (0.60-1.30); GLOMERULAR FILTRATION RATE 8 ML/MIN (>89); GLUCOSE,RANDOM 94 MG/DL (74-106); MAGNESIUM 2.5 MG/DL (1.5-2.5); PHOSPHORUS 3.6 MG/DL (2.5-4.9); SODIUM (NA) 131 MEQ/L (136-145); TOTAL BILIRUBIN ADULT 0.4 MG/DL (0.2-1.0); TOTAL PROTEIN 7.9 GM/DL (6.4-8.2)
--- NOTE | 2018-01-18 11:40 | HHI.PR ---
Subjective Remarks 67-year-old male with a significant past medical history and end-stage renal disease on dialysis presents to the emergency department for evaluation of a clotted AV fistula. The patient reports he has not had dialysis since Friday. He has multiple electrolyte disturbances. He reports that he was sent from dialysis today because they could not get his fistula to work. A right IJ Vas-Cath was placed by interventional radiology earlier today and the patient was urgently dialyzed. The patient denies any chest pain or shortness of breath. Denies abdominal pain. No nausea/vomiting/diarrhea. Is paraplegic at baseline without any new onset weakness. 4-6 HAD HD CATHETER PLACED FOR DIALYSIS HIS AVF IS CLOTTED WILL BE UNCLOTTED ON FRIDAY DUE TO ANTICOAGULATION ISSUES DW RN AND PT AND CM 4-7 patient is scheduled to have surgery on his left arm AV fistula Had hemodialysis today Discussed with patient and RN and case management 8 FOR SURGERY ON LEFT ARM FISTULA TOMORROW KEEP NPO AFTER MIDNIGHT NO NEW COMPLAINTS DW RN AND PT AND CM Objective Vitals Vital Signs Date Time Temp Pulse Resp B/P (MAP) Pulse Ox O2 Delivery O2 Flow Rate FiO2 01/18/18 10:42 Nasal Cannula 2.00 01/18/18 06:00 77 01/18/18 05:00 76 01/18/18 04:00 74 01/18/18 04:00 98.3 74 18 95/65 (75) 97 01/18/18 04:00 Room Air 01/18/18 03:00 68 01/18/18 02:00 62 01/18/18 01:00 55 01/18/18 00:00 98.6 57 20 89/50 (63) 98 01/18/18 00:00 57 01/18/18 00:00 Room Air 01/17/18 23:00 55 01/17/18 22:00 56 01/17/18 21:00 54 01/17/18 20:00 Room Air 01/17/18 20:00 53 01/17/18 20:00 99.1 53 22 91/57 (68) 96 01/17/18 19:30 21 01/17/18 18:00 62 01/17/18 17:00 80 01/17/18 16:00 92 01/17/18 15:00 98.0 58 16 109/49 (69) 98 01/17/18 15:00 118 4/7/18 14:54 98 Nasal Cannula 2.00 01/17/18 14:00 105 01/17/18 13:00 103 01/17/18 12:00 140 I/O 01/17/18 01/17/18 01/17/18 01/18/18 01/18/18 01/18/18 07:00 15:00 23:00 07:00 15:00 23:00 Intake Total 100 ml 720 ml 200 ml Output Total 0 ml 0 ml Balance 100 ml 720 ml 200 ml Intake Oral 100 ml 720 ml 200 ml Output Urine Total 0 ml 0 ml # Voids 3 # Bowel Movements 0 1 0 Result Diagram: 01/18/18 0617 01/18/18 1011 Other Results Laboratory Tests Test 01/15/18 13:47 01/15/18 14:00 01/15/18 15:18 01/16/18 05:57 White Blood Count 9.8 TH/MM3 7.9 TH/MM3 Red Blood Count 2.97 MIL/MM3 3.48 MIL/MM3 Hemoglobin 9.5 GM/DL 11.2 GM/DL Hematocrit 28.0 % 32.5 % Mean Corpuscular Volume 94.1 FL 93.3 FL Mean Corpuscular Hemoglobin 31.9 PG 32.1 PG Mean Corpuscular Hemoglobin Concent 33.9 % 34.4 % Red Cell Distribution Width 16.7 % 16.1 % Platelet Count 376 TH/MM3 346 TH/MM3 Mean Platelet Volume 7.7 FL 7.5 FL Neutrophils (%) (Auto) 78.5 % 78.7 % Lymphocytes (%) (Auto) 6.9 % 7.9 % Monocytes (%) (Auto) 10.4 % 11.4 % Eosinophils (%) (Auto) 4.0 % 1.7 % Basophils (%) (Auto) 0.2 % 0.3 % Neutrophils # (Auto) 7.7 TH/MM3 6.2 TH/MM3 Lymphocytes # (Auto) 0.7 TH/MM3 0.6 TH/MM3 Monocytes # (Auto) 1.0 TH/MM3 0.9 TH/MM3 Eosinophils # (Auto) 0.4 TH/MM3 0.1 TH/MM3 Basophils # (Auto) 0.0 TH/MM3 0.0 TH/MM3 CBC Comment DIFF FINAL DIFF FINAL Differential Comment Prothrombin Time 10.9 SEC Prothromb Time International Ratio 1.1 RATIO Activated Partial Thromboplast Time 31.0 SEC Blood Urea Nitrogen 121 MG/DL 61 MG/DL Creatinine 14.06 MG/DL 9.30 MG/DL Random Glucose 95 MG/DL 85 MG/DL Total Protein 7.9 GM/DL Albumin 2.8 GM/DL Calcium Level 7.8 MG/DL 8.2 MG/DL Alkaline Phosphatase 209 U/L Aspartate Amino Transf (AST/SGOT) 36 U/L Alanine Aminotransferase (ALT/SGPT) 19 U/L Total Bilirubin 0.4 MG/DL Sodium Level 124 MEQ/L 134 MEQ/L Potassium Level 6.7 MEQ/L 4.6 MEQ/L Chloride Level 88 MEQ/L 95 MEQ/L Carbon Dioxide Level 20.4 MEQ/L 25.7 MEQ/L Anion Gap 16 MEQ/L 13 MEQ/L Estimat Glomerular Filtration Rate 4 ML/MIN 7 ML/MIN Lipase 261 U/L Hematology Comments Test 01/17/18 04:55 01/18/18 06:17 01/18/18 10:11 White Blood Count 10.0 TH/MM3 9.1 TH/MM3 Red Blood Count 3.46 MIL/MM3 3.43 MIL/MM3 Hemoglobin 11.1 GM/DL 10.7 GM/DL Hematocrit 32.6 % 32.0 % Mean Corpuscular Volume 94.2 FL 93.2 FL Mean Corpuscular Hemoglobin 31.9 PG 31.2 PG Mean Corpuscular Hemoglobin Concent 33.9 % 33.5 % Red Cell Distribution Width 16.3 % 16.7 % Platelet Count 383 TH/MM3 417 TH/MM3 Mean Platelet Volume 7.3 FL 7.4 FL Neutrophils (%) (Auto) 77.8 % 75.5 % Lymphocytes (%) (Auto) 7.1 % 10.1 % Monocytes (%) (Auto) 11.8 % 10.7 % Eosinophils (%) (Auto) 3.0 % 3.2 % Basophils (%) (Auto) 0.3 % 0.5 % Neutrophils # (Auto) 7.8 TH/MM3 6.8 TH/MM3 Lymphocytes # (Auto) 0.7 TH/MM3 0.9 TH/MM3 Monocytes # (Auto) 1.2 TH/MM3 1.0 TH/MM3 Eosinophils # (Auto) 0.3 TH/MM3 0.3 TH/MM3 Basophils # (Auto) 0.0 TH/MM3 0.0 TH/MM3 CBC Comment DIFF FINAL DIFF FINAL Differential Comment Blood Urea Nitrogen 79 MG/DL 50 MG/DL Creatinine 11.48 MG/DL 8.37 MG/DL Random Glucose 72 MG/DL 94 MG/DL Total Protein 8.0 GM/DL 7.9 GM/DL Albumin 2.8 GM/DL 2.7 GM/DL Calcium Level 8.7 MG/DL 8.7 MG/DL Phosphorus Level 5.1 MG/DL 3.6 MG/DL Magnesium Level 2.8 MG/DL 2.5 MG/DL Alkaline Phosphatase 210 U/L 194 U/L Aspartate Amino Transf (AST/SGOT) 10 U/L 13 U/L Alanine Aminotransferase (ALT/SGPT) 12 U/L 14 U/L Total Bilirubin 0.5 MG/DL 0.4 MG/DL Sodium Level 131 MEQ/L 131 MEQ/L Potassium Level 5.2 MEQ/L 3.8 MEQ/L Chloride Level 92 MEQ/L 90 MEQ/L Carbon Dioxide Level 21.6 MEQ/L 28.7 MEQ/L Anion Gap 17 MEQ/L 12 MEQ/L Estimat Glomerular Filtration Rate 5 ML/MIN 8 ML/MIN Hemoglobin A1c 4.7 % Free Thyroxine 0.85 NG/DL Thyroid Stimulating Hormone 3rd Gen 0.835 uIU/ML Imaging Last Impressions Fistulagram 01/16/18 0000 Signed Impressions: Service Date/Time: Tuesday, January 16, 2018 09:43 - CONCLUSION: 1. 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 There is a large volume of thrombus with heterogeneous chronic thrombus and suspected central outflow stenosis/occlusion . The central massively dilated outflow vein could not be catheterized despite multiple attempts. A large suspected collateral cephalic vein is completely thrombosed. It is possible that this was the central outflow for the fistula following thrombosis of the massively aneurysmal outflow vein. The fistula is deemed not salvageable with endovascular technique. Abimael Hernandez MD Catheter Placement X-Ray 01/15/18 1318 Signed Impressions: Service Date/Time: January 15:13 - CONCLUSION: Uncomplicated right internal jugular Vas-Cath placement as above. Giovani Laguerre MD Objective Remarks GENERAL: Awake alert and oriented 3 talkative and cooperative flat affect SKIN: Warm and dry. HEAD: Atraumatic. Normocephalic. EYES: Pupils equal and round. No scleral icterus. No injection or drainage. Extraocular muscles intact ENT: No nasal bleeding or discharge. Mucous membranes pink and moist. Tongue is midline NECK: Trachea midline. No JVD. Supple CARDIOVASCULAR: IRRegular rate and rhythm. S1-S2 no S3 or S4 RESPIRATORY: No accessory muscle use. Clear to auscultation. Breath sounds equal bilaterally. GASTROINTESTINAL: Abdomen soft, non-tender, nondistended. Hepatic and splenic margins not palpable. Little obese MUSCULOSKELETAL: Extremities without clubbing, cyanosis, or edema. No obvious deformities. Left upper extremity AV fistula with no thrill or bruit NEUROLOGICAL: Awake and alert. No obvious cranial nerve deficits. Motor grossly within normal limits. Five out of 5 muscle strength in the arms and legs. Normal speech. PSYCHIATRIC: INAppropriate mood and affect; insight and judgment ABnormal. Procedures (1) ESRD (end stage renal disease) on dialysis Post Procedure Diagnosis: (1) ESRD (end stage renal disease) on dialysis Procedure Date: Jan 15, 2018 Supervising Radiologist: Giovani Laguerre Estimated blood loss: 3cc Anesthesia: Local, Conscious Sedation Plan of Activity Patient to Unit: Other Patient Condition: Poor Additional Comments: Right IJ Vascath placed without difficulty. Catheter in good position OK for use See PACS Report for procedural detail/treatment Pre Procedure Diagnosis: (1) AV fistula thrombosis Post Procedure Diagnosis: (1) AV fistula thrombosis Procedure Date: Jan 16, 2018 Supervising Radiologist: Abimael Hernandez Proceduralist/Assist: Tierney Ashton, RT(R), Joshua Cervantes, RT(R) Anesthesia: Conscious Sedation Plan of Activity Patient to Unit: ROPU Patient Condition: Good See PACS Report for procedural detail/treatment Medications and IVs Current Medications Sodium Chloride (NS Flush) 2 ml UNSCH PRN IV FLUSH FLUSH AFTER USING IV ACCESS ; Start 01/15/18 at 13:30 Heparin Sodium (Porcine) (*HEPARIN INJ Periprocedural ONLY) 10,000 units STK- MED ONCE .ROUTE Last administered on 01/15/18at 15:10; Start 01/15/18 at 15:03; Stop 01/15/18 at 15:04; Status DC Sodium Chloride (NS Flush) UNSCH PRN IV FLUSH SEE PROTOCOL; Start 01/15/18 at 15:30 Heparin Sodium (Porcine) (Heparin Inj) UNSCH PRN IV FLUSH SEE PROTOCOL; Start 01/15/18 at 15:30 Sodium Chloride 1,000 ml @ 0 mls/hr Q0M PRN OTHER For Prime & Rinse Back; Start 01/15/18 at 15:21 Heparin Sodium (Porcine) (Heparin Inj) 8,000 units UNSCH PRN IV FLUSH WITH DIALYSIS; Start 01/15/18 at 15:30 Sodium Chloride 1,000 ml @ 200 mls/hr Q5H PRN IV WITH DIALYSIS Last administered on 01/17/18at 09:24; Start 01/15/18 at 15:21 Sodium Chloride 1,000 ml @ 0 mls/hr Q0M PRN OTHER WITH DIALYSIS; Start 01/15/18 at 15:21 Mannitol (Mannitol Inj) 12.5 gm UNSCH PRN IV WITH DIALYSIS; Start 01/15/18 at 15 :30 Albumin Human 100 ml @ 60 mls/hr UNSCH PRN IV WITH DIALYSIS; Start 01/15/18 at 15:30 Sodium Chloride (NS Flush) 5 ml UNSCH PRN IV FLUSH WITH DIALYSIS; Start at 15:30 Heparin Sodium (Porcine) (Heparin Inj) UNSCH PRN .XX WITH DIALYSIS Last administered on 01/17/18at 09:24; Start 01/15/18 at 15:30 Gentamicin Sulfate (Gentamicin Inj) 20 mg UNSCH PRN OTHER WITH DIALYSIS Last administered on 01/17/18at 09:27; Start 01/15/18 at 15:30 Ondansetron HCl (Zofran Inj) 4 mg UNSCH PRN IV PUSH WITH DIALYSIS; Start at 15:30 Acetaminophen (Tylenol) 650 mg UNSCH PRN PO for headach, pain, temp > 101F; Start 01/15/18 at 15:30 Diphenhydramine HCl (Benadryl) 25 mg UNSCH PRN PO for hives/itching/anaphylaxis ; Start 01/15/18 at 15:30 Nitroglycerin (Nitrostat Sl) 0.4 mg UNSCH PRN SL CHEST PAIN; Start 01/15/18 at 15:30 Clonidine (Catapres) 0.1 mg UNSCH PRN PO for BP > 180/100 X 2 readings; Start 01/15/18 at 15:30 Epoetin Jake (Epogen Inj) 10,000 units UNSCH PRN IV PUSH WITH DIALYSIS Last administered on 01/17/18 09:25; Start 01/15/18 at 15:30 Gelatin (Gelfoam 12 Mm/7 Mm Top) 1 foam UNSCH PRN TOP SEE LABEL COMMENTS; Start 01/15/18 at 15:30 Sevelamer Carbonate (Renvela) 800 mg TIDAC PO Last administered on 01/16/18 15: 31; Start 01/15/18 at 17:00; Stop 01/16/18 at 16:16; Status DC Sodium Chloride (NS Flush) 2 ml UNSCH PRN IV FLUSH FLUSH AFTER USING IV ACCESS ; Start 01/15/18 at 17:00 Sodium Chloride (NS Flush) 2 ml BID IV FLUSH Last administered on 01/17/18at 20: 08; Start 01/15/18 at 21:00 Naloxone HCl (Narcan Inj) 0.4 mg UNSCH PRN IV PUSH SEE LABEL COMMENTS; Start at 17:00 Heparin Sodium (Porcine) (Heparin Inj) 5,000 units Q8HR SQ ; Start 01/15/18 at 22 :00; Stop 01/15/18 at 22:00; Status DC Midazolam HCl (Versed Inj) 5 mg STK-MED ONCE .ROUTE Last administered on 09:44; Start 01/16/18 at 09:44; Stop 01/16/18 at 09:45; Status DC Fentanyl Citrate (fentaNYL INJ) 100 mcg STK-MED ONCE .ROUTE Last administered on 01/16/18at 09:44; Start 01/16/18 at 09:44; Stop 01/16/18 at 09:45; Status DC Heparin Sodium (Porcine) (*HEPARIN INJ Periprocedural ONLY) 10,000 units STK- MED ONCE .ROUTE Last administered on 01/16/18at 10:37; Start 01/16/18 at 10:50; Stop 01/16/18 at 10:51; Status DC Iodixanol (VISIPAQUE 320 INJ (Rad Spec)) 30 ml STK-MED ONCE I-ARTERIAL Last administered on 01/16/18 10:45; Start 01/16/18 at 11:19; Stop 01/16/18 at 11:20; Status DC Carvedilol (Coreg) 6.25 mg Q12HR PO Last administered on 01/17/18 12:15; Start 01/16/18 at 15:00 Terazosin HCl (Hytrin) 2 mg HS PO ; Start 01/16/18 at 21:00; Stop 01/16/18 at 21: 00; Status DC Brimonidine Tartrate (Alphagan P 0.15% Opth Soln) 1 drop HS EACH EYE Last administered on 01/17/18 20:09; Start 01/16/18 at 21:00 Chlorpromazine (Thorazine) 25 mg TID PO Last administered on 01/18/18 10:49; Start 01/16/18 at 18:00 Cinacalcet (Sensipar) 30 mg DAILY PO Last administered on 01/18/18 10:49; Start 01/17/18 at 09:00 Clonidine (Catapres) 0.1 mg Q6HR PRN PO SPB >175 OR DBP >100; Start 01/16/18 at 16:00 Diltiazem HCl (Cardizem) 120 mg TID PO Last administered on 01/18/18 10:50; Start 01/16/18 at 18:00 Albuterol/ Ipratropium (Duoneb Neb) 1 ampule Q4HR NEB PRN INH SHORTNESS OF BREATH; Start 01/16/18 at 16:00 Megestrol Acetate (Megace Liq) 400 mg DAILY PO Last administered on 01/18/18 10 :51; Start 01/17/18 at 09:00 Metoprolol Tartrate (Lopressor) 100 mg BID PO Last administered on 01/17/18 12: 15; Start 01/16/18 at 21:00 Prochlorperazine Maleate (Compazine) 10 mg Q6H PRN PO NAUSEA OR VOMITING; Start 01/16/18 at 16:00 Sodium Chloride ([place] [facility]) 1 spray BID EACH NARE Last administered on 10:49; Start 01/16/18 at 21:00 Senna/Docusate Sodium ([place]-Colace) 2 tab BID PO Last administered on 01/17/18 20:10; Start 01/16/18 at 21:00 Sevelamer Carbonate (Renvela) 2,400 mg TID PO Last administered on 01/18/18at 10: 49; Start 01/16/18 at 18:00 Terazosin HCl (Hytrin) 2 mg HS PO Last administered on 01/16/18at 20:25; Start at 21:00 Vitamin B Complex/ Vit C/Folic Acid (Nephrocaps) 1 cap DAILY PO Last administered on 01/18/18at 09:00; Start 01/17/18 at 09:00 Diphenhydramine HCl (Benadryl) 25 mg Q8HR PRN PO ITCHING; Start 01/16/18 at 16: 00 Heparin Sodium (Porcine) (Heparin Inj) 5,000 units Q8H SQ Last administered on 01/18/18at 05:35; Start 01/17/18 at 14:00 Naloxone HCl (Narcan Inj) 0.4 mg UNSCH PRN IV PUSH SEE LABEL COMMENTS; Start at 13:15 A/P Problem List: (1) AV fistula thrombosis ICD Code: T82.868A - Thrombosis due to vascular prosthetic devices, implants and grafts, initial encounter (2) ESRD (end stage renal disease) on dialysis ICD Code: N18.6 - End stage renal disease; Z99.2 - Dependence on renal dialysis Status: Chronic (3) HTN (hypertension) ICD Code: I10 - Essential (primary) hypertension Status: Chronic (4) Anemia in chronic kidney disease ICD Code: D63.1 - Anemia in chronic kidney disease; N18.9 - Anemia in chronic renal disease Status: Acute (5) Hypertension, benign ICD Code: I10 - Hypertension, benign Status: Acute Assessment and Plan 1. Clotted AV fistula Interventional radiology consulted to declot AV fistula possible Vascular surgery has been consulted and will attempt to do something on Friday because of anticoagulation 2. Electrolyte disturbances Patient with hyponatremia, hyperkalemia, elevated BUN/creatinine Status post urgent dialysis Repeat BMP pending 3. ESRD Nephrology consulted, appreciate assistance Status post dialysis earlier today Will defer to renal physician 4. History of CVA Patient with residual weakness, uses wheelchair 5. Atrial fibrillation Resume home medications once reconciled Holding Eliquis for possible procedure tomorrow Continue rate control 6. Hypertension/GERD/CAD Resume medications once reconciled 7. Schizophrenia Resume medications PATIENT HAS FUNCTIONAL QUADRIPLEGIA IN THE SETTING OF WHEELCHAIR BOUND AND RESIDUAL RIGHT SIDED WEAKNESS WHICH IS TREATED WITH TOTAL CARE. HAS RIGHT SIDED WEAKNESS FROM CVA IN 2013 AND IS WHEELCHAIR BOUND Electrolytes as above Holding pharmacologic anticoagulation for anticipated procedure--NOW ON HEPARIN SUBQ TID Discharge Planning Pending vascular and nephrology clearance not there yet Trey Webster DO Jan 18, 2018 11:40
--- NOTE | 2018-01-18 16:56 | HHI.NPPN ---
Subjective General Problems: Anemia Renal Failure: Chronic, End Stage Renal Disease Objective Data Data Vital Signs Date Time Temp Pulse Resp B/P (MAP) Pulse Ox O2 Delivery O2 Flow Rate FiO2 01/18/18 11:30 98.0 99 16 94/66 (75) 98 01/18/18 10:42 Nasal Cannula 2.00 01/18/18 07:10 97.5 92 18 104/64 (77) 98 01/18/18 07:10 98 Nasal Cannula 2.00 01/18/18 06:00 77 01/18/18 05:00 76 01/18/18 04:00 74 01/18/18 04:00 98.3 74 18 95/65 (75) 97 01/18/18 04:00 Room Air 01/18/18 03:00 68 01/18/18 02:00 62 01/18/18 01:00 55 01/18/18 00:00 98.6 57 20 89/50 (63) 98 01/18/18 00:00 57 01/18/18 00:00 Room Air 01/17/18 23:00 55 01/17/18 22:00 56 01/17/18 21:00 54 01/17/18 20:00 Room Air 01/17/18 20:00 53 01/17/18 20:00 99.1 53 22 91/57 (68) 96 01/17/18 19:30 21 01/17/18 18:00 62 01/17/18 17:00 80 -: 01/18/18 0617 01/18/18 1011 Tubes & Lines: Vas-Cath Physical Exam General Appearance: Well Developed, No Acute Distress, Comfortable Throat Throat Exam: Oral Mucosa [place] & Moist Pulmonary Resp Exam: Clear Bilaterally, Breath Sounds Equal Cardiology CV Exam: Regular, Normal Sinus Rhythm Gastrointestinal/Abdomen GI Exam: Soft, Non-Tender Musculoskeletal MS Exam: Joints Intact, Normal Tone Integumentary Skin Exam: Warm, Dry Extremeties Extremities Exam: No Edema, Pedal Pulses Palpable Neurologic Neuro Exam: Alert, Speech Clear, Moving All Extremities Assessment/Plan Discussed Condition With: Patient Assessment Summary: Anemia of CKD, Hypertension, End Stage Renal Disease Problem List: (1) ESRD (end stage renal disease) on dialysis ICD Codes: N18.6 - End stage renal disease; Z99.2 - Dependence on renal dialysis Status: Chronic Plan: Continue HD support per TTS schedule, dialysis yesterday UF 3 L Potassium has corrected Has vascath in place IR unable to declot AVF; vascular consulted for new access NPO Friday morning for Permcath placement, he was given Eliquis on Friday. Hold all anticoagulation. Repeat labs in AM avoid IVF High protein, low phosphorus diet if able to eat Dr. Eckert to follow (2) HTN (hypertension) ICD Codes: I10 - Essential (primary) hypertension Status: Chronic Plan: Change metoprolol to coreg, he is tachycardic Restart terazosin. (3) Metabolic bone disease ICD Codes: E88.9 - Metabolic disorder, unspecified; M90.80 - Osteopathy in diseases classified elsewhere, unspecified site Status: Acute Plan: On Sevelamer with meals, monitor phosphorus level (4) Anemia ICD Codes: D64.9 - Anemia Status: Acute Plan: Epogen per protocol Carloz Novoa MD Jan 18, 2018 16:56
[2018-01-18] MEDS: BRIMONIDINE TARTRATE 0.15% OPHT SOLN 5 ML BTL EACH EYE SCH (19:53)
[2018-01-18] MEDS: TERAZOSIN HCL 1 MG CAP PO SCH (19:54)
[2018-01-19] VITALS (22 sets, daily range): BP systolic 90–136; BP diastolic 54–91; PULSE 46–94; RESP 14–20; TEMP 97.5–98.7; O2SAT 94–100
[2018-01-19] MEDS: HEPARIN SODIUM - SQ 10,000 UNITS/ML VIAL SQ SCH ×3 (05:10→22:31)
[2018-01-19] MEDS: SODIUM CHLORIDE 0.9% FLUSH 10 ML FLUSH IV FLUSH SCH ×4 (09:00→22:33)
[2018-01-19] MEDS: VITAMIN B CMPLX/VITC/FOLIC AC CAP PO SCH (09:00)
[2018-01-19] MEDS: SODIUM CHLORIDE 0.65% NASAL SPRAY 45 ML BTL EACH NARE SCH ×2 (09:00→22:30)
[2018-01-19] MEDS: CARVEDILOL 6.25 MG TAB PO SCH ×2 (09:44→21:00)
[2018-01-19] MEDS: METOPROLOL TARTRATE 100 MG TAB PO SCH ×2 (09:44→21:00)
[2018-01-19] MEDS: DILTIAZEM HCL 60 MG TAB PO SCH ×3 (09:44→18:00)
[2018-01-19] MEDS: MEGESTROL ACETATE SUSP 400 MG/10 ML CUP PO SCH (09:45)
[2018-01-19] MEDS: DOCUSATE SODIUM 50 MG/SENNA 8.6 MG TAB PO SCH ×2 (09:46→22:31)
[2018-01-19] MEDS: CINACALCET HYDROCHLORIDE 30 MG TAB PO SCH (09:46)
[2018-01-19] MEDS: SEVELAMER CARBONATE 800 MG TAB PO SCH ×3 (09:46→18:16)
[2018-01-19] MEDS: chlorproMAZINE HCL 25 MG TAB PO SCH ×3 (10:04→18:16)
--- NOTE | 2018-01-19 10:16 | HHI.NPPN ---
Subjective General Problems: Anemia Renal Failure: Chronic, End Stage Renal Disease Interval History NPO for permcath exchange today. Should be going to IR before noon. He is wanting to be discharged. (Germania Latham) Objective Data Data Vital Signs Date Time Temp Pulse Resp B/P (MAP) Pulse Ox O2 Delivery O2 Flow Rate FiO2 01/19/18 08:00 86 01/19/18 07:45 98.1 86 16 129/91 (104) 96 01/19/18 07:00 90 01/19/18 06:00 78 01/19/18 05:00 77 01/19/18 04:00 80 01/19/18 04:00 Room Air 01/19/18 04:00 98.1 69 18 106/66 (79) 98 01/19/18 03:00 66 01/19/18 02:00 70 01/19/18 01:00 64 01/19/18 00:00 65 01/19/18 00:00 98.4 65 18 92/54 (67) 97 01/19/18 00:00 Room Air 01/18/18 23:00 64 01/18/18 22:00 71 01/18/18 21:00 64 01/18/18 20:00 98.3 80 18 101/63 (76) 97 01/18/18 20:00 80 01/18/18 20:00 Room Air 01/18/18 18:00 66 01/18/18 17:00 64 01/18/18 16:00 64 01/18/18 15:10 98.7 66 16 86/68 (74) 98 01/18/18 15:00 64 01/18/18 14:00 64 01/18/18 13:00 78 01/18/18 12:00 86 01/18/18 11:30 98.0 99 16 94/66 (75) 98 01/18/18 11:00 99 01/18/18 10:42 Nasal Cannula 2.00 (Germania Latham) -: 01/18/18 0617 01/18/18 1011 Tubes & Lines: Vas-Cath (Germania Latham) Physical Exam General Appearance: Well Developed, No Acute Distress, Comfortable ([place],Germania B. [employer] SUPERVISOR) Eyes Eye Exam: Pupils Equal (Germania LathamP) Throat Throat Exam: Oral Mucosa [place] & Moist (Germania LathamP) Pulmonary Resp Exam: Clear Bilaterally, Breath Sounds Equal (Germania LathamP) Cardiology CV Exam: Regular, Normal Sinus Rhythm (Germania LathamP) Gastrointestinal/Abdomen GI Exam: Soft, Non-Tender GI Remarks obese (Germania Latham) Musculoskeletal MS Exam: Joints Intact, Normal Tone (Germania Latham [employer] SUPERVISOR) Integumentary Skin Exam: Warm, Dry (Germania Latham) Extremeties Extremities Exam: No Edema, Pedal Pulses Palpable Extremeties Remarks left upper extremity, AVF with aneurysm , no palpable thrill/bruit (Germania Latham) Neurologic Neuro Exam: Alert, Speech Clear, Moving All Extremities (Germania Latham) Assessment/Plan Discussed Condition With: Patient Assessment Summary: Anemia of CKD, Hypertension, End Stage Renal Disease Problem List: (1) ESRD (end stage renal disease) on dialysis ICD Codes: N18.6 - End stage renal disease; Z99.2 - Dependence on renal dialysis Status: Chronic Plan: Continue HD support per TTS schedule, due tomorrow Has vascath in place; pending permcath exchange today in IR Pending vascular consul for new access, can happen outpatient NPO today Hold all anticoagulation until discharge avoid IVF High protein, low phosphorus diet if able to eat (2) HTN (hypertension) ICD Codes: I10 - Essential (primary) hypertension Status: Chronic Plan: BP is better (3) Metabolic bone disease ICD Codes: E88.9 - Metabolic disorder, unspecified; M90.80 - Osteopathy in diseases classified elsewhere, unspecified site Status: Acute Plan: On Sevelamer with meals, monitor phosphorus level Also on Sensipar (4) Anemia ICD Codes: D64.9 - Anemia Status: Acute Plan: Epogen per protocol Plan He has outpatient HD plans at [facility]. Can be discharged after catheter exchange. (Germania LathamP) Plan patient was seen and examined. PermCath today. Needs vascular surgery evaluation at some point, can be done as an outpatient. Can be discharged from renal standpoint. (Keyon Eckert MD) Germania Latham. [facility] Jan 19, 2018 10:16 Keyon Eckert MD Jan 19, 2018 10:37
[2018-01-19] MEDS ORDERED: VANCOMYCIN INJ 1,000 MG in SODIUM CHLOR 0.9% 250 ML INJ 250 ML IV SCH (10:30)
[2018-01-19] MEDS ORDERED: CEFAZOLIN INJ 2,000 MG in SODIUM CHLORIDE 0.9% INJ 100 ML IV SCH (10:45)
[2018-01-19] MEDS ORDERED: VANCOMYCIN 1 GM/200 ML PREMIX IV SCH (11:00)
--- NOTE | 2018-01-19 11:55 | HHI.PR ---
Subjective Remarks 67-year-old male with a significant past medical history and end-stage renal disease on dialysis presents to the emergency department for evaluation of a clotted AV fistula. The patient reports he has not had dialysis since Friday. He has multiple electrolyte disturbances. He reports that he was sent from dialysis today because they could not get his fistula to work. A right IJ Vas-Cath was placed by interventional radiology earlier today and the patient was urgently dialyzed. The patient denies any chest pain or shortness of breath. Denies abdominal pain. No nausea/vomiting/diarrhea. Is paraplegic at baseline without any new onset weakness. 4-6 HAD HD CATHETER PLACED FOR DIALYSIS HIS AVF IS CLOTTED WILL BE UNCLOTTED ON FRIDAY DUE TO ANTICOAGULATION ISSUES DW RN AND PT AND CM 4-7 patient is scheduled to have surgery on his left arm AV fistula Had hemodialysis today Discussed with patient and RN and case management 4-8 FOR SURGERY ON LEFT ARM FISTULA TOMORROW KEEP NPO AFTER MIDNIGHT NO NEW COMPLAINTS DW RN AND PT AND CM 4-9 TO GO FOR SURGERY ON LEFT UE FISTULA SINCE NOT WORKING RIGHT AT THIS TIME DW RN AND PT AND CM CONTINUE HD SCHEDULED WITH TEMPORARY HD CATHETER IN RIGHT NECK AM LABS Objective Vitals Vital Signs Date Time Temp Pulse Resp B/P (MAP) Pulse Ox O2 Delivery O2 Flow Rate FiO2 01/19/18 11:00 98.7 72 18 118/69 (85) 100 01/19/18 10:00 94 01/19/18 09:00 94 01/19/18 08:00 86 01/19/18 07:45 98.1 86 16 129/91 (104) 96 01/19/18 07:00 90 01/19/18 07:00 94 Room Air 01/19/18 06:00 78 01/19/18 05:00 77 01/19/18 04:00 80 01/19/18 04:00 Room Air 01/19/18 04:00 98.1 69 18 106/66 (79) 98 01/19/18 03:00 66 01/19/18 02:00 70 01/19/18 01:00 64 01/19/18 00:00 65 01/19/18 00:00 98.4 65 18 92/54 (67) 97 01/19/18 00:00 Room Air 01/18/18 23:00 64 01/18/18 22:00 71 01/18/18 21:00 64 01/18/18 20:00 98.3 80 18 101/63 (76) 97 01/18/18 20:00 80 01/18/18 20:00 Room Air 01/18/18 18:00 66 01/18/18 17:00 64 01/18/18 16:00 64 01/18/18 15:10 98.7 66 16 86/68 (74) 98 01/18/18 15:00 64 01/18/18 14:00 64 01/18/18 13:00 78 01/18/18 12:00 86 I/O 01/18/18 01/18/18 01/18/18 01/19/18 01/19/18 01/19/18 07:00 15:00 23:00 07:00 15:00 23:00 Intake Total 200 ml 800 ml 200 ml Output Total 0 ml 0 ml 0 ml Balance 200 ml 800 ml 200 ml Intake Oral 200 ml 800 ml 200 ml Output Urine Total 0 ml 0 ml 0 ml # Bowel Movements 0 4 1 Result Diagram: 01/18/18 0617 01/18/18 1011 Other Results Laboratory Tests Test 01/17/18 04:55 01/18/18 06:17 01/18/18 10:11 White Blood Count 10.0 TH/MM3 9.1 TH/MM3 Red Blood Count 3.46 MIL/MM3 3.43 MIL/MM3 Hemoglobin 11.1 GM/DL 10.7 GM/DL Hematocrit 32.6 % 32.0 % Mean Corpuscular Volume 94.2 FL 93.2 FL Mean Corpuscular Hemoglobin 31.9 PG 31.2 PG Mean Corpuscular Hemoglobin Concent 33.9 % 33.5 % Red Cell Distribution Width 16.3 % 16.7 % Platelet Count 383 TH/MM3 417 TH/MM3 Mean Platelet Volume 7.3 FL 7.4 FL Neutrophils (%) (Auto) 77.8 % 75.5 % Lymphocytes (%) (Auto) 7.1 % 10.1 % Monocytes (%) (Auto) 11.8 % 10.7 % Eosinophils (%) (Auto) 3.0 % 3.2 % Basophils (%) (Auto) 0.3 % 0.5 % Neutrophils # (Auto) 7.8 TH/MM3 6.8 TH/MM3 Lymphocytes # (Auto) 0.7 TH/MM3 0.9 TH/MM3 Monocytes # (Auto) 1.2 TH/MM3 1.0 TH/MM3 Eosinophils # (Auto) 0.3 TH/MM3 0.3 TH/MM3 Basophils # (Auto) 0.0 TH/MM3 0.0 TH/MM3 CBC Comment DIFF FINAL DIFF FINAL Differential Comment Blood Urea Nitrogen 79 MG/DL 50 MG/DL Creatinine 11.48 MG/DL 8.37 MG/DL Random Glucose 72 MG/DL 94 MG/DL Total Protein 8.0 GM/DL 7.9 GM/DL Albumin 2.8 GM/DL 2.7 GM/DL Calcium Level 8.7 MG/DL 8.7 MG/DL Phosphorus Level 5.1 MG/DL 3.6 MG/DL Magnesium Level 2.8 MG/DL 2.5 MG/DL Alkaline Phosphatase 210 U/L 194 U/L Aspartate Amino Transf (AST/SGOT) 10 U/L 13 U/L Alanine Aminotransferase (ALT/SGPT) 12 U/L 14 U/L Total Bilirubin 0.5 MG/DL 0.4 MG/DL Sodium Level 131 MEQ/L 131 MEQ/L Potassium Level 5.2 MEQ/L 3.8 MEQ/L Chloride Level 92 MEQ/L 90 MEQ/L Carbon Dioxide Level 21.6 MEQ/L 28.7 MEQ/L Anion Gap 17 MEQ/L 12 MEQ/L Estimat Glomerular Filtration Rate 5 ML/MIN 8 ML/MIN Hemoglobin A1c 4.7 % Free Thyroxine 0.85 NG/DL Thyroid Stimulating Hormone 3rd Gen 0.835 uIU/ML Imaging Last Impressions Fistulagram 01/16/18 0000 Signed Impressions: Service Date/Time: Tuesday, January 16, 2018 09:43 - CONCLUSION: 1. 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 There is a large volume of thrombus with heterogeneous chronic thrombus and suspected central outflow stenosis/occlusion . The central massively dilated outflow vein could not be catheterized despite multiple attempts. A large suspected collateral cephalic vein is completely thrombosed. It is possible that this was the central outflow for the fistula following thrombosis of the massively aneurysmal outflow vein. The fistula is deemed not salvageable with endovascular technique. Abimael Hernandez MD Catheter Placement X-Ray 01/15/18 1318 Signed Impressions: Service Date/Time: January 15:13 - CONCLUSION: Uncomplicated right internal jugular Vas-Cath placement as above. Giovani Laguerre MD Objective Remarks GENERAL: Awake alert and oriented 3 talkative and cooperative flat affect SKIN: Warm and dry. HEAD: Atraumatic. Normocephalic. EYES: Pupils equal and round. No scleral icterus. No injection or drainage. Extraocular muscles intact ENT: No nasal bleeding or discharge. Mucous membranes pink and moist. Tongue is midline NECK: Trachea midline. No JVD. Supple CARDIOVASCULAR: IRRegular rate and rhythm. S1-S2 no S3 or S4 RESPIRATORY: No accessory muscle use. Clear to auscultation. Breath sounds equal bilaterally. GASTROINTESTINAL: Abdomen soft, non-tender, nondistended. Hepatic and splenic margins not palpable. Little obese MUSCULOSKELETAL: Extremities without clubbing, cyanosis, or edema. No obvious deformities. Left upper extremity AV fistula with no thrill or bruit NEUROLOGICAL: Awake and alert. No obvious cranial nerve deficits. Motor grossly within normal limits. Five out of 5 muscle strength in the arms and legs. Normal speech. PSYCHIATRIC: INAppropriate mood and affect; insight and judgment ABnormal. Procedures (1) ESRD (end stage renal disease) on dialysis Post Procedure Diagnosis: (1) ESRD (end stage renal disease) on dialysis Procedure Date: Jan 15, 2018 Supervising Radiologist: Giovani Laguerre Estimated blood loss: 3cc Anesthesia: Local, Conscious Sedation Plan of Activity Patient to Unit: Other Patient Condition: Poor Additional Comments: Right IJ Vascath placed without difficulty. Catheter in good position OK for use See PACS Report for procedural detail/treatment Pre Procedure Diagnosis: (1) AV fistula thrombosis Post Procedure Diagnosis: (1) AV fistula thrombosis Procedure Date: Jan 16, 2018 Supervising Radiologist: Abimael Hernandez Proceduralist/Assist: Tierney Ashton, RT(R), Joshua Cervantes, RT(R) Anesthesia: Conscious Sedation Plan of Activity Patient to Unit: ROPU Patient Condition: Good See PACS Report for procedural detail/treatment Medications and IVs Current Medications Sodium Chloride (NS Flush) 2 ml UNSCH PRN IV FLUSH FLUSH AFTER USING IV ACCESS ; Start 01/15/18 at 13:30; Stop 01/19/18 at 10:35; Status DC Heparin Sodium (Porcine) (*HEPARIN INJ Periprocedural ONLY) 10,000 units STK- MED ONCE .ROUTE Last administered on 01/15/18at 15:10; Start 01/15/18 at 15:03; Stop 01/15/18 at 15:04; Status DC Sodium Chloride (NS Flush) UNSCH PRN IV FLUSH SEE PROTOCOL; Start 01/15/18 at 15:30 Heparin Sodium (Porcine) (Heparin Inj) UNSCH PRN IV FLUSH SEE PROTOCOL; Start 01/15/18 at 15:30 Sodium Chloride 1,000 ml @ 0 mls/hr Q0M PRN OTHER For Prime & Rinse Back; Start 01/15/18 at 15:21 Heparin Sodium (Porcine) (Heparin Inj) 8,000 units UNSCH PRN IV FLUSH WITH DIALYSIS; Start 01/15/18 at 15:30 Sodium Chloride 1,000 ml @ 200 mls/hr Q5H PRN IV WITH DIALYSIS Last administered on 01/17/18at 09:24; Start 01/15/18 at 15:21 Sodium Chloride 1,000 ml @ 0 mls/hr Q0M PRN OTHER WITH DIALYSIS; Start 01/15/18 at 15:21 Mannitol (Mannitol Inj) 12.5 gm UNSCH PRN IV WITH DIALYSIS; Start 01/15/18 at 15 :30 Albumin Human 100 ml @ 60 mls/hr UNSCH PRN IV WITH DIALYSIS; Start 01/15/18 at 15:30 Sodium Chloride (NS Flush) 5 ml UNSCH PRN IV FLUSH WITH DIALYSIS; Start at 15:30 Heparin Sodium (Porcine) (Heparin Inj) UNSCH PRN .XX WITH DIALYSIS Last administered on 01/17/18at 09:24; Start 01/15/18 at 15:30 Gentamicin Sulfate (Gentamicin Inj) 20 mg UNSCH PRN OTHER WITH DIALYSIS Last administered on 01/17/18at 09:27; Start 01/15/18 at 15:30 Ondansetron HCl (Zofran Inj) 4 mg UNSCH PRN IV PUSH WITH DIALYSIS; Start at 15:30 Acetaminophen (Tylenol) 650 mg UNSCH PRN PO for headach, pain, temp > 101F; Start 01/15/18 at 15:30 Diphenhydramine HCl (Benadryl) 25 mg UNSCH PRN PO for hives/itching/anaphylaxis ; Start 01/15/18 at 15:30 Nitroglycerin (Nitrostat Sl) 0.4 mg UNSCH PRN SL CHEST PAIN; Start 01/15/18 at 15:30 Clonidine (Catapres) 0.1 mg UNSCH PRN PO for BP > 180/100 X 2 readings; Start 01/15/18 at 15:30 Epoetin Jake (Epogen Inj) 10,000 units UNSCH PRN IV PUSH WITH DIALYSIS Last administered on 01/17/18 09:25; Start 01/15/18 at 15:30 Gelatin (Gelfoam 12 Mm/7 Mm Top) 1 foam UNSCH PRN TOP SEE LABEL COMMENTS; Start 01/15/18 at 15:30 Sevelamer Carbonate (Renvela) 800 mg TIDAC PO Last administered on 01/16/18 15: 31; Start 01/15/18 at 17:00; Stop 01/16/18 at 16:16; Status DC Sodium Chloride (NS Flush) 2 ml UNSCH PRN IV FLUSH FLUSH AFTER USING IV ACCESS ; Start 01/15/18 at 17:00 Sodium Chloride (NS Flush) 2 ml BID IV FLUSH Last administered on 01/18/18 19: 54; Start 01/15/18 at 21:00 Naloxone HCl (Narcan Inj) 0.4 mg UNSCH PRN IV PUSH SEE LABEL COMMENTS; Start at 17:00 Heparin Sodium (Porcine) (Heparin Inj) 5,000 units Q8HR SQ ; Start 01/15/18 at 22 :00; Stop 01/15/18 at 22:00; Status DC Midazolam HCl (Versed Inj) 5 mg STK-MED ONCE .ROUTE Last administered on 09:44; Start 01/16/18 at 09:44; Stop 01/16/18 at 09:45; Status DC Fentanyl Citrate (fentaNYL INJ) 100 mcg STK-MED ONCE .ROUTE Last administered on 01/16/18 09:44; Start 01/16/18 at 09:44; Stop 01/16/18 at 09:45; Status DC Heparin Sodium (Porcine) (*HEPARIN INJ Periprocedural ONLY) 10,000 units STK- MED ONCE .ROUTE Last administered on 01/16/18at 10:37; Start 01/16/18 at 10:50; Stop 01/16/18 at 10:51; Status DC Iodixanol (VISIPAQUE 320 INJ (Rad Spec)) 30 ml STK-MED ONCE I-ARTERIAL Last administered on 01/16/18at 10:45; Start 01/16/18 at 11:19; Stop 01/16/18 at 11:20; Status DC Carvedilol (Coreg) 6.25 mg Q12HR PO Last administered on 01/19/18 09:44; Start 01/16/18 at 15:00 Terazosin HCl (Hytrin) 2 mg HS PO ; Start 01/16/18 at 21:00; Stop 01/16/18 at 21: 00; Status DC Brimonidine Tartrate (Alphagan P 0.15% Opth Soln) 1 drop HS EACH EYE Last administered on 01/18/18 19:53; Start 01/16/18 at 21:00 Chlorpromazine (Thorazine) 25 mg TID PO Last administered on 01/19/18 10:04; Start 01/16/18 at 18:00 Cinacalcet (Sensipar) 30 mg DAILY PO Last administered on 01/19/18 09:46; Start 01/17/18 at 09:00 Clonidine (Catapres) 0.1 mg Q6HR PRN PO SPB >175 OR DBP >100; Start 01/16/18 at 16:00 Diltiazem HCl (Cardizem) 120 mg TID PO Last administered on 01/19/18at 09:44; Start 01/16/18 at 18:00 Albuterol/ Ipratropium (Duoneb Neb) 1 ampule Q4HR NEB PRN INH SHORTNESS OF BREATH; Start 01/16/18 at 16:00 Megestrol Acetate (Megace Liq) 400 mg DAILY PO Last administered on 01/19/18 09 :45; Start 01/17/18 at 09:00 Metoprolol Tartrate (Lopressor) 100 mg BID PO Last administered on 01/19/18at 09: 44; Start 01/16/18 at 21:00 Prochlorperazine Maleate (Compazine) 10 mg Q6H PRN PO NAUSEA OR VOMITING; Start 01/16/18 at 16:00 Sodium Chloride ([place] Fu[place] Spencer) 1 spray BID EACH NARE Last administered on 19:54; Start 01/16/18 at 21:00 Senna/Docusate Sodium (Solange-Colace) 2 tab BID PO Last administered on 01/19/18 09:46; Start 01/16/18 at 21:00 Sevelamer Carbonate (Renvela) 2,400 mg TID PO Last administered on 01/19/18 09: 46; Start 01/16/18 at 18:00 Terazosin HCl (Hytrin) 2 mg HS PO Last administered on 01/18/18 19:54; Start at 21:00 Vitamin B Complex/ Vit C/Folic Acid (Nephrocaps) 1 cap DAILY PO Last administered on 01/19/18 09:00; Start 01/17/18 at 09:00 Diphenhydramine HCl (Benadryl) 25 mg Q8HR PRN PO ITCHING; Start 01/16/18 at 16: 00 Heparin Sodium (Porcine) (Heparin Inj) 5,000 units Q8H SQ Last administered on 01/18/18 19:58; Start 01/17/18 at 14:00 Naloxone HCl (Narcan Inj) 0.4 mg UNSCH PRN IV PUSH SEE LABEL COMMENTS; Start at 13:15 Vancomycin HCl 1000 mg/Sodium Chloride 250 ml @ 250 mls/hr NIGHT FILLER IV ; Start 01/19/18 at 10:30; Stop 01/23/18 at 10:29; Status Cancel Cefazolin Sodium 2000 mg/Sodium Chloride 120 ml @ 240 mls/hr NIGHT FILLER IV ; Start 01/19/18 at 10:45; Stop 01/23/18 at 10:44 Vancomycin/Sodium Chloride 200 ml @ 200 mls/hr NIGHT FILLER IV ; Start 01/19/18 at 11:00 A/P Problem List: (1) AV fistula thrombosis ICD Code: T82.868A - Thrombosis due to vascular prosthetic devices, implants and grafts, initial encounter (2) ESRD (end stage renal disease) on dialysis ICD Code: N18.6 - End stage renal disease; Z99.2 - Dependence on renal dialysis Status: Chronic (3) HTN (hypertension) ICD Code: I10 - Essential (primary) hypertension Status: Chronic (4) Anemia in chronic kidney disease ICD Code: D63.1 - Anemia in chronic kidney disease; N18.9 - Anemia in chronic renal disease Status: Acute (5) Hypertension, benign ICD Code: I10 - Hypertension, benign Status: Acute Assessment and Plan 1. Clotted AV fistula Interventional radiology consulted to declot AV fistula possible Vascular surgery has been consulted and will attempt to do something on Friday because of anticoagulation 2. Electrolyte disturbances Patient with hyponatremia, hyperkalemia, elevated BUN/creatinine Status post urgent dialysis Repeat BMP pending 3. ESRD Nephrology consulted, appreciate assistance Status post dialysis earlier today Will defer to renal physician 4. History of CVA Patient with residual weakness, uses wheelchair 5. Atrial fibrillation Resume home medications once reconciled Holding Eliquis for possible procedure tomorrow Continue rate control 6. Hypertension/GERD/CAD Resume medications once reconciled 7. Schizophrenia Resume medications PATIENT HAS FUNCTIONAL QUADRIPLEGIA IN THE SETTING OF WHEELCHAIR BOUND AND RESIDUAL RIGHT SIDED WEAKNESS WHICH IS TREATED WITH TOTAL CARE. HAS RIGHT SIDED WEAKNESS FROM CVA IN 2012 AND IS WHEELCHAIR BOUND Electrolytes as above Holding pharmacologic anticoagulation for anticipated procedure--NOW ON HEPARIN SUBQ TID Discharge Planning Pending vascular and nephrology clearance not there yet Trey Webster DO Jan 19, 2018 11:55
[2018-01-19] MEDS ORDERED: MIDAZOLAM HCL 2 MG/2 ML VIAL ONE (12:02)
[2018-01-19] MEDS ORDERED: fentaNYL CITRATE 250 MCG/5 ML AMP ONE (12:03)
[2018-01-19] MEDS ORDERED: LIDOCAINE 1%/EPINEPHrine 1:100,000 SOLN 30 ML VIAL ONE (12:30)
--- NOTE | 2018-01-19 12:49 | PD.RAD ---
Post Procedure Progress Note Pre Procedure Diagnosis: (1) ESRD (end stage renal disease) on dialysis Post Procedure Diagnosis: (1) ESRD (end stage renal disease) on dialysis Procedure Date: Jan 19, 2018 Supervising Radiologist: Abimael Hernandez Proceduralist/Assist: Joshua Cervantes, RT(R), Mireille Marie RT(R) Anesthesia: Conscious Sedation Plan of Activity Patient to Unit: ROPU Patient Condition: Good See PACS Report for procedural detail/treatment Abimael Hernandez MD Jan 19, 2018 12:49
[2018-01-19] MEDS ORDERED: SODIUM CHLORIDE 0.9% FLUSH 10 ML FLUSH IV FLUSH PRN (13:00)
[2018-01-19] MEDS ORDERED: HEPARIN SODIUM - IV 2,000 UNITS/2 ML VIAL IV FLUSH PRN (13:00)
--- NOTE | 2018-01-19 13:40 | RADRPT ---
EXAM DATE/TIME: 01/19/2018 12:01 [facility] COMPARISON: No previous studies available for comparison. INDICATIONS : Patient presents with end-stage renal disease in need of dialysis catheter placement. MEDICAL HISTORY : ESRD on HD Failed renal transplant recipient Atrial fibrillation Depression/Anxiety Coronary artery disease Angina CVA in 08/2013 with residual right-sided weakness GERD Glaucoma Gout Hypertension Schizophrenia SURGICAL HISTORY : LUE AVF TOWER HAND Kidney transplant ENCOUNTER: Subsequent ACUITY: 4-6 days PAIN SCORE: 0/10 LOCATION: N/A FLUORO TIME: 0.2 minutes IMAGE SERIES: 0 SEDATION TIME: 30 minutes ACCESS: Right subclavian vein SEDATION: 1.) 1 mg midazolam (Versed) IV 2.) 50 mcg fentanyl (Sublimaze) IV Prophylactic antibiotics were administered with appropriate pre-procedure timing. Vancomycin within 2 hours of procedure, Ancef (or alternative) within 1 hour of procedure. DEVICE: 1. 15 Yi dual lumen 23 cm Aguilera II Plus catheter PROCEDURE : 1. Ultrasound-guided venipuncture. 2. PermaCath placement. 3. Conscious sedation with continuous EKG and oximetry monitoring. The risks, benefits and alternatives to the procedure were explained and verbal and written consent w as obtained. The site was prepped in sterile fashion. Full sterile technique was used, including ca p, mask, sterile gloves and gown and a large sterile sheet. Hand hygiene and 2% chlorhexidine and/or betadine/alcohol prep was utilized per protocol for cutaneous antisepsis. Sterile gel and sterile p robe cover were utilized for ultrasound guidance. The skin and subcutaneous tissues were infiltrated with local anesthetic solution. With ultrasound and fluoroscopic guidance a dermatotomy was created over the prescribed vein. A micr opuncture set was used to access the targeted vein and serial dilatation was performed to accept the prescribed length catheter. A subcutaneous tunnel was created in a retrograde fashion the catheter w as pulled through the tunnel. The catheter was flushed and assembled and locked with heparin. The c atheter was sutured in place. Conscious sedation was performed with the prescribed dosages and duration as above in the presence of an independent trained radiology nurse to assist in the monitoring of the patient. EKG and oximetry remained stable throughout the procedure. The patient tolerated the procedure well and there were n o complications. The patient was sent to post anesthesia recovery in stable condition. CONCLUSION: Uncomplicated PermaCath placement as above. Abimael Hernandez MD on January 19, 2018 at 13:38 Board Certified Radiologist. This report was verified electronically.
--- NOTE | 2018-01-19 13:40 | RADRPT ---
EXAM DATE/TIME: 01/19/2018 00:00 [facility] COMPARISON: No previous studies available for comparison. INDICATIONS : Patient presents with end-stage renal disease in need of temporary dialysis catheter removal for more permanent dialysis catheter. 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 Temporary central venous catheter removal. The prescribed catheter was removed intact and hemostasis was achieved with direct pressure. The sit e was dressed appropriately. The patient tolerated the procedure well. CONCLUSION: Uncomplicated catheter removal. Abimael Hernandez MD on January 19, 2018 at 13:38 Board Certified Radiologist. This report was verified electronically.
[2018-01-19] MEDS: BRIMONIDINE TARTRATE 0.15% OPHT SOLN 5 ML BTL EACH EYE SCH (22:30)
[2018-01-19] MEDS: TERAZOSIN HCL 1 MG CAP PO SCH (22:31)
[2018-01-20] VITALS (14 sets, daily range): BP systolic 89–156; BP diastolic 58–78; PULSE 49–90; RESP 20; TEMP 97.8–98.5; O2SAT 97–100
[2018-01-20] MEDS: HEPARIN SODIUM - SQ 10,000 UNITS/ML VIAL SQ SCH ×3 (05:38→23:09)
[2018-01-20 07:42] LABS: AUTOMATED NEUTROPHIL # 7.1 TH/MM3 (1.8-7.7); BASOPHIL % 0.5 % (0.0-2.0); EOSINOPHIL # 0.4 TH/MM3 (0-0.4); EOSINOPHIL % 4.2 % (0.0-4.0); HEMATOCRIT 26.5 % (39.0-51.0); HEMOGLOBIN 8.9 GM/DL (13.0-17.0); LYMPH % 8.9 % (9.0-44.0); LYMPHOCYTE # 0.8 TH/MM3 (1.0-4.8); MEAN CELL VOLUME 92.9 FL (80.0-100.0); MEAN CORPUSCULAR HEMOGLOBIN 31.3 PG (27.0-34.0); MEAN CORPUSCULAR HGB CONC 33.7 % (32.0-36.0); MEAN PLATELET VOLUME 6.9 FL (7.0-11.0); MONO % 7.5 % (0.0-8.0); MONOCYTE # 0.7 TH/MM3 (0-0.9); NEUT % 78.9 % (16.0-70.0); PLATELET COUNT 363 TH/MM3 (150-450); RED BLOOD COUNT 2.85 MIL/MM3 (4.50-5.90); RED CELL DISTRIBUTION WIDTH 16.6 % (11.6-17.2)
[2018-01-20 08:11] LABS: ALBUMIN 2.6 GM/DL (3.4-5.0); AST (GOT) 12 U/L (15-37); BICARBONATE 22.8 MEQ/L (21.0-32.0); BLOOD UREA NITROGEN 72 MG/DL (7-18); CHLORIDE 88 MEQ/L (98-107); GLOMERULAR FILTRATION RATE 5 ML/MIN (>89); GLUCOSE,RANDOM 88 MG/DL (74-106); MAGNESIUM 2.4 MG/DL (1.5-2.5); SODIUM (NA) 126 MEQ/L (136-145)
[2018-01-20 08:14] LABS: ALKALINE PHOSPHATASE 178 U/L (45-117); ALT (GPT) 9 U/L (12-78); PHOSPHORUS 4.4 MG/DL (2.5-4.9); TOTAL BILIRUBIN ADULT 0.5 MG/DL (0.2-1.0); TOTAL PROTEIN 7.5 GM/DL (6.4-8.2)
[2018-01-20] MEDS: SODIUM CHLORIDE 0.9% FLUSH 10 ML FLUSH IV FLUSH SCH ×2 (09:00→21:00)
[2018-01-20] MEDS: DOCUSATE SODIUM 50 MG/SENNA 8.6 MG TAB PO SCH ×2 (09:00→23:09)
[2018-01-20] MEDS: VITAMIN B CMPLX/VITC/FOLIC AC CAP PO SCH (09:00)
--- NOTE | 2018-01-20 09:35 | HHI.NPPN ---
Subjective General Problems: Anemia Renal Failure: Chronic, End Stage Renal Disease Interval History Permcath exchange yesterday. He is NPO per the nurse for Dr. Juarez who is to come and evaluate the patient today, possibly take him to the OR. He is resting , no complaints. Due for dialysis today. (Germania Latham) Objective Data Data Vital Signs Date Time Temp Pulse Resp B/P (MAP) Pulse Ox O2 Delivery O2 Flow Rate FiO2 01/20/18 06:00 74 01/20/18 05:00 74 01/20/18 04:00 76 01/20/18 04:00 98.3 79 20 91/58 (69) 100 01/20/18 03:00 64 01/20/18 02:00 60 01/20/18 01:00 56 01/20/18 00:00 98.4 50 20 89/60 (70) 100 01/20/18 00:00 54 01/19/18 23:00 50 01/19/18 22:00 48 01/19/18 21:00 46 01/19/18 20:00 50 01/19/18 20:00 Room Air 01/19/18 20:00 97.9 51 20 90/57 (68) 99 01/19/18 18:00 48 01/19/18 17:00 46 01/19/18 16:00 50 01/19/18 15:00 59 01/19/18 15:00 97.5 59 14 136/60 (85) 94 01/19/18 14:00 58 01/19/18 11:00 68 01/19/18 11:00 98.7 72 18 118/69 (85) 100 01/19/18 10:00 94 (Germania Latham) -: 01/20/18 0730 01/20/18 0730 Imaging Last 72 hours Impressions Catheter Placement X-Ray 01/19/18 0800 Signed Impressions: Service Date/Time: Friday, January 19, 2018 12:01 - CONCLUSION: Uncomplicated PermaCath placement as above. Abimael Hernandez MD Central Venous Line 01/19/18 0000 Signed Impressions: Service Date/Time: Friday, January 19, 2018 00:00 - CONCLUSION: Uncomplicated catheter removal. Abimael Hernandez MD Tubes & Lines: Perma-Cath (Germania Latham. NURSING TECHNICIAN) Physical Exam General Appearance: Well Developed, No Acute Distress, Comfortable (Germania Latham B. NURSING TECHNICIAN) Eyes Eye Exam: Pupils Equal (Rosas Lathamon B. NURSING TECHNICIAN) Throat Throat Exam: Oral Mucosa [place] & Moist (Rosas Lathamon B. NURSING TECHNICIAN) Pulmonary Resp Exam: Clear Bilaterally, Breath Sounds Equal (Germania Latham B. NURSING TECHNICIAN) Cardiology CV Exam: Regular, Normal Sinus Rhythm (Germania Latham B. NURSING TECHNICIAN) Gastrointestinal/Abdomen GI Exam: Soft, Non-Tender GI Remarks obese (Rosas Lathamon B. NURSING TECHNICIAN) Musculoskeletal MS Exam: Joints Intact, Normal Tone (Germania Latham B. NURSING TECHNICIAN) Integumentary Skin Exam: Warm, Dry (Germania Latham B. NURSING TECHNICIAN) Extremeties Extremities Exam: No Edema, Pedal Pulses Palpable Extremeties Remarks left upper extremity, AVF with aneurysm , no palpable thrill/bruit (Germania Latham B. NURSING TECHNICIAN) Neurologic Neuro Exam: Alert, Speech Clear, Moving All Extremities (Germania Latham B. NURSING TECHNICIAN) Assessment/Plan Discussed Condition With: Patient Assessment Summary: Anemia of CKD, Hypertension, End Stage Renal Disease Problem List: (1) ESRD (end stage renal disease) on dialysis ICD Codes: N18.6 - End stage renal disease; Z99.2 - Dependence on renal dialysis Status: Chronic Plan: Continue HD support per TTS schedule, due today S/P permcath exchange yesterday Pending vascular consult for new access, per the RN this will happen today NPO today pending above. avoid IVF High protein, low phosphorus diet if able to eat (2) HTN (hypertension) ICD Codes: I10 - Essential (primary) hypertension Status: Chronic Plan: BP control has improved Medications reviewed. (3) Metabolic bone disease ICD Codes: E88.9 - Metabolic disorder, unspecified; M90.80 - Osteopathy in diseases classified elsewhere, unspecified site Status: Acute Plan: On Sevelamer with meals, monitor phosphorus level Also on Sensipar (4) Anemia ICD Codes: D64.9 - Anemia Status: Acute Plan: Epogen per protocol Plan If not surgical intervention, he can be discharged with outpatient follow up. (Germania Latham) Plan patient was seen and examined. Agree with above assessment and plan. Fluid restriction to 1200 ml/day because of hyponatremia. If no surgery is planned, he can be discharged from renal standpoint. (Keoyn Eckert MD) Germania Latham Jan 20, 2018 09:35 Keyon Eckert MD Jan 20, 2018 10:35
[2018-01-20] MEDS: chlorproMAZINE HCL 25 MG TAB PO SCH ×2 (10:07→13:16)
[2018-01-20] MEDS: MEGESTROL ACETATE SUSP 400 MG/10 ML CUP PO SCH (10:07)
[2018-01-20] MEDS: SODIUM CHLORIDE 0.65% NASAL SPRAY 45 ML BTL EACH NARE SCH ×2 (10:07→23:10)
[2018-01-20] MEDS: METOPROLOL TARTRATE 100 MG TAB PO SCH ×2 (10:08→23:09)
[2018-01-20] MEDS: DILTIAZEM HCL 60 MG TAB PO SCH ×2 (10:08→13:00)
[2018-01-20] MEDS: CINACALCET HYDROCHLORIDE 30 MG TAB PO SCH (10:09)
[2018-01-20] MEDS: SEVELAMER CARBONATE 800 MG TAB PO SCH ×2 (10:09→13:16)
[2018-01-20] MEDS: CARVEDILOL 6.25 MG TAB PO SCH ×2 (10:09→23:09)
[2018-01-20] MEDS ORDERED: PHENYLEPH/NS 1000 MCG/10 ML SYR IV ONE (12:00)
[2018-01-20] MEDS ORDERED: ONDANSETRON HCL 4 MG/2 ML VIAL IV ONE (12:00)
[2018-01-20] MEDS ORDERED: GLYCOPYRROLATE 1 MG/5 ML SYRINGE IV PUSH ONE (12:00)
[2018-01-20] MEDS ORDERED: ROCURONIUM INJ 50 MG/5 ML SYRINGE IV PUSH ONE (12:00)
[2018-01-20] MEDS ORDERED: SODIUM CHLOR 0.9% 250 ML INJ 250 ML IV ONE (12:00)
[2018-01-20] MEDS ORDERED: NEOSTIGMINE 5 MG/5 ML SYRINGE IV PUSH ONE (12:00)
[2018-01-20] MEDS ORDERED: ePHEDrine/NS 25 MG/5 ML SYRINGE IV ONE (12:00)
[2018-01-20] MEDS ORDERED: PROPOFOL 200 MG/20 ML AMP IV ONE (12:00)
[2018-01-20] MEDS ORDERED: LIDOCAINE HCL 1% PF 5 ML SYRINGE OTHER ONE (12:00)
--- NOTE | 2018-01-20 14:50 | HHI.PR ---
Subjective Remarks 67-year-old male with a significant past medical history and end-stage renal disease on dialysis presents to the emergency department for evaluation of a clotted AV fistula. The patient reports he has not had dialysis since Friday. He has multiple electrolyte disturbances. He reports that he was sent from dialysis today because they could not get his fistula to work. A right IJ Vas-Cath was placed by interventional radiology earlier today and the patient was urgently dialyzed. The patient denies any chest pain or shortness of breath. Denies abdominal pain. No nausea/vomiting/diarrhea. Is paraplegic at baseline without any new onset weakness. 4-6 HAD HD CATHETER PLACED FOR DIALYSIS HIS AVF IS CLOTTED WILL BE UNCLOTTED ON FRIDAY DUE TO ANTICOAGULATION ISSUES DW RN AND PT AND CM 4- patient is scheduled to have surgery on his left arm AV fistula Had hemodialysis today Discussed with patient and RN and case management 01-18 FOR SURGERY ON LEFT ARM FISTULA TOMORROW KEEP NPO AFTER MIDNIGHT NO NEW COMPLAINTS DW RN AND PT AND CM 4- TO GO FOR SURGERY ON LEFT UE FISTULA SINCE NOT WORKING RIGHT AT THIS TIME DW RN AND PT AND CM CONTINUE HD SCHEDULED WITH TEMPORARY HD CATHETER IN RIGHT NECK AM LABS - HAD RIGHT IJ PERMACATH PLACED FOR HD BY IR YESTERDAY TO HAVE PROCEDURE ON LEFT UE BY DR MEJIA NO NEW COMPLANTS TODAY DW RN AND CM AND PT Objective Vitals Vital Signs Date Time Temp Pulse Resp B/P (MAP) Pulse Ox O2 Delivery O2 Flow Rate FiO2 01/20/18 14:33 62 01/20/18 13:22 49 01/20/18 12:05 97.8 78 20 135/74 (94) 100 01/20/18 12:05 78 01/20/18 10:49 77 01/20/18 08:31 77 01/20/18 08:31 97 Room Air 01/20/18 07:54 90 01/20/18 07:54 97.9 90 20 156/78 (104) 97 01/20/18 06:00 74 01/20/18 05:00 74 01/20/18 04:00 76 01/20/18 04:00 98.3 79 20 91/58 (69) 100 01/20/18 03:00 64 01/20/18 02:00 60 01/20/18 01:00 56 01/20/18 00:00 98.4 50 20 89/60 (70) 100 01/20/18 00:00 54 01/19/18 23:00 50 01/19/18 22:00 48 01/19/18 21:00 46 01/19/18 20:00 50 01/19/18 20:00 Room Air 01/19/18 20:00 97.9 51 20 90/57 (68) 99 01/19/18 18:00 48 01/19/18 17:00 46 01/19/18 16:00 50 01/19/18 15:00 59 01/19/18 15:00 97.5 59 14 136/60 (85) 94 I/O 01/19/18 01/19/18 01/19/18 01/20/18 01/20/18 01/20/18 07:00 15:00 23:00 07:00 15:00 23:00 Intake Total 200 ml 320 ml 720 ml Output Total 0 ml 0 ml Balance 200 ml 320 ml 720 ml Intake Oral 200 ml 720 ml IV Total 320 ml Output Urine Total 0 ml 0 ml # Bowel Movements 1 1 Result Diagram: 01/20/18 0730 01/20/18 0730 Other Results Laboratory Tests Test 01/18/18 06:17 01/18/18 10:11 01/20/18 07:30 White Blood Count 9.1 TH/MM3 9.0 TH/MM3 Red Blood Count 3.43 MIL/MM3 2.85 MIL/MM3 Hemoglobin 10.7 GM/DL 8.9 GM/DL Hematocrit 32.0 % 26.5 % Mean Corpuscular Volume 93.2 FL 92.9 FL Mean Corpuscular Hemoglobin 31.2 PG 31.3 PG Mean Corpuscular Hemoglobin Concent 33.5 % 33.7 % Red Cell Distribution Width 16.7 % 16.6 % Platelet Count 417 TH/MM3 363 TH/MM3 Mean Platelet Volume 7.4 FL 6.9 FL Neutrophils (%) (Auto) 75.5 % 78.9 % Lymphocytes (%) (Auto) 10.1 % 8.9 % Monocytes (%) (Auto) 10.7 % 7.5 % Eosinophils (%) (Auto) 3.2 % 4.2 % Basophils (%) (Auto) 0.5 % 0.5 % Neutrophils # (Auto) 6.8 TH/MM3 7.1 TH/MM3 Lymphocytes # (Auto) 0.9 TH/MM3 0.8 TH/MM3 Monocytes # (Auto) 1.0 TH/MM3 0.7 TH/MM3 Eosinophils # (Auto) 0.3 TH/MM3 0.4 TH/MM3 Basophils # (Auto) 0.0 TH/MM3 0.0 TH/MM3 CBC Comment DIFF FINAL DIFF FINAL Differential Comment Blood Urea Nitrogen 50 MG/DL 72 MG/DL Creatinine 8.37 MG/DL 11.70 MG/DL Random Glucose 94 MG/DL 88 MG/DL Total Protein 7.9 GM/DL 7.5 GM/DL Albumin 2.7 GM/DL 2.6 GM/DL Calcium Level 8.7 MG/DL 8.0 MG/DL Phosphorus Level 3.6 MG/DL 4.4 MG/DL Magnesium Level 2.5 MG/DL 2.4 MG/DL Alkaline Phosphatase 194 U/L 178 U/L Aspartate Amino Transf (AST/SGOT) 13 U/L 12 U/L Alanine Aminotransferase (ALT/SGPT) 14 U/L 9 U/L Total Bilirubin 0.4 MG/DL 0.5 MG/DL Sodium Level 131 MEQ/L 126 MEQ/L Potassium Level 3.8 MEQ/L 3.9 MEQ/L Chloride Level 90 MEQ/L 88 MEQ/L Carbon Dioxide Level 28.7 MEQ/L 22.8 MEQ/L Anion Gap 12 MEQ/L 15 MEQ/L Estimat Glomerular Filtration Rate 8 ML/MIN 5 ML/MIN Imaging Last Impressions Catheter Placement X-Ray 01/19/18 0800 Signed Impressions: Service Date/Time: Friday, January 19, 2018 12:01 - CONCLUSION: Uncomplicated PermaCath placement as above. Abimael Hernandez MD Central Venous Line 01/19/18 0000 Signed Impressions: Service Date/Time: Friday, January 19, 2018 00:00 - CONCLUSION: Uncomplicated catheter removal. Abimael Hernandez MD Fistulagram 01/16/18 0000 Signed Impressions: Service Date/Time: Tuesday, January 16, 2018 09:43 - CONCLUSION: 1. 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 There is a large volume of thrombus with heterogeneous chronic thrombus and suspected central outflow stenosis/occlusion . The central massively dilated outflow vein could not be catheterized despite multiple attempts. A large suspected collateral cephalic vein is completely thrombosed. It is possible that this was the central outflow for the fistula following thrombosis of the massively aneurysmal outflow vein. The fistula is deemed not salvageable with endovascular technique. Abimael Hernandez MD Objective Remarks GENERAL: Awake alert and oriented 3 talkative and cooperative flat affect SKIN: Warm and dry. HEAD: Atraumatic. Normocephalic. EYES: Pupils equal and round. No scleral icterus. No injection or drainage. Extraocular muscles intact ENT: No nasal bleeding or discharge. Mucous membranes pink and moist. Tongue is midline NECK: Trachea midline. No JVD. Supple CARDIOVASCULAR: IRRegular rate and rhythm. S1-S2 no S3 or S4 RESPIRATORY: No accessory muscle use. Clear to auscultation. Breath sounds equal bilaterally. GASTROINTESTINAL: Abdomen soft, non-tender, nondistended. Hepatic and splenic margins not palpable. Little obese MUSCULOSKELETAL: Extremities without clubbing, cyanosis, or edema. No obvious deformities. Left upper extremity AV fistula with no thrill or bruit NEUROLOGICAL: Awake and alert. No obvious cranial nerve deficits. Motor grossly within normal limits. Five out of 5 muscle strength in the arms and legs. Normal speech. PSYCHIATRIC: INAppropriate mood and affect; insight and judgment ABnormal. Procedures (1) ESRD (end stage renal disease) on dialysis Post Procedure Diagnosis: (1) ESRD (end stage renal disease) on dialysis Procedure Date: Jan 15, 2018 Supervising Radiologist: Giovani Laguerre Estimated blood loss: 3cc Anesthesia: Local, Conscious Sedation Plan of Activity Patient to Unit: Other Patient Condition: Poor Additional Comments: Right IJ Vascath placed without difficulty. Catheter in good position OK for use See PACS Report for procedural detail/treatment Pre Procedure Diagnosis: (1) AV fistula thrombosis Post Procedure Diagnosis: (1) AV fistula thrombosis Procedure Date: Jan 16, 2018 Supervising Radiologist: Abimael Hernandez Proceduralist/Assist: Tierney Ashton, RT(R), Joshua Cervantes RT(R) Anesthesia: Conscious Sedation Plan of Activity Patient to Unit: ROPU Patient Condition: Good See PACS Report for procedural detail/treatment Perm CV Cath Plcmt w US RIGHT EXAM DATE/TIME: 01/19/2018 12:01 [place] COMPARISON: No previous studies available for comparison. INDICATIONS : Patient presents with end-stage renal disease in need of dialysis catheter placement. 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 Vancomycin within 2 hours of procedure, Ancef (or alternative) within 1 hour of procedure. DEVICE: 1. 15 [place] dual lumen 23 cm Aguilera II Plus catheter PROCEDURE : 1. Ultrasound-guided venipuncture. 2. PermaCath placement. 3. Conscious sedation with continuous EKG and oximetry monitoring. The risks, benefits and alternatives to the procedure were explained and verbal and written consent was obtained. The site was prepped in sterile fashion. Full sterile technique was used, including cap, mask, sterile gloves and gown and a large sterile sheet. Hand hygiene and 2% chlorhexidine and/or betadine/ alcohol prep was utilized per protocol for cutaneous antisepsis. Sterile gel and sterile probe cover were utilized for ultrasound guidance. The skin and subcutaneous tissues were infiltrated with local anesthetic solution. With ultrasound and fluoroscopic guidance a dermatotomy was created over the prescribed vein. A micropuncture set was used to access the targeted vein and serial dilatation was performed to accept the prescribed length catheter. A subcutaneous tunnel was created in a retrograde fashion the catheter was pulled through the tunnel. The catheter was flushed and assembled and locked with heparin. The catheter was sutured in place. Conscious sedation was performed with the prescribed dosages and duration as above in the presence of an independent trained radiology nurse to assist in the monitoring of the patient. EKG and oximetry remained stable throughout the procedure. The patient tolerated the procedure well and there were no complications. The patient was sent to post anesthesia recovery in stable condition. CONCLUSION: Uncomplicated PermaCath placement as above. Medications and IVs Current Medications Sodium Chloride (NS Flush) 2 ml UNSCH PRN IV FLUSH FLUSH AFTER USING IV ACCESS ; Start 01/15/18 at 13:30; Stop 01/19/18 at 10:35; Status DC Heparin Sodium (Porcine) (*HEPARIN INJ Periprocedural ONLY) 10,000 units STK- MED ONCE .ROUTE Last administered on 01/15/18at 15:10; Start 01/15/18 at 15:03; Stop 01/15/18 at 15:04; Status DC Sodium Chloride (NS Flush) UNSCH PRN IV FLUSH SEE PROTOCOL; Start 01/15/18 at 15:30 Heparin Sodium (Porcine) (Heparin Inj) UNSCH PRN IV FLUSH SEE PROTOCOL; Start 01/15/18 at 15:30 Sodium Chloride 1,000 ml @ 0 mls/hr Q0M PRN OTHER For Prime & Rinse Back; Start 01/15/18 at 15:21 Heparin Sodium (Porcine) (Heparin Inj) 8,000 units UNSCH PRN IV FLUSH WITH DIALYSIS; Start 01/15/18 at 15:30 Sodium Chloride 1,000 ml @ 200 mls/hr Q5H PRN IV WITH DIALYSIS Last administered on 01/17/18at 09:24; Start 01/15/18 at 15:21 Sodium Chloride 1,000 ml @ 0 mls/hr Q0M PRN OTHER WITH DIALYSIS; Start 01/15/18 at 15:21 Mannitol (Mannitol Inj) 12.5 gm UNSCH PRN IV WITH DIALYSIS; Start 01/15/18 at 15 :30 Albumin Human 100 ml @ 60 mls/hr UNSCH PRN IV WITH DIALYSIS; Start 01/15/18 at 15:30 Sodium Chloride (NS Flush) 5 ml UNSCH PRN IV FLUSH WITH DIALYSIS; Start at 15:30 Heparin Sodium (Porcine) (Heparin Inj) UNSCH PRN .XX WITH DIALYSIS Last administered on 01/17/18at 09:24; Start 01/15/18 at 15:30 Gentamicin Sulfate (Gentamicin Inj) 20 mg UNSCH PRN OTHER WITH DIALYSIS Last administered on 01/17/18at 09:27; Start 01/15/18 at 15:30 Ondansetron HCl (Zofran Inj) 4 mg UNSCH PRN IV PUSH WITH DIALYSIS; Start at 15:30 Acetaminophen (Tylenol) 650 mg UNSCH PRN PO for headach, pain, temp > 101F; Start 01/15/18 at 15:30 Diphenhydramine HCl (Benadryl) 25 mg UNSCH PRN PO for hives/itching/anaphylaxis ; Start 01/15/18 at 15:30 Nitroglycerin (Nitrostat Sl) 0.4 mg UNSCH PRN SL CHEST PAIN; Start 01/15/18 at 15:30 Clonidine (Catapres) 0.1 mg UNSCH PRN PO for BP > 180/100 X 2 readings; Start 01/15/18 at 15:30 Epoetin Jake (Epogen Inj) 10,000 units UNSCH PRN IV PUSH WITH DIALYSIS Last administered on 01/17/18at 09:25; Start 01/15/18 at 15:30 Gelatin (Gelfoam 12 Mm/7 Mm Top) 1 foam UNSCH PRN TOP SEE LABEL COMMENTS; Start 01/15/18 at 15:30 Sevelamer Carbonate (Renvela) 800 mg TIDAC PO Last administered on 01/16/18at 15: 31; Start 01/15/18 at 17:00; Stop 01/16/18 at 16:16; Status DC Sodium Chloride (NS Flush) 2 ml UNSCH PRN IV FLUSH FLUSH AFTER USING IV ACCESS ; Start 01/15/18 at 17:00 Sodium Chloride (NS Flush) 2 ml BID IV FLUSH Last administered on 01/18/18at 19: 54; Start 01/15/18 at 21:00 Naloxone HCl (Narcan Inj) 0.4 mg UNSCH PRN IV PUSH SEE LABEL COMMENTS; Start at 17:00 Heparin Sodium (Porcine) (Heparin Inj) 5,000 units Q8HR SQ ; Start 01/15/18 at 22 :00; Stop 01/15/18 at 22:00; Status DC Midazolam HCl (Versed Inj) 5 mg STK-MED ONCE .ROUTE Last administered on at 09:44; Start 01/16/18 at 09:44; Stop 01/16/18 at 09:45; Status DC Fentanyl Citrate (fentaNYL INJ) 100 mcg STK-MED ONCE .ROUTE Last administered on 01/16/18at 09:44; Start 01/16/18 at 09:44; Stop 01/16/18 at 09:45; Status DC Heparin Sodium (Porcine) (*HEPARIN INJ Periprocedural ONLY) 10,000 units STK- MED ONCE .ROUTE Last administered on 01/16/18at 10:37; Start 01/16/18 at 10:50; Stop 01/16/18 at 10:51; Status DC Iodixanol (VISIPAQUE 320 INJ (Rad Spec)) 30 ml STK-MED ONCE I-ARTERIAL Last administered on 01/16/18at 10:45; Start 01/16/18 at 11:19; Stop 01/16/18 at 11:20; Status DC Carvedilol (Coreg) 6.25 mg Q12HR PO Last administered on 01/20/18 10:09; Start 01/16/18 at 15:00 Terazosin HCl (Hytrin) 2 mg HS PO ; Start 01/16/18 at 21:00; Stop 01/16/18 at 21: 00; Status DC Brimonidine Tartrate (Alphagan P 0.15% Opth Soln) 1 drop HS EACH EYE Last administered on 01/19/18at 22:30; Start 01/16/18 at 21:00 Chlorpromazine (Thorazine) 25 mg TID PO Last administered on 01/20/18at 13:16; Start 01/16/18 at 18:00 Cinacalcet (Sensipar) 30 mg DAILY PO Last administered on 01/20/18 10:09; Start 01/17/18 at 09:00 Clonidine (Catapres) 0.1 mg Q6HR PRN PO SPB >175 OR DBP >100; Start 01/16/18 at 16:00 Diltiazem HCl (Cardizem) 120 mg TID PO Last administered on 01/20/18at 10:08; Start 01/16/18 at 18:00 Albuterol/ Ipratropium (Duoneb Neb) 1 ampule Q4HR NEB PRN INH SHORTNESS OF BREATH; Start 01/16/18 at 16:00 Megestrol Acetate (Megace Liq) 400 mg DAILY PO Last administered on 01/20/18 10:07; Start 01/17/18 at 09:00 Metoprolol Tartrate (Lopressor) 100 mg BID PO Last administered on 01/20/18 10 :08; Start 01/16/18 at 21:00 Prochlorperazine Maleate (Compazine) 10 mg Q6H PRN PO NAUSEA OR VOMITING; Start 01/16/18 at 16:00 Sodium Chloride ([place]) 1 spray BID EACH NARE Last administered on 07/30at 10:07; Start 01/16/18 at 21:00 Senna/Docusate Sodium (Solange-Colace) 2 tab BID PO Last administered on 01/19/18 22:31; Start 01/16/18 at 21:00 Sevelamer Carbonate (Renvela) 2,400 mg TID PO Last administered on 01/20/18 13 :16; Start 01/16/18 at 18:00 Terazosin HCl (Hytrin) 2 mg HS PO Last administered on 01/19/18 22:31; Start at 21:00 Vitamin B Complex/ Vit C/Folic Acid (Nephrocaps) 1 cap DAILY PO Last administered on 01/20/18at 09:00; Start 01/17/18 at 09:00 Diphenhydramine HCl (Benadryl) 25 mg Q8HR PRN PO ITCHING; Start 01/16/18 at 16: 00 Heparin Sodium (Porcine) (Heparin Inj) 5,000 units Q8H SQ Last administered on 01/20/18at 05:38; Start 01/17/18 at 14:00 Naloxone HCl (Narcan Inj) 0.4 mg UNSCH PRN IV PUSH SEE LABEL COMMENTS; Start at 13:15 Vancomycin HCl 1000 mg/Sodium Chloride 250 ml @ 250 mls/hr CRISIS INTERVENTION COUNSELOR IV ; Start 01/19/18 at 10:30; Stop 01/23/18 at 10:29; Status Cancel Cefazolin Sodium 2000 mg/Sodium Chloride 120 ml @ 240 mls/hr CRISIS INTERVENTION COUNSELOR IV Last administered on 01/19/18at 12:00; Start 01/19/18 at 10:45; Stop 01/23/18 at 10:44 Vancomycin/Sodium Chloride 200 ml @ 200 mls/hr CRISIS INTERVENTION COUNSELOR IV Last administered on 01/19/18at 12:00; Start 01/19/18 at 11:00 Midazolam HCl (Versed Inj) 4 mg STK-MED ONCE .ROUTE Last administered on at 12:02; Start 01/19/18 at 12:02; Stop 01/19/18 at 12:03; Status DC Fentanyl Citrate (fentaNYL INJ) 250 mcg STK-MED ONCE .ROUTE Last administered on 01/19/18at 12:03; Start 01/19/18 at 12:03; Stop 01/19/18 at 12:04; Status DC Heparin Sodium (Porcine) (*HEPARIN INJ Periprocedural ONLY) 10,000 units STK- MED ONCE .ROUTE Last administered on 01/19/18at 12:45; Start 01/19/18 at 12:30; Stop 01/19/18 at 12:31; Status DC Lidocaine/ Epinephrine (Xylocaine-Epi 1%-1:100,000 Inj) 30 ml STK-MED ONCE .ROUTE Last administered on 01/19/18at 12:44; Start 01/19/18 at 12:30; Stop at 12:31; Status DC Sodium Chloride (NS Flush) UNSCH PRN IV FLUSH SEE PROTOCOL; Start 01/19/18 at 13:00 Heparin Sodium (Porcine) (Heparin Inj) UNSCH PRN IV FLUSH SEE PROTOCOL; Start 01/19/18 at 13:00 A/P Problem List: (1) AV fistula thrombosis ICD Code: T82.868A - Thrombosis due to vascular prosthetic devices, implants and grafts, initial encounter (2) ESRD (end stage renal disease) on dialysis ICD Code: N18.6 - End stage renal disease; Z99.2 - Dependence on renal dialysis Status: Chronic (3) HTN (hypertension) ICD Code: I10 - Essential (primary) hypertension Status: Chronic (4) Anemia in chronic kidney disease ICD Code: D63.1 - Anemia in chronic kidney disease; N18.9 - Anemia in chronic renal disease Status: Acute (5) Hypertension, benign ICD Code: I10 - Hypertension, benign Status: Acute Assessment and Plan 1. Clotted AV fistula Interventional radiology consulted to declot AV fistula possible Vascular surgery has been consulted and will attempt to do something on FRIDAY because of anticoagulation 2. Electrolyte disturbances Patient with hyponatremia, hyperkalemia, elevated BUN/creatinine Status post urgent dialysis Repeat BMP pending 3. ESRD Nephrology consulted, appreciate assistance Status post dialysis earlier today Will defer to renal physician HAD PERMACATH PLACED ON RIGHT IJ ON 01-19 4. History of CVA Patient with residual weakness, uses wheelchair 5. Atrial fibrillation Resume home medications once reconciled Holding Eliquis for possible procedure tomorrow Continue rate control 6. Hypertension/GERD/CAD Resume medications once reconciled 7. Schizophrenia Resume medications PATIENT HAS FUNCTIONAL QUADRIPLEGIA IN THE SETTING OF WHEELCHAIR BOUND AND RESIDUAL RIGHT SIDED WEAKNESS WHICH IS TREATED WITH TOTAL CARE. HAS RIGHT SIDED WEAKNESS FROM CVA IN 2012 AND IS WHEELCHAIR BOUND Electrolytes as above Holding pharmacologic anticoagulation for anticipated procedure--NOW ON HEPARIN SUBQ TID Discharge Planning Pending vascular and nephrology clearance not there yet Trey Webster DO Jan 20, 2018 14:49
[2018-01-20] MEDS ORDERED: POVIDONE IODINE 5% (ANTISEPSIS KIT) 4 APPLICATIONS EACH NARE PRN (16:15)
[2018-01-20] MEDS ORDERED: CHLORHEXIDINE GLUCONATE 2 % 1 PACK (2 CLOTHS) TOPICAL PRN (16:15)
[2018-01-20] MEDS ORDERED: METOPROLOL TARTRATE 25 MG TAB PO PRN (16:15)
[2018-01-20] MEDS ORDERED: Hemodialysis Vas Access Cath PRN NS Lock Flush IV FLUSH (16:15)
[2018-01-20] MEDS ORDERED: SODIUM CHLORID 0.9% 500 ML IV PRN (16:15)
[2018-01-20] MEDS ORDERED: LACTATED RINGER'S 1000 ML IV PRN (16:15)
[2018-01-20] MEDS ORDERED: Hemodialysis Vas Acc Cath PRN Heparin 1000 unit/ml Flush IV FLUSH (16:15)
[2018-01-20] MEDS ORDERED: BUPIVACAINE/EPINEPHRINE 0.25% 50 ML VIAL ONE (16:22)
[2018-01-20] MEDS ORDERED: HEPARIN SODIUM - SQ 10,000 UNITS/ML VIAL ONE (16:23)
[2018-01-20] MEDS ORDERED: PROTAMINE SULFATE 50 MG/5 ML VIAL ONE (16:26)
[2018-01-20] MEDS ORDERED: VANCOMYCIN HCL 1000 MG VIAL ONE (16:56)
--- NOTE | 2018-01-20 19:42 | MP ---
cc: Mason Juarez MD, James T MD DATE OF OPERATION: 01/20/2018 PREOPERATIVE DIAGNOSIS: Chronic kidney disease, needs permanent hemodialysis access. POSTOPERATIVE DIAGNOSIS: Chronic kidney disease, needs permanent hemodialysis access. OPERATIVE PROCEDURE: Right brachial-brachial AV graft placement; preoperative arterial venous mapping, right upper extremity. SURGEON: Mason Juarez MD. SHOE STAINER: GARRETT Maddox. ANESTHESIA: General endotracheal/local. DESCRIPTION OF PROCEDURE: Prior to the operative procedure while in preoperative holding, arterial venous ultrasound mapping of the right upper extremity was completed. The right brachial, radial and ulnar arteries were patent throughout with minimal calcification. The forearm, supra-antecubital cephalic and supra antecubital basilic veins were of inadequate luminal diameter. Thus, preoperative placement was required as described below. With the patient in supine position, general endotracheal anesthesia was induced, the right upper extremity, axilla and shoulder prepped with Betadine and draped in a sterile fashion. One gram of vancomycin was administered intravenously. Following a protocol timeout, the skin and subcutaneous tissues at 2 proposed incisional areas was preemptively infiltrated with 0.25% Marcaine with epinephrine. A vertical incision was performed immediately proximal to the axilla through which the brachial vein was circumferentially mobilized and encircled with vessel loops. A curvilinear incision was performed along the medial supra antecubital region, through which a brachial artery was circumferentially mobilized and encircled with vessel loops. The brachial vein was occluded proximally and distally with Yasargil clips. A vertical 2 cm venotomy was performed. The vein was flushed proximally with heparinized saline. A 6 mm center flex PTFE graft was spatulated on end and anastomosed end-to-side to the venotomy with continuous 6-0 Prolene. The graft was then tunneled subcutaneously in a crescent-shaped form along the upper extremity and brought out at the brachial artery exposure incision. The brachial artery was occluded proximally and distally with Yasargil clips. A vertical approximately 5 mm arteriotomy was performed, the artery flushed proximally and distally with heparinized saline. The graft was trimmed to appropriate length and anastomosed end-to-side to the brachial arteriotomy with continuous 6-0 Prolene. Prior to placement of the final sutures, the graft lumen was appropriately flushed, final sutures placed and tied and pulsatile flow reestablished into the brachial artery as well as into the brachial vein. Right radial pulse again easily palpable with robust biphasic Doppler flow. Strict hemostasis was achieved. Both incisions were closed with 2 separate deep layers of continuous 4-0 Monocryl. Skin was reapproximated with continuous subcuticular 5-0 Monocryl. Reinforced with Steri-Strips and covered with sterile gauze. Instrument, needle and sponge count were correct x2. No operative complications. The patient returned to the recovery room in stable condition, having tolerated the procedure well. MD JOSEFA Joyce//tg , 06:50 PM , 07:13 PM
[2018-01-20] MEDS: TERAZOSIN HCL 1 MG CAP PO SCH (23:09)
[2018-01-20] MEDS: BRIMONIDINE TARTRATE 0.15% OPHT SOLN 5 ML BTL EACH EYE SCH (23:10)
[2018-01-21] VITALS (19 sets, daily range): BP systolic 79–138; BP diastolic 48–83; PULSE 63–99; RESP 18–20; TEMP 98.1–99.4; O2SAT 97–100
[2018-01-21] MEDS: HEPARIN SODIUM - SQ 10,000 UNITS/ML VIAL SQ SCH ×2 (05:34→13:27)
[2018-01-21 06:59] LABS: AUTOMATED NEUTROPHIL # 6.9 TH/MM3 (1.8-7.7); BASOPHIL % 0.4 % (0.0-2.0); EOSINOPHIL # 0.3 TH/MM3 (0-0.4); HEMATOCRIT 25.2 % (39.0-51.0); HEMOGLOBIN 8.5 GM/DL (13.0-17.0); LYMPH % 4.6 % (9.0-44.0); LYMPHOCYTE # 0.4 TH/MM3 (1.0-4.8); MEAN CELL VOLUME 92.6 FL (80.0-100.0); MEAN CORPUSCULAR HEMOGLOBIN 31.1 PG (27.0-34.0); MEAN CORPUSCULAR HGB CONC 33.6 % (32.0-36.0); MEAN PLATELET VOLUME 7.1 FL (7.0-11.0); MONO % 8.8 % (0.0-8.0); MONOCYTE # 0.7 TH/MM3 (0-0.9); NEUT % 83.2 % (16.0-70.0); PLATELET COUNT 347 TH/MM3 (150-450); RED BLOOD COUNT 2.73 MIL/MM3 (4.50-5.90); RED CELL DISTRIBUTION WIDTH 16.5 % (11.6-17.2); WHITE BLOOD COUNT 8.3 TH/MM3 (4.0-11.0)
[2018-01-21 07:27] LABS: ALBUMIN 3.1 GM/DL (3.4-5.0); BICARBONATE 26.4 MEQ/L (21.0-32.0); CALCIUM 8.1 MG/DL (8.5-10.1); CREATININE 7.23 MG/DL (0.60-1.30); MAGNESIUM 2.3 MG/DL (1.5-2.5); PHOSPHORUS 3.5 MG/DL (2.5-4.9)
[2018-01-21] MEDS: CINACALCET HYDROCHLORIDE 30 MG TAB PO SCH (09:00)
[2018-01-21] MEDS: DOCUSATE SODIUM 50 MG/SENNA 8.6 MG TAB PO SCH ×2 (09:01→21:00)
[2018-01-21] MEDS: METOPROLOL TARTRATE 100 MG TAB PO SCH (09:01)
[2018-01-21] MEDS: CARVEDILOL 6.25 MG TAB PO SCH ×2 (09:01→22:19)
[2018-01-21] MEDS: DILTIAZEM HCL 60 MG TAB PO SCH ×3 (09:02→17:31)
[2018-01-21] MEDS: SEVELAMER CARBONATE 800 MG TAB PO SCH ×3 (09:02→17:30)
[2018-01-21] MEDS: SODIUM CHLORIDE 0.65% NASAL SPRAY 45 ML BTL EACH NARE SCH ×2 (09:03→21:00)
[2018-01-21] MEDS: chlorproMAZINE HCL 25 MG TAB PO SCH ×3 (09:03→17:31)
[2018-01-21] MEDS: SODIUM CHLORIDE 0.9% FLUSH 10 ML FLUSH IV FLUSH SCH ×2 (09:04→22:19)
[2018-01-21] MEDS: VITAMIN B CMPLX/VITC/FOLIC AC CAP PO SCH (09:06)
[2018-01-21] MEDS: MEGESTROL ACETATE SUSP 400 MG/10 ML CUP PO SCH (09:31)
--- NOTE | 2018-01-21 11:10 | HHI.NPPN ---
Subjective General Problems: Anemia Renal Failure: Chronic, End Stage Renal Disease Interval History AV graft placed by vascular on right arm yesterday. He was also dialyzed. No new issues or concerns. (Germania Latham) Objective Data Data Vital Signs Date Time Temp Pulse Resp B/P (MAP) Pulse Ox O2 Delivery O2 Flow Rate FiO2 01/21/18 09:07 99.4 99 18 124/62 (82) 99 01/21/18 09:07 99 Nasal Cannula 2.00 01/21/18 06:00 84 01/21/18 05:00 88 01/21/18 04:00 99 01/21/18 04:00 98.4 82 20 115/67 (83) 100 01/21/18 03:00 84 01/21/18 02:00 84 01/21/18 01:00 84 01/21/18 00:00 Nasal Cannula 2.00 01/21/18 00:00 85 01/21/18 00:00 98.6 93 20 138/83 (101) 100 01/20/18 19:20 56 14 100/52 (68) 99 Nasal Cannula 4 01/20/18 19:00 59 14 107/60 (76) 100 Nasal Cannula 4 01/20/18 18:47 97.8 65 14 80/50 (60) 92 Nasal Cannula 4 01/20/18 15:18 98.5 56 20 104/64 (77) 99 01/20/18 15:18 56 01/20/18 14:33 62 01/20/18 13:22 49 01/20/18 12:05 97.8 78 20 135/74 (94) 100 01/20/18 12:05 78 (Germania Latham) -: 01/21/18 0618 01/21/18 0618 Imaging Last 72 hours Impressions Catheter Placement X-Ray 01/19/18 0800 Signed Impressions: Service Date/Time: Friday, January 19, 2018 12:01 - CONCLUSION: Uncomplicated PermaCath placement as above. Abimael Hernandez MD Central Venous Line 01/19/18 0000 Signed Impressions: Service Date/Time: Friday, January 19, 2018 00:00 - CONCLUSION: Uncomplicated catheter removal. Abimael Hernandez MD Tubes & Lines: Perma-Cath (Germania Latham) Physical Exam General Appearance: Well Developed, Well Nourished, No Acute Distress, Comfortable (Germania Latham) Eyes Eye Exam: Pupils Equal (Germania Latham) Throat Throat Exam: Oral Mucosa [place] & Moist (Germania Latham) Pulmonary Resp Exam: Clear Bilaterally, Breath Sounds Equal (Germania Latham) Cardiology CV Exam: Regular, Normal Sinus Rhythm (Germania Latham) Gastrointestinal/Abdomen GI Exam: Soft, Non-Tender, Bowel Sounds Present GI Remarks obese (Germania Latham) Musculoskeletal MS Exam: Joints Intact, Normal Tone (Germania Latham) Integumentary Skin Exam: Warm, Dry (Germania Latham) Extremeties Extremities Exam: No Edema, Pedal Pulses Palpable Extremeties Remarks left upper extremity, AVF with aneurysm , no palpable thrill/bruit RUE AVG, dressing in place, + thrill (Germania Latham) Neurologic Neuro Exam: Alert, Awake, Speech Clear, Moving All Extremities (Germania Latham) Assessment/Plan Discussed Condition With: Patient Assessment Summary: Anemia of CKD, Hypertension, End Stage Renal Disease Problem List: (1) ESRD (end stage renal disease) on dialysis ICD Codes: N18.6 - End stage renal disease; Z99.2 - Dependence on renal dialysis Status: Chronic Plan: Continue HD support per TTS schedule, 2L UF yesterday S/P permcath exchange s/p AVG creation 01/20, vascular follow up after discharge High protien diet ordered Avoid IVF Cleared for discharge from renal perspective. Can follow up outpatient and he has existing HD arrangements in place Can resume anticoagulation (2) HTN (hypertension) ICD Codes: I10 - Essential (primary) hypertension Status: Chronic Plan: BP control has improved Medications reviewed. He is on Carvedilol, will stop metoprolol. HD patient have increased mortality risk when on metoprolol compared to carvedilol. (3) Metabolic bone disease ICD Codes: E88.9 - Metabolic disorder, unspecified; M90.80 - Osteopathy in diseases classified elsewhere, unspecified site Status: Acute Plan: On Sevelamer with meals, reduce dosage to 1600 TID AC Also on Sensipar (4) Anemia ICD Codes: D64.9 - Anemia Status: Acute Plan: Epogen per protocol Plan (Germania Latham) Plan patient was seen and examined. Agree with above assessment and plan. (Keyon Eckert MD) Germania Latham Jan 21, 2018 11:10 Keyon Eckert MD Jan 21, 2018 21:44
--- NOTE | 2018-01-21 13:26 | HHI.PR ---
Subjective Remarks 67-year-old male with a significant past medical history and end-stage renal disease on dialysis presents to the emergency department for evaluation of a clotted AV fistula. The patient reports he has not had dialysis since Friday. He has multiple electrolyte disturbances. He reports that he was sent from dialysis today because they could not get his fistula to work. A right IJ Vas-Cath was placed by interventional radiology earlier today and the patient was urgently dialyzed. The patient denies any chest pain or shortness of breath. Denies abdominal pain. No nausea/vomiting/diarrhea. Is paraplegic at baseline without any new onset weakness. - HAD HD CATHETER PLACED FOR DIALYSIS HIS AVF IS CLOTTED WILL BE UNCLOTTED ON FRIDAY DUE TO ANTICOAGULATION ISSUES DW RN AND PT AND CM 01-17 patient is scheduled to have surgery on his left arm AV fistula Had hemodialysis today Discussed with patient and RN and case management 01-18 FOR SURGERY ON LEFT ARM FISTULA TOMORROW KEEP NPO AFTER MIDNIGHT NO NEW COMPLAINTS DW RN AND PT AND CM 01-19 TO GO FOR SURGERY ON LEFT UE FISTULA SINCE NOT WORKING RIGHT AT THIS TIME DW RN AND PT AND CM CONTINUE HD SCHEDULED WITH TEMPORARY HD CATHETER IN RIGHT NECK AM LABS 01-20 HAD RIGHT SIDE PERMACATH PLACED FOR HD BY IR YESTERDAY TO HAVE PROCEDURE ON RIGHT UE BY DR MEJIA NO NEW COMPLANTS TODAY DW RN AND CM AND PT 01-21 HAD RIGHT UE AVF CREATED ON 01-20- GOOD THRILL AND BRUIT NO NEW COMPLAINTS HAS HD , AND FRIDAY HOPEFULLY HOME TOMORROW TO SNF AFTER HD AND SURGICAL CLEARANCE Objective Vitals Vital Signs Date Time Temp Pulse Resp B/P (MAP) Pulse Ox O2 Delivery O2 Flow Rate FiO2 01/21/18 12:51 98.9 90 18 125/77 (93) 100 01/21/18 09:07 99.4 99 18 124/62 (82) 99 01/21/18 09:07 99 Nasal Cannula 2.00 01/21/18 06:00 84 01/21/18 05:00 88 01/21/18 04:00 99 01/21/18 04:00 98.4 82 20 115/67 (83) 100 01/21/18 03:00 84 01/21/18 02:00 84 01/21/18 01:00 84 01/21/18 00:00 Nasal Cannula 2.00 01/21/18 00:00 85 01/21/18 00:00 98.6 93 20 138/83 (101) 100 01/20/18 19:20 56 14 100/52 (68) 99 Nasal Cannula 4 01/20/18 19:00 59 14 107/60 (76) 100 Nasal Cannula 4 01/20/18 18:47 97.8 65 14 80/50 (60) 92 Nasal Cannula 4 01/20/18 15:18 98.5 56 20 104/64 (77) 99 01/20/18 15:18 56 01/20/18 14:33 62 I/O 01/20/18 01/20/18 01/20/18 01/21/18 01/21/18 01/21/18 07:00 15:00 23:00 07:00 15:00 23:00 Intake Total 350 ml Output Total 2035 ml Balance -1685 ml IV Total 100 ml Other 250 ml Hemodialysis 2000 ml Estimated Blood Loss 35 ml # Bowel Movements 1 1 Result Diagram: 01/21/1818 01/21/1818 Other Results Laboratory Tests Test 01/20/18 07:30 01/21/18 06:18 White Blood Count 9.0 TH/MM3 8.3 TH/MM3 Red Blood Count 2.85 MIL/MM3 2.73 MIL/MM3 Hemoglobin 8.9 GM/DL 8.5 GM/DL Hematocrit 26.5 % 25.2 % Mean Corpuscular Volume 92.9 FL 92.6 FL Mean Corpuscular Hemoglobin 31.3 PG 31.1 PG Mean Corpuscular Hemoglobin Concent 33.7 % 33.6 % Red Cell Distribution Width 16.6 % 16.5 % Platelet Count 363 TH/MM3 347 TH/MM3 Mean Platelet Volume 6.9 FL 7.1 FL Neutrophils (%) (Auto) 78.9 % 83.2 % Lymphocytes (%) (Auto) 8.9 % 4.6 % Monocytes (%) (Auto) 7.5 % 8.8 % Eosinophils (%) (Auto) 4.2 % 3.0 % Basophils (%) (Auto) 0.5 % 0.4 % Neutrophils # (Auto) 7.1 TH/MM3 6.9 TH/MM3 Lymphocytes # (Auto) 0.8 TH/MM3 0.4 TH/MM3 Monocytes # (Auto) 0.7 TH/MM3 0.7 TH/MM3 Eosinophils # (Auto) 0.4 TH/MM3 0.3 TH/MM3 Basophils # (Auto) 0.0 TH/MM3 0.0 TH/MM3 CBC Comment DIFF FINAL DIFF FINAL Differential Comment Blood Urea Nitrogen 72 MG/DL 33 MG/DL Creatinine 11.70 MG/DL 7.23 MG/DL Random Glucose 88 MG/DL 84 MG/DL Total Protein 7.5 GM/DL Albumin 2.6 GM/DL 3.1 GM/DL Calcium Level 8.0 MG/DL 8.1 MG/DL Phosphorus Level 4.4 MG/DL 3.5 MG/DL Magnesium Level 2.4 MG/DL 2.3 MG/DL Alkaline Phosphatase 178 U/L Aspartate Amino Transf (AST/SGOT) 12 U/L Alanine Aminotransferase (ALT/SGPT) 9 U/L Total Bilirubin 0.5 MG/DL Sodium Level 126 MEQ/L 135 MEQ/L Potassium Level 3.9 MEQ/L 4.1 MEQ/L Chloride Level 88 MEQ/L 97 MEQ/L Carbon Dioxide Level 22.8 MEQ/L 26.4 MEQ/L Anion Gap 15 MEQ/L 12 MEQ/L Estimat Glomerular Filtration Rate 5 ML/MIN 9 ML/MIN Imaging Last Impressions Catheter Placement X-Ray 01/19/18 0800 Signed Impressions: Service Date/Time: Friday, January 19, 2018 12:01 - CONCLUSION: Uncomplicated PermaCath placement as above. Abimael Hernandez MD Central Venous Line 01/19/18 0000 Signed Impressions: Service Date/Time: Friday, January 19, 2018 00:00 - CONCLUSION: Uncomplicated catheter removal. Abimael Hernandez MD Fistulagram 01/16/18 0000 Signed Impressions: Service Date/Time: Tuesday, January 16, 2018 09:43 - CONCLUSION: 1. 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 There is a large volume of thrombus with heterogeneous chronic thrombus and suspected central outflow stenosis/occlusion . The central massively dilated outflow vein could not be catheterized despite multiple attempts. A large suspected collateral cephalic vein is completely thrombosed. It is possible that this was the central outflow for the fistula following thrombosis of the massively aneurysmal outflow vein. The fistula is deemed not salvageable with endovascular technique. Abimael Hernandez MD Objective Remarks GENERAL: Awake alert and oriented 3 talkative and cooperative flat affect SKIN: Warm and dry. HEAD: Atraumatic. Normocephalic. EYES: Pupils equal and round. No scleral icterus. No injection or drainage. Extraocular muscles intact ENT: No nasal bleeding or discharge. Mucous membranes pink and moist. Tongue is midline NECK: Trachea midline. No JVD. Supple CARDIOVASCULAR: IRRegular rate and rhythm. S1-S2 no S3 or S4 RESPIRATORY: No accessory muscle use. Clear to auscultation. Breath sounds equal bilaterally. GASTROINTESTINAL: Abdomen soft, non-tender, nondistended. Hepatic and splenic margins not palpable. Little obese MUSCULOSKELETAL: Extremities without clubbing, cyanosis, or edema. No obvious deformities. Left upper extremity AV fistula with no thrill or bruit NEUROLOGICAL: Awake and alert. No obvious cranial nerve deficits. Motor grossly within normal limits. Five out of 5 muscle strength in the arms and legs. Normal speech. PSYCHIATRIC: INAppropriate mood and affect; insight and judgment ABnormal. Procedures (1) ESRD (end stage renal disease) on dialysis Post Procedure Diagnosis: (1) ESRD (end stage renal disease) on dialysis Procedure Date: Jan 15, 2018 Supervising Radiologist: Giovani Laguerre Estimated blood loss: 3cc Anesthesia: Local, Conscious Sedation Plan of Activity Patient to Unit: Other Patient Condition: Poor Additional Comments: Right IJ Vascath placed without difficulty. Catheter in good position OK for use See PACS Report for procedural detail/treatment Pre Procedure Diagnosis: (1) AV fistula thrombosis Post Procedure Diagnosis: (1) AV fistula thrombosis Procedure Date: Jan 16, 2018 Supervising Radiologist: Abimael Hernandez Proceduralist/Assist: Tierney Ashton, RT(R), Joshua Cervantes, RT(R) Anesthesia: Conscious Sedation Plan of Activity Patient to Unit: ROPU Patient Condition: Good See PACS Report for procedural detail/treatment Perm CV Cath [facility] w US RIGHT EXAM DATE/TIME: 01/19/2018 12:01 [place] COMPARISON: No previous studies available for comparison. INDICATIONS : Patient presents with end-stage renal disease in need of dialysis catheter placement. 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 Vancomycin within 2 hours of procedure, Ancef (or alternative) within 1 hour of procedure. DEVICE: 1. 15 Austrian dual lumen 23 cm Aguilera II Plus catheter PROCEDURE : 1. Ultrasound-guided venipuncture. 2. PermaCath placement. 3. Conscious sedation with continuous EKG and oximetry monitoring. The risks, benefits and alternatives to the procedure were explained and verbal and written consent was obtained. The site was prepped in sterile fashion. Full sterile technique was used, including cap, mask, sterile gloves and gown and a large sterile sheet. Hand hygiene and 2% chlorhexidine and/or betadine/ alcohol prep was utilized per protocol for cutaneous antisepsis. Sterile gel and sterile probe cover were utilized for ultrasound guidance. The skin and subcutaneous tissues were infiltrated with local anesthetic solution. With ultrasound and fluoroscopic guidance a dermatotomy was created over the prescribed vein. A micropuncture set was used to access the targeted vein and serial dilatation was performed to accept the prescribed length catheter. A subcutaneous tunnel was created in a retrograde fashion the catheter was pulled through the tunnel. The catheter was flushed and assembled and locked with heparin. The catheter was sutured in place. Conscious sedation was performed with the prescribed dosages and duration as above in the presence of an independent trained radiology nurse to assist in the monitoring of the patient. EKG and oximetry remained stable throughout the procedure. The patient tolerated the procedure well and there were no complications. The patient was sent to post anesthesia recovery in stable condition. CONCLUSION: Uncomplicated PermaCath placement as above. 01/20/2018 PREOPERATIVE DIAGNOSIS: Chronic kidney disease, needs permanent hemodialysis access. POSTOPERATIVE DIAGNOSIS: Chronic kidney disease, needs permanent hemodialysis access. OPERATIVE PROCEDURE: Right brachial-brachial AV graft placement; preoperative arterial venous mapping, right upper extremity. SURGEON: Mason Mejia MD. GERIATRIC CASE MANAGER: GARRETT Maddox. ANESTHESIA: General endotracheal/local. DESCRIPTION OF PROCEDURE: Prior to the operative procedure while in preoperative holding, arterial venous ultrasound mapping of the right upper extremity was completed. The right brachial, radial and ulnar arteries were patent throughout with minimal calcification. The forearm, supra-antecubital cephalic and supra antecubital basilic veins were of inadequate luminal diameter. Thus, preoperative placement was required as described below. With the patient in supine position, general endotracheal anesthesia was induced, the right upper extremity, axilla and shoulder prepped with Betadine and draped in a sterile fashion. One gram of vancomycin was administered intravenously. Following a protocol timeout, the skin and subcutaneous tissues at 2 proposed incisional areas was preemptively infiltrated with 0.25% Marcaine with epinephrine. A vertical incision was performed immediately proximal to the axilla through which the brachial vein was circumferentially mobilized and encircled with vessel loops. A curvilinear incision was performed along the medial supra antecubital region, through which a brachial artery was circumferentially mobilized and encircled with vessel loops. The brachial vein was occluded proximally and distally with Yasargil clips. A vertical 2 cm venotomy was performed. The vein was flushed proximally with heparinized saline. A 6 mm center flex PTFE graft was spatulated on end and anastomosed end-to-side to the venotomy with continuous 6-0 Prolene. The graft was then tunneled subcutaneously in a crescent-shaped form along the upper extremity and brought out at the brachial artery exposure incision. The brachial artery was occluded proximally and distally with Yasargil clips. A vertical approximately 5 mm arteriotomy was performed, the artery flushed proximally and distally with heparinized saline. The graft was trimmed to appropriate length and anastomosed end-to-side to the brachial arteriotomy with continuous 6-0 Prolene. Prior to placement of the final sutures, the graft lumen was appropriately flushed, final sutures placed and tied and pulsatile flow reestablished into the brachial artery as well as into the brachial vein. Right radial pulse again easily palpable with robust biphasic Doppler flow. Strict hemostasis was achieved. Both incisions were closed with 2 separate deep layers of continuous 4-0 Monocryl. Skin was reapproximated with continuous subcuticular 5-0 Monocryl. Reinforced with Steri-Strips and covered with sterile gauze. Instrument, needle and sponge count were correct x2. No operative complications. The patient returned to the recovery room in stable condition, having tolerated the procedure well. Mason Mejia MD Medications and IVs Current Medications Sodium Chloride (NS Flush) 2 ml UNSCH PRN IV FLUSH FLUSH AFTER USING IV ACCESS ; Start 01/15/18 at 13:30; Stop 01/19/18 at 10:35; Status DC Heparin Sodium (Porcine) (*HEPARIN INJ Periprocedural ONLY) 10,000 units STK- MED ONCE .ROUTE Last administered on 01/15/18at 15:10; Start 01/15/18 at 15:03; Stop 01/15/18 at 15:04; Status DC Sodium Chloride (NS Flush) UNSCH PRN IV FLUSH SEE PROTOCOL; Start 01/15/18 at 15:30 Heparin Sodium (Porcine) (Heparin Inj) UNSCH PRN IV FLUSH SEE PROTOCOL; Start 01/15/18 at 15:30 Sodium Chloride 1,000 ml @ 0 mls/hr Q0M PRN OTHER For Prime & Rinse Back; Start 01/15/18 at 15:21 Heparin Sodium (Porcine) (Heparin Inj) 8,000 units UNSCH PRN IV FLUSH WITH DIALYSIS; Start 01/15/18 at 15:30 Sodium Chloride 1,000 ml @ 200 mls/hr Q5H PRN IV WITH DIALYSIS Last administered on 01/17/18at 09:24; Start 01/15/18 at 15:21 Sodium Chloride 1,000 ml @ 0 mls/hr Q0M PRN OTHER WITH DIALYSIS; Start 01/15/18 at 15:21 Mannitol (Mannitol Inj) 12.5 gm UNSCH PRN IV WITH DIALYSIS; Start 01/15/18 at 15 :30 Albumin Human 100 ml @ 60 mls/hr UNSCH PRN IV WITH DIALYSIS Last administered on 01/20/18at 19:44; Start 01/15/18 at 15:30 Sodium Chloride (NS Flush) 5 ml UNSCH PRN IV FLUSH WITH DIALYSIS; Start at 15:30 Heparin Sodium (Porcine) (Heparin Inj) UNSCH PRN .XX WITH DIALYSIS Last administered on 01/17/18at 09:24; Start 01/15/18 at 15:30 Gentamicin Sulfate (Gentamicin Inj) 20 mg UNSCH PRN OTHER WITH DIALYSIS Last administered on 01/17/18at 09:27; Start 01/15/18 at 15:30 Ondansetron HCl (Zofran Inj) 4 mg UNSCH PRN IV PUSH WITH DIALYSIS; Start at 15:30 Acetaminophen (Tylenol) 650 mg UNSCH PRN PO for headach, pain, temp > 101F; Start 01/15/18 at 15:30 Diphenhydramine HCl (Benadryl) 25 mg UNSCH PRN PO for hives/itching/anaphylaxis ; Start 01/15/18 at 15:30 Nitroglycerin (Nitrostat Sl) 0.4 mg UNSCH PRN SL CHEST PAIN; Start 01/15/18 at 15:30 Clonidine (Catapres) 0.1 mg UNSCH PRN PO for BP > 180/100 X 2 readings; Start 01/15/18 at 15:30 Epoetin Jake (Epogen Inj) 10,000 units UNSCH PRN IV PUSH WITH DIALYSIS Last administered on 01/17/18at 09:25; Start 01/15/18 at 15:30 Gelatin (Gelfoam 12 Mm/7 Mm Top) 1 foam UNSCH PRN TOP SEE LABEL COMMENTS; Start 01/15/18 at 15:30 Sevelamer Carbonate (Renvela) 800 mg TIDAC PO Last administered on 01/16/18at 15: 31; Start 01/15/18 at 17:00; Stop 01/16/18 at 16:16; Status DC Sodium Chloride (NS Flush) 2 ml UNSCH PRN IV FLUSH FLUSH AFTER USING IV ACCESS ; Start 01/15/18 at 17:00 Sodium Chloride (NS Flush) 2 ml BID IV FLUSH Last administered on 01/21/18at 09: 04; Start 01/15/18 at 21:00 Naloxone HCl (Narcan Inj) 0.4 mg UNSCH PRN IV PUSH SEE LABEL COMMENTS; Start at 17:00; Stop 01/20/18 at 19:26; Status DC Heparin Sodium (Porcine) (Heparin Inj) 5,000 units Q8HR SQ ; Start 01/15/18 at 22 :00; Stop 01/15/18 at 22:00; Status DC Midazolam HCl (Versed Inj) 5 mg STK-MED ONCE .ROUTE Last administered on 09:44; Start 01/16/18 at 09:44; Stop 01/16/18 at 09:45; Status DC Fentanyl Citrate (fentaNYL INJ) 100 mcg STK-MED ONCE .ROUTE Last administered on 01/16/18 09:44; Start 01/16/18 at 09:44; Stop 01/16/18 at 09:45; Status DC Heparin Sodium (Porcine) (*HEPARIN INJ Periprocedural ONLY) 10,000 units STK- MED ONCE .ROUTE Last administered on 01/16/18 10:37; Start 01/16/18 at 10:50; Stop 01/16/18 at 10:51; Status DC Iodixanol (VISIPAQUE 320 INJ (Rad Spec)) 30 ml STK-MED ONCE I-ARTERIAL Last administered on 01/16/18 10:45; Start 01/16/18 at 11:19; Stop 01/16/18 at 11:20; Status DC Carvedilol (Coreg) 6.25 mg Q12HR PO Last administered on 01/21/18 09:01; Start 01/16/18 at 15:00 Terazosin HCl (Hytrin) 2 mg HS PO ; Start 01/16/18 at 21:00; Stop 01/16/18 at 21: 00; Status DC Brimonidine Tartrate (Alphagan P 0.15% Opt Soln) 1 drop HS EACH EYE Last administered on 01/20/18at 23:10; Start 01/16/18 at 21:00 Chlorpromazine (Thorazine) 25 mg TID PO Last administered on 01/21/18 09:03; Start 01/16/18 at 18:00 Cinacalcet (Sensipar) 30 mg DAILY PO Last administered on 01/21/18 09:00; Start 01/17/18 at 09:00 Clonidine (Catapres) 0.1 mg Q6HR PRN PO SPB >175 OR DBP >100; Start 01/16/18 at 16:00 Diltiazem HCl (Cardizem) 120 mg TID PO Last administered on 4/11/18at 09:02; Start 01/16/18 at 18:00 Albuterol/ Ipratropium (Duoneb Neb) 1 ampule Q4HR NEB PRN INH SHORTNESS OF BREATH; Start 01/16/18 at 16:00 Megestrol Acetate (Megace Liq) 400 mg DAILY PO Last administered on 01/21/18 09:31; Start 01/17/18 at 09:00 Metoprolol Tartrate (Lopressor) 100 mg BID PO Last administered on 01/21/18 09 :01; Start 01/16/18 at 21:00; Stop 01/21/18 at 11:08; Status DC Prochlorperazine Maleate (Compazine) 10 mg Q6H PRN PO NAUSEA OR VOMITING; Start 01/16/18 at 16:00 Sodium Chloride (Henderson Faustino Selma) 1 spray BID EACH NARE Last administered on 08/30at 09:03; Start 01/16/18 at 21:00 Senna/Docusate Sodium (Solange-Colace) 2 tab BID PO Last administered on at 09:01; Start 01/16/18 at 21:00 Sevelamer Carbonate (Renvela) 2,400 mg TID PO Last administered on 01/21/18 09 :02; Start 01/16/18 at 18:00; Stop 01/21/18 at 11:11; Status DC Terazosin HCl (Hytrin) 2 mg HS PO Last administered on 01/20/18at 23:09; Start 01/16/18 at 21:00 Vitamin B Complex/ Vit C/Folic Acid (Nephrocaps) 1 cap DAILY PO Last administered on 01/21/18at 09:06; Start 01/17/18 at 09:00 Diphenhydramine HCl (Benadryl) 25 mg Q8HR PRN PO ITCHING; Start 01/16/18 at 16: 00 Heparin Sodium (Porcine) (Heparin Inj) 5,000 units Q8H SQ Last administered on 01/21/18at 05:34; Start 01/17/18 at 14:00 Naloxone HCl (Narcan Inj) 0.4 mg UNSCH PRN IV PUSH SEE LABEL COMMENTS; Start at 13:15 Vancomycin HCl 1000 mg/Sodium Chloride 250 ml @ 250 mls/hr ICE GRINDER IV ; Start 01/19/18 at 10:30; Stop 01/23/18 at 10:29; Status Cancel Cefazolin Sodium 2000 mg/Sodium Chloride 120 ml @ 240 mls/hr ICE GRINDER IV Last administered on 01/19/18at 12:00; Start 01/19/18 at 10:45; Stop 01/23/18 at 10:44 Vancomycin/Sodium Chloride 200 ml @ 200 mls/hr ICE GRINDER IV Last administered on 01/19/18at 12:00; Start 01/19/18 at 11:00 Midazolam HCl (Versed Inj) 4 mg STK-MED ONCE .ROUTE Last administered on at 12:02; Start 01/19/18 at 12:02; Stop 01/19/18 at 12:03; Status DC Fentanyl Citrate (fentaNYL INJ) 250 mcg STK-MED ONCE .ROUTE Last administered on 01/19/18at 12:03; Start 01/19/18 at 12:03; Stop 01/19/18 at 12:04; Status DC Heparin Sodium (Porcine) (*HEPARIN INJ Periprocedural ONLY) 10,000 units STK- MED ONCE .ROUTE Last administered on 01/19/18at 12:45; Start 01/19/18 at 12:30; Stop 01/19/18 at 12:31; Status DC Lidocaine/ Epinephrine (Xylocaine-Epi 1%-1:100,000 Inj) 30 ml STK-MED ONCE .ROUTE Last administered on 01/19/18at 12:44; Start 01/19/18 at 12:30; Stop at 12:31; Status DC Sodium Chloride (NS Flush) UNSCH PRN IV FLUSH SEE PROTOCOL; Start 01/19/18 at 13:00 Heparin Sodium (Porcine) (Heparin Inj) UNSCH PRN IV FLUSH SEE PROTOCOL; Start 01/19/18 at 13:00 Lactated Ringer's 1,000 ml @ 30 mls/hr Q24H PRN IV SEE LABEL COMMENTS; Start at 16:15; Stop 01/20/18 at 19:28; Status DC Sodium Chloride 500 ml @ 30 mls/hr [id number] PRN IV SEE LABEL COMMENTS; Start 07/30 at 16:15; Stop 01/20/18 at 19:26; Status DC Metoprolol Tartrate (Lopressor) 25 mg ICE GRINDER PRN PO SEE LABEL COMMENTS; Start 01/20/18 at 16:15; Stop 01/20/18 at 19:26; Status DC Povidone Iodine (Betadine 5% Antisepsis Kit) 1 applic ICE GRINDER PRN EACH NARE SEE LABEL COMMENTS; Start 01/20/18 at 16:15; Stop 01/20/18 at 19:26; Status DC Chlorhexidine Gluconate (Chlorhexidine 2% Cloth) 3 pack ICE GRINDER PRN TOPICAL SEE LABEL COMMENTS; Start 01/20/18 at 16:15; Stop 01/20/18 at 19:26; Status DC Sodium Chloride (NS Flush) 5 ml UNSCH PRN IV FLUSH SEE PROTOCOL TABLE; Start at 16:15; Stop 01/20/18 at 19:26; Status DC Heparin Sodium (Porcine) (Heparin Inj) 2,000 units UNSCH PRN IV FLUSH SEE PROTOCOL TABLE; Start 01/20/18 at 16:15; Stop 01/20/18 at 19:26; Status DC Bupivacaine HCl/ Epinephrine Bitart (Sensorcaine-Epinephrine 0.25% Inj) 50 ml STK-MED ONCE .ROUTE Last administered on 01/20/18at 16:58; Start 01/20/18 at 16: 22; Stop 01/20/18 at 16:23; Status DC Heparin Sodium (Porcine) (Heparin Inj) 10,000 units STK-MED ONCE .ROUTE Last administered on 01/20/18at 16:58; Start 01/20/18 at 16:23; Stop 01/20/18 at 16:24 ; Status DC Protamine Sulfate (Protamine Sulfate Inj) 50 mg STK-MED ONCE .ROUTE ; Start 07/30 at 16:26; Stop 01/20/18 at 16:27; Status DC Vancomycin HCl (Vancomycin Inj) 1,000 mg STK-MED ONCE .ROUTE Last administered on 01/20/18at 16:57; Start 01/20/18 at 16:56; Stop 01/20/18 at 16:57; Status DC Fentanyl Citrate (fentaNYL INJ) 200 mcg STK-MED ONCE .ROUTE ; Start 01/20/18 at 18:56; Stop 01/20/18 at 18:57; Status DC Sevelamer Carbonate (Renvela) 1,600 mg TID PO ; Start 01/21/18 at 13:00 A/P Problem List: (1) AV fistula thrombosis ICD Code: T82.868A - Thrombosis due to vascular prosthetic devices, implants and grafts, initial encounter (2) ESRD (end stage renal disease) on dialysis ICD Code: N18.6 - End stage renal disease; Z99.2 - Dependence on renal dialysis Status: Chronic (3) HTN (hypertension) ICD Code: I10 - Essential (primary) hypertension Status: Chronic (4) Anemia in chronic kidney disease ICD Code: D63.1 - Anemia in chronic kidney disease; N18.9 - Anemia in chronic renal disease Status: Acute (5) Hypertension, benign ICD Code: I10 - Hypertension, benign Status: Acute Assessment and Plan 1. Clotted AV fistula Interventional radiology consulted to declot AV fistula possible Vascular surgery has been consulted and will attempt to do something on FRIDAY because of anticoagulation HAD RIGHT AV FISTULA CREATED ON 01-20 2. Electrolyte disturbances Patient with hyponatremia, hyperkalemia, elevated BUN/creatinine Status post urgent dialysis Repeat BMP pending 3. ESRD Nephrology consulted, appreciate assistance Status post dialysis earlier today Will defer to renal physician HAD PERMACATH PLACED ON RIGHT ON 01-19 4. History of CVA Patient with residual weakness, uses wheelchair 5. Atrial fibrillation Resume home medications once reconciled Holding Eliquis for possible procedure tomorrow Continue rate control 6. Hypertension/GERD/CAD Resume medications once reconciled 7. Schizophrenia Resume medications PATIENT HAS FUNCTIONAL QUADRIPLEGIA IN THE SETTING OF WHEELCHAIR BOUND AND RESIDUAL RIGHT SIDED WEAKNESS WHICH IS TREATED WITH TOTAL CARE. HAS RIGHT SIDED WEAKNESS FROM CVA IN 2012 AND IS WHEELCHAIR BOUND Electrolytes as above RESTART ELIQUIS Discharge Planning Pending vascular and nephrology clearance not there yet Trey Webster DO Jan 21, 2018 13:26
[2018-01-21] MEDS: APIXABAN 5 MG TABLET PO SCH ×2 (16:00→22:20)
[2018-01-21] MEDS: BRIMONIDINE TARTRATE 0.15% OPHT SOLN 5 ML BTL EACH EYE SCH (21:00)
[2018-01-21] MEDS: TERAZOSIN HCL 1 MG CAP PO SCH (22:19)
[2018-01-22] VITALS (15 sets, daily range): BP systolic 100–137; BP diastolic 56–82; PULSE 55–83; RESP 16–20; TEMP 98–98.9; O2SAT 98–100
[2018-01-22 07:40] LABS: AUTOMATED NEUTROPHIL # 7.8 TH/MM3 (1.8-7.7); BASOPHIL % 0.2 % (0.0-2.0); EOSINOPHIL # 0.3 TH/MM3 (0-0.4); HEMATOCRIT 24.5 % (39.0-51.0); HEMOGLOBIN 8.4 GM/DL (13.0-17.0); LYMPH % 8.2 % (9.0-44.0); LYMPHOCYTE # 0.8 TH/MM3 (1.0-4.8); MEAN CELL VOLUME 93.7 FL (80.0-100.0); MEAN CORPUSCULAR HGB CONC 34.2 % (32.0-36.0); MEAN PLATELET VOLUME 7.3 FL (7.0-11.0); MONO % 8.2 % (0.0-8.0); MONOCYTE # 0.8 TH/MM3 (0-0.9); NEUT % 80.4 % (16.0-70.0); PLATELET COUNT 315 TH/MM3 (150-450); RED BLOOD COUNT 2.61 MIL/MM3 (4.50-5.90); RED CELL DISTRIBUTION WIDTH 16.3 % (11.6-17.2); WHITE BLOOD COUNT 9.7 TH/MM3 (4.0-11.0)
[2018-01-22 07:59] LABS: ALBUMIN 2.6 GM/DL (3.4-5.0); BICARBONATE 26.4 MEQ/L (21.0-32.0); BLOOD UREA NITROGEN 44 MG/DL (7-18); CALCIUM 8.1 MG/DL (8.5-10.1); CHLORIDE 91 MEQ/L (98-107); GLUCOSE,RANDOM 100 MG/DL (74-106); MAGNESIUM 2.4 MG/DL (1.5-2.5); SODIUM (NA) 131 MEQ/L (136-145)
[2018-01-22 08:09] LABS: ALKALINE PHOSPHATASE 159 U/L (45-117); ALT (GPT) 8 U/L (12-78); AST (GOT) 11 U/L (15-37); GLOMERULAR FILTRATION RATE 7 ML/MIN (>89); PHOSPHORUS 3.7 MG/DL (2.5-4.9); TOTAL BILIRUBIN ADULT 0.5 MG/DL (0.2-1.0); TOTAL PROTEIN 6.9 GM/DL (6.4-8.2)
[2018-01-22] MEDS: MEGESTROL ACETATE SUSP 400 MG/10 ML CUP PO SCH (09:00)
[2018-01-22] MEDS: SODIUM CHLORIDE 0.65% NASAL SPRAY 45 ML BTL EACH NARE SCH (09:00)
[2018-01-22] MEDS: VITAMIN B CMPLX/VITC/FOLIC AC CAP PO SCH (09:00)
[2018-01-22] MEDS: SODIUM CHLORIDE 0.9% FLUSH 10 ML FLUSH IV FLUSH SCH (09:00)
[2018-01-22] MEDS: DILTIAZEM HCL 60 MG TAB PO SCH ×3 (10:00→17:35)
[2018-01-22] MEDS: DOCUSATE SODIUM 50 MG/SENNA 8.6 MG TAB PO SCH (10:00)
[2018-01-22] MEDS: CINACALCET HYDROCHLORIDE 30 MG TAB PO SCH (10:00)
[2018-01-22] MEDS: chlorproMAZINE HCL 25 MG TAB PO SCH ×3 (10:00→17:35)
[2018-01-22] MEDS: CARVEDILOL 6.25 MG TAB PO SCH (10:00)
[2018-01-22] MEDS: SEVELAMER CARBONATE 800 MG TAB PO SCH ×3 (10:01→17:31)
[2018-01-22] MEDS: APIXABAN 5 MG TABLET PO SCH (10:01)
--- NOTE | 2018-01-22 10:08 | HHI.PR ---
Subjective Remarks no complains of pain, nausea or vomiting Objective Vitals Vital Signs Date Time Temp Pulse Resp B/P (MAP) Pulse Ox O2 Delivery O2 Flow Rate FiO2 01/22/18 04:00 98.0 76 20 137/79 (98) 100 01/22/18 00:00 82 01/22/18 00:00 98.1 82 20 100/56 (71) 99 01/21/18 20:00 63 01/21/18 19:00 98.1 63 20 79/48 (58) 99 01/21/18 19:00 99 Nasal Cannula 2.00 01/21/18 16:03 99.4 87 20 109/68 (82) 97 01/21/18 14:00 76 01/21/18 12:51 98.9 90 18 125/77 (93) 100 01/21/18 12:00 80 01/21/18 11:00 75 I/O 01/21/18 01/21/18 01/21/18 01/22/18 01/22/18 01/22/18 07:00 15:00 23:00 07:00 15:00 23:00 Intake Total 720 ml 240 ml Output Total 0 ml 0 ml Balance 720 ml 240 ml Intake Oral 720 ml 240 ml Output Urine Total 0 ml 0 ml # Bowel Movements 1 1 Result Diagram: 01/22/1814 01/22/1814 Imaging Last Impressions Catheter Placement X-Ray 01/19/18 0800 Signed Impressions: Service Date/Time: Friday, January 19, 2018 12:01 - CONCLUSION: Uncomplicated PermaCath placement as above. Abimael Hernandez MD Central Venous Line 01/19/18 0000 Signed Impressions: Service Date/Time: Friday, January 19, 2018 00:00 - CONCLUSION: Uncomplicated catheter removal. Abimael Hernandez MD Fistulagram 01/16/18 0000 Signed Impressions: Service Date/Time: Tuesday, January 16, 2018 09:43 - CONCLUSION: 1. 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 There is a large volume of thrombus with heterogeneous chronic thrombus and suspected central outflow stenosis/occlusion . The central massively dilated outflow vein could not be catheterized despite multiple attempts. A large suspected collateral cephalic vein is completely thrombosed. It is possible that this was the central outflow for the fistula following thrombosis of the massively aneurysmal outflow vein. The fistula is deemed not salvageable with endovascular technique. Abimael Hernandez MD Objective Remarks awake anicteric no nuchal rigidity no rales irregular rhythm abdomen- globular, soft, good bowel sounds Left UE- AV fistula- good bruit extremiteis- tr edema Procedures Right brachial-brachial AV graft placement; preoperative arterial venous mapping, right upper extremity. A/P Problem List: (1) AV fistula thrombosis ICD Code: T82.868A - Thrombosis due to vascular prosthetic devices, implants and grafts, initial encounter (2) ESRD (end stage renal disease) on dialysis ICD Code: N18.6 - End stage renal disease; Z99.2 - Dependence on renal dialysis Status: Chronic (3) HTN (hypertension) ICD Code: I10 - Essential (primary) hypertension Status: Chronic (4) Anemia in chronic kidney disease ICD Code: D63.1 - Anemia in chronic kidney disease; N18.9 - Anemia in chronic renal disease Status: Acute (5) Hypertension, benign ICD Code: I10 - Hypertension, benign Status: Acute Assessment and Plan 67 years old male 1. AV fistula thromboses Interventional radiology consulted to declot AV fistula possible Vascular surgery has been consulted and will attempt to do something on FRIDAY because of anticoagulation HAD RIGHT AV FISTULA CREATED ON 01-20 2. Electrolyte disturbances- improved - on HD 3. ESRD HAD PERMACATH PLACED ON RIGHT ON 01-19 4. History of CVA Patient with residual weakness, uses wheelchair 5. Atrial fibrillation- rate controlled on Eliquis and coreg 6. Hypertension/GERD/CAD Resume medications once reconciled 7. Schizophrenia Resume medications PATIENT HAS FUNCTIONAL QUADRIPLEGIA IN THE SETTING OF WHEELCHAIR BOUND AND RESIDUAL RIGHT SIDED WEAKNESS WHICH IS TREATED WITH TOTAL CARE. HAS RIGHT SIDED WEAKNESS FROM CVA IN 2012 AND IS WHEELCHAIR BOUND Electrolytes as above RESTART ELIQUIS Discharge Planning - SNF today Michael Ramirez MD Jan 22, 2018 10:08
--- NOTE | 2018-01-22 10:57 | HHI.NPPN ---
Subjective General Problems: Anemia Renal Failure: Chronic, End Stage Renal Disease Interval History He is resting in no distress. Doing well postoperatively. Due for dialysis today. (Germania Latham) Objective Data Data Vital Signs Date Time Temp Pulse Resp B/P (MAP) Pulse Ox O2 Delivery O2 Flow Rate FiO2 01/22/18 04:00 98.0 76 20 137/79 (98) 100 01/22/18 00:00 82 01/22/18 00:00 98.1 82 20 100/56 (71) 99 01/21/18 20:00 63 01/21/18 19:00 98.1 63 20 79/48 (58) 99 01/21/18 19:00 99 Nasal Cannula 2.00 01/21/18 16:03 99.4 87 20 109/68 (82) 97 01/21/18 14:00 76 01/21/18 12:51 98.9 90 18 125/77 (93) 100 01/21/18 12:00 80 01/21/18 11:00 75 (Germania Latham) -: 01/22/18 0614 01/22/18 0614 Tubes & Lines: Perma-Cath (Germania Latham) Physical Exam General Appearance: Well Developed, Well Nourished, No Acute Distress, Comfortable (Germania Latham) Eyes Eye Exam: Pupils Equal (Germania Latham) Throat Throat Exam: Oral Mucosa Braymer & Moist (Germania Latham) Pulmonary Resp Exam: Clear Bilaterally, Breath Sounds Equal (Germania Latham) Cardiology CV Exam: Regular, Normal Sinus Rhythm (Germania Latham) Gastrointestinal/Abdomen GI Exam: Soft, Non-Tender, Bowel Sounds Present GI Remarks obese (Germania Latham) Musculoskeletal MS Exam: Joints Intact, Normal Tone (Germania Latham) Integumentary Skin Exam: Warm, Dry (Germania Latham) Extremeties Extremities Exam: No Edema, Pedal Pulses Palpable Extremeties Remarks left upper extremity, AVF with aneurysm , no palpable thrill/bruit RUE AVG, dressing in place, + thrill (Germania Latham) Neurologic Neuro Exam: Alert, Awake, Speech Clear, Moving All Extremities (Germania Latham) Assessment/Plan Discussed Condition With: Patient Assessment Summary: Anemia of CKD, Hypertension, End Stage Renal Disease Problem List: (1) ESRD (end stage renal disease) on dialysis ICD Codes: N18.6 - End stage renal disease; Z99.2 - Dependence on renal dialysis Status: Chronic Plan: Continue HD support per TTS schedule, he is due today. Using PermCath for dialysis s/p AVG creation 01/20, vascular follow up after discharge High protein diet ordered Avoid IVF Cleared for discharge from renal perspective. Can follow up outpatient and he has existing HD arrangements in place Can resume anticoagulation (2) HTN (hypertension) ICD Codes: I10 - Essential (primary) hypertension Status: Chronic Plan: BP slightly low today Medications reviewed. He is on Terazosin, Cardizem and Carvedilol. Hold PRN if SBP less than 100 mmHg. (3) Metabolic bone disease ICD Codes: E88.9 - Metabolic disorder, unspecified; M90.80 - Osteopathy in diseases classified elsewhere, unspecified site Status: Acute Plan: On Sevelamer with meals, reduce dosage to 1600 TID AC Also on Sensipar (4) Anemia ICD Codes: D64.9 - Anemia Status: Acute Plan: Epogen per protocol Plan (Germania Latham) Plan patient was seen and examined. Agree with above assessment and plan. Patient can be discharged from renal standpoint. (Keyon Eckert MD) Germania Latham Jan 22, 2018 10:57 Keyon Eckert MD Jan 22, 2018 20:40
--- NOTE | 2018-01-22 18:23 | HHI.DS ---
Discharge Summary Admission Date Jan 15, 2018 at 16:49 Discharge Date: Jan 22, 2018 Admitting Diagnosis HYPERKALEMIA, NEW VAS CATH-NEEDS URGENT DIALYSIS (1) AV fistula thrombosis ICD Code: T82.868A - Thrombosis due to vascular prosthetic devices, implants and grafts, initial encounter (2) ESRD (end stage renal disease) on dialysis ICD Code: N18.6 - End stage renal disease; Z99.2 - Dependence on renal dialysis Status: Chronic (3) HTN (hypertension) ICD Code: I10 - Essential (primary) hypertension Status: Chronic (4) Anemia in chronic kidney disease ICD Code: D63.1 - Anemia in chronic kidney disease; N18.9 - Anemia in chronic renal disease Status: Acute (5) Hypertension, benign ICD Code: I10 - Hypertension, benign Status: Acute Procedures Right brachial-brachial AV graft placement; preoperative arterial venous mapping, right upper extremity. Brief History - From Admission 67-year-old male with a significant past medical history and end-stage renal disease on dialysis presents to the emergency department for evaluation of a clotted AV fistula. The patient reports he has not had dialysis since Friday. He has multiple electrolyte disturbances. He reports that he was sent from dialysis today because they could not get his fistula to work. A right IJ Vas-Cath was placed by interventional radiology earlier today and the patient was urgently dialyzed. The patient denies any chest pain or shortness of breath. Denies abdominal pain. No nausea/vomiting/diarrhea. Is paraplegic at baseline without any new onset weakness. CBC/BMP: 01/22/18 0614 01/22/18 0614 Significant Findings Laboratory Tests Test 01/20/18 07:30 01/21/18 06:18 01/22/18 06:14 Red Blood Count 2.85 MIL/MM3 (4.50-5.90) 2.73 MIL/MM3 (4.50-5.90) 2.61 MIL/MM3 (4.50-5.90) Hemoglobin 8.9 GM/DL (13.0-17.0) 8.5 GM/DL (13.0-17.0) 8.4 GM/DL (13.0-17.0) Hematocrit 26.5 % (39.0-51.0) 25.2 % (39.0-51.0) 24.5 % (39.0-51.0) Mean Platelet Volume 6.9 FL (7.0-11.0) Neutrophils (%) (Auto) 78.9 % (16.0-70.0) 83.2 % (16.0-70.0) 80.4 % (16.0-70.0) Lymphocytes (%) (Auto) 8.9 % (9.0-44.0) 4.6 % (9.0-44.0) 8.2 % (9.0-44.0) Eosinophils (%) (Auto) 4.2 % (0.0-4.0) Lymphocytes # (Auto) 0.8 TH/MM3 (1.0-4.8) 0.4 TH/MM3 (1.0-4.8) 0.8 TH/MM3 (1.0-4.8) Blood Urea Nitrogen 72 MG/DL (7-18) 33 MG/DL (7-18) 44 MG/DL (7-18) Creatinine 11.70 MG/DL (0.60-1.30) 7.23 MG/DL (0.60-1.30) 9.00 MG/DL (0.60-1.30) Albumin 2.6 GM/DL (3.4-5.0) 3.1 GM/DL (3.4-5.0) 2.6 GM/DL (3.4-5.0) Calcium Level 8.0 MG/DL (8.5-10.1) 8.1 MG/DL (8.5-10.1) 8.1 MG/DL (8.5-10.1) Alkaline Phosphatase 178 U/L (45-117) 159 U/L (45-117) Aspartate Amino Transf (AST/SGOT) 12 U/L (15-37) 11 U/L (15-37) Alanine Aminotransferase (ALT/SGPT) 9 U/L (12-78) 8 U/L (12-78) Sodium Level 126 MEQ/L (136-145) 135 MEQ/L (136-145) 131 MEQ/L (136-145) Chloride Level 88 MEQ/L (98-107) 97 MEQ/L (98-107) 91 MEQ/L (98-107) Estimat Glomerular Filtration Rate 5 ML/MIN (>89) 9 ML/MIN (>89) 7 ML/MIN (>89) Monocytes (%) (Auto) 8.8 % (0.0-8.0) 8.2 % (0.0-8.0) Neutrophils # (Auto) 7.8 TH/MM3 (1.8-7.7) Imaging Last Impressions Catheter Placement X-Ray 01/19/18 0800 Signed Impressions: Service Date/Time: Friday, January 19, 2018 12:01 - CONCLUSION: Uncomplicated PermaCath placement as above. Abimael Hernandez MD Central Venous Line 01/19/18 0000 Signed Impressions: Service Date/Time: Friday, January 19, 2018 00:00 - CONCLUSION: Uncomplicated catheter removal. Abimael Hernandez MD Fistulagram 01/16/18 0000 Signed Impressions: Service Date/Time: Tuesday, January 16, 2018 09:43 - CONCLUSION: 1. 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 There is a large volume of thrombus with heterogeneous chronic thrombus and suspected central outflow stenosis/occlusion . The central massively dilated outflow vein could not be catheterized despite multiple attempts. A large suspected collateral cephalic vein is completely thrombosed. It is possible that this was the central outflow for the fistula following thrombosis of the massively aneurysmal outflow vein. The fistula is deemed not salvageable with endovascular technique. Abimael Hernandez MD PE at Discharge awake anicteric no nuchal rigidity no rales irregular rhythm abdomen- globular, soft, good bowel sounds Left UE- AV fistula- good bruit extremiteis- tr edema Pt update on day of discharge awake and alert no chest pain or shortness of breath Hospital Course 67 years old male 1. AV fistula thromboses Interventional radiology consulted to declot AV fistula possible Vascular surgery has been consulted and will attempt to do something on FRIDAY because of anticoagulation HAD RIGHT AV FISTULA CREATED ON 01-20 2. Electrolyte disturbances- improved - on HD 3. ESRD HAD PERMACATH PLACED ON RIGHT ON 01-19 4. History of CVA Patient with residual weakness, uses wheelchair 5. Atrial fibrillation- rate controlled on Eliquis and coreg 6. Hypertension/GERD/CAD Resume medications once reconciled 7. Schizophrenia Resume medications PATIENT HAS FUNCTIONAL QUADRIPLEGIA IN THE SETTING OF WHEELCHAIR BOUND AND RESIDUAL RIGHT SIDED WEAKNESS WHICH IS TREATED WITH TOTAL CARE. HAS RIGHT SIDED WEAKNESS FROM CVA IN 2013 AND IS WHEELCHAIR BOUND Discharge Planning - SNF today Pt Condition on Discharge: Stable Discharge Disposition: Discharge to SNF Discharge Time: > 30 minutes Discharge Instructions DIET: Follow Instructions for: Dialysis Diet Speech Therapy-Diet Recommends: Regular Activities you can perform: Weight Bearing as Erasto Follow up Referrals: Nephrology SNF/[facility] with [facility] Medications: Carvedilol (Coreg) 6.25 Mg Tab 6.25 MG PO Q12HR for afib for 30 Days, TAB Sevelamer Carbonate (Renvela) 800 Mg Tab 1600 MG PO TID for ESRD for 30 Days, TAB Continued Medications: Apixaban (Eliquis) 5 Mg Tab 5 MG PO BID for Blood Clot Prevention, #60 TAB 0 Refills Brimonidine Opth Drops (Alphagan P Opth Drops) 0.15% Soln 1 DROP EACH EYE HS for Intraocular pressure, #1 BOTTLE 0 Refills Chlorpromazine HCl (Chlorpromazine HCl) 25 Mg Tab 25 MG PO TID Cinacalcet (Sensipar) 30 Mg Tab 30 MG PO DAILY, #30 TAB 0 Refills With Dinner Diltiazem (Cardizem) 60 Mg Tab 120 MG PO TID for a fib, #90 TAB Ipratropium-Albuterol Neb (Duoneb) 0.5-2.5 Mg/3 Ml Neb 1 NEBULE INH Q4HR NEB PRN for SHORTNESS OF BREATH, #180 NEBULE 0 Refills Megestrol Liq (Megace Liq) 40 Mg/Ml Susp 400 MG PO DAILY for Improve Appetite, #30 ML 0 Refills Prochlorperazine Maleate (Prochlorperazine Maleate) 10 Mg Tab 10 MG PO Q6H PRN for NAUSEA OR VOMITING, TAB 0 Refills Saline (Sea Soft Nasal Mist) 0.65 % Spr 1 SPRAY EACH NARE BID Sennosides-Docusate Sodium (Senna S) 8.6-50 Mg Tab 2 TAB PO BID for Constipation Terazosin (Terazosin) 2 Mg Cap 2 MG PO HS, #30 CAP 0 Refills Vitamin B Cmplx/Vit C/Folic AC (Nephro-[place] Rx) 1 Tab 1 TAB PO DAILY, TAB Discontinued Medications: Diphenhydramine (Benadryl Allergy) 25 Mg Tab 25 MG PO Q8HR PRN for ITCHING, TAB 0 Refills Michael Ramirez MD Jan 22, 2018 18:23
== END 2018-01-22 18:20 | DRG 264 ==
LOC: NEPC 12:16 → NEDA 16:49 → HCIS 20:12
PROVIDERS: ADMIT Internal Medicine; ATTEND Internal Medicine
PROC: 05HM33Z Insertion of Infusion Device into Right Internal Jugular Vein, Percutaneous Approach (ICD-10-PCS; 2018-01-15)
PROC: 5A1D70Z Performance of Urinary Filtration, Intermittent, Less than 6 Hours Per Day (ICD-10-PCS; 2018-01-15)
PROC: B51WYZZ Fluoroscopy of Dialysis Shunt/Fistula using Other Contrast (ICD-10-PCS; 2018-01-16)
PROC: 05H533Z Insertion of Infusion Device into Right Subclavian Vein, Percutaneous Approach (ICD-10-PCS; 2018-01-19)
PROC: 03170JD Bypass Right Brachial Artery to Upper Arm Vein with Synthetic Substitute, Open Approach (ICD-10-PCS; principal; 2018-01-20 16:33)
DX: T82.868A Thrombosis due to vascular prosthetic devices, implants and grafts, initial encounter (principal); T86.12 Kidney transplant failure; R53.2 Functional quadriplegia; N18.6 End stage renal disease; E11.22 Type 2 diabetes mellitus with diabetic chronic kidney disease; I12.0 Hypertensive chronic kidney disease with stage 5 chronic kidney disease or end stage renal disease; I69.351 Hemiplegia and hemiparesis following cerebral infarction affecting right dominant side; E87.8 Other disorders of electrolyte and fluid balance, not elsewhere classified; I48.91 Unspecified atrial fibrillation; E87.1 Hypo-osmolality and hyponatremia; Y83.2 Surgical operation with anastomosis, bypass or graft as the cause of abnormal reaction of the patient, or of later complication, without mention of misadventure at the time of the procedure; D63.1 Anemia in chronic kidney disease; K21.9 Gastro-esophageal reflux disease without esophagitis; E78.00 Pure hypercholesterolemia, unspecified; T82.818A Embolism due to vascular prosthetic devices, implants and grafts, initial encounter; Z99.2 Dependence on renal dialysis; E87.5 Hyperkalemia; F32.9 Major depressive disorder, single episode, unspecified; F41.9 Anxiety disorder, unspecified; I25.10 Atherosclerotic heart disease of native coronary artery without angina pectoris; M10.9 Gout, unspecified; F20.9 Schizophrenia, unspecified; Y83.0 Surgical operation with transplant of whole organ as the cause of abnormal reaction of the patient, or of later complication, without mention of misadventure at the time of the procedure; N25.0 Renal osteodystrophy; H40.10X0 Unspecified open-angle glaucoma, stage unspecified; M19.90 Unspecified osteoarthritis, unspecified site; R00.0 Tachycardia, unspecified; Z79.01 Long term (current) use of anticoagulants; Z99.3 Dependence on wheelchair; Z95.5 Presence of coronary angioplasty implant and graft; Z87.891 Personal history of nicotine dependence
CPT/HCPCS: 36556; 36558; 36901; 76937; 77001; 80048; 80053; 80069; 83036; 83690; 83735; 84100; 84439; 84443; 85025; 85610; 85730; 90935; 93005; 96374; 96375; 99152; 99153; C1750; C1752; C1768; C1769; C1887; J0690; J1580; J1644; J2250; J2370; J2405; J2710; J2720; J3010; J3370; J7030; J7050; P9047; Q4081; Q9967